=== PATIENT | male | born 1950 | race Caucasian/White ===

== ENCOUNTER → 2017-11-06 | Outpatient (CLI) | payer MEDICARE, BC ==
--- NOTE | 2017-11-06 17:04 | PN ---
PROGRESS NOTE DATE OF SERVICE: 11/06/2017 67-year-old gentleman has been followed in the [facility] for treatment of obstructive sleep apnea-hypopnea syndrome. Patient continued to use CPAP equipment every night without significant problems. He lives by himself so no information about snoring. No sleepiness during the day. [place] Sleepiness Scale is 5. I checked his CPAP unit. CPAP pressure is 13 cm of water. Usage is out of 30 nights for more than 4 hours, which average usage is 7.2 hours. CPAP pressure is 13 cm of water. Leak is only 2 L/minute. Apnea-hypopnea index for the last month is 1.4, which is perfect. The patient is using Teena view fullface mask. MEDICATIONS: Neurontin, Diovan, hydrochlorothiazide, Crestor, omeprazole, Flonase, aspirin, Motrin. PHYSICAL EXAM: GENERAL Patient in no distress. VITAL SIGNS BP 165/76, HR 68, RR 16, height 5 feet 8 inches, weight 265, BMI 40.2, temperature 98.2, O2 saturation at room air 95%. Patient lost 13 pounds since last visit. HELAMAR PERRLA, EOMI, evaluation of oropharynx showed extremely low position of soft palate. NECK Supple, no JVD. Thyroid is not palpable. LUNGS Clear to percussion and to auscultation. Good air exchange. No wheezing or rhonchi. HEART S1, S2 regular. No murmurs, gallops, or rubs. ABDOMEN Soft and nontender. Bowel sounds are present. No organomegaly appreciated. EXTREMITIES Swelling of the ankles and patient is using support for both legs for Charcot disease. CAUSTIC STRENGTH INSPECTOR Awake, alert, and oriented X3. Cranial nerves 2 to 7 intact. There is no fasciculation or atrophy. noted. No focal deficits observed. IMPRESSION: 1. Obstructive sleep apnea-hypopnea syndrome. The patient demonstrated 100% compliance with treatment, normal breathing with CPAP, benefitting from treatment. No leak from the mask. 2. Obesity, patient lost about 13 pounds since previous visit. 3. Hypertension. 4. Hyperlipidemia. 5. Benign prostatic hypertrophy. 6. Peripheral neuropathy. 7. Charcot feet. 8. Status post nasal fracture. 9. Sick sinus problems. PLAN: 1. Continue treatment with CPAP every night. 2. Continue to lose weight. 3. Sleep hygiene with regular time in bed for at least 8 hours. 4. No driving if feeling sleepiness. 5. Prescription for all necessary CPAP supplies including mask Teena View, tube filters. 6. Followup visit in 1 year. Thank you very much for allowing me to participate in management of your patient. Sincerely, Antonio Kaufman MD, PhD, FAASM Diplomat of [place] [employer] [place] [employer] Coin Box Inspector of [facility] [place] MMODL / VYN: [id number] /
== END | disposition home or self-care (01) ==
LOC: SLEEP 15:24
PROVIDERS: ATTEND Internal Medicine
DX: G47.33 Obstructive sleep apnea (adult) (pediatric) (principal); E66.9 Obesity, unspecified; I10 Essential (primary) hypertension; M14.671 Charcot's joint, right ankle and foot; M14.672 Charcot's joint, left ankle and foot; G62.9 Polyneuropathy, unspecified; N40.0 Benign prostatic hyperplasia without lower urinary tract symptoms; E78.5 Hyperlipidemia, unspecified; J34.89 Other specified disorders of nose and nasal sinuses; Z79.1 Long term (current) use of non-steroidal anti-inflammatories (NSAID); Z99.89 Dependence on other enabling machines and devices; Z79.82 Long term (current) use of aspirin; Z79.899 Other long term (current) drug therapy; Z68.41 Body mass index [BMI] 40.0-44.9, adult

== ENCOUNTER → 2018-05-06 | Outpatient (CLI) | payer MEDICARE, BC ==
[2018-05-06 15:55] LABS: HCT 39.9 % (39.0-53.0); HGB 13.8 gm/dL (13.0-17.5); MCH 28.3 pg (25.0-35.0); MCHC 34.7 g/dL (31.0-37.0); MCV 81.6 fL (80.0-100.0); Mean Platelet Volume 7.1; Platelet Count 258 k/uL (150-450); RBC 4.89 m/uL (4.30-5.90); RDW 14.6 % (11.5-15.5); WBC 6.7 k/uL (3.8-10.6)
[2018-05-06 15:59] LABS: ALT 48 U/L (21-72); AST 40 U/L (17-59); Albumin 4.5 g/dL (3.5-5.0); Alkaline Phosphatase 66 U/L (38-126); Anion Gap 13 mmol/L; Blood Urea Nitrogen 18 mg/dL (9-20); Calcium 9.3 mg/dL (8.4-10.2); Carbon Dioxide 24 mmol/L (22-30); Chloride 102 mmol/L (98-107); Glucose 107 mg/dL (74-99); Potassium 4.1 mmol/L (3.5-5.1); Sodium 139 mmol/L (137-145); Total Bilirubin 0.3 mg/dL (0.2-1.3); Total Protein 7.5 g/dL (6.3-8.2)
== END | disposition home or self-care (01) ==
LOC: LABWHC1 15:34
PROVIDERS: ATTEND Thoracic Surgery (Cardiothoracic Vascular Surgery)
DX: E63.8 Other specified nutritional deficiencies (principal)
CPT/HCPCS: 36415; 80053; 84134; 85027

== ENCOUNTER 2018-12-06 13:17 | Emergency (ER) | payer MEDICARE, BC ==
[2018-12-06 13:30] VITALS: RESP 18
[2018-12-06] MEDS ORDERED: SODIUM CHLORIDE 0.9% 1,000 ML IV STA (14:31)
[2018-12-06] MEDS ORDERED: PIPERACILLIN-TAZOBACTAM 3.375 GM in SODIUM CHLORIDE 0.9% 100 ML IVPB SCH (14:45)
--- NOTE | 2018-12-06 15:16 | ED ---
General Adult HPI - General Chief complaint: Skin/Abscess/Foreign Body Stated complaint: Wound infection Time Seen by Provider: 12/06/18 13:59 Source: patient, RN notes reviewed, old records reviewed Mode of arrival: ambulatory Limitations: physical limitation - History of Present Illness Initial comments: 68-year-old male patient with long history of chronic right foot ulceration wounds, osteomyelitis presents to ED with erythema surrounding wound. Patient has reportedly been treating a foot ulcer off and on since approximately February 2018. Pt has reportedly been following up with Dr. Berumen and the wound clinic for this problem. Patient was last seen on November 25 at the wound clinic when cultures were taken. Patient has not been on antibiotics since that visit. Patient has been dressing his wound at home. Patient reports that the last 3 days he has experienced some erythema surrounding the wound, patient also reports some fevers and chills last night. Patient denies any new drainage from wound. Patient denies any nausea vomiting or diarrhea, or any other complaints. Systemic: Pt denies fatigue, myalgia, fever/chills, rash. Pt denies weakness, night sweats, weight loss. Neuro: Pt denies headache, visual disturbances, syncope or pre-syncope. HEENT: Pt denies ocular discharge or irritation, otalgia, rhinorrhea, pharyngitis or notable lymphadenopathy. Cardiopulmonary: Pt denies chest pain, SOB, heart palpitations, dyspnea on exertion. Abdominal/GI: Pt denies abdominal pain, n/v/d. : Pt denies dysuria, burning w/ urination, frequency/urgency. Denies new onset urinary or bowel incontinence. MSK: Pt denies myalgia, loss of strength or function in extremities. Neuro: Pt denies new onset weakness, paresthesias. - Related Data Home Medications Medication Instructions Recorded Confirmed Felodipine [Felodipine ER] 5 mg PO HS 11/15/15 12/06/18 Fluticasone Nasal [place] [Flonase 2 sprays NASAL BID 11/15/15 12/06/18 Nasal [place]] Multivitamin [Men's Multi-Vitamin] 1 cap PO DAILY 11/15/15 12/06/18 [place]-3 Fatty Acids [[place]-3] 1 cap PO DAILY 11/15/15 12/06/18 Omeprazole [PriLOSEC] 20 mg PO HS 11/15/15 12/06/18 Rosuvastatin Calcium [Crestor] 10 mg PO DAILY 11/15/15 12/06/18 Valsartan/Hydrochlorothiazide 1 tab PO BID 11/15/15 12/06/18 [Diovan Hct 160-12.5 mg Tab] Gabapentin [Neurontin] 100 mg PO QAM 05/27/16 12/06/18 Gabapentin [Neurontin] 200 mg PO HS 05/27/16 12/06/18 Cholecalciferol [Vitamin D3] 5,000 unit PO DAILY 08/20/16 12/06/18 Glucosam/Mark-Msm1/C/Bao/Bosw 3 tab PO DAILY 08/20/16 12/06/18 [Glucosamine-Chondroitin Tablet] Aspirin [Adult Low Dose Aspirin EC] 81 mg PO DAILY 04/28/17 12/06/18 Alfuzosin HCl [Uroxatral ER] 10 mg PO W/SUPPER 12/06/18 12/06/18 Diclofenac Sodium [Voltaren] 75 mg PO BID 12/06/18 12/06/18 Previous Rx's Medication Instructions Recorded Amoxicillin/Potassium Clav 1 each PO Q12HR #20 tab 12/06/18 [Augmentin 875-125 Tablet] Allergies Allergy/AdvReac Type Severity Reaction Status Date / Time dust, polllen, mold Allergy Cough Uncoded 12/06/18 13:30 Review of Systems ROS Statement: Those systems with pertinent positive or pertinent negative responses have been documented in the HPI. ROS Other: All systems not noted in ROS Statement are negative. Past Medical History Past Medical History: GERD/Reflux, Hyperlipidemia, Hypertension, Osteoarthritis (OA), Prostate Disorder, Sleep Apnea/CPAP/BIPAP Additional Past Medical History / Comment(s): neuropathy; rt.foot wound History of Any Multi-Drug Resistant Organisms: None Reported Past Surgical History: Joint Replacement, Orthopedic Surgery, Prostate Surgery Additional Past Surgical History / Comment(s): reconstruction of left foot 10 yrs ago. Rt shoulder screw placed. Rt total knee. Rt foot - plate and screws - Dr. Vera at [facility] 2012. LEFT FOOT AND RT FOOT surgeries inFEB AND FEBRUARY 2016. BY DR ESQUIVEL Past Anesthesia/Blood Transfusion Reactions: No Reported Reaction Past Psychological History: No Psychological Hx Reported Smoking Status: Former smoker Past Alcohol Use History: None Reported Past Drug Use History: None Reported - Past Family History Father Family Medical History: AICD/Pacemaker, Osteoarthritis (OA), Thyroid Disorder Mother Family Medical History: Cancer, Hypertension Additional Family Medical History / Comment(s): colon and ovarian General Exam - General Exam Comments Initial Comments: Constitutional: NAD, AOX3, Pt has pleasant affect. HEENT: NC/AT, trachea midline, neck supple, no lymphadenopathy. Posterior pharynx non erythematous, without exudates. External ears appear normal, without discharge. Mucous membranes moist. Eyes PERRLA, EOM intact. There is no scleral icterus. No pallor noted. Cardiopulmonary: RRR, no murmurs, rubs or gallops, no JVD noted. Lungs CTAB in anterior and posterior escalona. No peripheral edema. Abdominal exam: Abdomen soft and non-distended. Abdomen non-tender to palpation in all 4 quadrants. Bowel sounds active in LLQ. No hepatosplenomegaly. No ecchymosis Neuro: CN II-XII grossly intact. No nuchal rigidity. MSK: Approximately 2x2 cm ulceration noted at dorsal aspect of R foot. Mild amount of surrounding erythema. No purulent discharge noted. No posterior calf tenderness bilaterally, homans sign negative bilaterally. Posterior tibialis and radial pulse +2 bilaterally. Sensation intact in upper and lower extremities. Full active ROM in upper and lower extremities, 5/5 stregnth. Limitations: physical limitation Course Vital Signs 12/06/18 12/06/18 13:26 16:12 Temperature 98.9 F 97.6 F Pulse Rate 91 79 Respiratory 18 18 Rate Blood Pressure 185/77 167/79 O2 Sat by Pulse 97 98 Oximetry Medical Decision Making - Medical Decision Making 68-year-old male patient with long history of chronic right foot ulceration wounds, osteomyelitis presents to ED with erythema surrounding wound. Patient has reportedly been treating a foot ulcer off and on since approximately February 2018. Pt has reportedly been following up with Dr. Berumen and the wound clinic for this problem. Patient was last seen on November 25 at the wound clinic when cultures were taken. Patient has not been on antibiotics since that visit. Patient has been dressing his wound at home. Patient reports that the last 3 days he has experienced some erythema surrounding the wound, patient also reports some fevers and chills last night. Patient denies any new drainage from wound. Patient denies any nausea vomiting or diarrhea, or any other complaints. Pt VSS, afebrile. Physical exam displayed: Approximately 2x2 cm ulceration noted at dorsal aspect of R foot. Mild amount of surrounding erythema. No purulent discharge noted. Laboratory investigations revealed non- impressive CBC, CMP. Plain film of foot did not display any evidence of osteomyelitis. Displayed previously known foot fracture. Plain film of ankle displayed previoulsy known degenerative changes and fibular fracture. Cultures taken of wound previously displayed sensitivity to penicillins. New cultures obtained today. Shared decision making took place. Pt to be discharged with PO augmentin. Pt to follow up with wound clinic and Dr. Berumen tomorrow. Pt to have strict return precautions, verbalized understanding. Pt will return to ED if condition worsens in anyway. PT to additionally follow up with PCP in 1-2 days. Case discussed in depth with Dr. Baum. - Lab Data Result diagrams: 12/06/18 15:10 12/06/18 15:10 Lab Results 12/06/18 12/06/18 Range/Units 15:10 15:10 WBC 10.4 (3.8-10.6) k/uL RBC 4.87 (4.30-5.90) m/uL Hgb 12.7 L (13.0-17.5) gm/dL Hct 39.3 (39.0-53.0) % MCV 80.8 (80.0-100.0) fL MCH 26.0 (25.0-35.0) pg MCHC 32.2 (31.0-37.0) g/dL RDW 14.4 (11.5-15.5) % Plt Count 228 (150-450) k/uL Neutrophils % 79 % Lymphocytes % 11 % Monocytes % 7 % Eosinophils % 1 % Basophils % 0 % Neutrophils # 8.2 H (1.3-7.7) k/uL Lymphocytes # 1.2 (1.0-4.8) k/uL Monocytes # 0.7 (0-1.0) k/uL Eosinophils # 0.1 (0-0.7) k/uL Basophils # 0.0 (0-0.2) k/uL Sodium 140 (137-145) mmol/L Potassium 3.9 (3.5-5.1) mmol/L Chloride 102 (98-107) mmol/L Carbon Dioxide 27 (22-30) mmol/L Anion Gap 11 mmol/L BUN 18 (9-20) mg/dL Creatinine 0.80 (0.66-1.25) mg/dL Est GFR (CKD-EPI)AfAm >90 (>60 ml/min/1.73 sqM) Est GFR (CKD-EPI)NonAf >90 (>60 ml/min/1.73 sqM) Glucose 92 (74-99) mg/dL Calcium 9.6 (8.4-10.2) mg/dL Total Bilirubin 0.6 (0.2-1.3) mg/dL AST 33 (17-59) U/L ALT 37 (21-72) U/L Alkaline Phosphatase 83 (38-126) U/L Total Protein 7.8 (6.3-8.2) g/dL Albumin 4.4 (3.5-5.0) g/dL Disposition Clinical Impression: Foot ulcer Disposition: HOME SELF-CARE Condition: Stable Instructions (If sedation given, give patient instructions): Chronic Wound Care (ED), Chronic Wounds (ED) Additional Instructions: Patient to adhere to previously discussed treatment plan and will take medication(s) as directed. Patient to follow up with PCP in 1-2 days. Patient to return to ED if symptoms do not improve. Please call wound clinic tomorrow Please follow call Dr. Figueredo tomorrow Please return to ED if new ssigns or symptom develop or if condition worsens in anyway Prescriptions: Amoxicillin/Potassium Clav [Augmentin 875-125 Tablet] 1 each PO Q12HR #20 tab Is patient prescribed a controlled substance at d/c from ED?: No Referrals: Juani Nation MD [Primary Care Provider] - 1-2 days Cole Figueredo DO [Doctor of Osteopathic Medicine] - 1-2 days Time of Disposition: 16:36
[2018-12-06 15:26] LABS: Basophils % (A) 0 %; Eosinophils # (A) 0.1 k/uL (0-0.7); Eosinophils % (A) 1 %; HCT 39.3 % (39.0-53.0); HGB 12.7 gm/dL (13.0-17.5); Lymphocytes # (A) 1.2 k/uL (1.0-4.8); Lymphocytes % (A) 11 %; MCHC 32.2 g/dL (31.0-37.0); MCV 80.8 fL (80.0-100.0); Mean Platelet Volume 7.5; Monocytes # (A) 0.7 k/uL (0-1.0); Monocytes % (A) 7 %; Neutrophils # (A) 8.2 k/uL (1.3-7.7); Neutrophils % (A) 79 %; Platelet Count 228 k/uL (150-450); RBC 4.87 m/uL (4.30-5.90); RDW 14.4 % (11.5-15.5); WBC 10.4 k/uL (3.8-10.6)
[2018-12-06 15:37] LABS: ALT 37 U/L (21-72); AST 33 U/L (17-59); Albumin 4.4 g/dL (3.5-5.0); Alkaline Phosphatase 83 U/L (38-126); Anion Gap 11 mmol/L; Blood Urea Nitrogen 18 mg/dL (9-20); Calcium 9.6 mg/dL (8.4-10.2); Carbon Dioxide 27 mmol/L (22-30); Chloride 102 mmol/L (98-107); Glucose 92 mg/dL (74-99); Potassium 3.9 mmol/L (3.5-5.1); Sodium 140 mmol/L (137-145); Total Bilirubin 0.6 mg/dL (0.2-1.3); Total Protein 7.8 g/dL (6.3-8.2)
--- NOTE | 2018-12-06 15:39 | XR ---
EXAMINATION TYPE: XR ankle complete RT DATE OF EXAM: 12/06/2018 COMPARISON: None HISTORY: Nonhealing wound superior aspect right foot history right fibular fracture TECHNIQUE: 3 views right ankle FINDINGS: Arthrodesis through the ankle is evident. 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 There is loss of plantar arch. Boehler's angle is flattened. IMPRESSION: 1. Severe degenerative change at the level of the ankle with loss of the joint space. 2. Nonunion of a distal fibular fracture.
--- NOTE | 2018-12-06 15:43 | XR ---
EXAMINATION TYPE: XR foot complete RT DATE OF EXAM: 12/06/2018 COMPARISON: 11/15/2015 HISTORY: history of a nonhealing wound TECHNIQUE: Three-view right foot FINDINGS: Plate and screws are across the tarsal regions of the first metatarsal region. Prior screws have been removed. There is flattening of the plantar arch. Fusion through the tarsal region. Acute fractures are not identified. Suspicious cortical erosion is not identified. IMPRESSION: 1. No specific radiographic evidence suspicious for osteomyelitis. 2. Nonunion of a distal fibular fracture.
[2018-12-06] MEDS ORDERED: PIPERACILLIN-TAZOBACTAM 3.375 GM in SODIUM CHLORIDE 0.9% 100 ML IVPB STA (15:48)
[2018-12-06 16:13] VITALS: BP 167/79; PULSE 79; TEMP 97.6
[2018-12-06] MEDS ORDERED: AMOXIC-POT CLAV 875-125MG 1 EACH TAB PO STA (16:27)
[2018-12-06] MEDS ORDERED: AMOXIC-POT CLAV 875MG STARTER 2 EACH TABLET PO STA (16:33)
== END 2018-12-06 16:50 | disposition home or self-care (01) ==
LOC: EC 13:17
DX: L97.519 Non-pressure chronic ulcer of other part of right foot with unspecified severity (principal); M19.071 Primary osteoarthritis, right ankle and foot; K21.9 Gastro-esophageal reflux disease without esophagitis; I10 Essential (primary) hypertension; G47.30 Sleep apnea, unspecified; G62.9 Polyneuropathy, unspecified; Z79.51 Long term (current) use of inhaled steroids; Z79.82 Long term (current) use of aspirin; Z79.899 Other long term (current) drug therapy; Z91.018 Allergy to other foods; Z91.09 Other allergy status, other than to drugs and biological substances; Z87.891 Personal history of nicotine dependence
CPT/HCPCS: 36415; 80053; 85025; 87040; 87070; 87205; 73610; 73630; 99284; 96374; 96361 ×2; J2543

== ENCOUNTER → 2019-03-17 | Outpatient (CLI) | payer MEDICARE, BC ==
--- NOTE | 2019-03-17 14:33 | SFUN ---
SLEEP CENTER FOLLOW UP NOTE DATE OF SERVICE: 03/17/2019 A 68-year-old gentleman who has been followed in the Sleep Center for treatment of obstructive sleep apnea-hypopnea syndrome. Patient continued to use his CPAP equipment every night with oral appliances to prevent grinding teeth. [place] Sleepiness Scale today is 10. I checked his CPAP unit. CPAP pressure is 13 cm of water. Usage is 100% of the night, 30/30 more than 4 hours. Average usage is 7.4 hours. CPAP pressure is 13 cm of water. Leak is only 7 L/minutes which is perfect. Apnea-hypopnea index only 1.2, which is absolutely normal with the last night on the 0.5. MEDICATIONS: Diovan, amlodipine, Neurontin, felodipine, Crestor, Diclofenac, omeprazole, , baby aspirin, Clindamycin. PHYSICAL EXAM: Patient in no distress. BP 154/66, HR 52, RR 18, height 5 foot 8 inches, weight 266 pounds. Body mass index 40.2, temperature 97.5, oxygen saturation at room air 97%. OROPHARYNX: Extremely low soft palate, Mallampati 4. ABDOMEN: Obese. Neck Supple, no JVD. Thyroid is not palpable. LUNGS Clear to percussion and to auscultation. Good air exchange. No wheezing or rhonchi. HEART S1, S2 regular. No murmurs, gallops, or rubs. EXTREMITIES No clubbing or cyanosis. CYBER ENGINEER Awake, alert, and oriented X3. Cranial nerves 2 to 7 intact. There is no fasciculation or atrophy. noted. No focal deficits observed. IMPRESSION: 1. Obstructive sleep apnea-hypopnea syndrome, 100% compliance with treatment, benefitting from treatment, normal respiration on treatment with CPAP. 2. Obesity. 3. Hypertension. 4. Hyperlipidemia. 5. History of benign prostatic hypertrophy. 6. History of peripheral neuropathy. 7. History of Charcot feet. 8. Status post nasal fracture. 9. Allergies, sinus problems. PLAN: 1. We will maintain all necessary prescriptions for all CPAP supplies including mask, tube, filters. 2. Losing weight. 3. Sleep hygiene with regular time in bed for at least 8 hours. 4. No driving if feeling sleepiness. Thank you very much for allowing me to participate in the management of your patient. Sincerely, Antonio Kaufman MD, PhD, FAASM Diplomat of [place] [employer] [place] [employer] Tree Worker of [facility] [place] MMPOLYL / VYN: [id number] /
== END ==
LOC: SLEEP 13:08
PROVIDERS: ATTEND Internal Medicine
DX: G47.33 Obstructive sleep apnea (adult) (pediatric) (principal); E66.9 Obesity, unspecified; I10 Essential (primary) hypertension; E78.5 Hyperlipidemia, unspecified; N40.0 Benign prostatic hyperplasia without lower urinary tract symptoms; G62.9 Polyneuropathy, unspecified; M14.671 Charcot's joint, right ankle and foot; Z98.890 Other specified postprocedural states; Z88.8 Allergy status to other drugs, medicaments and biological substances; Z99.89 Dependence on other enabling machines and devices; Z79.899 Other long term (current) drug therapy; Z79.82 Long term (current) use of aspirin; Z79.2 Long term (current) use of antibiotics

== ENCOUNTER → 2020-08-24 | Outpatient (CLI) | payer MEDICARE, BC ==
--- NOTE | 2020-08-24 18:37 | SFUN ---
SLEEP CENTER FOLLOW UP NOTE DATE OF SERVICE: 08/24/2020 This patient is a 70-year-old gentleman who has been followed in Sleep Center for treatment of obstructive sleep apnea-hypopnea syndrome. Patient continues to use his CPAP equipment every night for the whole night. No problems with the machine. He sometimes wakes up from sleep with nocturia. I checked his CPAP unit. CPAP pressure is 13 cm of water. Usage is 100% of nights for more than 4 hours, average 7.4 hours per night. No significant leak; 5 L/minute. Apnea- hypopnea index is only 1.4, which is perfect. MEDICATIONS: 1. Diovan 160 mg twice a day. 2. Felodipine 5 mg twice a day. 3. Hydralazine 50 mg twice a day. 4. Diclofenac 75 mg twice a day. 5. Gabapentin 100 mg in the morning and 300 mg in the evening. 6. Crestor 10 mg once a day. 7. Omeprazole 20 mg once a day. 8. 20 mg once a day. 9. Aspirin 81 mg once a day. PHYSICAL EXAMINATION: GENERAL: A pleasant gentleman without distress. VITAL SIGNS: BP 159/70, HR 53, RR 15, height 5 feet 6-1/2 inches, weight 264.6, temperature 98.2, oxygen saturation at room air 96%. HEENT: PERRLA, EOMI. Evaluation of oropharynx showed tongue protrudes midline. Extremely low position of soft palate. Mallampati IV. NECK: Supple. No JVD. Thyroid is not palpable. LUNGS: Clear to percussion and to auscultation. Good air exchange. No wheezing or rhonchi. HEART: S1, S2 regular. No murmurs, gallops or rubs. ABDOMEN: Obese. EXTREMITIES: No clubbing or cyanosis. CUSTOMER MANAGEMENT SPECIALIST: Awake, alert, and oriented X3. Cranial nerves 2 to 7 intact. There is no fasciculation or atrophy. noted. No focal deficits observed. IMPRESSION: 1. Obstructive sleep apnea-hypopnea syndrome. Patient demonstrated great compliance with treatment, benefitting from treatment. 2. Hypertension. 3. Obesity. 4. Hyperlipidemia. 5. History of benign prostatic hypertrophy. 6. History of peripheral neuropathy. 7. History of Charcot feet. 8. Status post nasal fracture. 9. History of allergies, sinus problems. PLAN: 1. Patient will continue to use PAP equipment every night for the whole night. 2. Sleep hygiene with regular time in bed for at least 7-1/2 to 8 hours. 3. Precautions related to driving. No driving if feeling sleepiness. 4. I will maintain all necessary prescription for PAP supplies including mask, tube, filters. 5. Watching weight. 6. No driving if feeling sleepiness. 7. Follow-up visit in 6 months or earlier if patient has any problems. Thank you very much for allowing me to participate in the management of your patient. Sincerely, Antonio Kaufman MD, PhD, FAASM Diplomat of [place] [employer] [employer] Sheet Metal Apprentice of [facility] [place] MMODL / IJN: [id number] /
== END | disposition home or self-care (01) ==
LOC: SLEEP 15:02
PROVIDERS: ATTEND Internal Medicine
DX: G47.33 Obstructive sleep apnea (adult) (pediatric) (principal); I10 Essential (primary) hypertension; E66.9 Obesity, unspecified; E78.5 Hyperlipidemia, unspecified; Z87.39 Personal history of other diseases of the musculoskeletal system and connective tissue; Z79.899 Other long term (current) drug therapy; Z79.82 Long term (current) use of aspirin; Z79.891 Long term (current) use of opiate analgesic; Z87.81 Personal history of (healed) traumatic fracture; Z87.09 Personal history of other diseases of the respiratory system

== ENCOUNTER → 2021-02-22 | Outpatient (CLI) | payer MEDICARE, BC ==
--- NOTE | 2021-02-22 16:30 | SFUN ---
SLEEP CENTER FOLLOW UP NOTE DATE OF SERVICE: 02/22/2021 This 70-year-old gentleman has been followed in Sleep Center for treatment of obstructive sleep apnea-hypopnea syndrome. The patient continues to use his CPAP equipment every night. Sometimes he has a leak from his full-face mask, and that may wake him up. He is using an Teena View full-face mask [id number], medium size. Otherwise he definitely sleeps better with the machine than without the machine. Again, he uses it every night. He is getting his supplies on time. I checked his CPAP unit. Pressure is 13 cm of water. Usage is 30/30 nights for more than 4 hours. Average usage is 7.7 hours per night. Leak is 7 L/minute, which is in normal range. Apnea-hypopnea index is 1.2, which is normal. [place] Sleepiness Scale today is 7. MEDICATIONS: 1. Diovan 160 mg twice a day. 2. Felodipine 5 mg twice a day. 3. Hydralazine 50 mg twice a day. 4. Diclofenac 75 mg twice a day. 5. Gabapentin 100 mg once a day and 300 mg in the evening. 6. Crestor 10 mg in the evening once a day. 7. Omeprazole 20 mg once a day. 8. Alfuzosin mg once a day. 9. Aspirin 81 mg once a day. PHYSICAL EXAMINATION: GENERAL: A pleasant patient in no distress. VITAL SIGNS: BP 155/65, HR 60, RR 15, height 5 feet 6 inches, weight 258.6 pounds. Patient lost 8 pounds since previous visit. Body mass index 41.8. Temperature 97.1. Oxygen saturation at room air 92%. HEENT: PERRLA, EOMI. Evaluation of oropharynx showed tongue protrudes midline. Extremely low position of soft palate. Mallampati IV. NECK: Supple. No JVD. Thyroid is not palpable. LUNGS: Clear to percussion and to auscultation. Good air exchange. No wheezing or rhonchi. HEART: S1, S2 regular. No murmurs, gallops or rubs. ABDOMEN: Obese. EXTREMITIES: No clubbing or cyanosis. FARM OPERATIONS MANAGER: Awake, alert, and oriented X3. Cranial nerves 2 to 7 intact. There is no fasciculation or atrophy. noted. No focal deficits observed. IMPRESSION: 1. Obstructive sleep apnea-hypopnea syndrome. The patient demonstrated 100% compliance with treatment, benefitting from treatment. 2. Obesity. 3. Hypertension. 4. Hyperlipidemia. 5. Benign prostatic hypertrophy. 6. Peripheral neuropathy. 7. Charcot feet. 8. Status post nasal fracture. 9. History of sick sinus problems. PLAN: 1. I changed the regimen in his CPAP unit to automatic, range of pressure 8 to 13. I believe that will make the patient more comfortable. 2. Patient will continue to use PAP equipment every night for the whole night. 3. Sleep hygiene with regular time in bed for at least 7-1/2 to 8 hours. 4. Precautions related to driving. No driving if feeling sleepiness. 5. I will maintain all necessary prescription for PAP supplies including mask, tube, filters. 6. Watching weight. 7. Follow-up visit in 6 months or earlier if patient has any problems. Thank you very much for allowing me to participate in the management of your patient. Sincerely, Antonio Kaufman MD, PhD, FAASM Diplomat of [place] [employer] [employer] Hand Mold Maker of [facility] [place] MMODL / VYN: [id number] /
== END ==
LOC: SLEEP 13:50
PROVIDERS: ATTEND Internal Medicine
DX: G47.33 Obstructive sleep apnea (adult) (pediatric) (principal); E66.9 Obesity, unspecified; I10 Essential (primary) hypertension; E78.5 Hyperlipidemia, unspecified; A52.16 Charcot's arthropathy (tabetic); N40.0 Benign prostatic hyperplasia without lower urinary tract symptoms; G62.9 Polyneuropathy, unspecified; Z68.41 Body mass index [BMI] 40.0-44.9, adult; Z87.81 Personal history of (healed) traumatic fracture; Z87.09 Personal history of other diseases of the respiratory system; Z79.899 Other long term (current) drug therapy; Z87.891 Personal history of nicotine dependence

== ENCOUNTER → 2021-08-30 | Outpatient (CLI) | payer MEDICARE, BC ==
--- NOTE | 2021-08-30 15:15 | SFUN ---
SLEEP CENTER FOLLOW UP NOTE DATE OF SERVICE: 08/30/2021 71-year-old gentleman has been followed in Sleep Center for treatment of obstructive sleep apnea-hypopnea syndrome. Recently, the patient also developed some problems with falling asleep, staying in bed and thinking about life. [place] Sleepiness Scale today is 7 which is in normal range. I checked his CPAP unit. Range of the pressure 8-13, average pressure 12.3. Usage is 30/30 nights for 7.8 hours, which is great compliance. Leak is only 5 L/minute normal. Apnea-hypopnea index is 2.0, normal. MEDICATIONS: Diovan 160 mg twice a day, felodipine 5 mg twice a day. Hydralazine 50 mg twice a day, Diclofenac 75 mg twice a day. Gabapentin 100 mg in the morning and 300 mg in the evening, omeprazole 20 mg once a day, Crestor 10 mg once a day, 10 mg once a day, aspirin 81 mg once a day. PHYSICAL EXAMINATION: GENERAL: Patient in no distress. BP 147/67, HR 64, RR 15, height 5 feet and 7 inches, weight 255 pounds, body mass index 39.9. The patient increased his weight on 3 pounds compared with the previous visit. Temperature 97.4, oxygen saturation at room air 95%. Oropharynx: Extremely low position of soft palate, Mallampati 4. NECK: Supple, no JVD. Thyroid is not palpable. LUNGS: Clear to percussion and to auscultation. Good air exchange. No wheezing or rhonchi. HEART: S1, S2 regular. No murmurs, gallops, or rubs. ABDOMEN: Slightly obese. Soft and nontender. Bowel sounds are present. No organomegaly appreciated. EXTREMITIES: No clubbing or cyanosis. DIRECTOR NURSES' REGISTRY: Awake, alert, and oriented X3. Cranial nerves 2 to 7 intact. There is no fasciculation or atrophy. noted. No focal deficits observed. IMPRESSION: 1. Obstructive sleep apnea-hypopnea syndrome, patient demonstrated 100% compliance with treatment, benefitting from treatment. 2. Difficulties to initiate sleep, psychophysiological insomnia. 3. Obesity. 4. Hypertension. 5. Hyperlipidemia. 6. Benign prostatic hypertrophy. 7. Peripheral neuropathy. 8. Charcot feet. 9. Status post nasal fracture. 10.History of sick sinus. PLAN: 1. I discussed with the patient psychological techniques for treatment of insomnia including worry time, stimulus control, paradoxical intention. 2. I discussed with the patient possibility to start any sleeping pills at bedtime but we agreed that it is not necessary at the present time. 3. Patient will continue to use PAP equipment every night for the whole night. 4. Sleep hygiene with regular time in bed for at least 7-1/2 to 8 hours. 5. Precautions related to driving. No driving if feeling sleepiness. 6. I will maintain all necessary prescription for PAP supplies including mask, tube, filters. 7. Watching weight. 8. Follow-up visit in 6 months or earlier if patient has any problems. Antonio Kaufman MD, PhD, FAASM Diplomat of [employer] Sleep Medicine [employer] of [employer] [place] [employer] Dental Laboratory Worker of [facility] [place] MMWILLIAM / AMAYA: [id number] /
== END ==
LOC: SLEEP 13:39
PROVIDERS: ATTEND Internal Medicine
DX: G47.33 Obstructive sleep apnea (adult) (pediatric) (principal); F51.04 Psychophysiologic insomnia; E66.9 Obesity, unspecified; I10 Essential (primary) hypertension; E78.5 Hyperlipidemia, unspecified; N40.0 Benign prostatic hyperplasia without lower urinary tract symptoms; G62.9 Polyneuropathy, unspecified; A52.16 Charcot's arthropathy (tabetic); Z87.81 Personal history of (healed) traumatic fracture; Z86.79 Personal history of other diseases of the circulatory system; Z79.899 Other long term (current) drug therapy; Z68.39 Body mass index [BMI] 39.0-39.9, adult; Z91.09 Other allergy status, other than to drugs and biological substances; Z87.891 Personal history of nicotine dependence

== ENCOUNTER 2021-09-13 11:21 | Inpatient (IN) | payer BC, MEDICARE ==
[2021-09-13] MEDS ORDERED: ONDANSETRON ODT 4 MG TAB PO STA (12:57)
[2021-09-13] MEDS ORDERED: PANTOPRAZOLE 40 MG/10 ML VIAL IVP STA (15:16)
[2021-09-13] MEDS ORDERED: ONDANSETRON 4 MG/2 ML VIAL IVP STA (15:16)
[2021-09-13] MEDS ORDERED: SODIUM CHLORIDE 0.9% 500 ML 500 ML IV STA (15:16)
--- NOTE | 2021-09-13 15:24 | ED ---
General Adult HPI - General Chief complaint: Abdominal Pain Stated complaint: Abdominal Pain/Vomiting Time Seen by Provider: 09/13/21 15:12 Source: patient, RN notes reviewed, old records reviewed Mode of arrival: ambulatory Limitations: no limitations - History of Present Illness Initial comments: 71-year-old male, alert and oriented 4, presents to the emergency room with nausea and vomiting that started last night around 11:00. Patient states that his last bowel movement was 4 AM he did not look at it. His emesis has been dark in color. He has not had his daily medications in more than 30 hours because of the nausea and vomiting. He also states he has had a runny nose but denies any chest pain or shortness of breath. He does state that he had an umbilical hernia repair surgery June 25 of [address] Ramirez out of [facility]. He has a history of GERD and takes omeprazole. He also has hypertension and osteoarthritis. He states that he takes an aspirin a day. He denies any cardiac or pulmonary history. He states that he is using a scooter for a foot ulcer on his left foot that is not healing. -: hour(s) (14) Location: abdomen (Strict) Radiation: abdomen (lower abdomen) Severity scale (1-10): 8 Quality: other (cramping) Consistency: constant Improves with: none Worsens with: other (vomiting) Associated Symptoms: nausea/vomiting, other (runny nose, belching) Treatments Prior to Arrival: none - Related Data Home Medications Medication Instructions Recorded Confirmed Felodipine [Felodipine ER] 5 mg PO BID 11/15/15 09/13/21 Omeprazole [PriLOSEC] 20 mg PO HS 11/15/15 09/13/21 Rosuvastatin Calcium [Crestor] 10 mg PO HS 11/15/15 09/13/21 Gabapentin [Neurontin] 300 mg PO HS 05/27/16 09/13/21 Aspirin [Adult Low Dose Aspirin EC] 81 mg PO DAILY 04/28/17 09/13/21 Alfuzosin HCl [Uroxatral ER] 10 mg PO W/SUPPER 12/06/18 09/13/21 Diclofenac Sodium [Voltaren] 75 mg PO BID 12/06/18 09/13/21 Gabapentin [Neurontin] 100 mg PO DAILY 09/13/21 09/13/21 Valsartan 160 mg PO BID 09/13/21 09/13/21 hydrALAZINE HCL [Apresoline] 50 mg PO BID 09/13/21 09/13/21 Allergies Allergy/AdvReac Type Severity Reaction Status Date / Time dust, polllen, mold Allergy Cough Uncoded 09/13/21 15:45 Review of Systems ROS Statement: Those systems with pertinent positive or pertinent negative responses have been documented in the HPI. ROS Other: All systems not noted in ROS Statement are negative. Past Medical History Past Medical History: GERD/Reflux, Hyperlipidemia, Hypertension, Osteoarthritis (OA), Prostate Disorder, Sleep Apnea/CPAP/BIPAP Additional Past Medical History / Comment(s): neuropathy; rt.foot wound History of Any Multi-Drug Resistant Organisms: None Reported Past Surgical History: Hernia Repair, Joint Replacement, Orthopedic Surgery, Prostate Surgery Additional Past Surgical History / Comment(s): reconstruction of left foot 10 yrs ago. Rt shoulder screw placed. Rt total knee. Rt foot - plate and screws- Dr. Vera at [place] 2012. LEFT FOOT AND RT FOOT surgeries inFEB AND FEBRUARY 2016. BY DR ESQUIVEL Past Anesthesia/Blood Transfusion Reactions: No Reported Reaction Past Psychological History: No Psychological Hx Reported Smoking Status: Never smoker Past Alcohol Use History: None Reported Past Drug Use History: None Reported - Past Family History Father Family Medical History: AICD/Pacemaker, Osteoarthritis (OA), Thyroid Disorder Mother Family Medical History: Cancer, Hypertension Additional Family Medical History / Comment(s): colon and ovarian General Exam Limitations: no limitations General appearance: alert, other (actively vomiting brown in color) Head exam: Present: atraumatic, normocephalic, normal inspection Eye exam: Present: normal appearance, PERRL, EOMI. Absent: scleral icterus, con junctival injection, periorbital swelling ENT exam: Present: normal exam Neck exam: Present: full ROM. Absent: tenderness, meningismus Respiratory exam: Present: normal lung sounds bilaterally. Absent: respiratory distress, wheezes, rales, rhonchi, stridor, chest wall tenderness, accessory muscle use, decreased breath sounds Cardiovascular Exam: Present: regular rate, normal rhythm GI/Abdominal exam: Present: soft, distended, tenderness (generalized), hernia (umbilical) Extremities exam: Present: full ROM, normal capillary refill. Absent: te nderness, pedal edema, joint swelling, calf tenderness Back exam: Present: normal inspection. Absent: tenderness, CVA tenderness (R), CVA tenderness (L), rash noted Neurological exam: Present: alert, oriented X3 Psychiatric exam: Present: normal affect, normal mood Skin exam: Present: warm, dry, intact, normal color, other (There is a healing blister to the left lateral foot with no purulent drainage or signs cellulitis.). Absent: rash, cyanosis, diaphoretic Course Vital Signs 09/13/21 09/13/21 12:39 16:28 Temperature 99.7 F H 98.6 F Pulse Rate 84 68 Respiratory 17 18 Rate Blood Pressure 170/78 183/83 O2 Sat by Pulse 96 98 Oximetry - Reevaluation(s) Reevaluation #1: 09/13/21 15:23 Dr. Beltran at bedside Time: 15:18 Reevaluation #2: 09/13/21 16:28 Second EKG shows normal sinus rhythm with a ventricular rate of 65, AR interval of 0.188, QRS 0.96, QTC 0.445 Third EKG shows ventricular rate of 66, AR interval of 0.182, QRS 0.92, QTC 0.446 EKG is reviewed by Dr. Beltran Time: 15:24 Reevaluation #3: 09/13/21 16:51 I did speak with Dr. Paredes, patient was started on Zosyn, NG tube was ordered. patient will be admitted with small bowel obstruction Time: 16:51 EKG Findings - EKG Results: EKG: sinus rhythm (EKG number one time at 1254 shows normal sinus rhythm with a ventricular rate of 68, AR interval 0.200, QRS 0.98, QTc 0.463) Medical Decision Making - Medical Decision Making Patient presents to the emergency room with complaints of abdominal pain and vomiting since yesterday. He states it came on suddenly around 11pm. His last bowel movement was 4 AM. He has belching and vomiting what appears to be feces. He does have an elevated WBC count of 16.9, his abdomen is distended with generalized tenderness. CT shows a complete small bowel obstruction. Case was discussed with Dr. Beltran. He was started on Zosyn. Dr. Paredes was notified patient will be admitted to the hospital for small bowel obstruction. Patient was offered the possible transfer to [facility] or to stay here and he opted to stay here. - Lab Data Result diagrams: 09/13/21 15:34 09/13/21 15:34 Lab Results 09/13/21 09/13/21 09/13/21 Range/Units 15:34 15:34 15:34 WBC 16.9 H (3.8-10.6) k/uL RBC 5.44 (4.30-5.90) m/uL Hgb 16.4 (13.0-17.5) gm/dL Hct 48.9 (39.0-53.0) % MCV 89.9 (80.0-100.0) fL MCH 30.2 (25.0-35.0) pg MCHC 33.6 (31.0-37.0) g/dL RDW 12.6 (11.5-15.5) % Plt Count 280 (150-450) k/uL MPV 8.0 Neutrophils % 92 % Lymphocytes % 4 % Monocytes % 4 % Eosinophils % 0 % Basophils % 0 % Neutrophils # 15.5 H (1.3-7.7) k/uL Lymphocytes # 0.6 L (1.0-4.8) k/uL Monocytes # 0.6 (0-1.0) k/uL Eosinophils # 0.1 (0-0.7) k/uL Basophils # 0.0 (0-0.2) k/uL PT 10.6 (9.0-12.0) sec INR 1.0 (<1.2) APTT 22.9 (22.0-30.0) sec Sodium 140 (137-145) mmol/L Potassium 4.3 (3.5-5.1) mmol/L Chloride 102 (98-107) mmol/L Carbon Dioxide 25 (22-30) mmol/L Anion Gap 13 mmol/L BUN 20 (9-20) mg/dL Creatinine 0.70 (0.66-1.25) mg/dL Est GFR (CKD-EPI)AfAm >90 (>60 ml/min/1.73 sqM) Est GFR (CKD-EPI)NonAf >90 (>60 ml/min/1.73 sqM) Glucose 139 H (74-99) mg/dL Plasma Lactic Acid Maximino (0.7-2.0) mmol/L Calcium 9.9 (8.4-10.2) mg/dL Total Bilirubin 0.5 (0.2-1.3) mg/dL AST 35 (17-59) U/L ALT 30 (4-49) U/L Alkaline Phosphatase 105 (38-126) U/L Troponin I (0.000-0.034) ng/mL Total Protein 8.7 H (6.3-8.2) g/dL Albumin 5.0 (3.5-5.0) g/dL Amylase 50 (30-110) U/L Lipase 83 (23-300) U/L 09/13/21 09/13/21 Range/Units 15:34 15:34 WBC (3.8-10.6) k/uL RBC (4.30-5.90) m/uL Hgb (13.0-17.5) gm/dL Hct (39.0-53.0) % MCV (80.0-100.0) fL MCH (25.0-35.0) pg MCHC (31.0-37.0) g/dL RDW (11.5-15.5) % Plt Count (150-450) k/uL MPV Neutrophils % % Lymphocytes % % Monocytes % % Eosinophils % % Basophils % % Neutrophils # (1.3-7.7) k/uL Lymphocytes # (1.0-4.8) k/uL Monocytes # (0-1.0) k/uL Eosinophils # (0-0.7) k/uL Basophils # (0-0.2) k/uL PT (9.0-12.0) sec INR (<1.2) APTT (22.0-30.0) sec Sodium (137-145) mmol/L Potassium (3.5-5.1) mmol/L Chloride (98-107) mmol/L Carbon Dioxide (22-30) mmol/L Anion Gap mmol/L BUN (9-20) mg/dL Creatinine (0.66-1.25) mg/dL Est GFR (CKD-EPI)AfAm (>60 ml/min/1.73 sqM) Est GFR (CKD-EPI)NonAf (>60 ml/min/1.73 sqM) Glucose (74-99) mg/dL Plasma Lactic Acid Maximino 1.8 (0.7-2.0) mmol/L Calcium (8.4-10.2) mg/dL Total Bilirubin (0.2-1.3) mg/dL AST (17-59) U/L ALT (4-49) U/L Alkaline Phosphatase (38-126) U/L Troponin I <0.012 (0.000-0.034) ng/mL Total Protein (6.3-8.2) g/dL Albumin (3.5-5.0) g/dL Amylase (30-110) U/L Lipase (23-300) U/L Disposition Clinical Impression: Small bowel obstruction Disposition: ADMITTED IP TO THIS [facility] Condition: Fair Decision Date: 09/13/21 Decision Time: 16:53
[2021-09-13 15:49] LABS: Basophils % (A) 0 %; Eosinophils # (A) 0.1 k/uL (0-0.7); Eosinophils % (A) 0 %; HCT 48.9 % (39.0-53.0); HGB 16.4 gm/dL (13.0-17.5); Lymphocytes # (A) 0.6 k/uL (1.0-4.8); Lymphocytes % (A) 4 %; MCH 30.2 pg (25.0-35.0); MCHC 33.6 g/dL (31.0-37.0); MCV 89.9 fL (80.0-100.0); Monocytes # (A) 0.6 k/uL (0-1.0); Monocytes % (A) 4 %; Neutrophils # (A) 15.5 k/uL (1.3-7.7); Neutrophils % (A) 92 %; Platelet Count 280 k/uL (150-450); RBC 5.44 m/uL (4.30-5.90); RDW 12.6 % (11.5-15.5); WBC 16.9 k/uL (3.8-10.6)
--- NOTE | 2021-09-13 15:56 | XR ---
EXAMINATION TYPE: XR chest 2V DATE OF EXAM: 09/13/2021 COMPARISON: NONE HISTORY: Shortness of breath TECHNIQUE: Frontal and lateral views of the chest are obtained. FINDINGS: Scattered senescent parenchymal changes noted. Hyperinflation compatible with COPD. No evidence for infiltrate. No evidence for atelectasis. Heart size is stable. Mediastinal structures are stable and grossly unremarkable. No evidence for hilar prominence. Degenerative changes dorsal spine. IMPRESSION: 1. No evidence for acute pulmonary disease.
[2021-09-13 15:58] LABS: Partial Thromboplastin Time 22.9 sec (22.0-30.0); Prothrombin Time 10.6 sec (9.0-12.0)
[2021-09-13 16:00] LABS: ALT 30 U/L (4-49); AST 35 U/L (17-59); African American GFR (CKD) >90 (>60 ml/min/1.73 sqM); Alkaline Phosphatase 105 U/L (38-126); Amylase 50 U/L (30-110); Anion Gap 13 mmol/L; Blood Urea Nitrogen 20 mg/dL (9-20); Calcium 9.9 mg/dL (8.4-10.2); Carbon Dioxide 25 mmol/L (22-30); Chloride 102 mmol/L (98-107); Glucose 139 mg/dL (74-99); Lipase 83 U/L (23-300); Non-African American GFR(CKD) >90 (>60 ml/min/1.73 sqM); Potassium 4.3 mmol/L (3.5-5.1); Sodium 140 mmol/L (137-145); Total Bilirubin 0.5 mg/dL (0.2-1.3); Total Protein 8.7 g/dL (6.3-8.2)
--- NOTE | 2021-09-13 16:44 | CT ---
EXAMINATION TYPE: CT abdomen pelvis w con DATE OF EXAM: 09/13/2021 COMPARISON: None INDICATION: abdominal pain and vomiting DLP: 1653.3 mGycm, Automated exposure control for dose reduction was used. CONTRAST: 100 mL of Isovue 300. Study performed without Oral Contrast TECHNIQUE: Axial images were obtained from above the diaphragm to the pubic rami in the axial plane a t 5 mm thick sections. Reconstructed images are reviewed on the computer in the coronal plane. FINDINGS: Limited CT sections are obtained the lung bases. The lung bases are clear. Moderate size hiatal her joesph is present CT ABDOMEN: Liver: Normal Spleen: Normal Pancreas: Normal Adrenal glands: The adrenal glands are normal. Gallbladder: Normal Kidneys: No masses are evident. No hydronephrosis is present. No cysts are present. Delayed images were obtained through the kidneys, which remain unremarkable. Aorta: Vascular calcification is within the aorta. Inferior vena cava: Normal. CT PELVIS: There are dilated small bowel loops containing fluid. Findings could be compatible with partial small bowel obstruction. A zone of transition appears to be within the mid pelvis, approximately series 20 1 image 71. Etiology for the narrowing of the ileum at this level was not identified. Air and fecal d ebris is within the colon. The ileum appears to be decompressed. Appendix: Short segment of normal-appearing appendix may be present, series 202 image 47 no suspiciou s inflammatory changes or dilated tubular structures are in the right lower quadrant. No suspicious a denopathy is present. Urinary bladder: Normal. Genitourinary structures: Prostate appears normal. Osseous structures: No suspicious lytic or sclerotic lesions. Facet hypertrophy is present. IMPRESSIONS: 1. Dilated fluid-filled jejunum to the proximal ileum within the pelvis. There is a zone of transiti on with decompressed ileum although the etiology for this transition is not identified on these image s. Partial or early complete small bowel obstruction should be considered. Report was called and case discussed with ER Physician by Dr. Rodriguez by telephone at the time of interpretation.
[2021-09-13] MEDS ORDERED: PIPERACILLIN-TAZOBACTAM 3.375 GM in SODIUM CHLORIDE 0.9% 100 ML IVPB STA (16:49)
[2021-09-13] MEDS ORDERED: NALOXONE 0.4 MG/ML 1 ML VIAL IV PRN (16:53)
[2021-09-13] MEDS ORDERED: ONDANSETRON 4 MG/2 ML VIAL IVP PRN (16:53)
[2021-09-13] MEDS ORDERED: MORPHINE SULFATE 4 MG/ML SYRINGE IVP STA (17:21)
[2021-09-13] MEDS: SODIUM CHLORIDE 0.9% 1,000 ML IV SCH (20:57)
[2021-09-13 21:20] LABS: Appearance,Urine Clear (Clear); Bilirubin,Urine Negative (Negative); Blood,Urine Negative (Negative); Color,Urine Yellow; Glucose,Urine (UA) Negative (Negative); Ketones,Urine Negative (Negative); Leukocyte Esterase,Urine Negative (Negative); Mucus,Urine Occasional /hpf; Nitrite,Urine Negative (Negative); Protein,Urine 1+ (Negative); RBC,Urine 1 /hpf (0-5); Urobilinogen,Urine <2.0 mg/dL (<2.0); WBC,Urine 1 /hpf (0-5)
[2021-09-13 21:23] LABS: Specific Gravity,Urine >1.050 (1.001-1.035)
[2021-09-13] MEDS ORDERED: hydrALAZINE HCL 20 MG/ML 1 ML VIAL IVP STA (22:46)
[2021-09-14] MEDS: MORPHINE SULFATE 4 MG/ML SYRINGE IVP PRN (01:19)
[2021-09-14 09:04] LABS: Basophils % (A) 0 %; Eosinophils # (A) 0.2 k/uL (0-0.7); Eosinophils % (A) 3 %; HCT 47.8 % (39.0-53.0); HGB 15.6 gm/dL (13.0-17.5); Lymphocytes # (A) 0.9 k/uL (1.0-4.8); Lymphocytes % (A) 10 %; MCH 29.8 pg (25.0-35.0); MCHC 32.6 g/dL (31.0-37.0); MCV 91.5 fL (80.0-100.0); Mean Platelet Volume 7.8; Monocytes # (A) 0.8 k/uL (0-1.0); Monocytes % (A) 8 %; Neutrophils # (A) 7.1 k/uL (1.3-7.7); Neutrophils % (A) 77 %; Platelet Count 265 k/uL (150-450); RBC 5.23 m/uL (4.30-5.90); RDW 12.9 % (11.5-15.5); WBC 9.2 k/uL (3.8-10.6)
[2021-09-14] MEDS: SODIUM CHLORIDE 0.9% 1,000 ML IV SCH ×4 (09:13→22:30)
[2021-09-14 09:31] LABS: African American GFR (CKD) >90 (>60 ml/min/1.73 sqM); Anion Gap 9 mmol/L; Blood Urea Nitrogen 25 mg/dL (9-20); Calcium 9.2 mg/dL (8.4-10.2); Carbon Dioxide 27 mmol/L (22-30); Chloride 106 mmol/L (98-107); Glucose 104 mg/dL (74-99); Non-African American GFR(CKD) 81 (>60 ml/min/1.73 sqM); Potassium 4.2 mmol/L (3.5-5.1); Sodium 142 mmol/L (137-145)
--- NOTE | 2021-09-14 10:07 | P.HPIM ---
History of Present Illness H&P Date: 09/14/21 Chief Complaint: Abdominal pain with vomiting This is a 71-year-old male patient of Dr. Nation who presented to the ER with concerns of nausea and vomiting that started last night around 11:00. Patient reports dark-colored emesis. Patient denies fever. Patient has medical history of hernia repair surgery June [address] Ramirez at [facility]. Additional medical history includes GERD, hypertension and osteoarthritis. Amylase and lipase within normal limits. White blood cell elevated at 16.9. CT of abdomen and pelvis completed showing dilated fluid-filled monitor him to the proximal ileum within the pelvis there is a zone transition with decompressed ileum to the etiology for this transition is not identified on this image partial or early complete small bowel obstruction should be considered. Chest x-ray negative. NG tube placed patient started on Zosyn and admitted to surgical services patient currently nothing by mouth. Patient is currently re sting comfortably in bed. Patient does report that he has passed gas. Denies any further episodes of nausea or vomiting. States improvement with abdominal discomfort. Awaiting surgical services for further plan of care. Patient denies chest pain or shortness breath. Patient denies any urinary burning or frequency Review of Systems please refer to HPI otherwise unremarkable Past Medical History Past Medical History: GERD/Reflux, Hyperlipidemia, Hypertension, Osteoarthritis (OA), Prostate Disorder, Sleep Apnea/CPAP/BIPAP Additional Past Medical History / Comment(s): neuropathy; rt.foot wound History of Any Multi-Drug Resistant Organisms: None Reported Past Surgical History: Hernia Repair, Joint Replacement, Orthopedic Surgery, Prostate Surgery Additional Past Surgical History / Comment(s): reconstruction of left foot 10 yrs ago. Rt shoulder screw placed. Rt total knee. Rt foot - plate and screws- Dr. Vera at [place] 2012. LEFT FOOT AND RT FOOT surgeries inFEB AND FEBRUARY 2016. BY DR ESQUIVEL Past Anesthesia/Blood Transfusion Reactions: No Reported Reaction Past Psychological History: No Psychological Hx Reported Smoking Status: Never smoker Past Alcohol Use History: None Reported Past Drug Use History: None Reported - Past Family History Father Family Medical History: AICD/Pacemaker, Osteoarthritis (OA), Thyroid Disorder Mother Family Medical History: Cancer, Hypertension Additional Family Medical History / Comment(s): colon and ovarian Medications and Allergies Home Medications Medication Instructions Recorded Confirmed Type Felodipine [Felodipine ER] 5 mg PO BID 11/15/15 09/13/21 History Omeprazole [PriLOSEC] 20 mg PO HS 11/15/15 09/13/21 History Rosuvastatin Calcium [Crestor] 10 mg PO HS 11/15/15 09/13/21 History Gabapentin [Neurontin] 300 mg PO HS 05/27/16 09/13/21 History Aspirin [Adult Low Dose Aspirin EC] 81 mg PO DAILY 04/28/17 09/13/21 History Alfuzosin HCl [Uroxatral ER] 10 mg PO W/SUPPER 12/06/18 09/13/21 History Diclofenac Sodium [Voltaren] 75 mg PO BID 12/06/18 09/13/21 History Gabapentin [Neurontin] 100 mg PO DAILY 09/13/21 09/13/21 History Valsartan 160 mg PO BID 09/13/21 09/13/21 History hydrALAZINE HCL [Apresoline] 50 mg PO BID 09/13/21 09/13/21 History Allergies Allergy/AdvReac Type Severity Reaction Status Date / Time dust, polllen, mold Allergy Cough Uncoded 09/13/21 15:45 Physical Exam Vitals: Vital Signs Temp Pulse Pulse Resp BP BP Pulse Ox 09/14/21 09:12 98 F 101 H 16 149/71 92 L 09/14/21 02:00 97.9 F 69 16 123/49 92 L 09/13/21 23:19 98.0 F 77 16 148/74 92 L 09/13/21 23:11 77 18 130/81 93 L 09/13/21 16:28 98.6 F 68 18 183/83 98 09/13/21 12:39 99.7 F H 84 17 170/78 96 Intake and Output 09/13/21 09/14/21 09/14/21 22:59 06:59 14:59 Intake Total 600 Output Total 1000 400 Balance -1000 200 Intake: Intake, IV Titration 600 Amount Sodium Chloride 0.9% 1, 600 000 ml @ 75 mls/hr IV . [id number] [facility] Rx#:[id number] Output: Gastric Drainage 1000 400 Stool 0 Other: Voiding Method Urinal Head normocephalic Neck supple Lungs clear to auscultation bilaterally no wheezing or crackles Heart regular rate and rhythm S1-S2, no rub or gallop Abdomen is distended but soft denies discomfort to palpitation Extremities no edema Neuro alert and orientated to 3 Results CBC & Chem 7: 09/14/21 08:34 09/14/21 08:34 Labs: Abnormal Lab Results - Last 24 Hours (Table) 09/13/21 09/13/21 09/13/21 Range/Units 15:16 15:34 15:34 WBC 16.9 H (3.8-10.6) k/uL Neutrophils # 15.5 H (1.3-7.7) k/uL Lymphocytes # 0.6 L (1.0-4.8) k/uL BUN (9-20) mg/dL Glucose 139 H (74-99) mg/dL Total Protein 8.7 H (6.3-8.2) g/dL Ur Specific [place] >1.050 H (1.001-1.035) Urine Protein 1+ H (Negative) Urine Mucus Occasional H (None) /hpf 09/14/21 09/14/21 Range/Units 08:34 08:34 WBC (3.8-10.6) k/uL Neutrophils # (1.3-7.7) k/uL Lymphocytes # 0.9 L (1.0-4.8) k/uL BUN 25 H (9-20) mg/dL Glucose 104 H (74-99) mg/dL Total Protein (6.3-8.2) g/dL Ur Specific [place] (1.001-1.035) Urine Protein (Negative) Urine Mucus (None) /hpf Assessment and Plan Assessment: 1. Nausea and vomiting secondary to small bowel obstruction. Patient currently nothing by mouth NG tube in place patient remains on IV Zosyn surgical services following 2. History of hernia repair in May of this year. per ER report patient declined transfer to [place] 3. History of GERD 4. History of hyperlipidemia 5. History of essential hypertension 6. History of neuropathy Thank you for this consultation we will continue to follow patient closely throughout stay Home medications currently on hold due to patient's nothing by mouth status
--- NOTE | 2021-09-14 16:19 | P.GSHP ---
History of Present Illness H&P Date: 09/14/21 CHIEF COMPLAINT: Abdominal pain HISTORY OF PRESENT ILLNESS: This is a 71-year-old male who presented to the emergency room with nausea and vomiting that started night around 11:00. Patient reports that symptoms came on suddenly. He hasn't having lower abdominal pain and abdominal bloating. He reports his last bowel movement was yesterday around 4 AM. Since being in the ER he has had small amount of flatus. He had recent umbilical hernia repair surgery on June 25 at [facility]. Patient had NG tube placed in ER with 1 liter of dark brown output. Patient reports a prior history of bowel obstruction and diverticulosis. Patient is afebrile. Denies any chills or sweats. Patient had computed tomography scan evidence of small bowel obstruction. PAST MEDICAL HISTORY: Small bowel obstruction, diverticulosis GERD/Reflux, Hyperlipidemia, Hypertension, Osteoarthritis (OA), Prostate Disorder, Sleep Apnea/CPAP/BIPAP Left foot ulcer PAST SURGICAL HISTORY: Umbilical hernia repair, MEDICATIONS: See list. ALLERGIES: See list. SOCIAL HISTORY: No illicit drug use. REVIEW OF SYSTEMS: CONSTITUTIONAL: Denies fever or chills. HEENT: Denies blurred vision, vision changes, or eye pain. Denies hemoptysis CARDIOVASCULAR: Denies chest pain or pressure. RESPIRATORY: No shortness of breath. GASTROINTESTINAL: See HPI for pertinent findings HEMATOLOGIC: Denies bleeding disorders. GENITOURINARY: Denies any blood in urine or increased urinary frequency. SKIN: Denies pruitis. Denies rash. PHYSICAL EXAM: VITAL SIGNS: Reviewed GENERAL: Well-developed in no acute distress. HEENT: No sclera icterus. Extraocular movements grossly intact. Moist buccal mucosa. Head is atraumatic, normocephalic. No nasal drainage. ABDOMEN: Soft. Distended. Tender with palpation of lower abdomen NEUROLOGIC: Alert and oriented. Cranial nerves II through XII grossly intact. LABORATORY DATA: WBC 16.9 down to 9.2H she be 15.6 platelets 265 Sodium 142 potassium 4.2 BUN 25 creatinine 0.94 Lactic 1.8 LFTs normal Troponin negative lipase normal Urinalysis for infection COVID-19 not detected IMAGING: computed tomography scan abdomen and pelvis shows dilated fluid filled jejunum to the proximal ileum within the pelvis. There is a zone of transition with decompressed ileum although the etiology for this transition is not identified on these images. Partial or early complete small bowel obstruction should be considered. ASSESSMENT: 1. Abdominal pain with nausea and vomiting 2. Partial or early complete small bowel obstruction PLAN: -Patient is tentatively scheduled for exploratory laparotomy on 09/17/[address] Paredes if patient shows no signs of improvement -Continue NG tube for decompression -Increase IV fluids to 125 mL per hour -Keep patient nothing by mouth except for ice chips -Continue pain medication as needed -GI prophylaxis Protonix and DVT prophylaxis Lovenox Physician Tube Making Machine Operator note has been reviewed by physician. Signing provider agrees with the documented findings, assessment, and plan of care. Past Medical History Past Medical History: GERD/Reflux, Hyperlipidemia, Hypertension, Osteoarthritis (OA), Prostate Disorder, Sleep Apnea/CPAP/BIPAP Additional Past Medical History / Comment(s): neuropathy; rt.foot wound History of Any Multi-Drug Resistant Organisms: None Reported Past Surgical History: Hernia Repair, Joint Replacement, Orthopedic Surgery, Prostate Surgery Additional Past Surgical History / Comment(s): reconstruction of left foot 10 yrs ago. Rt shoulder screw placed. Rt total knee. Rt foot - plate and screws- Dr. Vera at [employer] [facility] 2012. LEFT FOOT AND RT FOOT surgeries inFEB AND FEBRUARY 2016. BY DR ESQUIVEL Past Anesthesia/Blood Transfusion Reactions: No Reported Reaction Past Psychological History: No Psychological Hx Reported Smoking Status: Never smoker Past Alcohol Use History: None Reported Past Drug Use History: None Reported - Past Family History Father Family Medical History: AICD/Pacemaker, Osteoarthritis (OA), Thyroid Disorder Mother Family Medical History: Cancer, Hypertension Additional Family Medical History / Comment(s): colon and ovarian Medications and Allergies Home Medications Medication Instructions Recorded Confirmed Type Felodipine [Felodipine ER] 5 mg PO BID 11/15/15 09/13/21 History Omeprazole [PriLOSEC] 20 mg PO HS 11/15/15 09/13/21 History Rosuvastatin Calcium [Crestor] 10 mg PO HS 11/15/15 09/13/21 History Gabapentin [Neurontin] 300 mg PO HS 05/27/16 09/13/21 History Aspirin [Adult Low Dose Aspirin EC] 81 mg PO DAILY 04/28/17 09/13/21 History Alfuzosin HCl [Uroxatral ER] 10 mg PO W/SUPPER 12/06/18 09/13/21 History Diclofenac Sodium [Voltaren] 75 mg PO BID 12/06/18 09/13/21 History Gabapentin [Neurontin] 100 mg PO DAILY 09/13/21 09/13/21 History Valsartan 160 mg PO BID 09/13/21 09/13/21 History hydrALAZINE HCL [Apresoline] 50 mg PO BID 09/13/21 09/13/21 History Allergies Allergy/AdvReac Type Severity Reaction Status Date / Time dust, polllen, mold Allergy Cough Uncoded 09/13/21 15:45 Surgical - Exam Vital Signs Temp Pulse Resp BP Pulse Ox 99.7 F H 84 17 170/78 96 09/13/21 12:39 09/13/21 12:39 09/13/21 12:39 09/13/21 12:39 09/13/21 12:39 Results - Labs 09/14/21 08:34 09/14/21 08:34 Abnormal Lab Results - Last 24 Hours (Table) 09/13/21 09/14/21 09/14/21 Range/Units 15:16 08:34 08:34 Lymphocytes # 0.9 L (1.0-4.8) k/uL BUN 25 H (9-20) mg/dL Glucose 104 H (74-99) mg/dL Ur Specific [place] >1.050 H (1.001-1.035) Urine Protein 1+ H (Negative) Urine Mucus Occasional H (None) /hpf Diabetes panel 09/14/21 Range/Units 08:34 Sodium 142 (137-145) mmol/L Potassium 4.2 (3.5-5.1) mmol/L Chloride 106 (98-107) mmol/L Carbon Dioxide 27 (22-30) mmol/L BUN 25 H (9-20) mg/dL Creatinine 0.94 (0.66-1.25) mg/dL Glucose 104 H (74-99) mg/dL Calcium 9.2 (8.4-10.2) mg/dL Calcium panel 09/14/21 Range/Units 08:34 Calcium 9.2 (8.4-10.2) mg/dL Pituitary panel 09/14/21 Range/Units 08:34 Sodium 142 (137-145) mmol/L Potassium 4.2 (3.5-5.1) mmol/L Chloride 106 (98-107) mmol/L Carbon Dioxide 27 (22-30) mmol/L BUN 25 H (9-20) mg/dL Creatinine 0.94 (0.66-1.25) mg/dL Glucose 104 H (74-99) mg/dL Calcium 9.2 (8.4-10.2) mg/dL Adrenal panel 09/14/21 Range/Units 08:34 Sodium 142 (137-145) mmol/L Potassium 4.2 (3.5-5.1) mmol/L Chloride 106 (98-107) mmol/L Carbon Dioxide 27 (22-30) mmol/L BUN 25 H (9-20) mg/dL Creatinine 0.94 (0.66-1.25) mg/dL Glucose 104 H (74-99) mg/dL Calcium 9.2 (8.4-10.2) mg/dL
[2021-09-15 07:55] LABS: Basophils # (A) 0.1 k/uL (0-0.2); Basophils % (A) 1 %; Eosinophils # (A) 0.5 k/uL (0-0.7); Eosinophils % (A) 7 %; HCT 41.2 % (39.0-53.0); HGB 13.4 gm/dL (13.0-17.5); Lymphocytes # (A) 1.5 k/uL (1.0-4.8); Lymphocytes % (A) 21 %; MCH 29.5 pg (25.0-35.0); MCHC 32.6 g/dL (31.0-37.0); MCV 90.7 fL (80.0-100.0); Mean Platelet Volume 8.1; Monocytes # (A) 0.6 k/uL (0-1.0); Monocytes % (A) 8 %; Neutrophils # (A) 4.4 k/uL (1.3-7.7); Neutrophils % (A) 61 %; Platelet Count 210 k/uL (150-450); RBC 4.55 m/uL (4.30-5.90); RDW 12.8 % (11.5-15.5); WBC 7.2 k/uL (3.8-10.6)
[2021-09-15] MEDS: ENOXAPARIN 40 MG/0.4 ML SYRINGE SQ SCH (10:09)
[2021-09-15] MEDS: PANTOPRAZOLE 40 MG/10 ML VIAL IVP SCH (10:09)
[2021-09-15] MEDS: SODIUM CHLORIDE 0.9% 1,000 ML IV SCH ×2 (10:10→20:09)
[2021-09-15] MEDS: MORPHINE SULFATE 4 MG/ML SYRINGE IVP PRN ×2 (11:21→22:45)
[2021-09-15] MEDS: IOPAMIDOL CONTRAST (ORAL USE) VIAL PO PRN ×2 (11:47→12:45)
[2021-09-15 11:56] LABS: African American GFR (CKD) 102.1 (60.0-200.0); Albumin 3.5 g/dL (3.8-4.9); Albumin/Globulin Ratio 1.47 (1.60-3.17); BUN/Creat Ratio 20.94 Ratio (12.00-20.00); Calcium 8.4 mg/dL (8.7-10.3); Carbon Dioxide 23.5 mmol/L (21.6-31.8); Globulin 2.4 g/dL (1.6-3.3); Non-African American GFR(CKD) 88.1 (60.0-200.0); Potassium 3.8 mmol/L (3.5-5.5); Total Bilirubin 0.3 mg/dL (0.30-1.20); Total Protein 5.9 g/dL (6.2-8.2)
--- NOTE | 2021-09-15 13:08 | P.PN ---
Subjective Progress Note Date: 09/15/21 This is a 71-year-old male patient of Dr. Nation who presented to the ER with concerns of nausea and vomiting that started last night around 11:00. Patient reports dark-colored emesis. Patient denies fever. Patient has medical history of hernia repair surgery June [address] Ramirez at [facility]. Additional medical history includes GERD, hypertension and osteoarthritis. Amylase and lipase within normal limits. White blood cell elevated at 16.9. CT of abdomen and pelvis completed showing dilated fluid-filled monitor him to the proximal ileum within the pelvis there is a zone transition with decompressed ileum to the etiology for this transition is not identified on this image partia l or early complete small bowel obstruction should be considered. Chest x-ray negative. NG tube placed patient started on Zosyn and admitted to surgical services patient currently nothing by mouth. Patient is currently resting comfortably in bed. Patient does report that he has passed gas. Denies any further episodes of nausea or vomiting. States improvement with abdominal discomfort. Awaiting surgical services for further plan of care. Patient denies chest pain or shortness breath. Patient denies any urinary burning or frequency On 09/15/2021 patient was seen and examined on the medical floor he is alert and oriented 3 in no apparent distress he is still complaining of abdominal pain, he has NG tube in, there is no nausea or vomiting, he stated that he is passing some gas, however there is no bowel movement since admission, otherwise he denies any other complaints there is no fever or chills no headache or dizziness no chest pain no shortness of breath no cough and no urinary symptoms Objective - Vital Signs Vital signs: Vital Signs Temp 97.8 F 09/15/21 05:00 Pulse 55 L 09/15/21 05:00 Resp 18 09/15/21 05:00 BP 166/80 09/15/21 05:00 Pulse Ox 91 L 09/15/21 05:00 Intake & Output 09/14/21 09/15/21 09/15/21 18:59 06:59 18:59 Intake Total 0 Balance 0 Weight 117.934 kg Intake: Oral 0 Other: Voiding Method Urinal Urinal # Voids 4 - Exam In general patient is alert and oriented x 3 in no distress HEENT head normocephalic and atraumatic Neck is supple no JVD no goiter no lymphadenopathy no carotid bruit Chest examination is clear to auscultation no crackles no wheezing Cardiac exam reveals regular heart sounds S1 and S2 no gallops no murmurs Abdomen is distended but soft denies discomfort to palpitation Extremity exam reveals no edema no cyanosis or clubbing Neurological examination reveals no gross focal deficits - Labs CBC & Chem 7: 09/15/21 06:58 09/15/21 06:58 Assessment and Plan Assessment: 1. Nausea and vomiting secondary to small bowel obstruction. Patient currently nothing by mouth NG tube in place patient remains on IV Zosyn surgical services following 2. History of hernia repair in May of this year. per ER report patient declined transfer to [place] 3. History of GERD 4. History of hyperlipidemia 5. History of essential hypertension 6. History of neuropathy Thank you for this consultation we will continue to follow patient closely throughout stay Home medications currently on hold due to patient's nothing by mouth status
--- NOTE | 2021-09-15 14:00 | CT ---
EXAMINATION TYPE: CT abdomen pelvis wo con DATE OF EXAM: 09/15/2021 COMPARISON: 09/13/2021 HISTORY: 71-year-old male with pain, small bowel obstruction CT DLP: 1045 mGycm. Automated exposure control for dose reduction was used. TECHNIQUE: Contiguous axial scanning of the abdomen and pelvis without IV contrast. Coronal and sagit millicent reconstructions performed. FINDINGS: Heart is normal in size. Coronary artery calcifications are present. No pericardial effusion. Dependent atelectasis. Redemonstrated moderate to large hiatal hernia. NG tube is in place. Oral contrast administered. Noncontrast appearance of the liver, gallbladder, adrenal glands, kidneys, spleen, and pancreas show no gross abnormality. Some scattered prominent left abdominal mesenteric lymph nodes are redemonstrated measuring up to 9 m m, coronal image 44, these may be reactive or postinflammatory. Significant interval improvement in the degree of small bowel dilatation. Oral contrast has only prog ressed to the proximal third small bowel level. Some residual mildly distended loops are noted along the left lateral abdomen measuring up to 3.3 cm. Well-defined transition point not clearly seen. There appears to be moderate wall thickening along the third and fourth portions of the duodenum, cor onal image 50. Small 1.1 cm diverticulum of the third portion of the duodenum projecting superiorly. There appears to have been prior ventral abdominal wall mesh repair. Fluid collection at the umbilicu s measures 3.2 cm white as seen previously. Clinical correlation to exclude abscess or seroma. Normal appendix. Distally and remains largely collapsed. Mild overall stool burden. Sigmoid diverticu losis. No pericolonic inflammatory change. Bladder urine distended. Prostate gland measures 4.7 cm wide. Pelvic phleboliths. Mild pelvic free fl uid. No pelvic lymphadenopathy. Bones: Mild degenerative change of the hips. Moderately advanced spondylotic change throughout the vi sualized lumbar spine with degenerated levoconvex scoliosis. IMPRESSION: 1. Redemonstrated moderate to large hiatal hernia with NG tube in place. 2. Significant interval improvement in the previous small bowel obstruction. Oral contrast however h as only had time to make it to the proximal third small bowel level. Some mild residual small bowel d istention remains measuring up to 3.3 cm versus 5.2 cm, previously. Follow-up as clinically indicated . Mild pelvic free fluid probably reactive to the improving obstruction. 3. Apparent moderate wall thickening along the third and fourth portions of the duodenum not seen pr eviously. Findings may be secondary to nondistention. Correlate to exclude duodenitis. 4. Sigmoid diverticulosis without acute diverticulitis.
[2021-09-16] MEDS: SODIUM CHLORIDE 0.9% 1,000 ML IV SCH ×3 (03:26→21:23)
[2021-09-16 07:54] LABS: Basophils % (A) 1 %; Eosinophils # (A) 0.4 k/uL (0-0.7); Eosinophils % (A) 5 %; HGB 13.6 gm/dL (13.0-17.5); Lymphocytes # (A) 1.2 k/uL (1.0-4.8); Lymphocytes % (A) 15 %; MCH 29.8 pg (25.0-35.0); MCV 87.7 fL (80.0-100.0); Mean Platelet Volume 7.9; Monocytes # (A) 0.6 k/uL (0-1.0); Monocytes % (A) 7 %; Neutrophils # (A) 5.7 k/uL (1.3-7.7); Neutrophils % (A) 70 %; Platelet Count 209 k/uL (150-450); RBC 4.56 m/uL (4.30-5.90); RDW 12.5 % (11.5-15.5); WBC 8.2 k/uL (3.8-10.6)
--- NOTE | 2021-09-16 10:22 | P.PN ---
Subjective Progress Note Date: 09/16/21 This is a 71-year-old male patient of Dr. Nation who presented to the ER with concerns of nausea and vomiting that started last night around 11:00. Patient reports dark-colored emesis. Patient denies fever. Patient has medical history of hernia repair surgery June [address] Ramirez at [facility]. Additional medical history includes GERD, hypertension and osteoarthritis. Amylase and lipase within normal limits. White blood cell elevated at 16.9. CT of abdomen and pelvis completed showing dilated fluid-filled monitor him to the proximal ileum within the pelvis there is a zone transition with decompressed ileum to the etiology for this transition is not identified on this image partia l or early complete small bowel obstruction should be considered. Chest x-ray negative. NG tube placed patient started on Zosyn and admitted to surgical services patient currently nothing by mouth. Patient is currently resting comfortably in bed. Patient does report that he has passed gas. Denies any further episodes of nausea or vomiting. States improvement with abdominal discomfort. Awaiting surgical services for further plan of care. Patient denies chest pain or shortness breath. Patient denies any urinary burning or frequency On 09/15/2021 patient was seen and examined on the medical floor he is alert and oriented 3 in no apparent distress he is still complaining of abdominal pain, he has NG tube in, there is no nausea or vomiting, he stated that he is passing some gas, however there is no bowel movement since admission, otherwise he denies any other complaints there is no fever or chills no headache or dizziness no chest pain no shortness of breath no cough and no urinary symptoms On 09/16/2021 patient is alert and oriented x 3. still complaining of some abdominal discomfort. NG in place. tenative plans for exp lap tomorrow in symptoms do not improve per surgical services. denies any chest pain or shortness or breath. denies any urinary burning or frequency Objective - Vital Signs Vital signs: Vital Signs Temp 98.5 F 09/16/21 04:40 Pulse 51 L 09/16/21 04:40 Resp 20 09/16/21 04:40 BP 159/73 09/16/21 04:40 Pulse Ox 92 L 09/16/21 04:40 Intake & Output 09/15/21 09/16/21 09/16/21 18:59 06:59 18:59 Intake Total 1500 0 Output Total 0 900 Balance 1500 -900 Intake: Intake, IV Titration 1500 Amount Sodium Chloride 0.9% 1, 1500 000 ml @ 125 mls/hr IV . Q8H [facility] Rx#:[id number] Oral 0 Output: Gastric Drainage 700 Urine 200 Stool 0 Other: Voiding Method Urinal Urinal # Voids 5 5 - Exam In general patient is alert and oriented x 3 in no distress HEENT head normocephalic and atraumatic Neck is supple no JVD no goiter no lymphadenopathy no carotid bruit Chest examination is clear to auscultation no crackles no wheezing Cardiac exam reveals regular heart sounds S1 and S2 no gallops no murmurs Abdomen is distended but soft denies discomfort to palpitation Extremity exam reveals no edema no cyanosis or clubbing Neurological examination reveals no gross focal deficits - Labs CBC & Chem 7: 09/16/21 07:27 09/15/21 06:58 Labs: Abnormal Lab Results - Last 24 Hours (Table) 09/15/21 Range/Units 06:58 Chloride 110 H (96-109) mmol/L BUN/Creatinine Ratio 20.94 H (12.00-20.00) Ratio Calcium 8.4 L (8.7-10.3) mg/dL Total Protein 5.9 L (6.2-8.2) g/dL Albumin 3.5 L (3.8-4.9) g/dL Albumin/Globulin Ratio 1.47 L (1.60-3.17) g/dL Assessment and Plan Assessment: 1. Nausea and vomiting secondary to small bowel obstruction. Patient currently nothing by mouth NG tube in place patient remains on IV Zosyn surgical services following 2. History of hernia repair in May of this year. per ER report patient declined transfer to [place] 3. History of GERD 4. History of hyperlipidemia 5. History of essential hypertension 6. History of neuropathy Thank you for this consultation we will continue to follow patient closely throughout stay Home medications currently on hold due to patient's nothing by mouth status
[2021-09-16] MEDS: PANTOPRAZOLE 40 MG/10 ML VIAL IVP SCH (10:49)
[2021-09-16] MEDS: MORPHINE SULFATE 4 MG/ML SYRINGE IVP PRN (10:49)
[2021-09-16] MEDS: ENOXAPARIN 40 MG/0.4 ML SYRINGE SQ SCH (10:49)
--- NOTE | 2021-09-16 12:50 | P.PN ---
Progress Note - Text Progress Note Date: 09/16/21 Patient feels slightly better. He is less distended. His CAT scan yesterday showed improvement of the small bowel distention. However there is no contrast seen in the colon. On exam vitals are stable. Abdomen soft. Patient will be observed. He may require another CAT scan tomorrow if he does not show any signs of bowel function.
[2021-09-16 13:09] LABS: African American GFR (CKD) 108.5 (60.0-200.0); Albumin 3.9 g/dL (3.8-4.9); Albumin/Globulin Ratio 1.63 (1.60-3.17); Anion Gap 15.7 mmol/L (4.00-12.00); Blood Urea Nitrogen 10.5 mg/dL (9.0-27.0); Calcium 8.8 mg/dL (8.7-10.3); Carbon Dioxide 21.3 mmol/L (21.6-31.8); Globulin 2.4 g/dL (1.6-3.3); Non-African American GFR(CKD) 93.6 (60.0-200.0); Potassium 3.7 mmol/L (3.5-5.5); Total Bilirubin 0.5 mg/dL (0.30-1.20); Total Protein 6.3 g/dL (6.2-8.2)
[2021-09-16 21:21] VITALS: RESP 16
[2021-09-16] MEDS: hydrALAZINE HCL 20 MG/ML 1 ML VIAL IVP PRN (21:23)
[2021-09-17] MEDS: MORPHINE SULFATE 4 MG/ML SYRINGE IVP PRN ×2 (00:07→16:02)
[2021-09-17] MEDS: hydrALAZINE HCL 20 MG/ML 1 ML VIAL IVP PRN ×2 (05:06→16:01)
[2021-09-17] MEDS: SODIUM CHLORIDE 0.9% 1,000 ML IV SCH ×3 (05:43→19:13)
[2021-09-17] MEDS: PANTOPRAZOLE 40 MG/10 ML VIAL IVP SCH (07:50)
[2021-09-17] MEDS: ENOXAPARIN 40 MG/0.4 ML SYRINGE SQ SCH (07:50)
[2021-09-17 10:09] LABS: Basophils % (A) 1 %; Eosinophils # (A) 0.3 k/uL (0-0.7); Eosinophils % (A) 4 %; HGB 14.2 gm/dL (13.0-17.5); Lymphocytes # (A) 1.4 k/uL (1.0-4.8); Lymphocytes % (A) 17 %; MCV 88.3 fL (80.0-100.0); Monocytes # (A) 0.6 k/uL (0-1.0); Monocytes % (A) 7 %; Neutrophils # (A) 5.4 k/uL (1.3-7.7); Neutrophils % (A) 68 %; Platelet Count 235 k/uL (150-450); RBC 4.75 m/uL (4.30-5.90); RDW 12.5 % (11.5-15.5); WBC 7.9 k/uL (3.8-10.6)
[2021-09-17 10:32] LABS: ALT 20 U/L (4-49); AST 29 U/L (17-59); African American GFR (CKD) >90 (>60 ml/min/1.73 sqM); Albumin 3.8 g/dL (3.5-5.0); Albumin/Globulin Ratio 1.2; Alkaline Phosphatase 89 U/L (38-126); Anion Gap 13 mmol/L; Blood Urea Nitrogen 12 mg/dL (9-20); Calcium 8.9 mg/dL (8.4-10.2); Carbon Dioxide 23 mmol/L (22-30); Chloride 101 mmol/L (98-107); Globulin 3.2 g/dL; Glucose 61 mg/dL (74-99); Non-African American GFR(CKD) 87 (>60 ml/min/1.73 sqM); Potassium 3.8 mmol/L (3.5-5.1); Sodium 137 mmol/L (137-145); Total Bilirubin 0.8 mg/dL (0.2-1.3)
[2021-09-17] MEDS: IOPAMIDOL CONTRAST (ORAL USE) VIAL PO PRN ×2 (11:11→14:09)
--- NOTE | 2021-09-17 11:24 | P.PN ---
Subjective Progress Note Date: 09/17/21 CHIEF COMPLAINT: Small bowel obstruction HISTORY OF PRESENT ILLNESS: Patient reports having a small amount of flatus around 6 PM yesterday. Still has had no bowel movements. He denies any nausea. Denies pain. He still is having some abdominal distention. Afebrile. WBC 7.9 Hgb 14.2 platelets 235 creatinine 0.85 sodium 137 potassium 3.8 NG tube was 600 mL output PHYSICAL EXAM: VITAL SIGNS: Reviewed. GENERAL: Well-developed in no acute distress. HEENT: No sclera icterus. Extraocular movements grossly intact. Moist buccal mucosa. Head is atraumatic, normocephalic. ABDOMEN: Soft. Distended. Nontender NEUROLOGIC: Alert and oriented. Cranial nerves II through XII grossly intact. ASSESSMENT: 1. Small bowel obstruction PLAN: -Repeat computed tomography scan of abdomen and pelvis with oral contrast with a 4 hour prep to really evaluate the full: -Keep NG tube in place for decompression -Keep patient nothing by mouth for ice chips -Patient tentatively scheduled for exploratory laparotomy tomorrow, 09/18/[address] Paredes Physician Mill Supervisor note has been reviewed by physician. Signing provider agrees with the documented findings, assessment, and plan of care. Objective - Vital Signs Vital signs: Vital Signs Temp 97.6 F 09/17/21 08:27 Pulse 52 L 09/17/21 08:27 Resp 16 09/17/21 08:27 BP 167/84 09/17/21 08:27 Pulse Ox 95 09/17/21 08:27 Intake & Output 09/16/21 09/17/21 09/17/21 18:59 06:59 18:59 Intake Total 1500 Output Total 950 Balance 550 Intake: Intake, IV Titration 1500 Amount Sodium Chloride 0.9% 1, 1500 000 ml @ 125 mls/hr IV . Q8H [facility] Rx#:[id number] Output: Gastric Drainage 600 Urine 350 Other: Voiding Method Urinal Urinal Urinal # Voids 6 - Labs CBC & Chem 7: 09/17/21 05:55 09/17/21 05:51 Labs: Abnormal Lab Results - Last 24 Hours (Table) 09/16/21 09/17/21 Range/Units 07:27 05:51 Carbon Dioxide 21.3 L (21.6-31.8) mmol/L Anion Gap 15.70 H (4.00-12.00) mmol/L Glucose 61 L (74-99) mg/dL
--- NOTE | 2021-09-17 15:23 | CT ---
EXAMINATION TYPE: CT abdomen pelvis wo con DATE OF EXAM: 09/17/2021 COMPARISON: CT 09/15/2021 HISTORY: abd pain CT DLP: 1529.7 mGycm Automated exposure control for dose reduction was used. TECHNIQUE: Helical acquisition of images from the lung bases through the pelvis. Patient received or al contrast only. FINDINGS: Lack of contrast could compromise sensitivity. There is a hiatal hernia with partial intrat horacic stomach as on prior. NG tube courses into the stomach in the abdomen. Umbilical collection co ntains fluid as on prior. LUNG BASES: Some minimal basilar atelectatic changes are again seen, no pleural or pericardial effusi on. There are coronary artery calcifications. AORTA: No significant abnormality is appreciated. LIVER/GB: No significant abnormality is appreciated. PANCREAS: No significant abnormality is seen. SPLEEN: No significant abnormality is seen. ADRENALS: No significant abnormality is seen. KIDNEYS: No significant abnormality is seen. REPRODUCTIVE ORGANS: Prostate is enlarged and shows associated calcification. URINARY BLADDER: No significant abnormality is seen. BOWEL: Contrast has coursed into the sigmoid colon. Diverticular changes are noted. No small bowel o bstruction identified with certainty. FREE AIR: No Free Air is visible. ASCITES: None visible. PELVIC ADENOPATHY: None visualized. RETROPERITONEAL ADENOPATHY: No Retroperitoneal Adenopathy visible. OSSEOUS STRUCTURES: No significant interval change is seen. Degenerative disc changes and facet arth ropathy are noted especially in the lumbar spine, there is a spinal curvature as on prior IMPRESSION: DIVERTICULOSIS. NONCONTRAST EXAM.
[2021-09-18] MEDS: SODIUM CHLORIDE 0.9% 1,000 ML IV SCH ×3 (05:30→18:10)
[2021-09-18] MEDS: hydrALAZINE HCL 20 MG/ML 1 ML VIAL IVP PRN (05:32)
[2021-09-18 05:59] LABS: Basophils % (A) 0 %; Eosinophils # (A) 0.3 k/uL (0-0.7); Eosinophils % (A) 4 %; HCT 41.6 % (39.0-53.0); HGB 14.3 gm/dL (13.0-17.5); Lymphocytes % (A) 12 %; MCH 30.1 pg (25.0-35.0); MCHC 34.4 g/dL (31.0-37.0); MCV 87.4 fL (80.0-100.0); Mean Platelet Volume 7.8; Monocytes # (A) 0.5 k/uL (0-1.0); Monocytes % (A) 6 %; Neutrophils # (A) 5.9 k/uL (1.3-7.7); Neutrophils % (A) 75 %; Platelet Count 251 k/uL (150-450); RBC 4.76 m/uL (4.30-5.90); RDW 12.7 % (11.5-15.5)
[2021-09-18 06:12] LABS: ALT 23 U/L (4-49); African American GFR (CKD) >90 (>60 ml/min/1.73 sqM); Albumin 3.6 g/dL (3.5-5.0); Albumin/Globulin Ratio 1.1; Alkaline Phosphatase 78 U/L (38-126); Anion Gap 13 mmol/L; Carbon Dioxide 20 mmol/L (22-30); Chloride 104 mmol/L (98-107); Globulin 3.2 g/dL; Non-African American GFR(CKD) 87 (>60 ml/min/1.73 sqM); Potassium 3.7 mmol/L (3.5-5.1); Sodium 137 mmol/L (137-145); Total Protein 6.8 g/dL (6.3-8.2)
[2021-09-18 06:14] LABS: AST 31 U/L (17-59); Blood Urea Nitrogen 12 mg/dL (9-20); Glucose 76 mg/dL (74-99); Total Bilirubin 0.8 mg/dL (0.2-1.3)
[2021-09-18] MEDS: ENOXAPARIN 40 MG/0.4 ML SYRINGE SQ SCH (08:58)
[2021-09-18] MEDS: PANTOPRAZOLE 40 MG/10 ML VIAL IVP SCH (08:58)
--- NOTE | 2021-09-18 12:16 | P.PN ---
Subjective Progress Note Date: 09/18/21 CHIEF COMPLAINT: Small bowel obstruction HISTORY OF PRESENT ILLNESS: Patient is having flatus. Minimal abdominal pain. Computed tomography scan abdomen and pelvis demonstrates diverticulosis. And notes that Contras has coursed into the sigmoid colon. Results reviewed with Dr. tate. Patient is improving. No surgery planned for today. Discontinue NG tube. Start patient on a full liquid diet. Afebrile. WBC is 8.0. Patient seen and examined with Dr. tate PHYSICAL EXAM: VITAL SIGNS: Reviewed. GENERAL: Well-developed in no acute distress. HEENT: No sclera icterus. Extraocular movements grossly intact. Moist buccal mucosa. Head is atraumatic, normocephalic. ABDOMEN: Soft. Nondistended Nontender NEUROLOGIC: Alert and oriented. Cranial nerves II through XII grossly intact. ASSESSMENT: 1. Small bowel obstruction improving PLAN: -Discontinue NG tube -Start patient on full liquid diet -No surgery planned for today -Continue to monitor -Encourage patient to ambulate Physician Grinder Operator External Tool note has been reviewed by physician. Signing provider agrees with the documented findings, assessment, and plan of care. Objective - Vital Signs Vital signs: Vital Signs Temp 97.7 F 09/18/21 11:24 Pulse 68 09/18/21 11:24 Resp 16 09/18/21 11:24 BP 153/82 09/18/21 11:24 Pulse Ox 95 09/18/21 11:24 Intake & Output 09/17/21 09/18/21 09/18/21 18:59 06:59 18:59 Output Total 600 1100 400 Balance -600 -1100 -400 Output: Gastric Drainage 500 Urine 600 600 400 Stool 0 Other: Voiding Method Urinal Urinal Urinal - Labs CBC & Chem 7: 09/18/21 05:31 09/18/21 05:31 Labs: Abnormal Lab Results - Last 24 Hours (Table) 09/18/21 Range/Units 05:31 Carbon Dioxide 20 L (22-30) mmol/L
[2021-09-18] MEDS ORDERED: TAMSULOSIN 0.4 MG CAP.ER.24H PO SCH (17:30)
--- NOTE | 2021-09-18 17:36 | P.PN ---
Subjective Progress Note Date: 09/17/21 This is a 71-year-old male patient of Dr. Nation who presented to the ER with concerns of nausea and vomiting that started last night around 11:00. Patient reports dark-colored emesis. Patient denies fever. Patient has medical history of hernia repair surgery June [address] Ramirez at [facility]. Additional medical history includes GERD, hypertension and osteoarthritis. Amylase and lipase within normal limits. White blood cell elevated at 16.9. CT of abdomen and pelvis completed showing dilated fluid-filled monitor him to the proximal ileum within the pelvis there is a zone transition with decompressed ileum to the etiology for this transition is not identified on this image partia l or early complete small bowel obstruction should be considered. Chest x-ray negative. NG tube placed patient started on Zosyn and admitted to surgical services patient currently nothing by mouth. Patient is currently resting comfortably in bed. Patient does report that he has passed gas. Denies any further episodes of nausea or vomiting. States improvement with abdominal discomfort. Awaiting surgical services for further plan of care. Patient denies chest pain or shortness breath. Patient denies any urinary burning or frequency On 09/15/2021 patient was seen and examined on the medical floor he is alert and oriented 3 in no apparent distress he is still complaining of abdominal pain, he has NG tube in, there is no nausea or vomiting, he stated that he is passing some gas, however there is no bowel movement since admission, otherwise he denies any other complaints there is no fever or chills no headache or dizziness no chest pain no shortness of breath no cough and no urinary symptoms On 09/16/2021 patient is alert and oriented x 3. still complaining of some abdominal discomfort. NG in place. tenative plans for exp lap tomorrow in symptoms do not improve per surgical services. denies any chest pain or shortness or breath. denies any urinary burning or frequency On 09/17/2021 patient is alert and oriented 3 in no apparent distress he is still complaining of abdominal discomfort, still not having bowel movement, and per surgery is to proceed with exploratory laparotomy in a.m. tomorrow On 09/18/2021 Patient was seen and examined on the medical floor he is alert and oriented in no distress there is no fever or chills, no headache or dizziness no chest pain or shortness of breath, no nausea or vomiting no abdominl pain, patient is passing gas and had 2 liquid bowel movements, results of CT scan reviewed, no plan for surgery at this time, NG tube removed and patient started on clear liquid diet. Objective - Vital Signs Vital signs: Vital Signs Temp 98.1 F 09/17/21 11:51 Pulse 49 L 09/17/21 11:51 Resp 16 09/17/21 11:51 BP 176/75 09/17/21 11:51 Pulse Ox 95 09/17/21 11:51 Intake & Output 09/16/21 09/17/21 09/17/21 18:59 06:59 18:59 Intake Total 1500 Output Total 950 Balance 550 Intake: Intake, IV Titration 1500 Amount Sodium Chloride 0.9% 1, 1500 000 ml @ 125 mls/hr IV . Q8H [facility] Rx#:[id number] Output: Gastric Drainage 600 Urine 350 Other: Voiding Method Urinal Urinal Urinal # Voids 6 - Exam In general patient is alert and oriented x 3 in no distress HEENT head normocephalic and atraumatic Neck is supple no JVD no goiter no lymphadenopathy no carotid bruit Chest examination is clear to auscultation no crackles no wheezing Cardiac exam reveals regular heart sounds S1 and S2 no gallops no murmurs Abdomen is distended but soft denies discomfort to palpitation Extremity exam reveals no edema no cyanosis or clubbing Neurological examination reveals no gross focal deficits - Labs CBC & Chem 7: 09/18/21 05:31 09/18/21 05:31 Labs: Abnormal Lab Results - Last 24 Hours (Table) 09/16/21 09/17/21 Range/Units 07:27 05:51 Carbon Dioxide 21.3 L (21.6-31.8) mmol/L Anion Gap 15.70 H (4.00-12.00) mmol/L Glucose 61 L (74-99) mg/dL Assessment and Plan Assessment: 1. Nausea and vomiting secondary to small bowel obstruction. improving with conservative management, patient remains on IV Zosyn surgical services following 2. History of hernia repair in May of this year. 3. History of GERD 4. History of hyperlipidemia 5. History of essential hypertension 6. History of neuropathy Thank you for this consultation we will continue to follow patient closely throughout stay Home medications currently on hold due to patient's nothing by mouth status
[2021-09-18] MEDS: amLODIPine 5 MG TAB PO SCH (20:44)
[2021-09-18] MEDS: hydrALAZINE HCL 50 MG TAB PO SCH (20:45)
[2021-09-18] MEDS: VALSARTAN 160 MG TAB PO SCH (20:45)
[2021-09-18] MEDS ORDERED: PANTOPRAZOLE 40 MG TABLET PO SCH (21:00)
[2021-09-18] MEDS ORDERED: ATORVASTATIN 10 MG TAB PO SCH (21:00)
[2021-09-18] MEDS ORDERED: GABAPENTIN 100 MG CAP PO SCH (21:00)
[2021-09-19] MEDS: SODIUM CHLORIDE 0.9% 1,000 ML IV SCH ×2 (02:43→08:48)
[2021-09-19 06:28] LABS: Basophils # (A) 0.1 k/uL (0-0.2); Basophils % (A) 1 %; Eosinophils # (A) 0.4 k/uL (0-0.7); Eosinophils % (A) 5 %; HGB 13.1 gm/dL (13.0-17.5); Lymphocytes # (A) 1.2 k/uL (1.0-4.8); Lymphocytes % (A) 16 %; MCHC 33.7 g/dL (31.0-37.0); Mean Platelet Volume 8.6; Monocytes # (A) 0.7 k/uL (0-1.0); Monocytes % (A) 9 %; Neutrophils # (A) 5.1 k/uL (1.3-7.7); Neutrophils % (A) 68 %; Platelet Count 238 k/uL (150-450); RBC 4.38 m/uL (4.30-5.90); RDW 13.1 % (11.5-15.5); WBC 7.5 k/uL (3.8-10.6)
[2021-09-19] MEDS: amLODIPine 5 MG TAB PO SCH (08:47)
[2021-09-19] MEDS: ENOXAPARIN 40 MG/0.4 ML SYRINGE SQ SCH (08:47)
[2021-09-19] MEDS: hydrALAZINE HCL 50 MG TAB PO SCH (08:47)
[2021-09-19] MEDS: PANTOPRAZOLE 40 MG/10 ML VIAL IVP SCH (08:47)
[2021-09-19] MEDS ORDERED: ASPIRIN 81 MG PO SCH (09:00)
[2021-09-19] MEDS ORDERED: GABAPENTIN 100 MG CAP PO SCH (09:00)
[2021-09-19] MEDS: VALSARTAN 160 MG TAB PO SCH (09:11)
--- NOTE | 2021-09-19 09:33 | P.PN ---
Subjective Progress Note Date: 09/19/21 This is a 71-year-old male patient of Dr. Nation who presented to the ER with concerns of nausea and vomiting that started last night around 11:00. Patient reports dark-colored emesis. Patient denies fever. Patient has medical history of hernia repair surgery June [address] Ramirez at [facility]. Additional medical history includes GERD, hypertension and osteoarthritis. Amylase and lipase within normal limits. White blood cell elevated at 16.9. CT of abdomen and pelvis completed showing dilated fluid-filled monitor him to the proximal ileum within the pelvis there is a zone transition with decompressed ileum to the etiology for this transition is not identified on this image partia l or early complete small bowel obstruction should be considered. Chest x-ray negative. NG tube placed patient started on Zosyn and admitted to surgical services patient currently nothing by mouth. Patient is currently resting comfortably in bed. Patient does report that he has passed gas. Denies any further episodes of nausea or vomiting. States improvement with abdominal discomfort. Awaiting surgical services for further plan of care. Patient denies chest pain or shortness breath. Patient denies any urinary burning or frequency On 09/15/2021 patient was seen and examined on the medical floor he is alert and oriented 3 in no apparent distress he is still complaining of abdominal pain, he has NG tube in, there is no nausea or vomiting, he stated that he is passing some gas, however there is no bowel movement since admission, otherwise he denies any other complaints there is no fever or chills no headache or dizziness no chest pain no shortness of breath no cough and no urinary symptoms On 09/16/2021 patient is alert and oriented x 3. still complaining of some abdominal discomfort. NG in place. tenative plans for exp lap tomorrow in symptoms do not improve per surgical services. denies any chest pain or shortness or breath. denies any urinary burning or frequency On 09/17/2021 patient is alert and oriented 3 in no apparent distress he is still complaining of abdominal discomfort, still not having bowel movement, and per surgery is to proceed with exploratory laparotomy in a.m. tomorrow On 09/18/2021 Patient was seen and examined on the medical floor he is alert and oriented in no distress there is no fever or chills, no headache or dizziness no chest pain or shortness of breath, no nausea or vomiting no abdominl pain, patient is passing gas and had 2 liquid bowel movements, results of CT scan reviewed, no plan for surgery at this time, NG tube removed and patient started on clear liquid diet. On 09/19/2021 patient is alert and oriented 3. Patient has had multiple loose bowel movements since last night per nursing staff. NG tube has been removed. Patient maintained on full liquid diet. Patient denies chest pain or shortness of breath. Patient denies nausea vomiting or diarrhea. Patient denies any urinary burning or frequency Objective - Vital Signs Vital signs: Vital Signs Temp 97.7 F 09/19/21 04:40 Pulse 52 L 09/19/21 04:40 Resp 16 09/19/21 04:40 BP 128/65 09/19/21 04:40 Pulse Ox 95 09/19/21 04:40 Intake & Output 09/18/21 09/19/21 09/19/21 18:59 06:59 18:59 Intake Total 1500 900 Output Total 400 600 Balance 1100 900 -600 Intake: Intake, IV Titration 1500 900 Amount Sodium Chloride 0.9% 1, 1500 000 ml @ 125 mls/hr IV . Q8H [facility] Rx#:[id number] Sodium Chloride 0.9% 1, 900 000 ml @ 75 mls/hr IV . [id number] [facility] Rx#:[id number] Output: Urine 400 600 Stool 0 Other: Voiding Method Urinal Toilet Urinal # Bowel Movements 2 - Exam In general patient is alert and oriented x 3 in no distress HEENT head normocephalic and atraumatic Neck is supple no JVD no goiter no lymphadenopathy no carotid bruit Chest examination is clear to auscultation no crackles no wheezing Cardiac exam reveals regular heart sounds S1 and S2 no gallops no murmurs Abdomen is distended but soft denies discomfort to palpitation Extremity exam reveals no edema no cyanosis or clubbing Neurological examination reveals no gross focal deficits - Labs CBC & Chem 7: 09/19/21 05:38 09/18/21 05:31 Assessment and Plan Assessment: 1. Nausea and vomiting secondary to small bowel obstruction. improving with conservative managemen 2. History of hernia repair in May of this year. 3. History of GERD 4. History of hyperlipidemia 5. History of essential hypertension 6. History of neuropathy Thank you for this consultation we will continue to follow patient closely throughout stay Home Medications resumed Maintained on full liquid diet
[2021-09-19 10:04] LABS: African American GFR (CKD) 104.3 (60.0-200.0); Albumin 3.4 g/dL (3.8-4.9); Albumin/Globulin Ratio 1.43 (1.60-3.17); Anion Gap 14.6 mmol/L (10.00-18.00); BUN/Creat Ratio 15.69 Ratio (12.00-20.00); Blood Urea Nitrogen 12.1 mg/dL (9.0-27.0); Calcium 8.5 mg/dL (8.7-10.3); Carbon Dioxide 17.7 mmol/L (20.0-27.5); Globulin 2.4 g/dL (1.6-3.3); Potassium 3.7 mmol/L (3.5-5.5); Total Bilirubin 0.4 mg/dL (0.30-1.20); Total Protein 5.8 g/dL (6.2-8.2)
[2021-09-19 11:13] VITALS: BMI 38.4
--- NOTE | 2021-09-19 11:18 | P.PN ---
Progress Note - Text Progress Note Date: 09/19/21 Patient feels well. He is tolerated diet. He's had multiple bowel movements yesterday. On exam vital signs are stable. Abdomen soft. Patiently discharged home today. He he'll remain on full liquid diet. He'll follow up with myself next week.
[2021-09-19 11:39] VITALS: BP 138/64; PULSE 55; TEMP 98.2
== END 2021-09-19 15:02 | disposition home or self-care (01) | DRG 390 ==
LOC: EC 11:21 → 5NMEDONC 17:10
PROVIDERS: ADMIT Surgery; ATTEND Surgery
PROC: 0D9670Z Drainage of Stomach with Drainage Device, Via Natural or Artificial Opening (ICD-10-PCS; principal; 2021-09-13)
DX: K56.601 Complete intestinal obstruction, unspecified as to cause (principal); L97.529 Non-pressure chronic ulcer of other part of left foot with unspecified severity; Z20.822 Contact with and (suspected) exposure to COVID-19; K57.90 Diverticulosis of intestine, part unspecified, without perforation or abscess without bleeding; E78.5 Hyperlipidemia, unspecified; K21.9 Gastro-esophageal reflux disease without esophagitis; I10 Essential (primary) hypertension; M19.90 Unspecified osteoarthritis, unspecified site; N42.9 Disorder of prostate, unspecified; G47.30 Sleep apnea, unspecified; G62.9 Polyneuropathy, unspecified; Z79.82 Long term (current) use of aspirin; Z79.899 Other long term (current) drug therapy; Z87.19 Personal history of other diseases of the digestive system; Z96.651 Presence of right artificial knee joint; Z87.39 Personal history of other diseases of the musculoskeletal system and connective tissue; Z98.890 Other specified postprocedural states; Z71.3 Dietary counseling and surveillance; Z91.048 Other nonmedicinal substance allergy status; Z82.49 Family history of ischemic heart disease and other diseases of the circulatory system; Z82.61 Family history of arthritis; Z83.49 Family history of other endocrine, nutritional and metabolic diseases; Z80.0 Family history of malignant neoplasm of digestive organs; Z80.41 Family history of malignant neoplasm of ovary
CPT/HCPCS: 36415; 71046; 74176; 74177; 80048; 80053; 81001; 82150; 83605; 83690; 84484; 85025; 85610; 85730; 87635; 93005; 96374; 96375; 99285

== ENCOUNTER → 2021-11-01 | Day surgery (SDC) | payer MEDICARE ==
[2021-10-29 11:35] VITALS: BMI 37.2
[~2021-11-01] MED LIST: LACTATED RINGERS 1,000 ML IV ONE; LACTATED RINGERS 1,000 ML IV SCH; LIDOCAINE 1% (10MG/ML) FOR IV START INTRADERMA PRN; LIDOCAINE 1% INJ 10MG/ML (20 ML MDV) ONE; PROPOFOL 10 MG/ML 20 ML VIAL IV ONE
[2021-11-01 08:57] VITALS: TEMP 98.2
--- NOTE | 2021-11-01 09:42 | P.GSHP ---
History of Present Illness H&P Date: 11/01/21 Chief Complaint: GERD Is a 71-year-old male with history of GERD. Patient's today for EGD. Past Medical History Past Medical History: GERD/Reflux, Hyperlipidemia, Hypertension, Osteoarthritis (OA), Prostate Disorder, Sleep Apnea/CPAP/BIPAP Additional Past Medical History / Comment(s): rt.foot wound closed. moderate peripheral neuropathy of feet. uses cpap. 09/16 blockage small bowel. hx anemia History of Any Multi-Drug Resistant Organisms: None Reported Past Surgical History: Hernia Repair, Joint Replacement, Orthopedic Surgery, Prostate Surgery Additional Past Surgical History / Comment(s): reconstruction of left foot ongoing. Rt shoulder screw placed. Rt total knee. Rt foot - plate and screws- Dr. Vera at [place] 2012. LEFT FOOT AND RT FOOT surgeries inFEB AND FEBRUARY 2016. BY DR ESQUIVEL Past Anesthesia/Blood Transfusion Reactions: No Reported Reaction, Postoperative Nausea & Vomiting (PONV) Additional Past Anesthesia/Blood Transfusion Reaction / Comment(s): pt states had vomiting with aspiration. pt states experienced Sick Sinus Syndrome during anesthesia 05/[address] jacobsen and was placed on heart monitor Smoking Status: Former smoker - Past Family History Father Family Medical History: AICD/Pacemaker, Osteoarthritis (OA), Thyroid Disorder Mother Family Medical History: Cancer, Hypertension Additional Family Medical History / Comment(s): colon and ovarian Medications and Allergies Home Medications Medication Instructions Recorded Confirmed Type Omeprazole [PriLOSEC] 20 mg PO HS 11/15/15 10/29/21 History Rosuvastatin Calcium [Crestor] 10 mg PO HS 11/15/15 10/29/21 History Gabapentin [Neurontin] 300 mg PO HS 05/27/16 10/29/21 History Aspirin [Adult Low Dose Aspirin EC] 81 mg PO DAILY 04/28/17 10/29/21 History Alfuzosin HCl [Uroxatral ER] 10 mg PO W/SUPPER 12/06/18 10/29/21 History Diclofenac Sodium [Voltaren] 75 mg PO BID 12/06/18 10/29/21 History Gabapentin [Neurontin] 100 mg PO DAILY 09/13/21 10/29/21 History Valsartan 160 mg PO BID 09/13/21 10/29/21 History hydrALAZINE HCL [Apresoline] 50 mg PO BID 09/13/21 10/29/21 History Felodipine [Felodipine ER] 5 mg PO BID 10/29/21 10/29/21 History Allergies Allergy/AdvReac Type Severity Reaction Status Date / Time dust, polllen, mold Allergy Cough Uncoded 10/29/21 11:21 Surgical - Exam Vital Signs Temp Pulse Resp BP Pulse Ox 98.2 F 60 18 155/67 94 L 11/01/21 08:56 11/01/21 08:56 11/01/21 08:56 11/01/21 08:56 11/01/21 08:56 - General well developed, well nourished, no distress - Eyes PERRL - ENT normal pinna - Neck no masses - Respiratory normal expansion - Cardiovascular Rhythm: regular - Abdomen Abdomen: soft, non tender Assessment and Plan Assessment: . We'll perform EGD.
--- NOTE | 2021-11-01 09:52 | P.OP ---
Date of Procedure: 11/01/21 Preoperative Diagnosis: GERD Postoperative Diagnosis: Large hiatal hernia possible gastric torsion Procedure(s) Performed: EGD Anesthesia: MAC Surgeon: Elian Paredes Pathology: none sent Condition: stable Disposition: PACU Description of Procedure: The patient's placed on the endoscopy table in the lateral position. He received IV sedation. The gastro-/oropharynx passed in the esophagus. The GE junction appeared to be near the 30 cm joshua. The stomach was entered. There appeared to be torsion of the stomach. The distal stomach appeared. This point scope withdrawn. The patient was scheduled for and esophagram.
[2021-11-01 10:01] VITALS: RESP 16
[2021-11-01 10:21] VITALS: BP 138/73; PULSE 51
--- NOTE | 2021-11-01 12:54 | FL ---
EXAMINATION TYPE: FL cervical and thoracic esophagus DATE OF EXAM: 11/01/2021 CLINICAL INDICATION: 71-year-old male intrathoracic stomach COMPARISON: CT 09/17/2021 Total Fluoroscopy Time: 2 minutes 10 seconds 55 images obtained. FINDINGS: The swallowing mechanism is normal and hypopharyngeal anatomy is preserved. There is some leftward bowing of the esophagus at the cervicothoracic junction on the frontal views. This may reflect underlying thyromegaly/goiter or other mass. Recommend thyroid ultrasound to further evaluate. There are moderate tertiary peristaltic contractions. No discrete mucosal abnormality or abnormal phil ling defect is identified. A moderate to large hiatal hernia is demonstrated with half of the stomach located in the lower chest . Single contrast technique was utilized as the patient has difficulty standing. There is no fixed na rrowing or obstruction to the passage of contrast below the diaphragm. IMPRESSION: 1. Leftward bowing of the esophagus at the cervicothoracic junction may reflect underlying thyromegal y, goiter, or other mass. Recommend thyroid ultrasound to further evaluate. 2. Moderate tertiary peristalsis suggesting presbyesophagus. 3. Moderate to large hiatal hernia with half of the stomach located in the lower chest. No obstructio n.
== END ==
LOC: ORWHC2ENDO 08:06
PROVIDERS: ATTEND Surgery
DX: K44.9 Diaphragmatic hernia without obstruction or gangrene (principal); E78.5 Hyperlipidemia, unspecified; I10 Essential (primary) hypertension; M19.90 Unspecified osteoarthritis, unspecified site; G62.9 Polyneuropathy, unspecified; Z87.891 Personal history of nicotine dependence
CPT/HCPCS: 43235; 74210; J2001; J2704

== ENCOUNTER 2021-11-20 06:36 | Observation (INO) | payer MEDICARE ==
[~2021-11-20 06:36] MED LIST changes: +ACETAMINOPHEN TAB 500 MG TAB PO PRN; +DEXAMETHASONE SOD PHOSPHATE 4 MG/ML 1 ML VIAL IV ONE; +HEPARIN SODIUM,PORCINE/PF 5,000 UNIT/0.5 ML SYRINGE SQ PRN; -LACTATED RINGERS 1,000 ML IV ONE; -LACTATED RINGERS 1,000 ML IV SCH; -LIDOCAINE 1% (10MG/ML) FOR IV START INTRADERMA PRN; -LIDOCAINE 1% INJ 10MG/ML (20 ML MDV) ONE; +ONDANSETRON 4 MG/2 ML VIAL IVP ONE; -PROPOFOL 10 MG/ML 20 ML VIAL IV ONE
[2021-11-20] MEDS: LACTATED RINGERS 1,000 ML IV SCH (07:35)
[2021-11-20] MEDS ORDERED: ROCURONIUM 10 MG/ML (5 ML VIAL) IV ONE (07:53)
[2021-11-20] MEDS ORDERED: SUCCINYLCHOLINE CHLORIDE 100 MG/5 ML SYR IV ONE (07:53)
[2021-11-20] MEDS ORDERED: PROPOFOL 10 MG/ML 20 ML VIAL IV ONE (07:53)
[2021-11-20] MEDS ORDERED: fentaNYL (PF) 50 MCG/ML 2 ML AMP ONE (07:53)
[2021-11-20] MEDS ORDERED: MIDAZOLAM 2 MG/2 ML VIAL ONE (07:53)
[2021-11-20] MEDS ORDERED: ePHEDrine 50 MG/ML 1 ML AMP ONE (07:53)
[2021-11-20] MEDS ORDERED: GLYCOPYRROLATE 0.2 MG/ML 2 ML VIAL ONE (07:53)
[2021-11-20] MEDS ORDERED: NEOSTIGMINE 1 MG/ML 10 ML VIAL ONE (07:53)
[2021-11-20] MEDS ORDERED: KETOROLAC 15 MG/ML 1 ML VIAL ONE (07:53)
[2021-11-20] MEDS ORDERED: HYDROmorphone (PF) 1 MG/ML ONE (07:53)
[2021-11-20] MEDS ORDERED: LIDOCAINE 1% INJ 10MG/ML (20 ML MDV) ONE (07:53)
--- NOTE | 2021-11-20 08:16 | P.GSHP ---
History of Present Illness H&P Date: 11/20/21 Chief Complaint: Large paraesophageal hernia This a 71-year-old male. He's had complaints of dysphagia and GERD. His recent EGD and esophagram showing a large paraesophageal hernia with intrathoracic stomach. There is some organoaxial portion of the stomach creating a gastric outlet obstruction. He presents today for laparoscopic repair of paraesophageal hernia. Past Medical History Past Medical History: GERD/Reflux, Hearing Disorder / Deafness, Hyperlipidemia, Hypertension, Osteoarthritis (OA), Prostate Disorder, Sleep Apnea/CPAP/BIPAP Additional Past Medical History / Comment(s): Hard of hearing, right foot wound closed, moderate peripheral neuropathy of feet, uses CPAP, hx small bowel blockage 09/16, hx anemia, current hiatal hernia. History of Any Multi-Drug Resistant Organisms: None Reported Past Surgical History: Hernia Repair, Joint Replacement, Orthopedic Surgery, Prostate Surgery Additional Past Surgical History / Comment(s): Reconstruction of left foot, ongoing, right shoulder screw placed, right total knee replacement, right foot - plate and screws, bilateral foot surgeries, EGD/barium swallow. Past Anesthesia/Blood Transfusion Reactions: No Reported Reaction, Postoperative Nausea & Vomiting (PONV) Additional Past Anesthesia/Blood Transfusion Reaction / Comment(s): "Had vomiting with aspiration, experienced Sick Sinus Syndrome during anesthesia 05/14, followed up with Dr Ley and was placed on heart monitor. Past Psychological History: No Psychological Hx Reported Smoking Status: Former smoker Past Alcohol Use History: None Reported Additional Past Alcohol Use History / Comment(s): Smoked for 22-23 years, 1ppd, quit in 1988. Past Drug Use History: None Reported - Past Family History Father Family Medical History: AICD/Pacemaker, Osteoarthritis (OA), Thyroid Disorder Mother Family Medical History: Cancer, Hypertension Additional Family Medical History / Comment(s): Colon and ovarian cancer. Medications and Allergies Home Medications Medication Instructions Recorded Confirmed Type Omeprazole [PriLOSEC] 20 mg PO HS 11/15/15 11/20/21 History Rosuvastatin Calcium [Crestor] 10 mg PO HS 11/15/15 11/20/21 History Gabapentin [Neurontin] 300 mg PO HS 05/27/16 11/20/21 History Aspirin [Adult Low Dose Aspirin EC] 81 mg PO DAILY 04/28/17 11/20/21 History Alfuzosin HCl [Uroxatral ER] 10 mg PO W/SUPPER 12/06/18 11/20/21 History Diclofenac Sodium [Voltaren] 75 mg PO BID 12/06/18 11/20/21 History Gabapentin [Neurontin] 100 mg PO DAILY 09/13/21 11/20/21 History Valsartan 160 mg PO BID 09/13/21 11/20/21 History hydrALAZINE HCL [Apresoline] 50 mg PO BID 09/13/21 11/20/21 History Felodipine [Felodipine ER] 5 mg PO BID 10/29/21 11/20/21 History Ipratropium [place] 0.06%Nasal 2 spray EA NOSTRIL BID 11/14/21 11/20/21 History [Atrovent Nasal 0.06%] Allergies Allergy/AdvReac Type Severity Reaction Status Date / Time dust, polllen, mold Allergy Cough Uncoded 11/20/21 07:01 Surgical - Exam Vital Signs Temp Pulse Resp BP Pulse Ox 98.0 F 64 16 152/66 97 11/20/21 07:10 11/20/21 07:10 11/20/21 07:10 11/20/21 07:10 11/20/21 07:10 - General well developed, well nourished, no distress - Eyes PERRL - ENT normal pinna - Neck no masses - Respiratory normal expansion - Cardiovascular Rhythm: regular - Abdomen Abdomen: soft, non tender Assessment and Plan Assessment: Large paraesophageal hernia. We'll perform laparoscopic repair. Patient is aware the risk of conversion to the open procedure.
[2021-11-20] MEDS ORDERED: BUPIVACAIN-EPI 0.25%-1:200,000 30 ML VIAL SQ ONE (08:30)
[2021-11-20] MEDS ORDERED: LACTATED RINGERS 1,000 ML IV ONE (09:15)
--- NOTE | 2021-11-20 09:40 | P.OP ---
Date of Procedure: 11/20/21 Preoperative Diagnosis: Dysphagia, large paraesophageal hernia Postoperative Diagnosis: Dysphagia Large paraesophageal hernia Procedure(s) Performed: Laparoscopic repair of large paraesophageal hernia with phasix mesh. Anesthesia: GERONIMO Surgeon: Elian Paredes Estimated Blood Loss (ml): 5 Pathology: none sent Condition: stable Disposition: PACU Description of Procedure: The patient was placed on the operating table in the supine position. The patient received general anesthesia. And was placed in dorsal lithotomy position. The patient was prepped and draped in the usual sterile fashion. The skin incision sites were anesthetized with 1% local Xylocaine. The skin was incised in the left periumbilical area and then using a blade less 5 mm trocar under direct visualization panel cavity was entered. After adequate insufflation the laparoscope was then placed into the peritoneal cavity. Next a 5 mm trochars placed in the right epigastric position. Another 5 millimeter trocar the right lateral position. Another 5 millimeter trocar in the left lateral position a 5 mm trocar is placed in the left epigastric position. And then the initial 5 mm trocar was exchanged for a 10 mm trocar. The left lateral lobe liver was retracted. The hernia was seen. The patient had a large paraesophageal hernia. The proximal three quarters of the stomach was in the chest. The stomach was reduced. And then the hernia sac was dissected free. In the complete stomach was reduced into the perineal cavity. The esophagus was brought down into the peritoneal cavity. The miguel was then reapproximated using 2-0 Ethibond suture. A a 58-Japanese bougie dilator was placed into the esophagus prior to repair of the miguel. The hiatal hernia was then buttressed with phasic mesh. This was secured with 2-0 Ethibond. There was no bleeding seen. The trochars withdrawn. The skin was closed with 3-0 Monocryl suture. Dermabond was applied. Patient top procedure well was sent to recovery room in stable condition.
[2021-11-20] MEDS: HYDROmorphone 0.5 MG/0.5 ML SYRINGE IVP PRN ×2 (10:00→10:24)
[2021-11-20 13:03] VITALS: RESP 18
[2021-11-20] MEDS: METOCLOPRAMIDE 5 MG/ML 2 ML VIAL IVP SCH ×3 (15:16→23:00)
[2021-11-20] MEDS: HYDROmorphone 1 MG/ML 1 ML SYRINGE IVP PRN ×2 (15:20→23:35)
[2021-11-20] MEDS ORDERED: hydrALAZINE HCL 20 MG/ML 1 ML VIAL IVP PRN (17:40)
[2021-11-20] MEDS: FAMOTIDINE 20 MG/2 ML VIAL IV SCH (21:19)
[2021-11-20] MEDS: D5-0.45% NACL WITH KCL 20MEQ/L 1,000 ML IV SCH ×2 (21:19→21:22)
[2021-11-21] MEDS: LACTATED RINGERS 1,000 ML IV SCH (01:12)
[2021-11-21] MEDS: HYDROmorphone 1 MG/ML 1 ML SYRINGE IVP PRN ×2 (04:51→11:42)
[2021-11-21] MEDS: METOCLOPRAMIDE 5 MG/ML 2 ML VIAL IVP SCH ×2 (04:52→13:16)
[2021-11-21] MEDS: D5-0.45% NACL WITH KCL 20MEQ/L 1,000 ML IV SCH ×2 (05:13→14:46)
[2021-11-21] MEDS: FAMOTIDINE 20 MG/2 ML VIAL IV SCH (07:56)
[2021-11-21] MEDS ORDERED: ENOXAPARIN 40 MG/0.4 ML SYRINGE SQ SCH (09:00)
--- NOTE | 2021-11-21 09:41 | FL ---
Single contrast esophagram EXAMINATION TYPE: FL esophagus cervic/pharynx DATE OF EXAM: 11/21/2021 9:23 AM COMPARISON: NONE CLINICAL HISTORY: Status post Nam fundoplication The patient ingested contrast without difficulty or delay. Noted are changes of Nam fundoplicatio n. There is no evidence for leak or obstruction. Small amount of residual contrast within the distal esophagus. IMPRESSION: Post-surgical change of Nam fundoplication without evidence for leak or obstruction.
--- NOTE | 2021-11-21 10:06 | P.CONS ---
History of Present Illness - Reason for Consult Consult date: 11/21/21 Medical management Requesting physician: Elian Paredes - Chief Complaint Dysphagia - History of Present Illness This is a 71-year-old male patient of Dr. Nation who presented for an electivea laparoscopic repair of large paraesophageal hernia with mesh placement with Dr. Paredes on 11/20/2021. Patient has past medical history of GERD, hearing disorder, hyperlipidemia, hypertension, osteoarthritis, sleep apnea, prostate disorder and right shoulder surgery. She is currently postop day 1 resting comfortably in bed. Patient remains on shante clear liquid diet. Patient denies chest pain or shortness of breath. Patient denies nausea vomiting or diarrhea. Patient denies any urinary burning or frequency. labs have been ordered Review of Systems Please refer to HPI otherwise unremarkable Past Medical History Past Medical History: GERD/Reflux, Hearing Disorder / Deafness, Hyperlipidemia, Hypertension, Osteoarthritis (OA), Prostate Disorder, Sleep Apnea/CPAP/BIPAP Additional Past Medical History / Comment(s): Hard of hearing, right foot wound closed, moderate peripheral neuropathy of feet, uses CPAP, hx small bowel blockage 09/16, hx anemia, current hiatal hernia. History of Any Multi-Drug Resistant Organisms: None Reported Past Surgical History: Hernia Repair, Joint Replacement, Orthopedic Surgery, Prostate Surgery Additional Past Surgical History / Comment(s): Reconstruction of left foot, ongoing, right shoulder screw placed, right total knee replacement, right foot - plate and screws, bilateral foot surgeries, EGD/barium swallow. Past Anesthesia/Blood Transfusion Reactions: No Reported Reaction, Postoperative Nausea & Vomiting (PONV) Additional Past Anesthesia/Blood Transfusion Reaction / Comm: "Had vomiting with aspiration, experienced Sick Sinus Syndrome during anesthesia 05/14, followed up with Dr Ley and was placed on heart monitor. Past Psychological History: No Psychological Hx Reported Additional Psychological History / Comment(s): Single. Retired. No service. Former smoker. Denies alcohol use or abuse. No significant recreational drug use or injection drug use. Animal exposures Smoking Status: Never smoker Past Alcohol Use History: None Reported Additional Past Alcohol Use History / Comment(s): Smoked for 22-23 years, 1ppd, quit in 1988. Past Drug Use History: None Reported - Past Family History Father Family Medical History: AICD/Pacemaker, Osteoarthritis (OA), Thyroid Disorder Mother Family Medical History: Cancer, Hypertension Additional Family Medical History / Comment(s): Colon and ovarian cancer. Medications and Allergies Home Medications Medication Instructions Recorded Confirmed Type Omeprazole [PriLOSEC] 20 mg PO HS 11/15/15 11/20/21 History Rosuvastatin Calcium [Crestor] 10 mg PO HS 11/15/15 11/20/21 History Gabapentin [Neurontin] 300 mg PO HS 05/27/16 11/20/21 History Aspirin [Adult Low Dose Aspirin EC] 81 mg PO DAILY 04/28/17 11/20/21 History Alfuzosin HCl [Uroxatral ER] 10 mg PO W/SUPPER 12/06/18 11/20/21 History Diclofenac Sodium [Voltaren] 75 mg PO BID 12/06/18 11/20/21 History Gabapentin [Neurontin] 100 mg PO DAILY 09/13/21 11/20/21 History Valsartan 160 mg PO BID 09/13/21 11/20/21 History hydrALAZINE HCL [Apresoline] 50 mg PO BID 09/13/21 11/20/21 History Felodipine [Felodipine ER] 5 mg PO BID 10/29/21 11/20/21 History Ipratropium [place] 0.06%Nasal 2 spray EA NOSTRIL BID 11/14/21 11/20/21 History [Atrovent Nasal 0.06%] Allergies Allergy/AdvReac Type Severity Reaction Status Date / Time dust, polllen, mold Allergy Cough Uncoded 11/20/21 07:01 Physical Exam Vitals: Vital Signs Temp Pulse Resp BP Pulse Ox 11/21/21 04:34 97.7 F 53 L 18 147/66 97 11/21/21 00:47 18 99 11/20/21 20:00 97.8 F 65 18 152/60 95 11/20/21 14:45 60 18 11/20/21 13:38 97.4 F L 51 L 16 126/64 91 L 11/20/21 13:30 58 L 18 121/52 98 11/20/21 13:02 52 L 18 113/57 97 11/20/21 12:16 56 L 22 113/58 97 11/20/21 11:23 55 L 16 118/58 97 11/20/21 11:00 57 L 16 124/59 98 11/20/21 10:30 56 L 16 125/58 97 11/20/21 10:15 58 L 16 119/56 97 11/20/21 10:00 60 16 121/56 97 Intake and Output 11/20/21 11/21/21 11/21/21 22:59 06:59 14:59 Intake Total 300 550 Balance 300 550 Intake: Intake, IV Titration 300 550 Amount D5-0.45% NaCl with KCl 550 20Meq/l 1,000 ml @ 125 mls/hr IV .Q8H DEBBIE Rx#: [id number] Lactated Ringers 1,000 ml 300 @ 20 mls/hr IV .Q24H DEBBIE Rx#:[id number] Oral 0 Other: # Voids 2 5 Head normocephalic Neck supple Lungs clear to auscultation bilaterally no wheezing or crackles Heart regular rate and rhythm S1-S2, no rub or gallop Abdomen is soft nontender nondistended positive bowel sounds no hepatosplenomegaly Extremities no edema Neuro alert and orientated to 3 Assessment and Plan Assessment: 1. Status post laparoscopic repair of large paraesophageal hernia with phasix mesh with Dr. Paredes. Postop day 1 2. history of GERD 3. History of hyperlipidemia 4. History of essential hypertension 5. History of osteoarthritis with right knee repair 6. History of sleep apnea 7. History of prostate disorder thank you for this consultation we will continue to follow patient closely throughout statin Time with Patient: Greater than 30 (Greater than 60% of the total time spent in counseling and coordination of care)
[2021-11-21] MEDS ORDERED: hydrALAZINE HCL 50 MG TAB PO SCH (11:00)
[2021-11-21 11:08] LABS: Basophils % (A) 0 %; Eosinophils # (A) 0.1 k/uL (0-0.7); Eosinophils % (A) 2 %; HCT 42.5 % (39.0-53.0); HGB 13.3 gm/dL (13.0-17.5); Lymphocytes # (A) 1.1 k/uL (1.0-4.8); Lymphocytes % (A) 16 %; MCH 29.2 pg (25.0-35.0); MCHC 31.4 g/dL (31.0-37.0); Mean Platelet Volume 8.2; Monocytes # (A) 0.6 k/uL (0-1.0); Monocytes % (A) 8 %; Neutrophils # (A) 4.8 k/uL (1.3-7.7); Neutrophils % (A) 71 %; Platelet Count 214 k/uL (150-450); RBC 4.57 m/uL (4.30-5.90); WBC 6.7 k/uL (3.8-10.6)
[2021-11-21 11:24] LABS: ALT 23 U/L (4-49); AST 44 U/L (17-59); African American GFR (CKD) >90 (>60 ml/min/1.73 sqM); Albumin 3.7 g/dL (3.5-5.0); Albumin/Globulin Ratio 1.3; Alkaline Phosphatase 78 U/L (38-126); Anion Gap 8 mmol/L; Blood Urea Nitrogen 14 mg/dL (9-20); Calcium 9.1 mg/dL (8.4-10.2); Carbon Dioxide 24 mmol/L (22-30); Chloride 105 mmol/L (98-107); Globulin 2.9 g/dL; Glucose 91 mg/dL (74-99); Non-African American GFR(CKD) >90 (>60 ml/min/1.73 sqM); Potassium 4.1 mmol/L (3.5-5.1); Sodium 137 mmol/L (137-145); Total Bilirubin 0.5 mg/dL (0.2-1.3); Total Protein 6.6 g/dL (6.3-8.2)
[2021-11-21 13:27] VITALS: BP 148/68; PULSE 58; TEMP 97.6
[2021-11-21 13:29] VITALS: BMI 33.2
[2021-11-21] MEDS ORDERED: HYDROcodone/APAP 5-325MG 1 EACH TAB PO PRN (14:40)
--- NOTE | 2021-11-21 16:01 | P.DS ---
Providers Date of admission: 11/21/21 12:02 Expected date of discharge: 11/21/21 Attending physician: lEian Paredes Consults: 11/20/21 09:40 Consult Physician Routine Consulting Provider: Meenu Werner Consult Reason/Comments: Medical management Do you want consulting provider notified?: Yes Primary care physician: Juani Nation Hospital Course: Discharge diagnoses 1. Dysphagia and large paraesophageal hernia status post laparoscopic repair of large paraesophageal hernia with mesh Hospital course This is a 71-year-old male with complaints of dysphagia and GERD and evidence of large paraesophageal hernia with intrathoracic stomach noted on EGD. Patient is status post laparoscopic repair of large paraesophageal hernia with mesh. Patient tolerated surgery well. Pain controlled. Upper GI shows no evidence of leak or obstruction. He is tolerating diet. He is having flatus. He has been up and ambulating. He is afebrile. He is stable for discharge. Please refer to chart for any further details. Physician Dust Mop Maker note has been reviewed by physician. Signing provider agrees with the documented findings, assessment, and plan of care. Patient Condition at Discharge: Stable Plan - Discharge Summary Discharge Rx Participant: Yes New Discharge Prescriptions: New Docusate [Colace] 100 mg PO BID #30 capsule HYDROcodone/APAP 5-325MG [[place] 5-325] 1 tab PO Q6HR PRN 3 Days #12 tab PRN Reason: Pain Continue Rosuvastatin Calcium [Crestor] 10 mg PO HS Omeprazole [PriLOSEC] 20 mg PO HS Gabapentin [Neurontin] 300 mg PO HS Aspirin [Adult Low Dose Aspirin EC] 81 mg PO DAILY Alfuzosin HCl [Uroxatral ER] 10 mg PO W/SUPPER hydrALAZINE HCL [Apresoline] 50 mg PO BID Ipratropium [place] 0.06%Nasal [Atrovent Nasal 0.06%] 2 spray EA NOSTRIL BID Valsartan 160 mg PO BID Gabapentin [Neurontin] 100 mg PO DAILY Felodipine [Felodipine ER] 5 mg PO BID Discontinued Diclofenac Sodium [Voltaren] 75 mg PO BID Discharge Medication List Omeprazole [PriLOSEC] 20 mg PO HS 11/15/15 [History] Rosuvastatin Calcium [Crestor] 10 mg PO HS 11/15/15 [History] Gabapentin [Neurontin] 300 mg PO HS 05/27/16 [History] Aspirin [Adult Low Dose Aspirin EC] 81 mg PO DAILY 04/28/17 [History] Alfuzosin HCl [Uroxatral ER] 10 mg PO W/SUPPER 12/06/18 [History] Gabapentin [Neurontin] 100 mg PO DAILY 09/13/21 [History] Valsartan 160 mg PO BID 09/13/21 [History] hydrALAZINE HCL [Apresoline] 50 mg PO BID 09/13/21 [History] Felodipine [Felodipine ER] 5 mg PO BID 10/29/21 [History] Ipratropium [place] 0.06%Nasal [Atrovent Nasal 0.06%] 2 spray EA NOSTRIL BID 11/14/21 [History] Docusate [Colace] 100 mg PO BID #30 capsule 11/21/21 [Rx] HYDROcodone/APAP 5-325MG [[place] 5-325] 1 tab PO Q6HR PRN 3 Days #12 tab 11/21/21 [Rx] Follow up Appointment(s)/Referral(s): Elian Paredes MD [STAFF PHYSICIAN] - 1 Week Activity/Diet/Wound Care/Special Instructions: No driving while taking [place] No lifting over 10 pounds You may shower. No soaking or tub baths for 2 weeks Very light activity until you are reevaluated at your follow up appointment with your surgeon No straws or carbonated beverages Continue full liquid diet Discharge Disposition: HOME SELF-CARE
[2021-11-21] MEDS ORDERED: TAMSULOSIN 0.4 MG CAP.ER.24H PO SCH (17:30)
[2021-11-21] MEDS ORDERED: GABAPENTIN 300 MG CAP PO SCH (21:00)
[2021-11-21] MEDS ORDERED: amLODIPine 5 MG TAB PO SCH (21:00)
[2021-11-21] MEDS ORDERED: VALSARTAN 160 MG TAB PO SCH (21:00)
[2021-11-21] MEDS ORDERED: IPRATROPIUM BROMIDE 0.06% NASAL SPRAY (15 ML) EA NOSTRIL SCH (21:00)
[2021-11-22] MEDS ORDERED: GABAPENTIN 100 MG CAP PO SCH (09:00)
[2021-11-22] MEDS ORDERED: ASPIRIN 81 MG PO SCH (09:00)
== END 2021-11-21 16:55 | disposition home or self-care (01) ==
LOC: OR 06:36 → 5NMEDONC 09:24 → OR 11-21 12:02 → 5NMEDONC 11-21 12:02
PROVIDERS: ADMIT Surgery; ATTEND Surgery
DX: K44.9 Diaphragmatic hernia without obstruction or gangrene (principal); K21.9 Gastro-esophageal reflux disease without esophagitis; K31.1 Adult hypertrophic pyloric stenosis; I10 Essential (primary) hypertension; E78.5 Hyperlipidemia, unspecified; H91.90 Unspecified hearing loss, unspecified ear; M19.90 Unspecified osteoarthritis, unspecified site; G62.9 Polyneuropathy, unspecified; N40.0 Benign prostatic hyperplasia without lower urinary tract symptoms; G47.33 Obstructive sleep apnea (adult) (pediatric); Z20.822 Contact with and (suspected) exposure to COVID-19; Z71.9 Counseling, unspecified; Z96.651 Presence of right artificial knee joint; Z79.899 Other long term (current) drug therapy; Z87.891 Personal history of nicotine dependence; Z79.82 Long term (current) use of aspirin; Z79.1 Long term (current) use of non-steroidal anti-inflammatories (NSAID); J30.89 Other allergic rhinitis; J30.1 Allergic rhinitis due to pollen; Z91.048 Other nonmedicinal substance allergy status; Z82.49 Family history of ischemic heart disease and other diseases of the circulatory system; Z82.61 Family history of arthritis; Z83.49 Family history of other endocrine, nutritional and metabolic diseases; Z80.41 Family history of malignant neoplasm of ovary; Z80.0 Family history of malignant neoplasm of digestive organs
CPT/HCPCS: 80053; 85025; 87635; 74210; 43282; G0378; J2250; J1100; J2710; J2765 ×2; J0690; J2405; J2001; J1650; J3010; J1170 ×3; J1885; J0330; J2704; Q9967; J1644

== ENCOUNTER → 2022-02-28 | Outpatient (CLI) | payer MEDICARE, BC ==
--- NOTE | 2022-02-28 18:53 | SFUN ---
SLEEP CENTER FOLLOW UP NOTE DATE OF SERVICE: 02/28/2022 This 71-year-old gentleman has been followed in Sleep Center for treatment of obstructive sleep apnea-hypopnea syndrome. The patient continues to use his CPAP equipment every night for the whole night. No significant problems with the machine. He is getting his supplies on time. Shannon Sleepiness Scale today is 7, which is normal. I checked his CPAP unit. Pressure in the range between 8 and 13, average pressure 11.6. Usage is 30/30 nights for more than 4 hours, average 7.5 hours per night, which is great compliance. Leak is only 2 L/minute. Apnea-hypopnea index is 1.2, which is totally normal. MEDICATIONS: Diovan, hydralazine, diclofenac, gabapentin, omeprazole, Crestor, aspirin. PHYSICAL EXAMINATION: GENERAL: Pleasant patient in no distress. VITAL SIGNS: BP 122/52, HR 65, RR 16, height 5 feet 10 inches, weight 228. Patient lost about 27 pounds. Temperature 97.6, oxygen saturation at room air 98%. HEENT: PERRLA, EOMI, evaluation of oropharynx showed tongue protrudes midline. Extremely low position of soft palate; Mallampati IV. NECK: Supple, no JVD. Thyroid is not palpable. LUNGS: Clear to percussion and to auscultation. Good air exchange. No wheezing or rhonchi. HEART: S1, S2 regular. No murmurs, gallops, or rubs. ABDOMEN: Soft and nontender. Bowel sounds are present. No organomegaly appreciated. EXTREMITIES: No clubbing or cyanosis. LOG DRIVER: Awake, alert, and oriented X3. Cranial nerves 2 to 7 intact. There is no fasciculation or atrophy. noted. No focal deficits observed. IMPRESSION: 1. Obstructive sleep apnea-hypopnea syndrome. Patient demonstrated great compliance with treatment, benefitting from treatment. 2. History of psychophysiological insomnia. 3. Hypertension. 4. Obesity. 5. Hyperlipidemia. 6. Benign prostatic hypertrophy. 7. Peripheral neuropathy. 8. History of Charcot feet. 9. Status post nasal fracture. PLAN: 1. Patient will continue to use PAP equipment every night for the whole night. 2. Sleep hygiene with regular time in bed for at least 7-1/2 to 8 hours. 3. Precautions related to driving. No driving if feeling sleepiness. 4. I will maintain all necessary prescription for PAP supplies including mask, tube, filters. 5. Watching weight. 6. Follow-up visit in 6 months or earlier if patient has any problems. Thank you very much for allowing me to participate in the management of your patient. Sincerely, Antonio Kaufman MD, PhD, FAASM Diplomat of [place] [employer] Sleep Medicine Board of [place] [employer] Electronic [employer] Specialist of [facility] MMODL / VYN: [id number] /
== END ==
LOC: SLEEP 14:39
PROVIDERS: ATTEND Internal Medicine
DX: G47.33 Obstructive sleep apnea (adult) (pediatric) (principal); I10 Essential (primary) hypertension; E66.9 Obesity, unspecified; E78.5 Hyperlipidemia, unspecified; N40.0 Benign prostatic hyperplasia without lower urinary tract symptoms; G62.9 Polyneuropathy, unspecified; Z87.81 Personal history of (healed) traumatic fracture; Z87.39 Personal history of other diseases of the musculoskeletal system and connective tissue; Z99.89 Dependence on other enabling machines and devices; Z91.09 Other allergy status, other than to drugs and biological substances; Z87.891 Personal history of nicotine dependence

== ENCOUNTER 2022-06-26 22:30 | Inpatient (IN) | payer MEDICARE ==
[2022-06-26] MEDS ORDERED: SODIUM CHLORIDE 0.9% 1,000 ML IV STA (22:36)
--- NOTE | 2022-06-26 22:36 | ED ---
Chest Pain HPI - General Stated Complaint: ASHOK Time Seen by Provider: 06/26/22 22:34 Source: RN notes reviewed, old records reviewed Limitations: no limitations - History of Present Illness Initial Comments: This is a 72-year-old male DF for evaluation. Patient complains of severe shortness of breath especially with exertion states he feels that he is walking into a wall. He cannot keep going he has increasing weakness going on for weeks now he thinks it started at [facility] had coronavirus about 2 months ago. He has seen his primary care on 2 or 3 occasions and has had no improvement despite treatments including antibiotics and steroids. Patient has no recent current travel history or sick contacts no recent fevers he does have chest pain especially with exertion he gets leg pain with exertion as well. Is overall body aches and feels weak. Patient has history of high blood pressure high cholesterol but no history of heart disease and he does have no history of COPD despite a remote history of smoking greater than 40 years ago MD Complaint: chest pain, other (SOB,Weakness,Falls) -: week(s) Onset: during rest, during exertion (Severe shortness of breath) Pain Location: substernal Pain Radiation: none Severity: severe Severity scale (1-10): 10 Quality: tightness Consistency: constant Improves With: nothing Worsens With: exertion Context: recent illness (Coronavirus 2 months ago), recent surgery (He has had multiple surgeries but nothing recent) Anginal Symptoms: diaphoresis, dyspnea, sense of impending doom Other Symptoms: palpitations Treatments Prior to Arrival: none - Related Data Home Medications Medication Instructions Recorded Confirmed Omeprazole [PriLOSEC] 20 mg PO HS 11/15/15 11/20/21 Rosuvastatin Calcium [Crestor] 10 mg PO HS 11/15/15 11/20/21 Gabapentin [Neurontin] 300 mg PO HS 05/27/16 11/20/21 Aspirin [Adult Low Dose Aspirin EC] 81 mg PO DAILY 04/28/17 11/20/21 Alfuzosin HCl [Uroxatral ER] 10 mg PO W/SUPPER 12/06/18 11/20/21 Gabapentin [Neurontin] 100 mg PO DAILY 09/13/21 11/20/21 Valsartan 160 mg PO BID 09/13/21 11/20/21 hydrALAZINE HCL [Apresoline] 50 mg PO BID 09/13/21 11/20/21 Felodipine [Felodipine ER] 5 mg PO BID 10/29/21 11/20/21 Ipratropium [place] 0.06%Nasal 2 spray EA NOSTRIL BID 11/14/21 11/20/21 [Atrovent Nasal 0.06%] Previous Rx's Medication Instructions Recorded Docusate [Colace] 100 mg PO BID #30 capsule 11/21/21 HYDROcodone/APAP 5-325MG [[place] 1 tab PO Q6HR PRN 3 Days #12 tab 11/21/21 5-325] Allergies Allergy/AdvReac Type Severity Reaction Status Date / Time dust, polllen, mold Allergy Cough Uncoded 11/20/21 07:01 Review of Systems ROS Statement: Those systems with pertinent positive or pertinent negative responses have been documented in the HPI. ROS Other: All systems not noted in ROS Statement are negative. Past Medical History Past Medical History: GERD/Reflux, Hearing Disorder / Deafness, Hyperlipidemia, Hypertension, Osteoarthritis (OA), Prostate Disorder, Sleep Apnea/CPAP/BIPAP Additional Past Medical History / Comment(s): Hard of hearing, right foot wound closed, moderate peripheral neuropathy of feet, uses CPAP, hx small bowel blockage 09/16, hx anemia, current hiatal hernia. History of Any Multi-Drug Resistant Organisms: None Reported Past Surgical History: Hernia Repair, Joint Replacement, Orthopedic Surgery, Prostate Surgery Additional Past Surgical History / Comment(s): Reconstruction of left foot, ongoing, right shoulder screw placed, right total knee replacement, right foot - plate and screws, bilateral foot surgeries, EGD/barium swallow. Past Anesthesia/Blood Transfusion Reactions: No Reported Reaction, Postoperative Nausea & Vomiting (PONV) Additional Past Anesthesia/Blood Transfusion Reaction / Comment(s): "Had vomiting with aspiration, experienced Sick Sinus Syndrome during anesthesia 05/14, followed up with Dr Ley and was placed on heart monitor. Past Psychological History: No Psychological Hx Reported Additional Psychological History / Comment(s): Single. Retired. No service. Former smoker. Denies alcohol use or abuse. No significant recreational drug use or injection drug use. Animal exposures Smoking Status: Never smoker Past Alcohol Use History: None Reported Additional Past Alcohol Use History / Comment(s): Smoked for 22-23 years, 1ppd, quit in 1988. Past Drug Use History: None Reported - Past Family History Father Family Medical History: AICD/Pacemaker, Osteoarthritis (OA), Thyroid Disorder Mother Family Medical History: Cancer, Hypertension Additional Family Medical History / Comment(s): Colon and ovarian cancer. General Exam - General Exam Comments Initial Comments: Pallor General appearance: alert, in no apparent distress, anxious Head exam: Present: atraumatic, normocephalic, normal inspection Eye exam: Present: normal appearance, PERRL, EOMI. Absent: scleral icterus, conjunctival injection, periorbital swelling ENT exam: Present: normal exam, mucous membranes moist Neck exam: Present: normal inspection. Absent: tenderness, meningismus, lymphadenopathy Respiratory exam: Present: respiratory distress, decreased breath sounds, prolonged expiratory. Absent: wheezes, rales, rhonchi, stridor Cardiovascular Exam: Present: regular rate, normal rhythm, normal heart sounds. Absent: systolic murmur, diastolic murmur, rubs, gallop, clicks GI/Abdominal exam: Present: soft, normal bowel sounds. Absent: distended, tenderness, guarding, rebound, rigid Extremities exam: Present: normal inspection, full ROM, normal capillary refill. Absent: tenderness, pedal edema, joint swelling, calf tenderness Back exam: Present: normal inspection Neurological exam: Present: alert, oriented X3, CN II-XII intact Psychiatric exam: Present: normal affect, normal mood Skin exam: Present: warm, dry, intact, normal color. Absent: rash Course Vital Signs 06/26/22 06/26/22 22:59 23:40 Temperature 98.5 F Pulse Rate 88 78 Respiratory 17 15 Rate Blood Pressure 114/64 119/68 O2 Sat by Pulse 98 98 Oximetry - Reevaluation(s) Reevaluation #1: 06/27/22 00:20 Medical record is reviewed Reevaluation #2: 06/27/22 00:20 Patient has no change in symptoms here in the ER Reevaluation #3: 06/27/22 00:20 Patient informed of results and questions answered - Consultations Consultation #1: Spoke with admitting physician Dr. Werner who agrees to admit this patient Consultation #2: Spoke with ICU Dr. Nur who agrees to accept patient ICU Chest Pain MDM - MDM 72 male to the emergency department for evaluation of severe shortness of breath found to be profoundly anemic with a hemoglobin before. Patient also has pleural effusions on his lungs. No history of heart disease or heart failure. Patient denies any blood in the stool no gross blood and no black stools. Critical Care Time Critical Care Time: Yes Total Critical Care Time: 31 Disposition Clinical Impression: Acute pulmonary edema, Bilateral pleural effusion, Anemia, Symptomatic anemia Disposition: ADMITTED IP TO THIS HOSP Condition: Critical Is patient prescribed a controlled substance at d/c from ED?: No Referrals: Juani Nation MD [Primary Care Provider] - 1-2 days Time of Disposition: 00:25
--- NOTE | 2022-06-26 23:11 | XR ---
EXAMINATION TYPE: XR chest 1V portable DATE OF EXAM: 06/26/2022 COMPARISON: 09/13/2021 HISTORY: Abdominal pain TECHNIQUE: Single view FINDINGS: Heart is enlarged. There is blunting right and left costophrenic angle. There are no hilar masses. The trachea is midline. IMPRESSION: There are bilateral pleural effusions are larger on the right side. Fluid appears new com pared to the old exam. No significant pulmonary congestion seen. There is cardiomegaly. This could be some mild chronic congestive heart failure.
[2022-06-26 23:49] LABS: Anisocytosis Slight; Basophils % (A) 0 %; Eosinophils # (A) 0.1 k/uL (0-0.7); Eosinophils % (A) 1 %; Hypochromasia Marked; Lymphocytes # (A) 1.4 k/uL (1.0-4.8); Lymphocytes % (A) 15 %; MCH 15.6 pg (25.0-35.0); MCHC 24.8 g/dL (31.0-37.0); Mean Platelet Volume 9.7; Microcytosis Marked; Monocytes # (A) 0.7 k/uL (0-1.0); Monocytes % (A) 7 %; Neutrophils # (A) 7.1 k/uL (1.3-7.7); Neutrophils % (A) 74 %; Platelet Count 419 k/uL (150-450); Poikilocytosis Slight; RBC 2.54 m/uL (4.30-5.90); RDW 19.4 % (11.5-15.5); WBC 9.5 k/uL (3.8-10.6)
[2022-06-27 00:05] LABS: INR 1.1 (<1.2); Prothrombin Time 11.8 sec (9.0-12.0)
[2022-06-27] MEDS ORDERED: IPRATROPIUM-ALBUTEROL 3 ML NEB INHALATION STA (00:08)
[2022-06-27] MEDS ORDERED: NALOXONE 0.4 MG/ML 1 ML VIAL IV PRN (00:08)
[2022-06-27 00:11] LABS: Calcium 8.3 mg/dL (8.4-10.2); Magnesium 2.8 mg/dL (1.6-2.3); Potassium 5.7 mmol/L (3.5-5.1); Total Bilirubin 0.3 mg/dL (0.2-1.3); Total Protein 5.4 g/dL (6.3-8.2)
[2022-06-27 01:21] LABS: Glucose,Whole Blood 109 mg/dL (70-110)
[2022-06-27] MEDS: SODIUM CHLORIDE 0.9% 1,000 ML IV SCH (03:09)
[2022-06-27 06:22] LABS: Anisocytosis Moderate; Hypochromasia Marked; MCH 16.6 pg (25.0-35.0); MCHC 25.5 g/dL (31.0-37.0); MCV 65.2 fL (80.0-100.0); Mean Platelet Volume 9.3; Microcytosis Marked; Platelet Count 375 k/uL (150-450); Poikilocytosis Moderate; RBC 2.77 m/uL (4.30-5.90); RDW 21.1 % (11.5-15.5); WBC 7.9 k/uL (3.8-10.6)
[2022-06-27 06:32] LABS: HCT 18.1 % (39.0-53.0); HGB 4.6 gm/dL (13.0-17.5)
[2022-06-27 06:36] LABS: Albumin 2.7 g/dL (3.5-5.0); Calcium 7.9 mg/dL (8.4-10.2); Magnesium 2.9 mg/dL (1.6-2.3); Potassium 5.3 mmol/L (3.5-5.1); Total Bilirubin 0.2 mg/dL (0.2-1.3); Total Protein 5.1 g/dL (6.3-8.2)
--- NOTE | 2022-06-27 09:36 | P.CRDCN ---
History of Present Illness Consult date: 06/27/22 History of present illness: The patient is a 72-year-old male who presented to the emergency room with progressive weakness and fatigue. The patient states he had been experiencing this way for at least the last month, however he presented to the emergency room when he could no longer walk 10 feet without having to stop and sit down. He states he was short of breath. EKG on arrival shows sinus rhythm. Chest x-ray shows bilateral pleural effusions, worse on the right without significant pulmonary congestion. Initial blood work shows severe anemia with hemoglobin of 4.0. DIAGNOSTICS: EKG shows sinus rhythm without ST or T-wave abnormalities Chest x-ray shows bilateral pleural effusions, worse on the right Lab data: WBC 9.5, hemoglobin 4.0, hematocrit 16.0, platelets 419, sodium 136, potassium 5.7 mL BUN 35, creatinine 1.61, magnesium 2.8, AST 35, ALT 15, troponin 0.06, BNP 7570 Vital signs blood pressure 124/63, pulse 68, temp 98.2F, SpO2 95% on room air PAST MEDICAL HISTORY: Large paraesophageal hernia with mesh repair in October 2021, hypertension, dyslipidemia REVIEW OF SYSTEMS: No current fever or chills. Patient had been experiencing chills intermittently over the last several weeks. No cough or expectoration. No diaphoresis. Patient denies headache, blurred vision, double vision. Patient denies any stomach discomfort. No nausea, vomiting. No hematochezia. No hematemesis. Denies any black stools or blood in his stools. Denies dysuria or hematuria. Positive for dizziness. Positive for weakness and fatigue. No chest pain. PHYSICAL EXAMINATION: This is a 72-year-old male in no apparent distress at the time of my examination. HEENT: Head is atraumatic, normocephalic. Pupils are equal, round. Sclerae anicteric. Conjunctivae pale. Mucous membranes of the mouth are moist. Neck is supple. There is no jugular venous distention. No carotid bruit is heard. CHEST EXAMINATION: Lungs are clear to auscultation. No chest wall tenderness is noted on palpation or with deep breathing. HEART EXAMINATION: Heart regular rate and rhythm. S1, S2 heard. Soft systolic murmur. No gallops or rub. ABDOMEN: Soft, nontender. Bowel sounds are heard. No organomegaly noted. EXTREMITIES: 2+ peripheral pulses with no evidence of peripheral edema and no calf tenderness noted. NEUROLOGIC EXAMINATION: Patient is awake, alert and oriented x3. FINAL ASSESSMENT AND PLAN: Severe anemia, unknown source Mildly elevated troponin, likely secondary to anemia Elevated BNP, echocardiogram pending History of hypertension History dyslipidemia PLAN: Resume rosuvastatin Gradually reintroduce antihypertensive regimen when appropriate Further recommendations to be based on clinical course I am dictating on behalf of Dr Thad Aguirre's history/physical and assessment/plan. Past Medical History Past Medical History: GERD/Reflux, Hearing Disorder / Deafness, Hyperlipidemia, Hypertension, Osteoarthritis (OA), Prostate Disorder, Sleep Apnea/CPAP/BIPAP Additional Past Medical History / Comment(s): Hard of hearing, right foot wound closed, moderate peripheral neuropathy of feet, uses CPAP, hx small bowel blockage 09/16, hx anemia, current hiatal hernia. History of Any Multi-Drug Resistant Organisms: None Reported Past Surgical History: Hernia Repair, Joint Replacement, Orthopedic Surgery, Prostate Surgery Additional Past Surgical History / Comment(s): Reconstruction of left foot, ongoing, right shoulder screw placed, right total knee replacement, right foot - plate and screws, bilateral foot surgeries, EGD/barium swallow. Past Anesthesia/Blood Transfusion Reactions: No Reported Reaction, Postoperative Nausea & Vomiting (PONV) Additional Past Anesthesia/Blood Transfusion Reaction / Comment(s): "Had vomiting with aspiration, experienced Sick Sinus Syndrome during anesthesia 05/14, followed up with Dr Ley and was placed on heart monitor. Past Psychological History: No Psychological Hx Reported Additional Psychological History / Comment(s): Single. Retired. No service. Former smoker. Denies alcohol use or abuse. No significant recreational drug use or injection drug use. Animal exposures Smoking Status: Never smoker Past Alcohol Use History: None Reported Additional Past Alcohol Use History / Comment(s): Smoked for 22-23 years, 1ppd, quit in 1988. Past Drug Use History: None Reported - Past Family History Father Family Medical History: AICD/Pacemaker, Osteoarthritis (OA), Thyroid Disorder Mother Family Medical History: Cancer, Hypertension Additional Family Medical History / Comment(s): Colon and ovarian cancer. Medications and Allergies Home Medications Medication Instructions Recorded Confirmed Type Omeprazole [PriLOSEC] 20 mg PO HS 11/15/15 06/27/22 History Rosuvastatin Calcium [Crestor] 10 mg PO HS 11/15/15 06/27/22 History Gabapentin [Neurontin] 300 mg PO HS 05/27/16 06/27/22 History Aspirin [Adult Low Dose Aspirin EC] 81 mg PO DAILY 04/28/17 06/27/22 History Alfuzosin HCl [Uroxatral ER] 10 mg PO W/SUPPER 12/06/18 06/27/22 History Gabapentin [Neurontin] 100 mg PO DAILY 09/13/21 06/27/22 History Valsartan 160 mg PO BID 09/13/21 06/27/22 History hydrALAZINE HCL [Apresoline] 50 mg PO BID 09/13/21 06/27/22 History Felodipine [Felodipine ER] 5 mg PO BID 10/29/21 06/27/22 History Ipratropium Alpha 0.06%Nasal 2 spray EA NOSTRIL BID 11/14/21 06/27/22 History [Atrovent Nasal 0.06%] Aspirin 81 mg PO DAILY 06/27/22 06/27/22 History Cholecalciferol [Vitamin D3 (25 50 mcg PO DAILY 06/27/22 06/27/22 History Mcg = 1000 Iu)] Diclofenac Sodium [Voltaren] 75 mg PO BID 06/27/22 06/27/22 History Fluticasone/Umeclidin/Vilanter 1 puff INHALATION RT-DAILY 06/27/22 06/27/22 History [Trelegy Ellipta 200-62.5-25] Furosemide [Lasix] 20 mg PO DAILY 06/27/22 06/27/22 History Glucosamine-Chondr 500-400Mg 1 tab PO DAILY 06/27/22 06/27/22 History Magnesium Gluconate [Magonate] 500 mg PO DAILY 06/27/22 06/27/22 History Methyfolate 5 mg PO DAILY 06/27/22 06/27/22 History Allergies Allergy/AdvReac Type Severity Reaction Status Date / Time dust, polllen, mold Allergy Cough Uncoded 11/20/21 07:01 Physical Exam Vitals: Vital Signs Temp Pulse Resp BP Pulse Ox 06/27/22 09:03 98.2 F 66 20 124/61 95 06/27/22 09:00 65 19 124/60 94 L 06/27/22 08:30 66 11 L 121/58 92 L 06/27/22 08:00 97.9 F 62 0 L 125/58 94 L 06/27/22 07:37 97.9 F 64 14 122/61 96 06/27/22 07:30 64 18 122/55 95 06/27/22 07:15 94 L 06/27/22 07:00 64 5 L 124/59 94 L 06/27/22 06:30 125/57 06/27/22 06:00 61 10 L 123/59 94 L 06/27/22 05:40 97.9 F 63 13 125/61 95 06/27/22 05:30 61 3 L 107/78 93 L 06/27/22 05:10 97.8 F 63 14 107/78 93 L 06/27/22 05:00 97.9 F 65 20 123/72 94 L 06/27/22 04:50 97.9 F 61 14 123/72 94 L 06/27/22 04:30 4 L 123/55 96 06/27/22 04:00 97.8 F 61 3 L 121/64 95 06/27/22 03:30 20 120/55 95 06/27/22 03:10 97.6 F 69 14 121/56 94 L 06/27/22 03:00 64 25 H 123/58 95 06/27/22 02:50 64 8 L 123/58 93 L 06/27/22 02:40 97.9 F 65 18 117/53 93 L 06/27/22 02:30 98.2 F 66 7 L 111/51 91 L 06/27/22 02:20 69 2 L 111/51 93 L 06/27/22 02:10 65 11 L 118/51 92 L 06/27/22 02:00 97.7 F 65 15 122/54 88 L 06/27/22 01:50 66 7 L 122/54 93 L 06/27/22 01:40 67 6 L 122/55 93 L 06/27/22 01:30 69 7 L 119/47 94 L 06/27/22 00:54 77 15 117/65 98 06/27/22 00:40 78 06/27/22 00:35 74 06/26/22 23:40 78 15 119/68 98 06/26/22 22:59 98.5 F 88 17 114/64 98 Intake and Output 06/26/22 06/27/22 06/27/22 22:59 06:59 14:59 Intake Total 710 510 Output Total 550 0 Balance 160 510 Intake: IV 400 200 Sodium Chloride 0.9% 1, 400 200 000 ml @ 100 mls/hr IV . Q10H STA Rx#:[id number] Blood Product 310 310 Rc As-1 Unit 0 [id number] Rc As-1 Unit 310 [id number] Rc As-1 Unit 0 310 [id number] Output: Urine 550 0 Other: Voiding Method Toilet Toilet Urinal Urinal # Voids 1 0 Weight 90.718 kg 90.718 kg Results 06/27/22 05:14 06/27/22 05:14 Cardiac Enzymes 06/26/22 06/26/22 06/27/22 Range/Units 23:40 23:40 05:14 AST 35 19 (17-59) U/L Troponin I 0.067 H* (0.000-0.034) ng/mL Coagulation 06/26/22 Range/Units 23:40 PT 11.8 (9.0-12.0) sec APTT 21.0 L (22.0-30.0) sec CBC 06/26/22 06/27/22 Range/Units 22:40 05:14 WBC 9.5 7.9 (3.8-10.6) k/uL RBC 2.54 L 2.77 L (4.30-5.90) m/uL Hgb 4.0 L* 4.6 L* (13.0-17.5) gm/dL Hct 16.0 L* 18.1 L* (39.0-53.0) % Plt Count 419 375 (150-450) k/uL Comprehensive Metabolic Panel 06/26/22 06/27/22 Range/Units 23:40 05:14 Sodium 136 L 138 (137-145) mmol/L Potassium 5.7 H 5.3 H (3.5-5.1) mmol/L Chloride 107 110 H (98-107) mmol/L Carbon Dioxide 18 L 20 L (22-30) mmol/L BUN 35 H 33 H (9-20) mg/dL Creatinine 1.61 H 1.59 H (0.66-1.25) mg/dL Glucose 94 78 (74-99) mg/dL Calcium 8.3 L 7.9 L (8.4-10.2) mg/dL AST 35 19 (17-59) U/L ALT 15 12 (4-49) U/L Alkaline Phosphatase 65 66 (38-126) U/L Total Protein 5.4 L 5.1 L (6.3-8.2) g/dL Albumin 3.0 L 2.7 L (3.5-5.0) g/dL Current Medications Generic Name Dose Route Start Last Admin Trade Name Freq PRN Reason Stop Dose Admin Albuterol/Ipratropium 3 ml 06/27/22 00:08 Ipratropium-Albuterol 3 Ml Neb INHALATION RT-Q4H PRN Shortness Of Breath Or Wheezing Sodium Chloride 1,000 mls @ 20 mls/hr 06/27/22 00:15 06/27/22 03:09 Saline 0.9% IV Not Given .Q24H DEBBIE Naloxone HCl 0.2 mg 06/27/22 00:08 Naloxone 0.4 Mg/Ml 1 Ml Vial IV Q2M PRN Opioid Reversal Intake and Output 06/26/22 06/27/22 06/27/22 22:59 06:59 14:59 Intake Total 710 510 Output Total 550 0 Balance 160 510 Intake: IV 400 200 Sodium Chloride 0.9% 1, 400 200 000 ml @ 100 mls/hr IV . Q10H STA Rx#:[id number] Blood Product 310 310 Rc As-1 Unit 0 [id number] Rc As-1 Unit 310 [id number] Rc As-1 Unit 0 310 [id number] Output: Urine 550 0 Other: Voiding Method Toilet Toilet Urinal Urinal # Voids 1 0 Weight 90.718 kg 90.718 kg 06/27/22 05:14 06/27/22 05:14
--- NOTE | 2022-06-27 12:30 | P.GSCN ---
History of Present Illness Consult date: 06/27/22 Reason for Consult: Profound anemia History of present illness: This is a 72-year-old male with history of anemia. Patient was feeling lighthe aded. Presented to the emergency. His he will was in the 4 range. Patient in the ICU for treatment. Patient is known to myself. Approximately 9 months ago he underwent a repair of a large paraesophageal hernia. The patient denies any significant dysphagia and GERD. He also denies any evidence of GI bleed. He denies any melena or bright red blood. Patient states that he's been on iron in the past for anemia Past Medical History Past Medical History: GERD/Reflux, Hearing Disorder / Deafness, Hyperlipidemia, Hypertension, Osteoarthritis (OA), Prostate Disorder, Sleep Apnea/CPAP/BIPAP (severe ORTIZ AHI 98) Additional Past Medical History / Comment(s): paraesophageal hernia post repair, COVID 19 04/2022, Diverticulosis, Hard of hearing, charcoat joints and feet, moderate peripheral neuropathy of feet, ORTIZ uses CPAP, hx small bowel blockage 09/16, hx anemia, current hiatal hernia. History of Any Multi-Drug Resistant Organisms: None Reported Past Surgical History: Hernia Repair, Joint Replacement, Orthopedic Surgery, Prostate Surgery Additional Past Surgical History / Comment(s): Reconstruction of left foot, ongoing, right shoulder screw placed, right total knee replacement, right foot - plate and screws, bilateral foot surgeries, EGD/barium swallow. Past Anesthesia/Blood Transfusion Reactions: No Reported Reaction, Postoperative Nausea & Vomiting (PONV) Additional Past Anesthesia/Blood Transfusion Reaction / Comm: "Had vomiting with aspiration, experienced Sick Sinus Syndrome during anesthesia 05/14, followed up with Dr Ley and was placed on heart monitor. Past Psychological History: No Psychological Hx Reported Additional Psychological History / Comment(s): Single. Retired. No service. Former smoker. Denies alcohol use or abuse. No significant recreational drug use or injection drug use. Animal exposures Smoking Status: Never smoker Past Alcohol Use History: None Reported Additional Past Alcohol Use History / Comment(s): Smoked for 22-23 years, 1ppd, quit in 1988. Past Drug Use History: None Reported - Past Family History Father Family Medical History: AICD/Pacemaker, Osteoarthritis (OA), Thyroid Disorder Mother Family Medical History: Cancer, Hypertension Additional Family Medical History / Comment(s): Colon and ovarian cancer. Medications and Allergies Home Medications Medication Instructions Recorded Confirmed Type Omeprazole [PriLOSEC] 20 mg PO HS 11/15/15 06/27/22 History Rosuvastatin Calcium [Crestor] 10 mg PO HS 11/15/15 06/27/22 History Gabapentin [Neurontin] 300 mg PO HS 05/27/16 06/27/22 History Aspirin [Adult Low Dose Aspirin EC] 81 mg PO DAILY 04/28/17 06/27/22 History Alfuzosin HCl [Uroxatral ER] 10 mg PO W/SUPPER 12/06/18 06/27/22 History Gabapentin [Neurontin] 100 mg PO DAILY 09/13/21 06/27/22 History Valsartan 160 mg PO BID 09/13/21 06/27/22 History hydrALAZINE HCL [Apresoline] 50 mg PO BID 09/13/21 06/27/22 History Felodipine [Felodipine ER] 5 mg PO BID 10/29/21 06/27/22 History Ipratropium [place] 0.06%Nasal 2 spray EA NOSTRIL BID 11/14/21 06/27/22 History [Atrovent Nasal 0.06%] Aspirin 81 mg PO DAILY 06/27/22 06/27/22 History Cholecalciferol [Vitamin D3 (25 50 mcg PO DAILY 06/27/22 06/27/22 History Mcg = 1000 Iu)] Diclofenac Sodium [Voltaren] 75 mg PO BID 06/27/22 06/27/22 History Fluticasone/Umeclidin/Vilanter 1 puff INHALATION RT-DAILY 06/27/22 06/27/22 Hi story [Trelegy Ellipta 200-62.5-25] Furosemide [Lasix] 20 mg PO DAILY 06/27/22 06/27/22 History Glucosamine-Chondr 500-400Mg 1 tab PO DAILY 06/27/22 06/27/22 History Magnesium Gluconate [Magonate] 500 mg PO DAILY 06/27/22 06/27/22 History Methyfolate 5 mg PO DAILY 06/27/22 06/27/22 History Allergies Allergy/AdvReac Type Severity Reaction Status Date / Time dust, polllen, mold Allergy Cough Uncoded 11/20/21 07:01 Surgical - Exam Vital Signs Temp Pulse Resp BP Pulse Ox 98.5 F 88 17 114/64 98 06/26/22 22:59 06/26/22 22:59 06/26/22 22:59 06/26/22 22:59 06/26/22 22:59 - General well developed, well nourished, no distress - Eyes PERRL - ENT normal pinna - Neck no masses - Respiratory normal expansion - Cardiovascular Rhythm: regular - Abdomen Obese Abdomen: soft, non tender Results - Labs 06/27/22 05:14 06/27/22 05:14 Abnormal Lab Results - Last 24 Hours (Table) 06/26/22 06/26/22 06/26/22 Range/Units 22:40 23:40 23:40 RBC 2.54 L (4.30-5.90) m/uL Hgb 4.0 L* (13.0-17.5) gm/dL Hct 16.0 L* (39.0-53.0) % MCV 63.0 L (80.0-100.0) fL MCH 15.6 L (25.0-35.0) pg MCHC 24.8 L (31.0-37.0) g/dL RDW 19.4 H (11.5-15.5) % APTT 21.0 L (22.0-30.0) sec Sodium 136 L (137-145) mmol/L Potassium 5.7 H (3.5-5.1) mmol/L Chloride (98-107) mmol/L Carbon Dioxide 18 L (22-30) mmol/L BUN 35 H (9-20) mg/dL Creatinine 1.61 H (0.66-1.25) mg/dL Calcium 8.3 L (8.4-10.2) mg/dL Magnesium 2.8 H (1.6-2.3) mg/dL Troponin I (0.000-0.034) ng/mL Total Protein 5.4 L (6.3-8.2) g/dL Albumin 3.0 L (3.5-5.0) g/dL Crossmatch 06/26/22 06/27/22 06/27/22 Range/Units 23:40 00:26 05:14 RBC 2.77 L (4.30-5.90) m/uL Hgb 4.6 L* (13.0-17.5) gm/dL Hct 18.1 L* (39.0-53.0) % MCV 65.2 L (80.0-100.0) fL MCH 16.6 L (25.0-35.0) pg MCHC 25.5 L (31.0-37.0) g/dL RDW 21.1 H (11.5-15.5) % APTT (22.0-30.0) sec Sodium (137-145) mmol/L Potassium (3.5-5.1) mmol/L Chloride (98-107) mmol/L Carbon Dioxide (22-30) mmol/L BUN (9-20) mg/dL Creatinine (0.66-1.25) mg/dL Calcium (8.4-10.2) mg/dL Magnesium (1.6-2.3) mg/dL Troponin I 0.067 H* (0.000-0.034) ng/mL Total Protein (6.3-8.2) g/dL Albumin (3.5-5.0) g/dL Crossmatch See Detail 06/27/22 Range/Units 05:14 RBC (4.30-5.90) m/uL Hgb (13.0-17.5) gm/dL Hct (39.0-53.0) % MCV (80.0-100.0) fL MCH (25.0-35.0) pg MCHC (31.0-37.0) g/dL RDW (11.5-15.5) % APTT (22.0-30.0) sec Sodium (137-145) mmol/L Potassium 5.3 H (3.5-5.1) mmol/L Chloride 110 H (98-107) mmol/L Carbon Dioxide 20 L (22-30) mmol/L BUN 33 H (9-20) mg/dL Creatinine 1.59 H (0.66-1.25) mg/dL Calcium 7.9 L (8.4-10.2) mg/dL Magnesium 2.9 H (1.6-2.3) mg/dL Troponin I (0.000-0.034) ng/mL Total Protein 5.1 L (6.3-8.2) g/dL Albumin 2.7 L (3.5-5.0) g/dL Crossmatch Diabetes panel 06/26/22 06/27/22 Range/Units 23:40 05:14 Sodium 136 L 138 (137-145) mmol/L Potassium 5.7 H 5.3 H (3.5-5.1) mmol/L Chloride 107 110 H (98-107) mmol/L Carbon Dioxide 18 L 20 L (22-30) mmol/L BUN 35 H 33 H (9-20) mg/dL Creatinine 1.61 H 1.59 H (0.66-1.25) mg/dL Glucose 94 78 (74-99) mg/dL Calcium 8.3 L 7.9 L (8.4-10.2) mg/dL AST 35 19 (17-59) U/L ALT 15 12 (4-49) U/L Alkaline Phosphatase 65 66 (38-126) U/L Total Protein 5.4 L 5.1 L (6.3-8.2) g/dL Albumin 3.0 L 2.7 L (3.5-5.0) g/dL Calcium panel 06/26/22 06/27/22 Range/Units 23:40 05:14 Calcium 8.3 L 7.9 L (8.4-10.2) mg/dL Albumin 3.0 L 2.7 L (3.5-5.0) g/dL Pituitary panel 06/26/22 06/27/22 Range/Units 23:40 05:14 Sodium 136 L 138 (137-145) mmol/L Potassium 5.7 H 5.3 H (3.5-5.1) mmol/L Chloride 107 110 H (98-107) mmol/L Carbon Dioxide 18 L 20 L (22-30) mmol/L BUN 35 H 33 H (9-20) mg/dL Creatinine 1.61 H 1.59 H (0.66-1.25) mg/dL Glucose 94 78 (74-99) mg/dL Calcium 8.3 L 7.9 L (8.4-10.2) mg/dL Adrenal panel 06/26/22 06/27/22 Range/Units 23:40 05:14 Sodium 136 L 138 (137-145) mmol/L Potassium 5.7 H 5.3 H (3.5-5.1) mmol/L Chloride 107 110 H (98-107) mmol/L Carbon Dioxide 18 L 20 L (22-30) mmol/L BUN 35 H 33 H (9-20) mg/dL Creatinine 1.61 H 1.59 H (0.66-1.25) mg/dL Glucose 94 78 (74-99) mg/dL Calcium 8.3 L 7.9 L (8.4-10.2) mg/dL Total Bilirubin 0.3 0.2 (0.2-1.3) mg/dL AST 35 19 (17-59) U/L ALT 15 12 (4-49) U/L Alkaline Phosphatase 65 66 (38-126) U/L Total Protein 5.4 L 5.1 L (6.3-8.2) g/dL Albumin 3.0 L 2.7 L (3.5-5.0) g/dL Assessment and Plan Assessment: Severe anemia. Patient is receiving packed red cell transfusion. The patient will need upper and lower endoscopy. We will plan for this for next week. Dr. Sharma will be covering me over the holiday weekend.
[2022-06-27] MEDS ORDERED: FUROSEMIDE 10 MG/ML 4 ML VIAL IV STA (12:34)
--- NOTE | 2022-06-27 12:50 | CA ---
Transthoracic Echo Report Name: Sebastian Echeverria Age: 72 Gender: M : 1950 Exam Date: 06/27/2022 09:06 Exam Location: [facility] Ht (in): 68 Wt (lb): 200 Ordering Physician: Gabriele Watts DO Attending/Referring Phys: [id number], [employer] Director Charlee Busch RDCS Procedure CPT: Indications: Effusion Cardiac Hx: Technical Quality: Contrast 1: Total Dose (mL): Contrast 2: Total Dose (mL): MEASUREMENTS (Male / Female) Normal Values 2D ECHO LV Diastolic Diameter PLAX 5.2 cm 4.2 - 5.9 / 3.9 - 5.3 cm LV Systolic Diameter PLAX 2.7 cm IVS Diastolic Thickness 1.4 cm 0.6 - 1.0 / 0.6 - 0.9 cm LVPW Diastolic Thickness 1.4 cm 0.6 - 1.0 / 0.6 - 0.9 cm LV Relative Wall Thickness 0.5 RV Internal Dim ED PLAX 4.9 cm LV Diastolic Volume MOD BP 232.7 cm??? 67 - 155 / 56 - 104 cm??? LV Systolic Volume MOD BP 111.3 cm??? 22 - 58 / 19 - 49 cm??? LV Ejection Fraction MOD BP 52.2 % >= 55 % LV Diastolic Volume MOD 4C 235.8 cm??? LV Systolic Volume MOD 4C 117.2 cm??? LV Ejection Fraction MOD 4C 50.3 % LV Diastolic Length 4C 10.0 cm LV Systolic Length 4C 8.8 cm LV Diastolic Volume MOD 2C 230.8 cm??? LV Systolic Volume MOD 2C 101.6 cm??? LV Ejection Fraction MOD 2C 56.0 % LV Diastolic Length 2C 10.0 cm LV Systolic Length 2C 9.3 cm LA Volume 215.9 cm??? 18 - 58 / 22 - 52 cm??? M-MODE Aortic Root Diameter MM 3.0 cm LA Systolic Diameter MM 6.5 cm LA Ao Ratio MM 2.2 AV Cusp Separation MM 2.1 cm DOPPLER AV Peak Velocity 183.4 cm/s AV Peak Gradient 13.5 mmHg LVOT Peak Velocity 126.3 cm/s LVOT Peak Gradient 6.4 mmHg MV Area PHT 3.6 cm??? Mitral E Point Velocity 142.8 cm/s Mitral A Point Velocity 51.2 cm/s Mitral E to A Ratio 2.8 MV Deceleration Time 212.5 ms MV E' Velocity 8.3 cm/s Mitral E to MV E' Ratio 17.3 TR Peak Velocity 316.9 cm/s TR Peak Gradient 40.2 mmHg Right Ventricular Systolic Press 43.5 mmHg FINDINGS Left Ventricle Mildly increased septal wall thickness. Severely increased left ventricular diastolic volume. Severely increased left ventricular systolic volume. Mildly decreased left ventricular ejection fraction. Left ventricular ejection fraction is estimated at 45 %. Hypokinetic apical inferior and apical septal montalvo. Right Ventricle Moderate right ventricular dilatation. Moderate pulmonary hypertension. Right Atrium Mild right atrial dilatation. Left Atrium Severely increased left atrial volume. Moderately increased left atrial area. Mitral Valve Mild mitral annular calcification. Mild to moderate mitral regurgitation. Aortic Valve Thickened aortic valve without stenosis. Tricuspid Valve [id number] tricuspid regurgitation. Pulmonic Valve Trace pulmonic regurgitation. Pericardium No pericardial effusion. Aorta Normal size aortic root and proximal ascending aorta. CONCLUSIONS Mild LVH Left ventricular EF 45% with predominantly apical hypokinesis and sparing of the basis. Can be seen with Takotsubo's cardiomyopathy vs CAD. Mild to moderate mitral regurgitation Mild to moderate tricuspid regurgitation No pericardial effusion RVSP 43 Previewed by: Dr. Blue Mahmood DO (Electronically Signed) Final Date: 27 June 2022 12:49
--- NOTE | 2022-06-27 13:21 | P.CNPUL ---
History of Present Illness Consult date: 06/27/22 Reason for consult: dyspnea History of present illness: 72-year-old male patient presented to the hospital because of lightheadedness and exertional dyspnea. The patient had no chest pain. No cough sputum production chest vessel wheezing. No swelling in lower extremities. He was having profound fatigue and weakness. This has been going on for at least 3-4 weeks. Was unable to walk long distances. He came into the emergency room where the patient was found to have hemoglobin of 4.0. EKG showed a normal sinus rhythm. Chest x-ray showed a small bilateral pleural effusion worse on the right with cardiomegaly. Note that the patient is not take any form of anticoagulants. He has undergone previous surgery for a large are esophageal hernia with placement of a mesh and this was done Gen. 2021 and the patient was having difficulties with swallowing. The patient has not had any recent colonoscopy. He is known to have diverticulosis. Nevertheless, he denies having any nausea or emesis. No hematemesis. No bright red blood per rectum or melanotic stools. The patient's initial hemoglobin was at 4.0 and this was a microcytic anemia with a MCV of 63. Platelet count was 419. White cell count of 9.5. The rest of the coagulation profile was within normal limits. The BUN 35 with a creatinine of 1.6 consistent with acute kidney injury. Sodium level is at 136 and the potassium level was at 5.7 with a serum bicarbonate was 18 and anion gap of 11. Troponin was 0.06. ProBNP level was 7570 and rest LFTs were essentially within normal limits. The patient was admitted to the intensive care unit. He was started on packed RBC transfusion and he'll be transferred to a total of 4 units of packed RBC. Gen. surgery consultation was also obtained. Review of Systems Constitutional: Denies chills, Denies fever Eyes: denies as per HPI, denies blurred vision, denies bulging eye, denies decreased vision, denies diplopia, denies discharge, denies dry eye, denies irritation, denies itching, denies pain, denies photophobia, denies loss of peripheral vision, denies loss of vision, denies tunnel vision/blind spots Ears: deny: decreased hearing, ear discharge, earache, tinnitus Ears, nose, mouth and throat: Reports as per HPI Breasts: absent: as per HPI, gynecomastia Cardiovascular: Reports decreased exercise tolerance, Reports dyspnea on exertion Respiratory: Reports dyspnea Gastrointestinal: Reports as per HPI Genitourinary: Reports as per HPI Musculoskeletal: Reports as per HPI Musculoskeletal: absent: ankle pain, ankle stiffness, ankle swelling, as per HPI, elbow pain, elbow stiffness, elbow swelling, foot pain, foot stiffness, foot swelling, hand pain, hand stiffness, hand swelling, hip pain, hip stiffness, hip swelling, knee pain, knee stiffness, knee swelling, shoulder pain, shoulder stiffness, shoulder swelling, wrist pain, wrist stiffness, wrist swelling Integumentary: Reports as per HPI Neurological: Reports as per HPI, Reports gait dysfunction Psychiatric: Reports as per HPI Endocrine: Reports as per HPI, Reports fatigue Hematologic/Lymphatic: Reports as per HPI Allergic/Immunologic: Reports as per HPI Past Medical History Past Medical History: GERD/Reflux, Hearing Disorder / Deafness, Hyperlipidemia, Hypertension, Osteoarthritis (OA), Prostate Disorder, Sleep Apnea/CPAP/BIPAP (severe ORTIZ AHI 98) Additional Past Medical History / Comment(s): paraesophageal hernia post repair, COVID 19 04/2022, Diverticulosis, Hard of hearing, charcoat joints and feet, moderate peripheral neuropathy of feet, ORTIZ uses CPAP, hx small bowel blockage 09/16, hx anemia, current hiatal hernia. History of Any Multi-Drug Resistant Organisms: None Reported Past Surgical History: Hernia Repair, Joint Replacement, Orthopedic Surgery, Prostate Surgery Additional Past Surgical History / Comment(s): Reconstruction of left foot, ongoing, right shoulder screw placed, right total knee replacement, right foot - plate and screws, bilateral foot surgeries, EGD/barium swallow. Past Anesthesia/Blood Transfusion Reactions: No Reported Reaction, Postoperative Nausea & Vomiting (PONV) Additional Past Anesthesia/Blood Transfusion Reaction / Comment(s): "Had vomiting with aspiration, experienced Sick Sinus Syndrome during anesthesia 05/14, followed up with Dr Ley and was placed on heart monitor. Past Psychological History: No Psychological Hx Reported Additional Psychological History / Comment(s): Single. Retired. No service. Former smoker. Denies alcohol use or abuse. No significant recreational drug use or injection drug use. Animal exposures Smoking Status: Never smoker Past Alcohol Use History: None Reported Additional Past Alcohol Use History / Comment(s): Smoked for 22-23 years, 1ppd, quit in 1988. Past Drug Use History: None Reported - Past Family History Father Family Medical History: AICD/Pacemaker, Osteoarthritis (OA), Thyroid Disorder Mother Family Medical History: Cancer, Hypertension Additional Family Medical History / Comment(s): Colon and ovarian cancer. Medications and Allergies Home Medications Medication Instructions Recorded Confirmed Type Omeprazole [PriLOSEC] 20 mg PO HS 11/15/15 06/27/22 History Rosuvastatin Calcium [Crestor] 10 mg PO HS 11/15/15 06/27/22 History Gabapentin [Neurontin] 300 mg PO HS 05/27/16 06/27/22 History Aspirin [Adult Low Dose Aspirin EC] 81 mg PO DAILY 04/28/17 06/27/22 History Alfuzosin HCl [Uroxatral ER] 10 mg PO W/SUPPER 12/06/18 06/27/22 History Gabapentin [Neurontin] 100 mg PO DAILY 09/13/21 06/27/22 History Valsartan 160 mg PO BID 09/13/21 06/27/22 History hydrALAZINE HCL [Apresoline] 50 mg PO BID 09/13/21 06/27/22 History Felodipine [Felodipine ER] 5 mg PO BID 10/29/21 06/27/22 History Ipratropium [place] 0.06%Nasal 2 spray EA NOSTRIL BID 11/14/21 06/27/22 History [Atrovent Nasal 0.06%] Aspirin 81 mg PO DAILY 06/27/22 06/27/22 History Cholecalciferol [Vitamin D3 (25 50 mcg PO DAILY 06/27/22 06/27/22 History Mcg = 1000 Iu)] Diclofenac Sodium [Voltaren] 75 mg PO BID 06/27/22 06/27/22 History Fluticasone/Umeclidin/Vilanter 1 puff INHALATION RT-DAILY 06/27/22 06/27/22 History [Trelegy Ellipta 200-62.5-25] Furosemide [Lasix] 20 mg PO DAILY 06/27/22 06/27/22 History Glucosamine-Chondr 500-400Mg 1 tab PO DAILY 06/27/22 06/27/22 History Magnesium Gluconate [Magonate] 500 mg PO DAILY 06/27/22 06/27/22 History Methyfolate 5 mg PO DAILY 06/27/22 06/27/22 History Allergies Allergy/AdvReac Type Severity Reaction Status Date / Time dust, polllen, mold Allergy Cough Uncoded 11/20/21 07:01 Physical Exam Vitals: Vital Signs Temp Pulse Resp BP Pulse Ox 06/27/22 09:13 68 21 124/63 94 L 06/27/22 09:03 98.2 F 66 20 124/61 95 06/27/22 09:00 65 19 124/60 94 L 06/27/22 08:30 66 11 L 121/58 92 L 06/27/22 08:00 97.9 F 62 0 L 125/58 94 L 06/27/22 07:37 97.9 F 64 14 122/61 96 06/27/22 07:30 64 18 122/55 95 06/27/22 07:15 94 L 06/27/22 07:00 64 5 L 124/59 94 L 06/27/22 06:30 125/57 06/27/22 06:00 61 10 L 123/59 94 L 06/27/22 05:40 97.9 F 63 13 125/61 95 06/27/22 05:30 61 3 L 107/78 93 L 06/27/22 05:10 97.8 F 63 14 107/78 93 L 06/27/22 05:00 97.9 F 65 20 123/72 94 L 06/27/22 04:50 97.9 F 61 14 123/72 94 L 06/27/22 04:30 4 L 123/55 96 06/27/22 04:00 97.8 F 61 3 L 121/64 95 06/27/22 03:30 20 120/55 95 06/27/22 03:10 97.6 F 69 14 121/56 94 L 06/27/22 03:00 64 25 H 123/58 95 06/27/22 02:50 64 8 L 123/58 93 L 06/27/22 02:40 97.9 F 65 18 117/53 93 L 06/27/22 02:30 98.2 F 66 7 L 111/51 91 L 06/27/22 02:20 69 2 L 111/51 93 L 06/27/22 02:10 65 11 L 118/51 92 L 06/27/22 02:00 97.7 F 65 15 122/54 88 L 06/27/22 01:50 66 7 L 122/54 93 L 06/27/22 01:40 67 6 L 122/55 93 L 06/27/22 01:30 69 7 L 119/47 94 L 06/27/22 00:54 77 15 117/65 98 06/27/22 00:40 78 06/27/22 00:35 74 06/26/22 23:40 78 15 119/68 98 06/26/22 22:59 98.5 F 88 17 114/64 98 Intake and Output 06/26/22 06/27/22 06/27/22 22:59 06:59 14:59 Intake Total 710 510 Output Total 550 0 Balance 160 510 Intake: IV 400 200 Sodium Chloride 0.9% 1, 400 200 000 ml @ 100 mls/hr IV . Q10H STA Rx#:[id number] Blood Product 310 310 Rc As-1 Unit 0 [id number] Rc As-1 Unit 310 [id number] Rc As-1 Unit 0 310 [id number] Output: Urine 550 0 Other: Voiding Method Toilet Toilet Urinal Urinal # Voids 1 0 Weight 90.718 kg 90.718 kg Gen. appearance the patient is calm and comfortable, not having any significant respiratory distress on room air oxygen Head exam was generally normal. There was no scleral icterus or corneal arcus. Mucous membranes were moist. HEENT: Head is atraumatic, normocephalic. Pupils are equal, round. Sclerae anicteric. Conjunctivae pale. Mucous membranes of the mouth are moist. Neck is supple. There is no jugular venous distention. No carotid bruit is heard. CHEST EXAMINATION: Lungs are clear to auscultation. No chest wall tenderness is noted on palpation or with deep breathing. HEART EXAMINATION: Heart regular rate and rhythm. S1, S2 heard. Soft systolic murmur. No gallops or rub. ABDOMEN: Soft, nontender. Bowel sounds are heard. No organomegaly noted. EXTREMITIES: 2+ peripheral pulses with no evidence of peripheral edema and no calf tenderness noted. The patient has chronic deformities lower extremities which Charcot joints and signs of peripheral neuropathy NEUROLOGIC EXAMINATION: Patient is awake, alert and oriented x3. Examination of the skin revealed no evidence of significant rashes, suspicious appearing nevi or other concerning lesions. Results - Laboratory Findings CBC and BMP: 06/27/22 05:14 06/27/22 05:14 PT/INR, D-dimer PT 11.8 sec (9.0-12.0) 06/26/22 23:40 INR 1.1 (<1.2) 06/26/22 23:40 Abnormal lab findings: Abnormal Labs 06/26/22 06/26/22 06/26/22 22:40 23:40 23:40 RBC 2.54 L Hgb 4.0 L* Hct 16.0 L* MCV 63.0 L MCH 15.6 L MCHC 24.8 L RDW 19.4 H APTT 21.0 L Sodium 136 L Potassium 5.7 H Chloride Carbon Dioxide 18 L BUN 35 H Creatinine 1.61 H Calcium 8.3 L Magnesium 2.8 H Troponin I Total Protein 5.4 L Albumin 3.0 L Crossmatch 06/26/22 06/27/22 06/27/22 23:40 00:26 05:14 RBC 2.77 L Hgb 4.6 L* Hct 18.1 L* MCV 65.2 L MCH 16.6 L MCHC 25.5 L RDW 21.1 H APTT Sodium Potassium Chloride Carbon Dioxide BUN Creatinine Calcium Magnesium Troponin I 0.067 H* Total Protein Albumin Crossmatch See Detail 06/27/22 05:14 RBC Hgb Hct MCV MCH MCHC RDW APTT Sodium Potassium 5.3 H Chloride 110 H Carbon Dioxide 20 L BUN 33 H Creatinine 1.59 H Calcium 7.9 L Magnesium 2.9 H Troponin I Total Protein 5.1 L Albumin 2.7 L Crossmatch - Diagnostic Findings Chest x-ray: image reviewed Assessment and Plan Plan: Acute on top of chronic anemia, with probably subacute or progressive slow drop in the hemoglobin over the past several weeks. No signs of any acute GI bleeding. Hemoglobin was down to 4.0, admission this was microcytic anemia, rule out underlying iron deficiency, blood loss anemia. Shortness of breath secondary to above History of diverticulosis History of esophageal hernia with surgical repair with placement of a mesh COVID 19 infection in April 2022 Acute kidney injury Mild elevation of the troponins, free of any chest pain Obstructive sleep apnea utilizes CPAP on outpatient basis. His case of severe ORTIZ with an AHI of 98. Impaired hearing Chronic peripheral neuropathy and Charcot joints and difficulty with mobility and gait Previous history of a small bowel obstruction back in August 2021, recovered BPH Hypertension Hyperlipidemia Plan Transfuse the patient with total of 4 units of packed RBCs Check iron studies Monitor hemoglobin posttransfusion Give Lasix if there is any signs of fluid overload Obtain echocardiogram Monitor renal function General surgery consultation May need a colonoscopy and/or EGD Stool for occult blood No anticoagulants Keep in ICU Utilize CPAP overnight We'll continue to follow
[2022-06-27 16:47] LABS: % Iron Saturation 2.75 (15.00-50.00)
--- NOTE | 2022-06-27 18:07 | P.HPIM ---
History of Present Illness H&P Date: 06/27/22 Sebastian Armas, is a 72-year-old male who presented to [facility] emergency room with a chief complaint of chest pain and shortness of breath He was evaluated in the emergency room vital examination on presentation revealed a temperature of 98.5 pulse 88 respirations 17 and blood pressure 114/64 pulse ox 98% on room air Laboratory data revealed a white blood count of 9.5 hemoglobin 4.0 platelet count 419 BUN 35 creatinine 1.61 troponin level 0.067 Testing in the emergency room revealed chest x-ray revealed bilateral pleural effusion right larger than left Patient was admitted to ICU for further evaluation and treatment Past Medical History Past Medical History: GERD/Reflux, Hearing Disorder / Deafness, Hyperlipidemia, Hypertension, Osteoarthritis (OA), Prostate Disorder, Sleep Apnea/CPAP/BIPAP (severe ORTIZ AHI 98) Additional Past Medical History / Comment(s): paraesophageal hernia post repair, COVID 19 04/2022, Diverticulosis, Hard of hearing, charcoat joints and feet, moderate peripheral neuropathy of feet, ORTIZ uses CPAP, hx small bowel blockage 09/16, hx anemia, current hiatal hernia. History of Any Multi-Drug Resistant Organisms: None Reported Past Surgical History: Hernia Repair, Joint Replacement, Orthopedic Surgery, Prostate Surgery Additional Past Surgical History / Comment(s): Reconstruction of left foot, ongoing, right shoulder screw placed, right total knee replacement, right foot - plate and screws, bilateral foot surgeries, EGD/barium swallow. Past Anesthesia/Blood Transfusion Reactions: No Reported Reaction, Postoperative Nausea & Vomiting (PONV) Additional Past Anesthesia/Blood Transfusion Reaction / Comment(s): "Had vomiting with aspiration, experienced Sick Sinus Syndrome during anesthesia 05/14, followed up with Dr Ley and was placed on heart monitor. Past Psychological History: No Psychological Hx Reported Additional Psychological History / Comment(s): Single. Retired. No s ervice. Former smoker. Denies alcohol use or abuse. No significant recreational drug use or injection drug use. Animal exposures Smoking Status: Never smoker Past Alcohol Use History: None Reported Additional Past Alcohol Use History / Comment(s): Smoked for 22-23 years, 1ppd, quit in 1988. Past Drug Use History: None Reported - Past Family History Father Family Medical History: AICD/Pacemaker, Osteoarthritis (OA), Thyroid Disorder Mother Family Medical History: Cancer, Hypertension Additional Family Medical History / Comment(s): Colon and ovarian cancer. Medications and Allergies Home Medications Medication Instructions Recorded Confirmed Type Omeprazole [PriLOSEC] 20 mg PO HS 11/15/15 06/27/22 History Rosuvastatin Calcium [Crestor] 10 mg PO HS 11/15/15 06/27/22 History Gabapentin [Neurontin] 300 mg PO HS 05/27/16 06/27/22 History Aspirin [Adult Low Dose Aspirin EC] 81 mg PO DAILY 04/28/17 06/27/22 History Alfuzosin HCl [Uroxatral ER] 10 mg PO W/SUPPER 12/06/18 06/27/22 History Gabapentin [Neurontin] 100 mg PO DAILY 09/13/21 06/27/22 History Valsartan 160 mg PO BID 09/13/21 06/27/22 History hydrALAZINE HCL [Apresoline] 50 mg PO BID 09/13/21 06/27/22 History Felodipine [Felodipine ER] 5 mg PO BID 10/29/21 06/27/22 History Ipratropium [place] 0.06%Nasal 2 spray EA NOSTRIL BID 11/14/21 06/27/22 History [Atrovent Nasal 0.06%] Aspirin 81 mg PO DAILY 06/27/22 06/27/22 History Cholecalciferol [Vitamin D3 (25 50 mcg PO DAILY 06/27/22 06/27/22 History Mcg = 1000 Iu)] Diclofenac Sodium [Voltaren] 75 mg PO BID 06/27/22 06/27/22 History Fluticasone/Umeclidin/Vilanter 1 puff INHALATION RT-DAILY 06/27/22 06/27/22 History [Trelegy Ellipta 200-62.5-25] Furosemide [Lasix] 20 mg PO DAILY 06/27/22 06/27/22 History Glucosamine-Chondr 500-400Mg 1 tab PO DAILY 06/27/22 06/27/22 History Magnesium Gluconate [Magonate] 500 mg PO DAILY 06/27/22 06/27/22 History Methyfolate 5 mg PO DAILY 06/27/22 06/27/22 History Allergies Allergy/AdvReac Type Severity Reaction Status Date / Time dust, polllen, mold Allergy Cough Uncoded 11/20/21 07:01 Physical Exam Vitals: Vital Signs Temp Pulse Resp BP Pulse Ox 06/27/22 09:43 98 F 67 20 135/59 93 L 06/27/22 09:13 68 21 124/63 94 L 06/27/22 09:03 98.2 F 66 20 124/61 95 06/27/22 09:00 65 19 124/60 94 L 06/27/22 08:30 66 11 L 121/58 92 L 06/27/22 08:00 97.9 F 62 0 L 125/58 94 L 06/27/22 07:37 97.9 F 64 14 122/61 96 06/27/22 07:30 64 18 122/55 95 06/27/22 07:15 94 L 06/27/22 07:00 64 5 L 124/59 94 L 06/27/22 06:30 125/57 06/27/22 06:00 61 10 L 123/59 94 L 06/27/22 05:40 97.9 F 63 13 125/61 95 06/27/22 05:30 61 3 L 107/78 93 L 06/27/22 05:10 97.8 F 63 14 107/78 93 L 06/27/22 05:00 97.9 F 65 20 123/72 94 L 06/27/22 04:50 97.9 F 61 14 123/72 94 L 06/27/22 04:30 4 L 123/55 96 06/27/22 04:00 97.8 F 61 3 L 121/64 95 06/27/22 03:30 20 120/55 95 06/27/22 03:10 97.6 F 69 14 121/56 94 L 06/27/22 03:00 64 25 H 123/58 95 06/27/22 02:50 64 8 L 123/58 93 L 06/27/22 02:40 97.9 F 65 18 117/53 93 L 06/27/22 02:30 98.2 F 66 7 L 111/51 91 L 06/27/22 02:20 69 2 L 111/51 93 L 06/27/22 02:10 65 11 L 118/51 92 L 06/27/22 02:00 97.7 F 65 15 122/54 88 L 06/27/22 01:50 66 7 L 122/54 93 L 06/27/22 01:40 67 6 L 122/55 93 L 06/27/22 01:30 69 7 L 119/47 94 L 06/27/22 00:54 77 15 117/65 98 06/27/22 00:40 78 06/27/22 00:35 74 06/26/22 23:40 78 15 119/68 98 06/26/22 22:59 98.5 F 88 17 114/64 98 Intake and Output 06/26/22 06/27/22 06/27/22 22:59 06:59 14:59 Intake Total 710 510 Output Total 550 135 Balance 160 375 Intake: IV 400 200 Sodium Chloride 0.9% 1, 400 200 000 ml @ 100 mls/hr IV . Q10H STA Rx#:[id number] Blood Product 310 310 Rc As-1 Unit 0 [id number] Rc As-1 Unit 310 [id number] Rc As-1 Unit 0 310 [id number] Output: Urine 550 135 Other: Voiding Method Toilet Toilet Urinal Urinal # Voids 1 0 Weight 90.718 kg 90.718 kg In general patient is alert and oriented x 3 in no distress HEENT head normocephalic and atraumatic Neck is supple no JVD no goiter no lymphadenopathy no carotid bruit Chest examination is clear to auscultation no crackles no wheezing Cardiac exam reveals regular heart sounds S1 and S2 no gallops no murmurs Abdomen is soft nontender no organomegaly with normal bowel sounds Extremity exam reveals no edema no cyanosis or clubbing Neurological examination reveals no gross focal deficits Results CBC & Chem 7: 06/27/22 05:14 06/27/22 05:14 Labs: Abnormal Lab Results - Last 24 Hours (Table) 06/26/22 06/26/22 06/26/22 Range/Units 22:40 23:40 23:40 RBC 2.54 L (4.30-5.90) m/uL Hgb 4.0 L* (13.0-17.5) gm/dL Hct 16.0 L* (39.0-53.0) % MCV 63.0 L (80.0-100.0) fL MCH 15.6 L (25.0-35.0) pg MCHC 24.8 L (31.0-37.0) g/dL RDW 19.4 H (11.5-15.5) % APTT 21.0 L (22.0-30.0) sec Sodium 136 L (137-145) mmol/L Potassium 5.7 H (3.5-5.1) mmol/L Chloride (98-107) mmol/L Carbon Dioxide 18 L (22-30) mmol/L BUN 35 H (9-20) mg/dL Creatinine 1.61 H (0.66-1.25) mg/dL Calcium 8.3 L (8.4-10.2) mg/dL Magnesium 2.8 H (1.6-2.3) mg/dL Troponin I (0.000-0.034) ng/mL Total Protein 5.4 L (6.3-8.2) g/dL Albumin 3.0 L (3.5-5.0) g/dL Crossmatch 06/26/22 06/27/22 06/27/22 Range/Units 23:40 00:26 05:14 RBC 2.77 L (4.30-5.90) m/uL Hgb 4.6 L* (13.0-17.5) gm/dL Hct 18.1 L* (39.0-53.0) % MCV 65.2 L (80.0-100.0) fL MCH 16.6 L (25.0-35.0) pg MCHC 25.5 L (31.0-37.0) g/dL RDW 21.1 H (11.5-15.5) % APTT (22.0-30.0) sec Sodium (137-145) mmol/L Potassium (3.5-5.1) mmol/L Chloride (98-107) mmol/L Carbon Dioxide (22-30) mmol/L BUN (9-20) mg/dL Creatinine (0.66-1.25) mg/dL Calcium (8.4-10.2) mg/dL Magnesium (1.6-2.3) mg/dL Troponin I 0.067 H* (0.000-0.034) ng/mL Total Protein (6.3-8.2) g/dL Albumin (3.5-5.0) g/dL Crossmatch See Detail 06/27/22 Range/Units 05:14 RBC (4.30-5.90) m/uL Hgb (13.0-17.5) gm/dL Hct (39.0-53.0) % MCV (80.0-100.0) fL MCH (25.0-35.0) pg MCHC (31.0-37.0) g/dL RDW (11.5-15.5) % APTT (22.0-30.0) sec Sodium (137-145) mmol/L Potassium 5.3 H (3.5-5.1) mmol/L Chloride 110 H (98-107) mmol/L Carbon Dioxide 20 L (22-30) mmol/L BUN 33 H (9-20) mg/dL Creatinine 1.59 H (0.66-1.25) mg/dL Calcium 7.9 L (8.4-10.2) mg/dL Magnesium 2.9 H (1.6-2.3) mg/dL Troponin I (0.000-0.034) ng/mL Total Protein 5.1 L (6.3-8.2) g/dL Albumin 2.7 L (3.5-5.0) g/dL Crossmatch Thrombosis Risk Factor Assmnt - Choose All That Apply Any of the Below Risk Factors Present?: Yes Each Factor Represents 1 point: Medical pt on bed rest, Obesity (BMI >25) Other Risk Factors: Yes Each Risk Factor Represents 2 Points: Age 61-74 years Thrombosis Risk Factor Assessment Total Risk Factor Score: 4 Thrombosis Risk Factor Assessment Level: Moderate Risk Assessment and Plan Plan: Severe anemia, cause unclear possible iron deficiency anemia possible chronic blood loss anemia Episode of chest pain Small bilateral pleural effusions Underlying history of hypertension Underlying history of hyperlipidemia Underlying history of osteoarthritis Underlying history of benign prostatic hypertrophy At this time patient is admitted to intensive care unit He is receiving red blood cell transfusion Will monitor CBC very closely Surgical consultation requested for GI workup Blood pressure is on the low side, blood pressure medication are on hold and will be resumed gradually as necessary Cardiology consultation requested for chest pain and slightly elevated troponin echocardiogram ordered Will consult hematology in regard to severe anemia Will follow closely
[2022-06-27 18:38] LABS: Anisocytosis Marked; HCT 26.5 % (39.0-53.0); Hypochromasia Marked; MCH 20.5 pg (25.0-35.0); MCHC 28.5 g/dL (31.0-37.0); Mean Platelet Volume 8.1; Microcytosis Marked; Platelet Count 350 k/uL (150-450); Poikilocytosis Marked; RBC 3.69 m/uL (4.30-5.90); RDW 24.8 % (11.5-15.5); WBC 11.8 k/uL (3.8-10.6)
[2022-06-27 18:48] LABS: Calcium 8.2 mg/dL (8.4-10.2); Potassium 4.4 mmol/L (3.5-5.1)
[2022-06-27] MEDS: TAMSULOSIN 0.4 MG CAP.ER.24H PO SCH (18:53)
[2022-06-27 19:08] LABS: HGB 7.6 gm/dL (13.0-17.5); MCV 71.8 fL (80.0-100.0)
[2022-06-27] MEDS: GABAPENTIN 300 MG CAP PO SCH (20:42)
[2022-06-28] MEDS: SODIUM CHLORIDE 0.9% 1,000 ML IV SCH (00:29)
[2022-06-28] MEDS: IPRATROPIUM 0.5 MG/2.5 ML NEBU INHALATION SCH ×4 (08:13→21:13)
[2022-06-28 08:14] LABS: Anisocytosis Marked; Basophils % (A) 0 %; Eosinophils # (A) 0.3 k/uL (0-0.7); Eosinophils % (A) 3 %; HCT 25.5 % (39.0-53.0); HGB 7.2 gm/dL (13.0-17.5); Hypochromasia Marked; Lymphocytes # (A) 1.5 k/uL (1.0-4.8); Lymphocytes % (A) 15 %; MCH 20.8 pg (25.0-35.0); MCHC 28.4 g/dL (31.0-37.0); MCV 73.4 fL (80.0-100.0); Mean Platelet Volume 9.8; Microcytosis Marked; Monocytes # (A) 0.7 k/uL (0-1.0); Monocytes % (A) 7 %; Neutrophils # (A) 7.4 k/uL (1.3-7.7); Neutrophils % (A) 73 %; Platelet Count 348 k/uL (150-450); Poikilocytosis Marked; RBC 3.48 m/uL (4.30-5.90); WBC 10.1 k/uL (3.8-10.6)
[2022-06-28 08:24] LABS: RDW 25.2 % (11.5-15.5)
[2022-06-28 08:32] LABS: Albumin 2.7 g/dL (3.5-5.0); Calcium 7.8 mg/dL (8.4-10.2); Magnesium 2.2 mg/dL (1.6-2.3); Potassium 4.6 mmol/L (3.5-5.1); Total Bilirubin 0.4 mg/dL (0.2-1.3); Total Protein 5.1 g/dL (6.3-8.2)
[2022-06-28] MEDS ORDERED: NON FORMULARY DRUG (Glucosamine-Chondr 500-400mg 1 EACH Each) PO SCH (09:00)
[2022-06-28 09:17] LABS: Mixed Population RBC Present
[2022-06-28 09:18] LABS: Ovalocytes Present; Tear Drop Cells Present
--- NOTE | 2022-06-28 09:20 | XR ---
EXAMINATION TYPE: XR chest 1V DATE OF EXAM: 06/28/2022 COMPARISON: 06/26/2022 HISTORY: Chest pain TECHNIQUE: Single frontal view of the chest is obtained. FINDINGS: Bilateral infiltrate and pleural effusion with cardiomegaly. Diffuse interstitial pattern with no pneumothorax. Hypertrophic degenerative changes in the spine. Right hilar prominence may be p ositional. Adenopathy or mass differential diagnosis. Shoulders. IMPRESSION: 1. Cardiomegaly with bilateral lower lobe infiltrate pleural effusion correlate for pneumonia. CHF di fferential diagnosis. 2. Right hilar prominence. Recommend short-term follow-up PA and lateral views of the chest to determ ine if this is positional. See above
[2022-06-28] MEDS: CHOLECALCIFEROL 25 MCG (1000 IU) TABLET PO SCH (09:28)
[2022-06-28] MEDS: GABAPENTIN 100 MG CAP PO SCH (09:28)
[2022-06-28] MEDS: SYMBICORT 80-4.5 MCG INHALER INHALATION SCH ×2 (09:50→21:13)
[2022-06-28] MEDS: SODIUM FERRIC GLUCONAT-SUCROSE 125 MG in SODIUM CHLORIDE 0.9% 100 ML IVPB SCH (11:15)
[2022-06-28] MEDS: IPRATROPIUM-ALBUTEROL 3 ML NEB INHALATION PRN (11:40)
[2022-06-28] MEDS: IOPAMIDOL CONTRAST (ORAL USE) VIAL PO PRN ×2 (12:50→13:59)
--- NOTE | 2022-06-28 13:58 | P.PN ---
Subjective Progress Note Date: 06/28/22 Principal diagnosis: Anemia Patient doing well today. Denies pain. Hemoglobin 7.2. No rectal bleeding or melena. Objective - Vital Signs Vital signs: Vital Signs Temp 98.2 F 06/28/22 08:00 Pulse 74 06/28/22 11:54 Resp 19 06/28/22 10:00 BP 124/70 06/28/22 10:00 Pulse Ox 92 L 06/28/22 09:00 FiO2 Intake & Output 06/27/22 06/28/22 06/28/22 18:59 06:59 18:59 Intake Total 1130 960 20 Output Total 3660 1200 280 Balance -2530 -240 -260 Weight 115.8 kg Intake: IV 200 540 20 Sodium Chloride 0.9% 1, 200 400 000 ml @ 100 mls/hr IV . Q10H [facility] Rx#:[id number] Sodium Chloride 0.9% 1, 140 20 000 ml @ 20 mls/hr IV . Q24H [facility] Rx#:[id number] Oral 420 Blood Product 930 Rc As-1 Unit 310 [id number] Rc As-1 Unit 310 [id number] Rc As-1 Unit 310 [id number] Output: Urine 3660 1200 280 Other: Voiding Method Urinal Urinal # Voids 0 - Exam Abdomen: Soft, nontender, nondistended - Labs CBC & Chem 7: 06/28/22 07:30 06/28/22 07:30 Labs: Abnormal Lab Results - Last 24 Hours (Table) 06/27/22 06/27/22 06/27/22 Range/Units 00:26 05:14 18:20 WBC 11.8 H (3.8-10.6) k/uL RBC 3.69 L (4.30-5.90) m/uL Hgb 7.6 L D (13.0-17.5) gm/dL Hct 26.5 L (39.0-53.0) % MCV 71.8 L D (80.0-100.0) fL MCH 20.5 L (25.0-35.0) pg MCHC 28.5 L (31.0-37.0) g/dL RDW 24.8 H (11.5-15.5) % Chloride (98-107) mmol/L Carbon Dioxide (22-30) mmol/L BUN (9-20) mg/dL Creatinine (0.66-1.25) mg/dL Calcium (8.4-10.2) mg/dL Iron 11 L (65-175) ug/dL % Saturation 2.75 L (15.00-50.00) Total Protein (6.3-8.2) g/dL Albumin (3.5-5.0) g/dL Crossmatch See Detail 06/27/22 06/28/22 06/28/22 Range/Units 18:20 07:30 07:30 WBC (3.8-10.6) k/uL RBC 3.48 L (4.30-5.90) m/uL Hgb 7.2 L (13.0-17.5) gm/dL Hct 25.5 L (39.0-53.0) % MCV 73.4 L (80.0-100.0) fL MCH 20.8 L (25.0-35.0) pg MCHC 28.4 L (31.0-37.0) g/dL RDW 25.2 H (11.5-15.5) % Chloride 109 H (98-107) mmol/L Carbon Dioxide 20 L (22-30) mmol/L BUN 27 H 21 H (9-20) mg/dL Creatinine 1.30 H (0.66-1.25) mg/dL Calcium 8.2 L 7.8 L (8.4-10.2) mg/dL Iron (65-175) ug/dL % Saturation (15.00-50.00) Total Protein 5.1 L (6.3-8.2) g/dL Albumin 2.7 L (3.5-5.0) g/dL Crossmatch Assessment and Plan (1) Anemia Narrative/Plan: Patient doing better today. Continue diet. Follow hemoglobin. EGD and col onfriday. Current Visit: Yes Status: Acute Code(s): D64.9 - ANEMIA, UNSPECIFIED SNOMED Code(s): 099494307
--- NOTE | 2022-06-28 14:39 | CT ---
EXAMINATION TYPE: CT abdomen pelvis wo con DATE OF EXAM: 06/28/2022 COMPARISON: 09/17/2021 HISTORY: Hemoglobin is low CT DLP: 1214.2 mGycm Automated exposure control for dose reduction was used. TECHNIQUE: Helical acquisition of images was performed from the lung bases through the pelvis. FINDINGS: There are moderate to large bilateral effusions and bibasilar lung infiltrates. There is a small amount of fluid adjacent to the liver and in the cul-de-sac.There is diffuse anasarc a involving the anterior and bilateral abdominal wall. There is no organomegaly involving the liver, pancreas, spleen or adrenal glands. The gallbladder is normal. There is no renal calcification or hydronephrosis. There is no retroperitoneal adenopathy or hemorrhage in the caliber of the abdominal aorta is normal. The bowel loops are normal in caliber and there is no evidence of bowel obstruction. There is diverti culosis without CT evidence of diverticulitis. There is mild prostatic enlargement. There is no pelvic mass or adenopathy. Visualized osseous structures are intact. IMPRESSION: 1. Moderate to large bilateral pleural effusions and bibasilar infiltrates. 2. Anasarca involving the abdominal wall. 3. small amount of ascites. 4. No retroperitoneal hemorrhage
--- NOTE | 2022-06-28 14:40 | P.PN ---
Subjective Progress Note Date: 06/28/22 72-year-old male patient presented to the hospital because of lightheadedness and exertional dyspnea. The patient had no chest pain. No cough sputum production chest vessel wheezing. No swelling in lower extremities. He was having profound fatigue and weakness. This has been going on for at least 3-4 weeks. Was unable to walk long distances. He came into the emergency room where the patient was found to have hemoglobin of 4.0. EKG showed a normal sinus rhythm. Chest x-ray showed a small bilateral pleural effusion worse on the right with cardiomegaly. Note that the patient is not take any form of anticoagulants. He has undergone previous surgery for a large are esophageal hernia with placement of a mesh and this was done Gen. 2021 and the patient was having difficulties with swallowing. The patient has not had any recent colonoscopy. He is known to have diverticulosis. Nevertheless, he denies having any nausea or emesis. No hematemesis. No bright red blood per rectum or melanotic stools. The patient's initial hemoglobin was at 4.0 and this was a microcytic anemia with a MCV of 63. Platelet count was 419. White cell count of 9.5. The rest of the coagulation profile was within normal limits. The BUN 35 with a creatinine of 1.6 consistent with acute kidney injury. Sodium level is at 136 and the potassium level was at 5.7 with a serum bicarbonate was 18 and anion gap of 11. Troponin was 0.06. ProBNP level was 7570 and rest LFTs were essentially within normal limits. The patient was admitted to the intensive care unit. He was started on packed RBC transfusion and he'll be transferred to a total of 4 units of packed RBC. Gen. surgery consultation was also obtained. 06/28/2022, the patient is doing well. Patient has been was resuscitated and the patient received a total of 4 units of packed RBC and hemoglobin currently is at 7.2. He is doing much better. He is not having any significant shortness of breath. He is on 3 L O2 nasal cannula with a pulse ox of 92%. His iron level was 11 and the patient will be started on IV iron. Echocardiogram was also done and the patient has an ejection fraction of 45%. The white cell count is at 7.2 with a hemoglobin of 7.2 and the plated count of 349. BUN is at 21 with a creatinine of 1.2. Serum bicarb is at 22 with a sodium level of 139. The patient has no specific complaints otherwise. Awaiting test surgery consultation regarding the possibility of an occult ongoing GI loss or GI bleeding. Objective - Vital Signs Vital signs: Vital Signs Temp 98.2 F 06/28/22 14:07 Pulse 78 06/28/22 14:07 Resp 18 06/28/22 14:07 BP 132/62 06/28/22 14:07 Pulse Ox 93 L 06/28/22 14:07 FiO2 Intake & Output 06/27/22 06/28/22 06/28/22 18:59 06:59 18:59 Intake Total 1130 960 20 Output Total 3660 1200 280 Balance -2530 -240 -260 Weight 115.8 kg Intake: IV 200 540 20 Sodium Chloride 0.9% 1, 200 400 000 ml @ 100 mls/hr IV . Q10H [facility] Rx#:[id number] Sodium Chloride 0.9% 1, 140 20 000 ml @ 20 mls/hr IV . Q24H [facility] Rx#:[id number] Oral 420 Blood Product 930 Rc As-1 Unit 310 [id number] Rc As-1 Unit 310 [id number] Rc As-1 Unit 310 [id number] Output: Urine 3660 1200 280 Other: Voiding Method Urinal Urinal # Voids 0 - Exam Gen. appearance the patient is calm and comfortable, not having any significant respiratory distress on room air oxygen Head exam was generally normal. There was no scleral icterus or corneal arcus. Mucous membranes were moist. HEENT: Head is atraumatic, normocephalic. Pupils are equal, round. Sclerae anicteric. Conjunctivae pale. Mucous membranes of the mouth are moist. Neck is supple. There is no jugular venous distention. No carotid bruit is heard. CHEST EXAMINATION: Lungs are clear to auscultation. No chest wall tenderness is noted on palpation or with deep breathing. HEART EXAMINATION: Heart regular rate and rhythm. S1, S2 heard. Soft systolic murmur. No gallops or rub. ABDOMEN: Soft, nontender. Bowel sounds are heard. No organomegaly noted. EXTREMITIES: 2+ peripheral pulses with no evidence of peripheral edema and no calf tenderness noted. The patient has chronic deformities lower extremities which Charcot joints and signs of peripheral neuropathy NEUROLOGIC EXAMINATION: Patient is awake, alert and oriented x3. Examination of the skin revealed no evidence of significant rashes, suspicious appearing nevi or other concerning lesions. - Labs CBC & Chem 7: 06/28/22 07:30 06/28/22 07:30 Labs: Abnormal Lab Results - Last 24 Hours (Table) 06/27/22 06/27/22 06/27/22 Range/Units 00:26 05:14 18:20 WBC 11.8 H (3.8-10.6) k/uL RBC 3.69 L (4.30-5.90) m/uL Hgb 7.6 L D (13.0-17.5) gm/dL Hct 26.5 L (39.0-53.0) % MCV 71.8 L D (80.0-100.0) fL MCH 20.5 L (25.0-35.0) pg MCHC 28.5 L (31.0-37.0) g/dL RDW 24.8 H (11.5-15.5) % Chloride (98-107) mmol/L Carbon Dioxide (22-30) mmol/L BUN (9-20) mg/dL Creatinine (0.66-1.25) mg/dL Calcium (8.4-10.2) mg/dL Iron 11 L (65-175) ug/dL % Saturation 2.75 L (15.00-50.00) Total Protein (6.3-8.2) g/dL Albumin (3.5-5.0) g/dL Crossmatch See Detail 06/27/22 06/28/22 06/28/22 Range/Units 18:20 07:30 07:30 WBC (3.8-10.6) k/uL RBC 3.48 L (4.30-5.90) m/uL Hgb 7.2 L (13.0-17.5) gm/dL Hct 25.5 L (39.0-53.0) % MCV 73.4 L (80.0-100.0) fL MCH 20.8 L (25.0-35.0) pg MCHC 28.4 L (31.0-37.0) g/dL RDW 25.2 H (11.5-15.5) % Chloride 109 H (98-107) mmol/L Carbon Dioxide 20 L (22-30) mmol/L BUN 27 H 21 H (9-20) mg/dL Creatinine 1.30 H (0.66-1.25) mg/dL Calcium 8.2 L 7.8 L (8.4-10.2) mg/dL Iron (65-175) ug/dL % Saturation (15.00-50.00) Total Protein 5.1 L (6.3-8.2) g/dL Albumin 2.7 L (3.5-5.0) g/dL Crossmatch Assessment and Plan Plan: Acute on top of chronic anemia, with probably subacute or progressive slow drop in the hemoglobin over the past several weeks. No signs of any acute GI bleeding. Hemoglobin was down to 4.0, admission this was microcytic anemia, rule out underlying iron deficiency, blood loss anemia.the patient got transfused with a total of 4 units of packed RBC and the subsequent hemoglobin is at 7.2. No clinical signs of GI bleeding. The patient is being considered for upper and lower endoscopy. Shortness of breath secondary to above, improved CHF with an ejection fraction of 45% Acute kidney injury, improved History of diverticulosis History of esophageal hernia with surgical repair with placement of a mesh COVID 19 infection in April 2022 Mild elevation of the troponins, free of any chest pain Obstructive sleep apnea utilizes CPAP on outpatient basis. His case of severe ORTIZ with an AHI of 98. Impaired hearing Chronic peripheral neuropathy and Charcot joints and difficulty with mobility and gait Previous history of a small bowel obstruction back in August 2021, recovered BPH Hypertension Hyperlipidemia Plan hemoglobin is stable Check iron studiesand the levels were low we'll start IV iron Obtain echocardiogramshows mild impairment of the ejection fraction 45% Monitor renal function, the creatinine is improving is down to 1.2 General surgery consultationand the patient is going to have an upper and lower GI endoscopies No anticoagulants we will transferred out of the intensive care unit Utilize CPAP overnight We'll continue to follow
[2022-06-28 16:52] LABS: Reticulocyte % 2.3 % (0.5-2.0)
[2022-06-28] MEDS: TAMSULOSIN 0.4 MG CAP.ER.24H PO SCH (17:02)
--- NOTE | 2022-06-28 18:24 | P.CONS ---
History of Present Illness - Reason for Consult Consult date: 06/28/22 Anemia - Chief Complaint ble edema - History of Present Illness Sebastian is a 72 year old male presenting with severe anemia with hemoglobin in 4 range, he is receiving PRBC transfusions at this time.. We were asked to evaluate for anemia. He did have recent hernia repair a few months ago and lory es visible bleeding, however microcytic and low iron is evident Review of Systems All systems: negative Constitutional: Reports as per HPI Past Medical History Past Medical History: GERD/Reflux, Hearing Disorder / Deafness, Hyperlipidemia, Hypertension, Osteoarthritis (OA), Prostate Disorder, Sleep Apnea/CPAP/BIPAP (severe ORTIZ AHI 98) Additional Past Medical History / Comment(s): paraesophageal hernia post repair, COVID 19 04/2022, Diverticulosis, Hard of hearing, charcoat joints and feet, moderate peripheral neuropathy of feet, ORTIZ uses CPAP, hx small bowel blockage 09/16, hx anemia, current hiatal hernia. History of Any Multi-Drug Resistant Organisms: None Reported Past Surgical History: Hernia Repair, Joint Replacement, Orthopedic Surgery, Prostate Surgery Additional Past Surgical History / Comment(s): Reconstruction of left foot, ongoing, right shoulder screw placed, right total knee replacement, right foot - plate and screws, bilateral foot surgeries, EGD/barium swallow. Past Anesthesia/Blood Transfusion Reactions: No Reported Reaction, Postoperative Nausea & Vomiting (PONV) Additional Past Anesthesia/Blood Transfusion Reaction / Comm: "Had vomiting with aspiration, experienced Sick Sinus Syndrome during anesthesia 05/14, followed up with Dr Ley and was placed on heart monitor. Past Psychological History: No Psychological Hx Reported Additional Psychological History / Comment(s): Single. Retired. No service. Former smoker. Denies alcohol use or abuse. No significant recreational drug use or injection drug use. Animal exposures Smoking Status: Never smoker Past Alcohol Use History: None Reported Additional Past Alcohol Use History / Comment(s): Smoked for 22-23 years, 1ppd, quit in 1988. Past Drug Use History: None Reported - Past Family History Father Family Medical History: AICD/Pacemaker, Osteoarthritis (OA), Thyroid Disorder Mother Family Medical History: Cancer, Hypertension Additional Family Medical History / Comment(s): Colon and ovarian cancer. Medications and Allergies Home Medications Medication Instructions Recorded Confirmed Type Omeprazole [PriLOSEC] 20 mg PO HS 11/15/15 06/27/22 History Rosuvastatin Calcium [Crestor] 10 mg PO HS 11/15/15 06/27/22 History Gabapentin [Neurontin] 300 mg PO HS 05/27/16 06/27/22 History Aspirin [Adult Low Dose Aspirin EC] 81 mg PO DAILY 04/28/17 06/27/22 History Alfuzosin HCl [Uroxatral ER] 10 mg PO W/SUPPER 12/06/18 06/27/22 History Gabapentin [Neurontin] 100 mg PO DAILY 09/13/21 06/27/22 History Valsartan 160 mg PO BID 09/13/21 06/27/22 History hydrALAZINE HCL [Apresoline] 50 mg PO BID 09/13/21 06/27/22 History Felodipine [Felodipine ER] 5 mg PO BID 10/29/21 06/27/22 History Ipratropium [place] 0.06%Nasal 2 spray EA NOSTRIL BID 11/14/21 06/27/22 History [Atrovent Nasal 0.06%] Aspirin 81 mg PO DAILY 06/27/22 06/27/22 History Cholecalciferol [Vitamin D3 (25 50 mcg PO DAILY 06/27/22 06/27/22 History Mcg = 1000 Iu)] Diclofenac Sodium [Voltaren] 75 mg PO BID 06/27/22 06/27/22 History Fluticasone/Umeclidin/Vilanter 1 puff INHALATION RT-DAILY 06/27/22 06/27/22 History [Trelegy Ellipta 200-62.5-25] Furosemide [Lasix] 20 mg PO DAILY 06/27/22 06/27/22 History Glucosamine-Chondr 500-400Mg 1 tab PO DAILY 06/27/22 06/27/22 History Magnesium Gluconate [Magonate] 500 mg PO DAILY 06/27/22 06/27/22 History Methyfolate 5 mg PO DAILY 06/27/22 06/27/22 History Allergies Allergy/AdvReac Type Severity Reaction Status Date / Time dust, polllen, mold Allergy Cough Uncoded 11/20/21 07:01 Physical Exam Vitals: Vital Signs Temp Pulse Resp BP Pulse Ox 06/28/22 11:54 74 06/28/22 11:42 75 06/28/22 10:00 19 124/70 06/28/22 09:00 61 18 125/54 92 L 06/28/22 08:29 70 06/28/22 08:14 67 92 L 06/28/22 08:00 98.2 F 64 18 122/61 92 L 06/28/22 07:00 61 14 123/61 93 L 06/28/22 06:00 98.9 F 58 L 64 H 128/59 93 L 06/28/22 05:00 70 20 125/58 96 06/28/22 04:00 99.3 F 67 31 H 119/60 92 L 06/28/22 03:00 64 15 122/64 95 06/28/22 02:00 65 22 140/59 95 06/28/22 01:00 62 20 141/60 95 06/28/22 00:00 98.2 F 61 17 141/54 96 06/27/22 23:00 71 20 149/68 94 L 06/27/22 22:30 70 24 143/61 93 L 06/27/22 22:00 64 20 153/64 95 06/27/22 21:30 67 18 125/63 95 06/27/22 21:00 67 20 110/63 94 L 06/27/22 20:30 73 17 143/57 94 L 06/27/22 20:00 98.1 F 67 20 122/60 93 L 06/27/22 19:00 61 16 125/66 90 L 06/27/22 18:30 33 H 118/59 91 L 06/27/22 18:00 65 15 129/65 97 06/27/22 17:30 70 19 109/64 93 L 06/27/22 17:14 92 L 06/27/22 17:09 98.0 F 79 20 132/84 95 06/27/22 17:00 20 135/63 96 06/27/22 16:30 64 16 124/64 96 06/27/22 16:00 97.9 F 73 17 139/118 92 L 06/27/22 15:30 97.9 F 63 19 131/65 95 06/27/22 15:00 98.2 F 65 22 126/67 95 06/27/22 14:50 98.4 F 72 18 126/67 96 06/27/22 14:30 22 123/63 94 L 06/27/22 14:00 72 21 126/60 95 06/27/22 13:30 66 19 130/64 94 L 06/27/22 13:00 66 29 H 117/57 94 L Intake and Output 06/27/22 06/28/22 06/28/22 22:59 06:59 14:59 Intake Total 610 660 20 Output Total 2123 900 280 Balance -3938 -518 -612 Intake: IV 300 240 20 Sodium Chloride 0.9% 1, 300 100 000 ml @ 100 mls/hr IV . Q10H [facility] Rx#:[id number] Sodium Chloride 0.9% 1, 140 20 000 ml @ 20 mls/hr IV . Q24H [facility] Rx#:[id number] Oral 420 Blood Product 310 Rc As-1 Unit 310 [id number] Output: Urine 2120 900 280 Other: Voiding Method Urinal Urinal Weight 115.8 kg - Constitutional General appearance: cooperative - EENT Eyes: EOMI ENT: hearing grossly normal - Respiratory Respiratory: bilateral: CTA - Cardiovascular Rhythm: regularly irregular leg Peripheral Edema: bilateral: 2+ - Gastrointestinal General gastrointestinal: soft, tenderness - Integumentary Integumentary: pale - Musculoskeletal Musculoskeletal: generalized weakness - Psychiatric Psychiatric: A&O x's 3 Results CBC & Chem 7: 06/28/22 07:30 06/28/22 07:30 Labs: Abnormal Lab Results - Last 24 Hours (Table) 06/27/22 06/27/22 06/27/22 Range/Units 00:26 05:14 18:20 WBC 11.8 H (3.8-10.6) k/uL RBC 3.69 L (4.30-5.90) m/uL Hgb 7.6 L D (13.0-17.5) gm/dL Hct 26.5 L (39.0-53.0) % MCV 71.8 L D (80.0-100.0) fL MCH 20.5 L (25.0-35.0) pg MCHC 28.5 L (31.0-37.0) g/dL RDW 24.8 H (11.5-15.5) % Chloride (98-107) mmol/L Carbon Dioxide (22-30) mmol/L BUN (9-20) mg/dL Creatinine (0.66-1.25) mg/dL Calcium (8.4-10.2) mg/dL Iron 11 L (65-175) ug/dL % Saturation 2.75 L (15.00-50.00) Total Protein (6.3-8.2) g/dL Albumin (3.5-5.0) g/dL Crossmatch See Detail 06/27/22 06/28/22 06/28/22 Range/Units 18:20 07:30 07:30 WBC (3.8-10.6) k/uL RBC 3.48 L (4.30-5.90) m/uL Hgb 7.2 L (13.0-17.5) gm/dL Hct 25.5 L (39.0-53.0) % MCV 73.4 L (80.0-100.0) fL MCH 20.8 L (25.0-35.0) pg MCHC 28.4 L (31.0-37.0) g/dL RDW 25.2 H (11.5-15.5) % Chloride 109 H (98-107) mmol/L Carbon Dioxide 20 L (22-30) mmol/L BUN 27 H 21 H (9-20) mg/dL Creatinine 1.30 H (0.66-1.25) mg/dL Calcium 8.2 L 7.8 L (8.4-10.2) mg/dL Iron (65-175) ug/dL % Saturation (15.00-50.00) Total Protein 5.1 L (6.3-8.2) g/dL Albumin 2.7 L (3.5-5.0) g/dL Crossmatch Assessment and Plan (1) Microcytic anemia Narrative/Plan: recent blood loss EGD and Colonoscopy planned per general surgery next week Recent hernia repair CT abdoomen and pelvis without contrast IV iron and PRBC continue PRN Current Visit: Yes Status: Acute Code(s): D50.9 - IRON DEFICIENCY ANEMIA, UNSPECIFIED SNOMED Code(s): 707495945 (2) Iron deficiency Current Visit: Yes Status: Acute Code(s): E61.1 - IRON DEFICIENCY SNOMED Code(s): 30360128 Plan: Dr. Godfrey: I have completed the full history and physical and developed the above impression and plan, agree with dictation, dictated as a ascribe.
[2022-06-28] MEDS ORDERED: ACETAMINOPHEN TAB 325 MG TAB PO PRN (21:29)
[2022-06-28] MEDS: GABAPENTIN 300 MG CAP PO SCH (21:38)
[2022-06-29] MEDS: SODIUM CHLORIDE 0.9% 1,000 ML IV SCH ×2 (04:51→20:56)
[2022-06-29] MEDS: CHOLECALCIFEROL 25 MCG (1000 IU) TABLET PO SCH (08:10)
[2022-06-29] MEDS: GABAPENTIN 100 MG CAP PO SCH (08:10)
[2022-06-29] MEDS: IPRATROPIUM 0.5 MG/2.5 ML NEBU INHALATION SCH ×4 (08:55→19:21)
[2022-06-29] MEDS: SYMBICORT 80-4.5 MCG INHALER INHALATION SCH ×2 (08:55→19:20)
[2022-06-29] MEDS: VALSARTAN 80 MG TAB PO SCH ×2 (10:05→20:25)
--- NOTE | 2022-06-29 11:20 | P.PN ---
Subjective Progress Note Date: 06/29/22 Principal diagnosis: Anemia Patient doing well today. He is sitting up in the chair. Denies abdominal pain. No rectal bleeding. No labs from today. Yesterday had a CT abdomen and pelvis showing no evidence of obvious source of anemia. Objective - Vital Signs Vital signs: Vital Signs Temp 98.0 F 06/29/22 08:05 Pulse 88 06/29/22 09:10 Resp 18 06/29/22 08:05 BP 145/67 06/29/22 08:05 Pulse Ox 94 L 06/29/22 08:05 FiO2 Intake & Output 06/28/22 06/29/22 06/29/22 18:59 06:59 18:59 Intake Total 40 150 Output Total 830 150 Balance -790 0 Intake: IV 40 Sodium Chloride 0.9% 1, 40 000 ml @ 20 mls/hr IV . Q24H [facility] Rx#:[id number] Oral 150 Output: Urine 830 150 Other: Voiding Method Urinal # Voids 0 # Bowel Movements 1 - Exam Abdomen: Soft, nontender, nondistended - Labs CBC & Chem 7: 06/28/22 07:30 06/28/22 07:30 Labs: Abnormal Lab Results - Last 24 Hours (Table) 06/26/22 06/27/22 Range/Units 23:40 18:20 Retic Count 2.3 H (0.5-2.0) % Ferritin 3.6 L (22.0-322.0) ng/mL Assessment and Plan (1) Anemia Narrative/Plan: 72-year-old male with anemia. Plan upper and lower endoscopy on Friday. Continue regular diet for now. Current Visit: Yes Status: Acute Code(s): D64.9 - ANEMIA, UNSPECIFIED SNOMED Code(s): 822684770
[2022-06-29] MEDS ORDERED: FUROSEMIDE 10 MG/ML 4 ML VIAL IV STA (11:21)
--- NOTE | 2022-06-29 11:30 | P.PN ---
Subjective Progress Note Date: 06/29/22 The patient is a 72-year-old male with no significant cardiac history, who presented to the emergency room with increased shortness of breath. Hemoglobin on arrival was 4.0. Cardiology was consulted for elevated BNP. The patient's hemoglobin has since been stable in the 70s after receiving several units of blood. No obvious source of bleeding has been found and she will undergo endoscopy early next week. Echocardiogram was performed which showed reduced ejection fraction of 45%. The patient has no history of cardiomyopathy and is, however with apical and septal hypokinesis this may be Takotsubo. The patient was interviewed and examined sitting on the side of his bed. He was undergoing breathing treatment. He states he is feeling better since his blood transfusion, but does remain short of breath with exertional activities. He denies any chest pain or chest pressure GENERAL: Well-appearing, well-nourished and in no acute distress. NECK: Supple without JVD or thyromegaly. LUNGS: Breath sounds clear to auscultation bilaterally. Respiration equal and unlabored. No wheezes, rales or rhonchi. HEART: Regular rate and rhythm without murmurs, rubs or gallops. S1 and S2 heard. EXTREMITIES: Normal range of motion. +2-3 lower extremity edema. No clubbing or cyanosis. Peripheral pulses intact and strong. VITALS: Blood pressure 145/67, pulse 78, temp 98.0F respiratory rate 18, SpO2 94% on 2 L nasal cannula TELEMETRY: Sinus rhythm LABS: WBC 10.1, hemoglobin 7.2, hematocrit 25.5, platelet 348, sodium 139, potassium 4.6, BUN 21, creatinine 1.23, he needs them 2.2, phosphorus 4.0, AST 23, ALT 12 IMPRESSION: Severe anemia, unknown source, upper and lower endoscopy planned for Friday Mildly elevated troponin, likely secondary to anemia Cardiomyopathy with EF of 45%, unknown cause History of hypertension History dyslipidemia PLAN: Resume valsartan 80 mg twice daily plan to start beta blockers tomorrow Further recommendations to be based on clinical course I am dictating on behalf of Dr Thad Aguirre's history/physical and assessment/plan. Objective - Vital Signs Vital signs: Vital Signs Temp 98.0 F 06/29/22 08:05 Pulse 88 06/29/22 09:10 Resp 18 06/29/22 08:05 BP 145/67 06/29/22 08:05 Pulse Ox 94 L 06/29/22 08:05 FiO2 Intake & Output 06/28/22 06/29/22 06/29/22 18:59 06:59 18:59 Intake Total 40 150 Output Total 830 150 Balance -790 0 Intake: IV 40 Sodium Chloride 0.9% 1, 40 000 ml @ 20 mls/hr IV . Q24H [facility] Rx#:[id number] Oral 150 Output: Urine 830 150 Other: Voiding Method Urinal # Voids 0 # Bowel Movements 1 - Labs CBC & Chem 7: 06/28/22 07:30 06/28/22 07:30 Labs: Abnormal Lab Results - Last 24 Hours (Table) 06/26/22 06/27/22 Range/Units 23:40 18:20 Retic Count 2.3 H (0.5-2.0) % Ferritin 3.6 L (22.0-322.0) ng/mL
[2022-06-29] MEDS: SODIUM FERRIC GLUCONAT-SUCROSE 125 MG in SODIUM CHLORIDE 0.9% 100 ML IVPB SCH (12:41)
--- NOTE | 2022-06-29 13:41 | P.PN ---
Subjective Progress Note Date: 06/28/22 Sebastian Armas, is a 72-year-old male who presented to [facility] emergency room with a chief complaint of chest pain and shortness of breath He was evaluated in the emergency room vital examination on presentation revealed a temperature of 98.5 pulse 88 respirations 17 and blood pressure 114/64 pulse ox 98% on room air Laboratory data revealed a white blood count of 9.5 hemoglobin 4.0 platelet count 419 BUN 35 creatinine 1.61 troponin level 0.067 Testing in the emergency room revealed chest x-ray revealed bilateral pleural effusion right larger than left Patient was admitted to ICU for further evaluation and treatment On 06/28/2022 patient was seen and examined in the ICU he is alert and oriented 3 in no apparent distress he is complaining of shortness of breath with any act ivity otherwise he denies any complaints there is no fever or chills no headache or dizziness no chest pain no cough no nausea or vomiting no abdominal pain no diarrhea no blood in the stools no burning with urination no frequency or urgency and no hematuria Objective - Vital Signs Vital signs: Vital Signs Temp 98.2 F 06/28/22 08:00 Pulse 74 06/28/22 11:54 Resp 19 06/28/22 10:00 BP 124/70 06/28/22 10:00 Pulse Ox 92 L 06/28/22 09:00 FiO2 Intake & Output 06/27/22 06/28/22 06/28/22 18:59 06:59 18:59 Intake Total 1130 960 20 Output Total 3660 1200 280 Balance -2530 -240 -260 Weight 115.8 kg Intake: IV 200 540 20 Sodium Chloride 0.9% 1, 200 400 000 ml @ 100 mls/hr IV . Q10H [facility] Rx#:[id number] Sodium Chloride 0.9% 1, 140 20 000 ml @ 20 mls/hr IV . Q24H [facility] Rx#:[id number] Oral 420 Blood Product 930 Rc As-1 Unit 310 [id number] Rc As-1 Unit 310 [id number] Rc As-1 Unit 310 [id number] Output: Urine 3660 1200 280 Other: Voiding Method Urinal Urinal # Voids 0 - Exam In general patient is alert and oriented x 3 in no distress HEENT head normocephalic and atraumatic Neck is supple no JVD no goiter no lymphadenopathy no carotid bruit Chest examination is clear to auscultation no crackles no wheezing Cardiac exam reveals regular heart sounds S1 and S2 no gallops no murmurs Abdomen is soft nontender no organomegaly with normal bowel sounds Extremity exam reveals no edema no cyanosis or clubbing Neurological examination reveals no gross focal deficits - Labs CBC & Chem 7: 06/28/22 07:30 06/28/22 07:30 Labs: Abnormal Lab Results - Last 24 Hours (Table) 06/27/22 06/27/22 06/27/22 Range/Units 00:26 05:14 18:20 WBC 11.8 H (3.8-10.6) k/uL RBC 3.69 L (4.30-5.90) m/uL Hgb 7.6 L D (13.0-17.5) gm/dL Hct 26.5 L (39.0-53.0) % MCV 71.8 L D (80.0-100.0) fL MCH 20.5 L (25.0-35.0) pg MCHC 28.5 L (31.0-37.0) g/dL RDW 24.8 H (11.5-15.5) % Chloride (98-107) mmol/L Carbon Dioxide (22-30) mmol/L BUN (9-20) mg/dL Creatinine (0.66-1.25) mg/dL Calcium (8.4-10.2) mg/dL Iron 11 L (65-175) ug/dL % Saturation 2.75 L (15.00-50.00) Total Protein (6.3-8.2) g/dL Albumin (3.5-5.0) g/dL Crossmatch See Detail 06/27/22 06/28/22 06/28/22 Range/Units 18:20 07:30 07:30 WBC (3.8-10.6) k/uL RBC 3.48 L (4.30-5.90) m/uL Hgb 7.2 L (13.0-17.5) gm/dL Hct 25.5 L (39.0-53.0) % MCV 73.4 L (80.0-100.0) fL MCH 20.8 L (25.0-35.0) pg MCHC 28.4 L (31.0-37.0) g/dL RDW 25.2 H (11.5-15.5) % Chloride 109 H (98-107) mmol/L Carbon Dioxide 20 L (22-30) mmol/L BUN 27 H 21 H (9-20) mg/dL Creatinine 1.30 H (0.66-1.25) mg/dL Calcium 8.2 L 7.8 L (8.4-10.2) mg/dL Iron (65-175) ug/dL % Saturation (15.00-50.00) Total Protein 5.1 L (6.3-8.2) g/dL Albumin 2.7 L (3.5-5.0) g/dL Crossmatch Assessment and Plan Plan: Severe anemia, cause unclear possible iron deficiency anemia possible chronic blood loss anemia Episode of chest pain Small bilateral pleural effusions Underlying history of hypertension Underlying history of hyperlipidemia Underlying history of osteoarthritis Underlying history of benign prostatic hypertrophy At this time patient is admitted to intensive care unit He is receiving red blood cell transfusion Will monitor CBC very closely Surgical consultation requested for GI workup Blood pressure is on the low side, blood pressure medication are on hold and will be resumed gradually as necessary Cardiology consultation requested for chest pain and slightly elevated troponin echocardiogram ordered Will consult hematology in regard to severe anemia Will follow closely
--- NOTE | 2022-06-29 13:42 | P.PN ---
Subjective Progress Note Date: 06/29/22 Sebastian Armas, is a 72-year-old male who presented to [facility] emergency room with a chief complaint of chest pain and shortness of breath He was evaluated in the emergency room vital examination on presentation revealed a temperature of 98.5 pulse 88 respirations 17 and blood pressure 114/64 pulse ox 98% on room air Laboratory data revealed a white blood count of 9.5 hemoglobin 4.0 platelet count 419 BUN 35 creatinine 1.61 troponin level 0.067 Testing in the emergency room revealed chest x-ray revealed bilateral pleural effusion right larger than left Patient was admitted to ICU for further evaluation and treatment On 06/28/2022 patient was seen and examined in the ICU he is alert and oriented 3 in no apparent distress he is complaining of shortness of breath with any activity otherwise he denies any complaints there is no fever or chills no headache or dizziness no chest pain no cough no nausea or vomiting no abdominal pain no diarrhea no blood in the stools no burning with urination no frequency or urgency and no hematuria On 06/29/2022 patient was seen and examined on the medical floor he was transferred out of ICU, he is alert and oriented 3 in no distress there is no fever or chills no headache or dizziness no chest pain no shortness of breath at rest however he is having significant shortness of breath with any activity there is no nausea or vomiting no abdominal pain no diarrhea no blood in the stools no burning with urination no frequency or urgency no hematuria Objective - Vital Signs Vital signs: Vital Signs Temp 97.9 F 06/29/22 12:15 Pulse 92 06/29/22 12:22 Resp 18 06/29/22 12:15 BP 140/66 06/29/22 12:15 Pulse Ox 99 06/29/22 12:15 FiO2 Intake & Output 06/28/22 06/29/22 06/29/22 18:59 06:59 18:59 Intake Total 40 150 Output Total 830 150 Balance -790 0 Intake: IV 40 Sodium Chloride 0.9% 1, 40 000 ml @ 20 mls/hr IV . Q24H [facility] Rx#:[id number] Oral 150 Output: Urine 830 150 Other: Voiding Method Urinal Urinal # Voids 0 # Bowel Movements 1 - Exam In general patient is alert and oriented x 3 in no distress HEENT head normocephalic and atraumatic Neck is supple no JVD no goiter no lymphadenopathy no carotid bruit Chest examination is clear to auscultation no crackles no wheezing Cardiac exam reveals regular heart sounds S1 and S2 no gallops no murmurs Abdomen is soft nontender no organomegaly with normal bowel sounds Extremity exam reveals no edema no cyanosis or clubbing Neurological examination reveals no gross focal deficits - Labs CBC & Chem 7: 06/28/22 07:30 06/28/22 07:30 Labs: Abnormal Lab Results - Last 24 Hours (Table) 06/26/22 06/27/22 Range/Units 23:40 18:20 Retic Count 2.3 H (0.5-2.0) % Ferritin 3.6 L (22.0-322.0) ng/mL Assessment and Plan Plan: Severe anemia, cause unclear possible iron deficiency anemia possible chronic blood loss anemia Episode of chest pain Small bilateral pleural effusions Underlying history of hypertension Underlying history of hyperlipidemia Underlying history of osteoarthritis Underlying history of benign prostatic hypertrophy At this time patient is admitted to intensive care unit He is receiving red blood cell transfusion Will monitor CBC very closely Surgical consultation requested for GI workup Blood pressure is on the low side, blood pressure medication are on hold and will be resumed gradually as necessary Cardiology consultation requested for chest pain and slightly elevated troponin echocardiogram ordered Will consult hematology in regard to severe anemia Will follow closely
--- NOTE | 2022-06-29 14:07 | P.PN ---
Subjective Progress Note Date: 06/29/22 72-year-old male patient presented to the hospital because of lightheadedness and exertional dyspnea. The patient had no chest pain. No cough sputum production chest vessel wheezing. No swelling in lower extremities. He was having profound fatigue and weakness. This has been going on for at least 3-4 weeks. Was unable to walk long distances. He came into the emergency room where the patient was found to have hemoglobin of 4.0. EKG showed a normal sinus rhythm. Chest x-ray showed a small bilateral pleural effusion worse on the right with cardiomegaly. Note that the patient is not take any form of anticoagulants. He has undergone previous surgery for a large are esophageal hernia with placement of a mesh and this was done Gen. 2021 and the patient was having difficulties with swallowing. The patient has not had any recent colonoscopy. He is known to have diverticulosis. Nevertheless, he denies having any nausea or emesis. No hematemesis. No bright red blood per rectum or melanotic stools. The patient's initial hemoglobin was at 4.0 and this was a microcytic anemia with a MCV of 63. Platelet count was 419. White cell count of 9.5. The rest of the coagulation profile was within normal limits. The BUN 35 with a creatinine of 1.6 consistent with acute kidney injury. Sodium level is at 136 and the potassium level was at 5.7 with a serum bicarbonate was 18 and anion gap of 11. Troponin was 0.06. ProBNP level was 7570 and rest LFTs were essentially within normal limits. The patient was admitted to the intensive care unit. He was started on packed RBC transfusion and he'll be transferred to a total of 4 units of packed RBC. Gen. surgery consultation was also obtained. 06/28/2022, the patient is doing well. Patient has been was resuscitated and the patient received a total of 4 units of packed RBC and hemoglobin currently is at 7.2. He is doing much better. He is not having any significant shortness of breath. He is on 3 L O2 nasal cannula with a pulse ox of 92%. His iron level was 11 and the patient will be started on IV iron. Echocardiogram was also done and the patient has an ejection fraction of 45%. The white cell count is at 7.2 with a hemoglobin of 7.2 and the plated count of 349. BUN is at 21 with a creatinine of 1.2. Serum bicarb is at 22 with a sodium level of 139. The patient has no specific complaints otherwise. Awaiting test surgery consultation regarding the possibility of an occult ongoing GI loss or GI bleeding. 06/29/2022, I'm seeing the patient for a follow-up. The patient has a stable hemoglobin and he has not shown any signs of bleeding. He is having some increased edema in upper and lower extremities and the patient would benefit from a dose of Lasix. The patient is receiving IV iron. The patient is also demonstrated a stable hemoglobin of 7.2. The white cell count of 10.1. Creatinine is improving is down to 1.23 with a 21 and his sodium level of 139. LFTs are all within normal limits. ABDOMEN and pelvis was done that showed small to moderate-sized pleural effusions along with compressive atelectatic changes in lung bases bilaterally and some mild ascites. For that reason, I made decision to give the patient another dose of Lasix. Echocardiogram was noted and the patient had mild elevation of the proBNP level Objective - Vital Signs Vital signs: Vital Signs Temp 97.9 F 06/29/22 12:15 Pulse 92 06/29/22 12:22 Resp 18 06/29/22 12:15 BP 140/66 06/29/22 12:15 Pulse Ox 99 06/29/22 12:15 FiO2 Intake & Output 06/28/22 06/29/22 06/29/22 18:59 06:59 18:59 Intake Total 40 150 Output Total 830 150 Balance -790 0 Intake: IV 40 Sodium Chloride 0.9% 1, 40 000 ml @ 20 mls/hr IV . Q24H [facility] Rx#:[id number] Oral 150 Output: Urine 830 150 Other: Voiding Method Urinal Urinal # Voids 0 # Bowel Movements 1 - Exam Gen. appearance the patient is calm and comfortable, not having any significant respiratory distress on room air oxygen Head exam was generally normal. There was no scleral icterus or corneal arcus. Mucous membranes were moist. HEENT: Head is atraumatic, normocephalic. Pupils are equal, round. Sclerae anicteric. Conjunctivae pale. Mucous membranes of the mouth are moist. Neck is supple. There is no jugular venous distention. No carotid bruit is heard. CHEST EXAMINATION: Lungs are clear to auscultation. No chest wall tenderness is noted on palpation or with deep breathing. HEART EXAMINATION: Heart regular rate and rhythm. S1, S2 heard. Soft systolic murmur. No gallops or rub. ABDOMEN: Soft, nontender. Bowel sounds are heard. No organomegaly noted. EXTREMITIES: 2+ peripheral pulses with no evidence of peripheral edema and no calf tenderness noted. The patient has chronic deformities lower extremities which Charcot joints and signs of peripheral neuropathy NEUROLOGIC EXAMINATION: Patient is awake, alert and oriented x3. Examination of the skin revealed no evidence of significant rashes, suspicious appearing nevi or other concerning lesions. - Labs CBC & Chem 7: 06/28/22 07:30 06/28/22 07:30 Labs: Abnormal Lab Results - Last 24 Hours (Table) 06/26/22 06/27/22 Range/Units 23:40 18:20 Retic Count 2.3 H (0.5-2.0) % Ferritin 3.6 L (22.0-322.0) ng/mL Assessment and Plan Plan: Acute on top of chronic anemia, with probably subacute or progressive slow drop in the hemoglobin over the past several weeks. No signs of any acute GI bleeding. Hemoglobin was down to 4.0, admission this was microcytic anemia, rule out underlying iron deficiency, blood loss anemia.the patient got transfused with a total of 4 units of packed RBC and the subsequent hemoglobin is at 7.2. No clinical signs of GI bleeding. The patient is being considered for upper and lower endoscopy. Shortness of breath secondary to above, improved, and the patient has bilateral pleural effusion. Yet predominantly shortness of breath was related to anemia and improved after improvement in hemoglobin levels CHF with an ejection fraction of 45% Acute kidney injury, improved and creatinine is down to 1.2 History of diverticulosis History of esophageal hernia with surgical repair with placement of a mesh COVID 19 infection in April 2022 Mild elevation of the troponins, free of any chest pain Obstructive sleep apnea utilizes CPAP on outpatient basis. His case of severe ORTIZ with an AHI of 98. Impaired hearing Chronic peripheral neuropathy and Charcot joints and difficulty with mobility and gait Previous history of a small bowel obstruction back in August 2021, recovered BPH Hypertension Hyperlipidemia Plan hemoglobin is stable Continue IV iron Give the patient dose of Lasix 40 mg IV Monitor renal function, the creatinine is improving is down to 1.2 General surgery consultation and the patient is going to have an upper and lower GI endoscopies No anticoagulants we will transferred out of the intensive care unit Utilize CPAP overnight We'll continue to follow
[2022-06-29] MEDS: TAMSULOSIN 0.4 MG CAP.ER.24H PO SCH (17:34)
[2022-06-29] MEDS: GABAPENTIN 300 MG CAP PO SCH (20:25)
--- NOTE | 2022-06-29 20:52 | P.PN ---
Subjective Progress Note Date: 06/29/22 patient is still somewhat short of breath, generalized weakness and lower extremity swelling. However he is improved from admission, and was transferred out of the ICU. No obvious bleeding Objective - Vital Signs Vital signs: Vital Signs Temp 97.9 F 06/29/22 15:20 Pulse 72 06/29/22 19:32 Resp 18 06/29/22 15:20 BP 140/66 06/29/22 15:20 Pulse Ox 99 06/29/22 15:20 FiO2 Intake & Output 06/29/22 06/29/22 06/30/22 06:59 18:59 06:59 Intake Total 150 354 Output Total 150 Balance 0 354 Intake: Oral 150 354 Output: Urine 150 Other: Voiding Method Urinal Urinal # Voids 0 - Constitutional General appearance: Present: no acute distress - EENT Eyes: Present: EOMI ENT: Present: hearing grossly normal, normal oropharynx - Respiratory Respiratory: bilateral: CTA - Cardiovascular Rhythm: regular Heart sounds: normal: S1, S2 - Gastrointestinal General gastrointestinal: Present: normal bowel sounds, soft - Integumentary Integumentary: Present: normal - Neurologic Neurologic: Present: CNII-XII intact - Musculoskeletal Musculoskeletal Comment(s): bilateral 2+ edema Musculoskeletal: Present: generalized weakness, strength equal bilaterally - Psychiatric Psychiatric: Present: A&O x's 3, appropriate affect - Labs CBC & Chem 7: 06/28/22 07:30 06/28/22 07:30 Labs: Abnormal Lab Results - Last 24 Hours (Table) 06/26/22 Range/Units 23:40 Ferritin 3.6 L (22.0-322.0) ng/mL Assessment and Plan (1) Anemia Narrative/Plan: hemoglobin has increased appropriately after transfusion. Patient was advised that this indicates that he is not having significant active ongoing blood loss. Patient's labs showed severe iron deficiency with ferritin of only 3.6%. - Therefore a GI workup is recommended. Patient had been seen by surgery and upper and lower endoscopies are planned for next week. - IV and has been ordered - Continue to monitor and transfuse to keep hemoglobin greater than 7 Current Visit: Yes Status: Acute Code(s): D64.9 - ANEMIA, UNSPECIFIED SNOMED Code(s): 295321668 Plan: therefore to the admitting service for management of her other medical problems. Patient is improved from his CHF symptoms
[2022-06-30] MEDS: SYMBICORT 80-4.5 MCG INHALER INHALATION SCH ×2 (07:48→19:16)
[2022-06-30] MEDS: IPRATROPIUM 0.5 MG/2.5 ML NEBU INHALATION SCH ×4 (07:48→19:19)
[2022-06-30 07:50] LABS: Anisocytosis Marked; Basophils # (A) 0.1 k/uL (0-0.2); Basophils % (A) 1 %; Eosinophils # (A) 0.5 k/uL (0-0.7); Eosinophils % (A) 5 %; HCT 26.4 % (39.0-53.0); HGB 7.3 gm/dL (13.0-17.5); Hypochromasia Marked; Lymphocytes # (A) 1.5 k/uL (1.0-4.8); Lymphocytes % (A) 14 %; MCH 20.8 pg (25.0-35.0); MCHC 27.7 g/dL (31.0-37.0); MCV 75.1 fL (80.0-100.0); Mean Platelet Volume 8.1; Microcytosis Marked; Monocytes # (A) 0.7 k/uL (0-1.0); Monocytes % (A) 7 %; Neutrophils # (A) 7.6 k/uL (1.3-7.7); Neutrophils % (A) 71 %; Platelet Count 314 k/uL (150-450); Poikilocytosis Marked; RBC 3.51 m/uL (4.30-5.90); WBC 10.7 k/uL (3.8-10.6)
[2022-06-30 08:07] LABS: RDW 26.3 % (11.5-15.5)
[2022-06-30 08:10] LABS: Albumin 2.7 g/dL (3.5-5.0); Calcium 7.9 mg/dL (8.4-10.2); Potassium 4.1 mmol/L (3.5-5.1); Total Bilirubin 0.2 mg/dL (0.2-1.3); Total Protein 5.1 g/dL (6.3-8.2)
[2022-06-30] MEDS: VALSARTAN 80 MG TAB PO SCH ×2 (08:31→20:23)
[2022-06-30] MEDS: GABAPENTIN 100 MG CAP PO SCH (08:31)
[2022-06-30] MEDS: CHOLECALCIFEROL 25 MCG (1000 IU) TABLET PO SCH (08:31)
[2022-06-30] MEDS: SODIUM FERRIC GLUCONAT-SUCROSE 125 MG in SODIUM CHLORIDE 0.9% 100 ML IVPB SCH (08:31)
[2022-06-30 09:46] LABS: Tear Drop Cells Present
--- NOTE | 2022-06-30 10:37 | P.PN ---
Subjective Progress Note Date: 06/30/22 The patient is a 72-year-old male with no significant cardiac history, who presented to the emergency room with increased shortness of breath. Hemoglobin on arrival was 4.0. Cardiology was consulted for elevated BNP. The patient's hemoglobin has since been stable in the 70s after receiving several units of blood. No obvious source of bleeding has been found and she will undergo endoscopy early next week. Echocardiogram was performed which showed reduced ejection fraction of 45%. The patient has no history of cardiomyopathy and is, however with apical and septal hypokinesis this may be Takotsubo. The patient was interviewed and examined sitting in the recliner chair. He states he is feeling better since his blood transfusion, but does remain short of breath with exertional activities. He denies any chest pain or chest pressure. GENERAL: Well-appearing, well-nourished and in no acute distress. NECK: Supple without JVD or thyromegaly. LUNGS: Breath sounds clear to auscultation bilaterally. Respiration equal and unlabored. No wheezes, rales or rhonchi. HEART: Regular rate and rhythm without murmurs, rubs or gallops. S1 and S2 heard. EXTREMITIES: Normal range of motion. +2-3 lower extremity edema. No clubbing or cyanosis. Peripheral pulses intact and strong. VITALS: Blood pressure 146/77, SpO2 93% on room air, pulse 86, afebrile TELEMETRY: Sinus rhythm LABS: WBC 10.7, hemoglobin 7.3 hematocrit 26.4, platelet 314, sodium 139, potassium 4.1, BUN 12, creatinine 1.03, AST 25, ALT 12 IMPRESSION: Severe anemia, unknown source, upper and lower endoscopy planned for Friday Mildly elevated troponin, likely secondary to anemia Cardiomyopathy with EF of 45%, unknown cause History of hypertension History dyslipidemia PLAN: Start low-dose carvedilol for cardiomyopathy Plan for EGD/colonoscopy on Friday Further recommendations to be based on clinical course I am dictating on behalf of Dr Thad Aguirre's history/physical and assessment/plan. Objective - Vital Signs Vital signs: Vital Signs Temp 98 F 06/30/22 08:30 Pulse 86 06/30/22 08:30 Resp 18 06/30/22 08:30 BP 146/77 06/30/22 08:30 Pulse Ox 93 L 06/30/22 08:30 FiO2 Intake & Output 06/29/22 06/30/22 06/30/22 18:59 06:59 18:59 Intake Total 354 240 Output Total 275 Balance 354 -275 240 Intake: Oral 354 240 Output: Urine 275 Other: Voiding Method Urinal Urinal Urinal # Voids 2 - Labs CBC & Chem 7: 06/30/22 07:01 06/30/22 07:01 Labs: Abnormal Lab Results - Last 24 Hours (Table) 06/30/22 06/30/22 Range/Units 07:01 07:01 WBC 10.7 H (3.8-10.6) k/uL RBC 3.51 L (4.30-5.90) m/uL Hgb 7.3 L (13.0-17.5) gm/dL Hct 26.4 L (39.0-53.0) % MCV 75.1 L (80.0-100.0) fL MCH 20.8 L (25.0-35.0) pg MCHC 27.7 L (31.0-37.0) g/dL RDW 26.3 H (11.5-15.5) % Calcium 7.9 L (8.4-10.2) mg/dL Total Protein 5.1 L (6.3-8.2) g/dL Albumin 2.7 L (3.5-5.0) g/dL
--- NOTE | 2022-06-30 11:44 | P.PN ---
Subjective Progress Note Date: 06/30/22 Principal diagnosis: Anemia Patient feels well today. No new symptoms. No rectal bleeding or melena. Hemoglobin is stable at 7.3. Objective - Vital Signs Vital signs: Vital Signs Temp 98 F 06/30/22 08:30 Pulse 72 06/30/22 11:34 Resp 18 06/30/22 08:30 BP 146/77 06/30/22 08:30 Pulse Ox 93 L 06/30/22 08:30 FiO2 Intake & Output 06/29/22 06/30/22 06/30/22 18:59 06:59 18:59 Intake Total 354 240 Output Total 275 Balance 354 -275 240 Intake: Oral 354 240 Output: Urine 275 Other: Voiding Method Urinal Urinal Urinal # Voids 2 - Exam Abdomen: Soft, nontender, nondistended - Labs CBC & Chem 7: 06/30/22 07:01 06/30/22 07:01 Labs: Abnormal Lab Results - Last 24 Hours (Table) 06/30/22 06/30/22 Range/Units 07:01 07:01 WBC 10.7 H (3.8-10.6) k/uL RBC 3.51 L (4.30-5.90) m/uL Hgb 7.3 L (13.0-17.5) gm/dL Hct 26.4 L (39.0-53.0) % MCV 75.1 L (80.0-100.0) fL MCH 20.8 L (25.0-35.0) pg MCHC 27.7 L (31.0-37.0) g/dL RDW 26.3 H (11.5-15.5) % Calcium 7.9 L (8.4-10.2) mg/dL Total Protein 5.1 L (6.3-8.2) g/dL Albumin 2.7 L (3.5-5.0) g/dL Assessment and Plan (1) Anemia Narrative/Plan: Patient doing well today. Hemoglobin remained stable. Will start clear liquids tomorrow and begin bowel prep tomorrow for colonoscopy and EGD on Friday. Current Visit: Yes Status: Acute Code(s): D64.9 - ANEMIA, UNSPECIFIED SNOMED Code(s): 023845123
--- NOTE | 2022-06-30 11:56 | P.PN ---
Subjective Progress Note Date: 06/30/22 Sebastian Armas, is a 72-year-old male who presented to [facility] emergency room with a chief complaint of chest pain and shortness of breath He was evaluated in the emergency room vital examination on presentation revealed a temperature of 98.5 pulse 88 respirations 17 and blood pressure 114/64 pulse ox 98% on room air Laboratory data revealed a white blood count of 9.5 hemoglobin 4.0 platelet count 419 BUN 35 creatinine 1.61 troponin level 0.067 Testing in the emergency room revealed chest x-ray revealed bilateral pleural effusion right larger than left Patient was admitted to ICU for further evaluation and treatment On 06/28/2022 patient was seen and examined in the ICU he is alert and oriented 3 in no apparent distress he is complaining of shortness of breath with any activity otherwise he denies any complaints there is no fever or chills no headache or dizziness no chest pain no cough no nausea or vomiting no abdominal pain no diarrhea no blood in the stools no burning with urination no frequency or urgency and no hematuria On 06/29/2022 patient was seen and examined on the medical floor he was transferred out of ICU, he is alert and oriented 3 in no distress there is no fever or chills no headache or dizziness no chest pain no shortness of breath at rest however he is having significant shortness of breath with any activity there is no nausea or vomiting no abdominal pain no diarrhea no blood in the stools no burning with urination no frequency or urgency no hematuria On 06/30/2022 patient was seen and examined on the telemetry floor he is alert and oriented 3 in no distress there is no fever or chills no headache or dizziness no chest pain no shortness of breath at rest however he is having significant shortness of breath with any activity there is no nausea or vomiting no abdominal pain no diarrhea no blood in the stools no burning with urination no frequency or urgency no hematuria, hemoglobin today is 7.3, patient denies any blood in the stools, will continue to monitor, plan is for EGD and colonoscopy by Dr. Paredes on Friday Objective - Vital Signs Vital signs: Vital Signs Temp 98 F 06/30/22 08:30 Pulse 86 06/30/22 08:30 Resp 18 06/30/22 08:30 BP 146/77 09/04/22 08:30 Pulse Ox 93 L 06/30/22 08:30 FiO2 Intake & Output 06/29/22 06/30/22 06/30/22 18:59 06:59 18:59 Intake Total 354 240 Output Total 275 Balance 354 -275 240 Intake: Oral 354 240 Output: Urine 275 Other: Voiding Method Urinal Urinal Urinal # Voids 2 - Exam In general patient is alert and oriented x 3 in no distress HEENT head normocephalic and atraumatic Neck is supple no JVD no goiter no lymphadenopathy no carotid bruit Chest examination is clear to auscultation no crackles no wheezing Cardiac exam reveals regular heart sounds S1 and S2 no gallops no murmurs Abdomen is soft nontender no organomegaly with normal bowel sounds Extremity exam reveals no edema no cyanosis or clubbing Neurological examination reveals no gross focal deficits - Labs CBC & Chem 7: 06/30/22 07:01 06/30/22 07:01 Labs: Abnormal Lab Results - Last 24 Hours (Table) 06/30/22 06/30/22 Range/Units 07:01 07:01 WBC 10.7 H (3.8-10.6) k/uL RBC 3.51 L (4.30-5.90) m/uL Hgb 7.3 L (13.0-17.5) gm/dL Hct 26.4 L (39.0-53.0) % MCV 75.1 L (80.0-100.0) fL MCH 20.8 L (25.0-35.0) pg MCHC 27.7 L (31.0-37.0) g/dL RDW 26.3 H (11.5-15.5) % Calcium 7.9 L (8.4-10.2) mg/dL Total Protein 5.1 L (6.3-8.2) g/dL Albumin 2.7 L (3.5-5.0) g/dL Assessment and Plan Plan: Severe anemia, cause unclear possible iron deficiency anemia possible chronic blood loss anemia Episode of chest pain Small bilateral pleural effusions Underlying history of hypertension Underlying history of hyperlipidemia Underlying history of osteoarthritis Underlying history of benign prostatic hypertrophy At this time patient is admitted to intensive care unit He is receiving red blood cell transfusion Will monitor CBC very closely Surgical consultation requested for GI workup Blood pressure is on the low side, blood pressure medication are on hold and will be resumed gradually as necessary Cardiology consultation requested for chest pain and slightly elevated troponin echocardiogram ordered Will consult hematology in regard to severe anemia Will follow closely
[2022-06-30] MEDS: carvediloL 3.125 MG TAB PO SCH ×2 (12:42→16:53)
--- NOTE | 2022-06-30 13:23 | P.PN ---
Subjective Progress Note Date: 06/30/22 72-year-old male patient presented to the hospital because of lightheadedness and exertional dyspnea. The patient had no chest pain. No cough sputum production chest vessel wheezing. No swelling in lower extremities. He was having profound fatigue and weakness. This has been going on for at least 3-4 weeks. Was unable to walk long distances. He came into the emergency room where the patient was found to have hemoglobin of 4.0. EKG showed a normal sinus rhythm. Chest x-ray showed a small bilateral pleural effusion worse on the right with cardiomegaly. Note that the patient is not take any form of anticoagulants. He has undergone previous surgery for a large are esophageal hernia with placement of a mesh and this was done Gen. 2021 and the patient was having difficulties with swallowing. The patient has not had any recent colonoscopy. He is known to have diverticulosis. Nevertheless, he denies having any nausea or emesis. No hematemesis. No bright red blood per rectum or melanotic stools. The patient's initial hemoglobin was at 4.0 and this was a microcytic anemia with a MCV of 63. Platelet count was 419. White cell count of 9.5. The rest of the coagulation profile was within normal limits. The BUN 35 with a creatinine of 1.6 consistent with acute kidney injury. Sodium level is at 136 and the potassium level was at 5.7 with a serum bicarbonate was 18 and anion gap of 11. Troponin was 0.06. ProBNP level was 7570 and rest LFTs were essentially within normal limits. The patient was admitted to the intensive care unit. He was started on packed RBC transfusion and he'll be transferred to a total of 4 units of packed RBC. Gen. surgery consultation was also obtained. 06/28/2022, the patient is doing well. Patient has been was resuscitated and the patient received a total of 4 units of packed RBC and hemoglobin currently is at 7.2. He is doing much better. He is not having any significant shortness of breath. He is on 3 L O2 nasal cannula with a pulse ox of 92%. His iron level was 11 and the patient will be started on IV iron. Echocardiogram was also done and the patient has an ejection fraction of 45%. The white cell count is at 7.2 with a hemoglobin of 7.2 and the plated count of 349. BUN is at 21 with a creatinine of 1.2. Serum bicarb is at 22 with a sodium level of 139. The patient has no specific complaints otherwise. Awaiting test surgery consultation regarding the possibility of an occult ongoing GI loss or GI bleeding. 06/29/2022, I'm seeing the patient for a follow-up. The patient has a stable hemoglobin and he has not shown any signs of bleeding. He is having some increased edema in upper and lower extremities and the patient would benefit from a dose of Lasix. The patient is receiving IV iron. The patient is also demonstrated a stable hemoglobin of 7.2. The white cell count of 10.1. Creatinine is improving is down to 1.23 with a 21 and his sodium level of 139. LFTs are all within normal limits. ABDOMEN and pelvis was done that showed small to moderate-sized pleural effusions along with compressive atelectatic changes in lung bases bilaterally and some mild ascites. For that reason, I made decision to give the patient another dose of Lasix. Echocardiogram was noted and the patient had mild elevation of the proBNP level 06/30/2022, the patient is stable outside the intensive care unit. No GI bleeding. There was a 7.3 and the patient received a dose of Lasix with adequate diuresis. Creatinine is down to 1.03 with a mean of 12. Sodium is at 139. Objective - Vital Signs Vital signs: Vital Signs Temp 98 F 06/30/22 08:30 Pulse 72 06/30/22 11:34 Resp 18 06/30/22 08:30 BP 146/77 06/30/22 08:30 Pulse Ox 93 L 06/30/22 08:30 FiO2 Intake & Output 06/29/22 06/30/22 06/30/22 18:59 06:59 18:59 Intake Total 354 240 Output Total 275 Balance 354 -275 240 Intake: Oral 354 240 Output: Urine 275 Other: Voiding Method Urinal Urinal Urinal # Voids 2 - Exam Gen. appearance the patient is calm and comfortable, not having any significant respiratory distress on room air oxygen with a pulse ox of 93% Head exam was generally normal. There was no scleral icterus or corneal arcus. Mucous membranes were moist. HEENT: Head is atraumatic, normocephalic. Pupils are equal, round. Sclerae anicteric. Conjunctivae pale. Mucous membranes of the mouth are moist. Neck is supple. There is no jugular venous distention. No carotid bruit is heard. CHEST EXAMINATION: Lungs are clear to auscultation. No chest wall tenderness is noted on palpation or with deep breathing. HEART EXAMINATION: Heart regular rate and rhythm. S1, S2 heard. Soft systolic murmur. No gallops or rub. ABDOMEN: Soft, nontender. Bowel sounds are heard. No organomegaly noted. EXTREMITIES: 2+ peripheral pulses with no evidence of peripheral edema and no calf tenderness noted. The patient has chronic deformities lower extremities which Charcot joints and signs of peripheral neuropathy NEUROLOGIC EXAMINATION: Patient is awake, alert and oriented x3. Examination of the skin revealed no evidence of significant rashes, suspicious appearing nevi or other concerning lesions. - Labs CBC & Chem 7: 06/30/22 07:01 06/30/22 07:01 Labs: Abnormal Lab Results - Last 24 Hours (Table) 06/30/22 06/30/22 Range/Units 07:01 07:01 WBC 10.7 H (3.8-10.6) k/uL RBC 3.51 L (4.30-5.90) m/uL Hgb 7.3 L (13.0-17.5) gm/dL Hct 26.4 L (39.0-53.0) % MCV 75.1 L (80.0-100.0) fL MCH 20.8 L (25.0-35.0) pg MCHC 27.7 L (31.0-37.0) g/dL RDW 26.3 H (11.5-15.5) % Calcium 7.9 L (8.4-10.2) mg/dL Total Protein 5.1 L (6.3-8.2) g/dL Albumin 2.7 L (3.5-5.0) g/dL Assessment and Plan Plan: Acute on top of chronic anemia, with probably subacute or progressive slow drop in the hemoglobin over the past several weeks. No signs of any acute GI bleeding. Hemoglobin was down to 4.0, admission this was microcytic anemia, rule out underlying iron deficiency, blood loss anemia.the patient got transfused with a total of 4 units of packed RBC and the subsequent hemoglobin is at 7.3. No clinical signs of GI bleeding. The patient is being considered for upper and lower endoscopy. Shortness of breath secondary to above, improved, and the patient has bilateral pleural effusion. Yet predominantly shortness of breath was related to anemia and improved after improvement in hemoglobin levels CHF with an ejection fraction of 45% Acute kidney injury, recovered History of diverticulosis History of esophageal hernia with surgical repair with placement of a mesh COVID 19 infection in April 2022 Mild elevation of the troponins, free of any chest pain Obstructive sleep apnea utilizes CPAP on outpatient basis. His case of severe ORTIZ with an AHI of 98. Impaired hearing Chronic peripheral neuropathy and Charcot joints and difficulty with mobility and gait Previous history of a small bowel obstruction back in August 2021, recovered BPH Hypertension Hyperlipidemia Plan hemoglobin is stable Continue IV iron 3 doses Give the patient dose of Lasix 40 mg IV and this further optimize volume status Monitor renal function, the creatinine is normalized General surgery consultation and the patient is going to have an upper and lower GI endoscopies No anticoagulants we will transferred out of the intensive care unit Utilize CPAP overnight We'll continue to follow as needed
[2022-06-30] MEDS: TAMSULOSIN 0.4 MG CAP.ER.24H PO SCH (16:53)
[2022-06-30] MEDS: IPRATROPIUM-ALBUTEROL 3 ML NEB INHALATION PRN (19:16)
[2022-06-30] MEDS: GABAPENTIN 300 MG CAP PO SCH (20:23)
[2022-07-01] MEDS: SODIUM CHLORIDE 0.9% 1,000 ML IV SCH ×2 (00:31→23:47)
[2022-07-01] MEDS: carvediloL 3.125 MG TAB PO SCH ×2 (06:22→17:15)
[2022-07-01] MEDS: VALSARTAN 80 MG TAB PO SCH ×2 (08:15→21:50)
[2022-07-01] MEDS: CHOLECALCIFEROL 25 MCG (1000 IU) TABLET PO SCH (08:15)
[2022-07-01] MEDS: GABAPENTIN 100 MG CAP PO SCH (08:15)
[2022-07-01] MEDS: SYMBICORT 80-4.5 MCG INHALER INHALATION SCH ×2 (08:36→19:23)
[2022-07-01] MEDS: IPRATROPIUM 0.5 MG/2.5 ML NEBU INHALATION SCH ×4 (08:37→19:23)
[2022-07-01] MEDS ORDERED: FUROSEMIDE 10 MG/ML 4 ML VIAL IV STA (08:58)
[2022-07-01] MEDS ORDERED: PEG 3350 (420 GM/BTL) + LYTES 4,000 ML BOTTLE PO ONE (10:04)
--- NOTE | 2022-07-01 10:06 | P.PN ---
Subjective Progress Note Date: 07/01/22 Principal diagnosis: Anemia Patient complaining of some shortness of breath today. Denies rectal bleeding. No abdominal pain. Objective - Vital Signs Vital signs: Vital Signs Temp 98.3 F 06/30/22 20:20 Pulse 77 07/01/22 08:13 Resp 18 07/01/22 08:13 BP 130/76 07/01/22 08:13 Pulse Ox 91 L 07/01/22 08:13 FiO2 Intake & Output 06/30/22 07/01/22 07/01/22 18:59 06:59 18:59 Intake Total 358 Balance 358 Intake: Oral 358 Other: Voiding Method Urinal Urinal Urinal # Voids 2 - Exam Abdomen: Soft, nontender, nondistended - Labs CBC & Chem 7: 06/30/22 07:01 06/30/22 07:01 Assessment and Plan (1) Anemia Narrative/Plan: 72-year-old male with anemia and GI bleed. Being scheduled for upper and lower endoscopy tomorrow. Current Visit: Yes Status: Acute Code(s): D64.9 - ANEMIA, UNSPECIFIED SNOMED Code(s): 535245792
[2022-07-01] MEDS: SODIUM FERRIC GLUCONAT-SUCROSE 125 MG in SODIUM CHLORIDE 0.9% 100 ML IVPB SCH (10:20)
--- NOTE | 2022-07-01 10:28 | P.PN ---
Subjective Progress Note Date: 07/01/22 The patient is a 72-year-old male with no significant cardiac history, who presented to the emergency room with increased shortness of breath. Hemoglobin on arrival was 4.0. Cardiology was consulted for elevated BNP. The patient's hemoglobin has since been stable in the 70s after receiving several units of blood. No obvious source of bleeding has been found and she will undergo endoscopy early next week. Echocardiogram was performed which showed reduced ejection fraction of 45%. The patient has no history of cardiomyopathy and is, however with apical and septal hypokinesis this may be Takotsubo. The patient was interviewed and examined sitting on the side of his bed. He states he is more short of breath today. He reports being winded ambulating to the bathroom, as well as having more weakness and fatigue in his lower extremities. GENERAL: Well-appearing, well-nourished and in no acute distress. NECK: Supple without JVD or thyromegaly. LUNGS: Breath sounds diminished to auscultation bilaterally. Respiration equal and unlabored. No wheezes, rales or rhonchi. HEART: Regular rate and rhythm without murmurs, rubs or gallops. S1 and S2 heard. EXTREMITIES: Normal range of motion. +2-3 lower extremity edema. No clubbing or cyanosis. Peripheral pulses intact and strong. VITALS: Blood pressure 130/76, pulse 77, respiratory rate 18, SpO2 91% on room air TELEMETRY: Sinus rhythm IMPRESSION: Severe anemia, unknown source, upper and lower endoscopy planned for Friday Mildly elevated troponin, likely secondary to anemia Cardiomyopathy with EF of 45%, unknown cause History of hypertension History dyslipidemia PLAN: Furosemide 40 mg IV push 1 Plan for EGD/colonoscopy on Friday Further recommendations to be based on clinical course I am dictating on behalf of Dr Thad Aguirre's history/physical and assessment/plan. Objective - Vital Signs Vital signs: Vital Signs Temp 98.3 F 06/30/22 20:20 Pulse 77 07/01/22 08:13 Resp 18 07/01/22 08:13 BP 130/76 07/01/22 08:13 Pulse Ox 91 L 07/01/22 08:13 FiO2 Intake & Output 06/30/22 07/01/22 07/01/22 18:59 06:59 18:59 Intake Total 358 Balance 358 Intake: Oral 358 Other: Voiding Method Urinal Urinal Urinal # Voids 2 - Labs CBC & Chem 7: 06/30/22 07:01 06/30/22 07:01
--- NOTE | 2022-07-01 13:21 | P.PN ---
Subjective Progress Note Date: 07/01/22 72-year-old male patient presented to the hospital because of lightheadedness and exertional dyspnea. The patient had no chest pain. No cough sputum production chest vessel wheezing. No swelling in lower extremities. He was having profound fatigue and weakness. This has been going on for at least 3-4 weeks. Was unable to walk long distances. He came into the emergency room where the patient was found to have hemoglobin of 4.0. EKG showed a normal sinus rhythm. Chest x-ray showed a small bilateral pleural effusion worse on the right with cardiomegaly. Note that the patient is not take any form of anticoagulants. He has undergone previous surgery for a large are esophageal hernia with placement of a mesh and this was done Gen. 2021 and the patient was having difficulties with swallowing. The patient has not had any recent colonoscopy. He is known to have diverticulosis. Nevertheless, he denies having any nausea or emesis. No hematemesis. No bright red blood per rectum or melanotic stools. The patient's initial hemoglobin was at 4.0 and this was a microcytic anemia with a MCV of 63. Platelet count was 419. White cell count of 9.5. The rest of the coagulation profile was within normal limits. The BUN 35 with a creatinine of 1.6 consistent with acute kidney injury. Sodium level is at 136 and the potassium level was at 5.7 with a serum bicarbonate was 18 and anion gap of 11. Troponin was 0.06. ProBNP level was 7570 and rest LFTs were essentially within normal limits. The patient was admitted to the intensive care unit. He was started on packed RBC transfusion and he'll be transferred to a total of 4 units of packed RBC. Gen. surgery consultation was also obtained. 06/28/2022, the patient is doing well. Patient has been was resuscitated and the patient received a total of 4 units of packed RBC and hemoglobin currently is at 7.2. He is doing much better. He is not having any significant shortness of breath. He is on 3 L O2 nasal cannula with a pulse ox of 92%. His iron level was 11 and the patient will be started on IV iron. Echocardiogram was also done and the patient has an ejection fraction of 45%. The white cell count is at 7.2 with a hemoglobin of 7.2 and the plated count of 349. BUN is at 21 with a creatinine of 1.2. Serum bicarb is at 22 with a sodium level of 139. The patient has no specific complaints otherwise. Awaiting test surgery consultation regarding the possibility of an occult ongoing GI loss or GI bleeding. 06/29/2022, I'm seeing the patient for a follow-up. The patient has a stable hemoglobin and he has not shown any signs of bleeding. He is having some increased edema in upper and lower extremities and the patient would benefit from a dose of Lasix. The patient is receiving IV iron. The patient is also demonstrated a stable hemoglobin of 7.2. The white cell count of 10.1. Creatinine is improving is down to 1.23 with a 21 and his sodium level of 139. LFTs are all within normal limits. ABDOMEN and pelvis was done that showed small to moderate-sized pleural effusions along with compressive atelectatic changes in lung bases bilaterally and some mild ascites. For that reason, I made decision to give the patient another dose of Lasix. Echocardiogram was noted and the patient had mild elevation of the proBNP level 06/30/2022, the patient is stable outside the intensive care unit. No GI bleeding. There was a 7.3 and the patient received a dose of Lasix with adequate diuresis. Creatinine is down to 1.03 with a mean of 12. Sodium is at 139. 07/01/2022, no new complaints, hemoglobin stable at 7.3, no signs of GI bleed and the patient is doing bowel prep for endoscopies. The electrodes are all stable. Sodium is 138, because of 12 with a creatinine of 1.03. Objective - Vital Signs Vital signs: Vital Signs Temp 98.3 F 06/30/22 20:20 Pulse 77 07/01/22 08:13 Resp 18 07/01/22 08:13 BP 130/76 07/01/22 08:13 Pulse Ox 91 L 07/01/22 08:13 FiO2 Intake & Output 06/30/22 07/01/22 07/01/22 18:59 06:59 18:59 Intake Total 358 Balance 358 Intake: Oral 358 Other: Voiding Method Urinal Urinal Urinal # Voids 2 - Exam Gen. appearance the patient is calm and comfortable, not having any significant respiratory distress on room air oxygen with a pulse ox of 93% Head exam was generally normal. There was no scleral icterus or corneal arcus. Mucous membranes were moist. HEENT: Head is atraumatic, normocephalic. Pupils are equal, round. Sclerae anicteric. Conjunctivae pale. Mucous membranes of the mouth are moist. Neck is supple. There is no jugular venous distention. No carotid bruit is heard. CHEST EXAMINATION: Lungs are clear to auscultation. No chest wall tenderness is noted on palpation or with deep breathing. HEART EXAMINATION: Heart regular rate and rhythm. S1, S2 heard. Soft systolic murmur. No gallops or rub. ABDOMEN: Soft, nontender. Bowel sounds are heard. No organomegaly noted. EXTREMITIES: 2+ peripheral pulses with no evidence of peripheral edema and no calf tenderness noted. The patient has chronic deformities lower extremities which Charcot joints and signs of peripheral neuropathy NEUROLOGIC EXAMINATION: Patient is awake, alert and oriented x3. Examination of the skin revealed no evidence of significant rashes, suspicious appearing nevi or other concerning lesions. - Labs CBC & Chem 7: 06/30/22 07:01 06/30/22 07:01 Assessment and Plan Plan: Acute on top of chronic anemia, with probably subacute or progressive slow drop in the hemoglobin over the past several weeks. No signs of any acute GI bleeding. Hemoglobin was down to 4.0, admission this was microcytic anemia, rule out underlying iron deficiency, blood loss anemia.the patient got transfused with a total of 4 units of packed RBC and the subsequent hemoglobin is at 7.3. No clinical signs of GI bleeding. The patient is being considered for upper and lower endoscopy. Shortness of breath secondary to above, improved, and the patient has bilateral pleural effusion. Yet predominantly shortness of breath was related to anemia and improved after improvement in hemoglobin levels CHF with an ejection fraction of 45% Acute kidney injury, recovered History of diverticulosis History of esophageal hernia with surgical repair with placement of a mesh COVID 19 infection in April 2022 Mild elevation of the troponins, free of any chest pain Obstructive sleep apnea utilizes CPAP on outpatient basis. His case of severe ORTIZ with an AHI of 98. Impaired hearing Chronic peripheral neuropathy and Charcot joints and difficulty with mobility and gait Previous history of a small bowel obstruction back in August 2021, recovered BPH Hypertension Hyperlipidemia Plan Patient undergoing bowel prep hemoglobin is stable Treated with IV iron for iron deficiency Monitor renal function, the creatinine is normalized General surgery consultation and the patient is going to have an upper and lower GI endoscopies No anticoagulants we will transferred out of the intensive care unit Utilize CPAP overnight We'll continue to follow as needed
[2022-07-01] MEDS: TAMSULOSIN 0.4 MG CAP.ER.24H PO SCH (17:15)
[2022-07-01] MEDS: GABAPENTIN 300 MG CAP PO SCH (21:50)
[2022-07-02] MEDS: carvediloL 3.125 MG TAB PO SCH ×2 (06:03→19:20)
[2022-07-02] MEDS: IPRATROPIUM 0.5 MG/2.5 ML NEBU INHALATION SCH ×4 (07:27→20:05)
[2022-07-02] MEDS: SYMBICORT 80-4.5 MCG INHALER INHALATION SCH ×2 (07:27→20:05)
--- NOTE | 2022-07-02 12:33 | P.PN ---
Subjective Progress Note Date: 07/02/22 HISTORY OF PRESENT ILLNESS: The patient is a 72-year-old male with no significant cardiac history, who presented to the emergency room with increased shortness of breath. Hemoglobin on arrival was 4.0. Cardiology was consulted for elevated BNP. The patient's hemoglobin has since been stable in the 70s after receiving several units of blood. No obvious source of bleeding has been found and she will undergo endoscopy early next week. Echocardiogram was performed which showed reduced ejection fraction of 45%. The patient has no history of cardiomyopathy and is, however with apical and septal hypokinesis this may be Takotsubo. The patient was interviewed and examined sitting on the side of his bed. He states he is more short of breath today. He reports being winded ambulating to the bathroom, as well as having more weakness and fatigue in his lower extremities. 07/02/2022 Patient examined this morning. He is sitting up in the chair. He denies chest pain or pressure. Reports mild SOB and a cough this morning. Most recent hemoglobin is 7.3. He is scheduled for endoscopy today. PHYSICAL EXAM: VITAL SIGNS: Reviewed. GENERAL: Well-developed in no acute distress. NECK: Supple. No JVD or thyromegaly LUNGS: Respirations even and unlabored. Lungs essentially clear to auscultation bilaterally. HEART: Regular rate and rhythm. S1 and S2 heard. EXTREMITIES: Normal range of motion. No clubbing or cyanosis. Peripheral pulses intact. 2+ bilateral lower extremity edema ASSESSMENT: Severe anemia, etiology unclear Mildly elevated troponin, likely secondary to anemia Cardiomyopathy with EF of 45%, etiology unclear History of hypertension History dyslipidemia PLAN: Continue current cardiac medications Patient to undergo endoscopy today with general surgery. Await results Patient will require further workup of his cardiomyopathy when he is medically stable Further recommendations pending patient course Nurse practitioner note has been reviewed by physician. Signing provider agrees with the documented findings, assessment, and plan of care. Objective - Vital Signs Vital signs: Vital Signs Temp 97.8 F 07/02/22 11:10 Pulse 66 07/02/22 11:10 Resp 18 07/02/22 11:10 BP 133/67 07/02/22 11:10 Pulse Ox 95 07/02/22 11:10 FiO2 Intake & Output 07/01/22 07/02/22 07/02/22 18:59 06:59 18:59 Other: Voiding Method Urinal Urinal Urinal # Voids 2 # Bowel Movements 7 - Labs CBC & Chem 7: 06/30/22 07:01 06/30/22 07:01
[2022-07-02] MEDS: GABAPENTIN 100 MG CAP PO SCH (19:19)
[2022-07-02] MEDS: CHOLECALCIFEROL 25 MCG (1000 IU) TABLET PO SCH (19:19)
[2022-07-02] MEDS: TAMSULOSIN 0.4 MG CAP.ER.24H PO SCH (19:20)
[2022-07-02] MEDS: VALSARTAN 80 MG TAB PO SCH ×2 (19:20→21:33)
[2022-07-02] MEDS: GABAPENTIN 300 MG CAP PO SCH (21:33)
--- NOTE | 2022-07-02 22:34 | P.PN ---
Subjective Progress Note Date: 07/02/22 72-year-old male patient presented to the hospital because of lightheadedness and exertional dyspnea. The patient had no chest pain. No cough sputum production chest vessel wheezing. No swelling in lower extremities. He was having profound fatigue and weakness. This has been going on for at least 3-4 weeks. Was unable to walk long distances. He came into the emergency room where the patient was found to have hemoglobin of 4.0. EKG showed a normal sinus rhythm. Chest x-ray showed a small bilateral pleural effusion worse on the right with cardiomegaly. Note that the patient is not take any form of anticoagulants. He has undergone previous surgery for a large are esophageal hernia with placement of a mesh and this was done Gen. 2021 and the patient was having difficulties with swallowing. The patient has not had any recent colonoscopy. He is known to have diverticulosis. Nevertheless, he denies having any nausea or emesis. No hematemesis. No bright red blood per rectum or melanotic stools. The patient's initial hemoglobin was at 4.0 and this was a microcytic anemia with a MCV of 63. Platelet count was 419. White cell count of 9.5. The rest of the coagulation profile was within normal limits. The BUN 35 with a creatinine of 1.6 consistent with acute kidney injury. Sodium level is at 136 and the potassium level was at 5.7 with a serum bicarbonate was 18 and anion gap of 11. Troponin was 0.06. ProBNP level was 7570 and rest LFTs were essentially within normal limits. The patient was admitted to the intensive care unit. He was started on packed RBC transfusion and he'll be transferred to a total of 4 units of packed RBC. Gen. surgery consultation was also obtained. 06/28/2022, the patient is doing well. Patient has been was resuscitated and the patient received a total of 4 units of packed RBC and hemoglobin currently is at 7.2. He is doing much better. He is not having any significant shortness of breath. He is on 3 L O2 nasal cannula with a pulse ox of 92%. His iron level was 11 and the patient will be started on IV iron. Echocardiogram was also done and the patient has an ejection fraction of 45%. The white cell count is at 7.2 with a hemoglobin of 7.2 and the plated count of 349. BUN is at 21 with a creatinine of 1.2. Serum bicarb is at 22 with a sodium level of 139. The patient has no specific complaints otherwise. Awaiting test surgery consultation regarding the possibility of an occult ongoing GI loss or GI bleeding. 06/29/2022, I'm seeing the patient for a follow-up. The patient has a stable hemoglobin and he has not shown any signs of bleeding. He is having some increased edema in upper and lower extremities and the patient would benefit from a dose of Lasix. The patient is receiving IV iron. The patient is also demonstrated a stable hemoglobin of 7.2. The white cell count of 10.1. Creatinine is improving is down to 1.23 with a 21 and his sodium level of 139. LFTs are all within normal limits. ABDOMEN and pelvis was done that showed small to moderate-sized pleural effusions along with compressive atelectatic changes in lung bases bilaterally and some mild ascites. For that reason, I made decision to give the patient another dose of Lasix. Echocardiogram was noted and the patient had mild elevation of the proBNP level 06/30/2022, the patient is stable outside the intensive care unit. No GI b leeding. There was a 7.3 and the patient received a dose of Lasix with adequate diuresis. Creatinine is down to 1.03 with a mean of 12. Sodium is at 139. 07/01/2022, no new complaints, hemoglobin stable at 7.3, no signs of GI bleed and the patient is doing bowel prep for endoscopies. The electrodes are all stable. Sodium is 138, because of 12 with a creatinine of 1.03. The patient is seen today 2021 in follow-up on the regular medical floor. He is awake and alert in no acute distress. Maintaining O2 saturations in the 90s on 2 L/m per nasal cannula. He does have obstructive sleep apnea utilizing CPAP. He does have some lower extremity edema. Crackles in left lung base. The plan was for colonoscopy today however the patient's IV was nonfunctional on the case was canceled to possibly tomorrow. Objective - Vital Signs Vital signs: Vital Signs Temp 98.5 F 07/02/22 20:00 Pulse 70 07/02/22 20:00 Resp 12 07/02/22 20:00 BP 127/71 07/02/22 20:00 Pulse Ox 96 07/02/22 20:00 FiO2 Intake & Output 07/02/22 07/02/22 07/03/22 06:59 18:59 06:59 Other: Voiding Method Urinal Urinal - Exam GENERAL EXAM: Alert, 72-year-old male patient on 2 L nasal cannula, in no apparent distress. HEAD: Normocephalic. EYES: Normal reaction of pupils, equal size. NOSE: Clear with pink turbinates. THROAT: No erythema or exudates. NECK: No masses, no JVD. CHEST: No chest wall deformity. LUNGS: Equal air entry with no crackles, wheeze, rhonchi or dullness. CVS: S1 and S2 normal with no audible murmur, regular rhythm. ABDOMEN: No hepatosplenomegaly, normal bowel sounds, no guarding or rigidity. SPINE: No scoliosis or deformity SKIN: No rashes CENTRAL NERVOUS SYSTEM: No focal deficits, tone is normal in all 4 extremities. EXTREMITIES: There is no peripheral edema. No clubbing, no cyanosis. Peripheral pulses are intact. - Labs CBC & Chem 7: 06/30/22 07:01 06/30/22 07:01 Assessment and Plan Assessment: Acute on top of chronic anemia, with probably subacute or progressive slow drop in the hemoglobin over the past several weeks. No signs of any acute GI bleeding. Hemoglobin was down to 4.0, admission this was microcytic anemia, rule out underlying iron deficiency, blood loss anemia.the patient got transfused with a total of 4 units of packed RBC and the subsequent hemoglobin is at 7.3. No clinical signs of GI bleeding. The patient is being considered for upper and lower endoscopy. Shortness of breath secondary to above, improved, and the patient has bilateral pleural effusion. Yet predominantly shortness of breath was related to anemia and improved after improvement in hemoglobin levels CHF with an ejection fraction of 45% Acute kidney injury, recovered History of diverticulosis History of esophageal hernia with surgical repair with placement of a mesh COVID 19 infection in April 2022 Mild elevation of the troponins, free of any chest pain Obstructive sleep apnea utilizes CPAP on outpatient basis. His case of severe ORTIZ with an AHI of 98. Impaired hearing Chronic peripheral neuropathy and Charcot joints and difficulty with mobility and gait Previous history of a small bowel obstruction back in August 2021, recovered BPH Hypertension Hyperlipidemia Plan: The patient is stable from the pulmonary standpoint Awaiting endoscopy We will see as needed I have personally seen and examined the patient, performed the documentation and the assessment and plan as written. Number of minutes spent on the visit: 10.
[2022-07-03] MEDS: SODIUM CHLORIDE 0.9% 1,000 ML IV SCH ×2 (06:28→23:44)
[2022-07-03] MEDS: carvediloL 3.125 MG TAB PO SCH ×2 (06:42→17:48)
[2022-07-03] MEDS: IPRATROPIUM 0.5 MG/2.5 ML NEBU INHALATION SCH ×4 (08:05→19:58)
[2022-07-03] MEDS: SYMBICORT 80-4.5 MCG INHALER INHALATION SCH ×2 (08:05→19:58)
[2022-07-03] MEDS: CHOLECALCIFEROL 25 MCG (1000 IU) TABLET PO SCH (08:16)
[2022-07-03] MEDS: VALSARTAN 80 MG TAB PO SCH ×2 (08:16→21:39)
[2022-07-03] MEDS: GABAPENTIN 100 MG CAP PO SCH (08:16)
--- NOTE | 2022-07-03 10:38 | P.PN ---
Subjective Progress Note Date: 07/03/22 HISTORY OF PRESENT ILLNESS: The patient is a 72-year-old male with no significant cardiac history, who presented to the emergency room with increased shortness of breath. Hemoglobin on arrival was 4.0. Cardiology was consulted for elevated BNP. The patient's hemoglobin has since been stable in the 70s after receiving several units of blood. No obvious source of bleeding has been found and she will undergo endoscopy early next week. Echocardiogram was performed which showed reduced ejection fraction of 45%. The patient has no history of cardiomyopathy and is, however with apical and septal hypokinesis this may be Takotsubo. The patient was interviewed and examined sitting on the side of his bed. He states he is more short of breath today. He reports being winded ambulating to the bathroom, as well as having more weakness and fatigue in his lower extremities. 07/02/2022 Patient examined this morning. He is sitting up in the chair. He denies chest pain or pressure. Reports mild SOB and a cough this morning. Most recent hemoglobin is 7.3. He is scheduled for endoscopy today. 07/03/2022 Patient examined this morning. He denies chest pain or pressure. Reports improvement in his SOB. He is scheduled for endoscopy today with general surgery. PHYSICAL EXAM: VITAL SIGNS: Reviewed. GENERAL: Well-developed in no acute distress. NECK: Supple. No JVD or thyromegaly LUNGS: Respirations even and unlabored. Lungs essentially clear to auscultation bilaterally. HEART: Regular rate and rhythm. S1 and S2 heard. EXTREMITIES: Normal range of motion. No clubbing or cyanosis. Peripheral pulses intact. 2+ bilateral lower extremity edema ASSESSMENT: Severe anemia, etiology unclear Mildly elevated troponin, likely secondary to anemia Cardiomyopathy with EF of 45%, etiology unclear History of hypertension History dyslipidemia PLAN: Continue current cardiac medications Patient to undergo endoscopy today with general surgery. Await results Patient will require further workup of his cardiomyopathy when he is medically stable Further recommendations pending patient course Nurse practitioner note has been reviewed by physician. Signing provider agrees with the documented findings, assessment, and plan of care. Objective - Vital Signs Vital signs: Vital Signs Temp 98.4 F 07/03/22 08:05 Pulse 64 07/03/22 09:00 Resp 24 07/03/22 09:00 BP 120/68 07/03/22 08:05 Pulse Ox 96 07/03/22 02:00 FiO2 Intake & Output 07/02/22 07/03/22 07/03/22 18:59 06:59 18:59 Other: Voiding Method Urinal Toilet Toilet Urinal Urinal # Voids 1 - Labs CBC & Chem 7: 06/30/22 07:01 06/30/22 07:01
[2022-07-03] MEDS ORDERED: LIDOCAINE 2% INJ 20 MG/ML (2 ML VIAL) ONE (12:07)
[2022-07-03] MEDS ORDERED: PROPOFOL 10 MG/ML 20 ML VIAL IV ONE (12:07)
--- NOTE | 2022-07-03 12:27 | P.PN ---
Subjective Progress Note Date: 07/01/22 Sebastian Armas, is a 72-year-old male who presented to [facility] emergency room with a chief complaint of chest pain and shortness of breath He was evaluated in the emergency room vital examination on presentation revealed a temperature of 98.5 pulse 88 respirations 17 and blood pressure 114/64 pulse ox 98% on room air Laboratory data revealed a white blood count of 9.5 hemoglobin 4.0 platelet count 419 BUN 35 creatinine 1.61 troponin level 0.067 Testing in the emergency room revealed chest x-ray revealed bilateral pleural effusion right larger than left Patient was admitted to ICU for further evaluation and treatment On 06/28/2022 patient was seen and examined in the ICU he is alert and oriented 3 in no apparent distress he is complaining of shortness of breath with any activity otherwise he denies any complaints there is no fever or chills no headache or dizziness no chest pain no cough no nausea or vomiting no abdominal pain no diarrhea no blood in the stools no burning with urination no frequency or urgency and no hematuria On 06/29/2022 patient was seen and examined on the medical floor he was transferred out of ICU, he is alert and oriented 3 in no distress there is no fever or chills no headache or dizziness no chest pain no shortness of breath at rest however he is having significant shortness of breath with any activity there is no nausea or vomiting no abdominal pain no diarrhea no blood in the stools no burning with urination no frequency or urgency no hematuria On 06/30/2022 patient was seen and examined on the telemetry floor he is alert and oriented 3 in no distress there is no fever or chills no headache or dizziness no chest pain no shortness of breath at rest however he is having significant shortness of breath with any activity there is no nausea or vomiting no abdominal pain no diarrhea no blood in the stools no burning with urination no frequency or urgency no hematuria, hemoglobin today is 7.3, patient denies any blood in the stools, will continue to monitor, plan is for EGD and colonoscopy by Dr. Paredes on Friday On 07/01/2022 patient was seen and examined on the telemetry floor he is alert and oriented 3 in no distress there is no fever or chills no headache or dizziness no chest pain no shortness of breath at rest however he is having significant shortness of breath with any activity there is no nausea or vomiting no abdominal pain no diarrhea no blood in the stools no burning with urination no frequency or urgency no hematuria, hemoglobin today is 7.3, patient denies any blood in the stools, will continue to monitor, plan is for EGD and colonoscopy by Dr. Paredes on 07/02/2022 Objective - Vital Signs Vital signs: Vital Signs Temp 98.3 F 06/30/22 20:20 Pulse 77 07/01/22 08:13 Resp 18 07/01/22 08:13 BP 130/76 07/01/22 08:13 Pulse Ox 91 L 07/01/22 08:13 FiO2 Intake & Output 06/30/22 07/01/22 07/01/22 18:59 06:59 18:59 Intake Total 358 Balance 358 Intake: Oral 358 Other: Voiding Method Urinal Urinal Urinal # Voids 2 - Exam In general patient is alert and oriented x 3 in no distress HEENT head normocephalic and atraumatic Neck is supple no JVD no goiter no lymphadenopathy no carotid bruit Chest examination is clear to auscultation no crackles no wheezing Cardiac exam reveals regular heart sounds S1 and S2 no gallops no murmurs Abdomen is soft nontender no organomegaly with normal bowel sounds Extremity exam reveals no edema no cyanosis or clubbing Neurological examination reveals no gross focal deficits - Labs CBC & Chem 7: 06/30/22 07:01 06/30/22 07:01 Assessment and Plan Plan: Severe anemia, cause unclear possible iron deficiency anemia possible chronic blood loss anemia Episode of chest pain Small bilateral pleural effusions Underlying history of hypertension Underlying history of hyperlipidemia Underlying history of osteoarthritis Underlying history of benign prostatic hypertrophy At this time patient is admitted to intensive care unit He is receiving red blood cell transfusion Will monitor CBC very closely Surgical consultation requested for GI workup Blood pressure is on the low side, blood pressure medication are on hold and will be resumed gradually as necessary Cardiology consultation requested for chest pain and slightly elevated troponin echocardiogram ordered Will consult hematology in regard to severe anemia Will follow closely
--- NOTE | 2022-07-03 12:29 | P.PN ---
Subjective Progress Note Date: 07/02/22 Sebastian Armas, is a 72-year-old male who presented to [facility] emergency room with a chief complaint of chest pain and shortness of breath He was evaluated in the emergency room vital examination on presentation revealed a temperature of 98.5 pulse 88 respirations 17 and blood pressure 114/64 pulse ox 98% on room air Laboratory data revealed a white blood count of 9.5 hemoglobin 4.0 platelet count 419 BUN 35 creatinine 1.61 troponin level 0.067 Testing in the emergency room revealed chest x-ray revealed bilateral pleural effusion right larger than left Patient was admitted to ICU for further evaluation and treatment On 06/28/2022 patient was seen and examined in the ICU he is alert and oriented 3 in no apparent distress he is complaining of shortness of breath with any activity otherwise he denies any complaints there is no fever or chills no headache or dizziness no chest pain no cough no nausea or vomiting no abdominal pain no diarrhea no blood in the stools no burning with urination no frequency or urgency and no hematuria On 06/29/2022 patient was seen and examined on the medical floor he was transferred out of ICU, he is alert and oriented 3 in no distress there is no fever or chills no headache or dizziness no chest pain no shortness of breath at rest however he is having significant shortness of breath with any activity there is no nausea or vomiting no abdominal pain no diarrhea no blood in the stools no burning with urination no frequency or urgency no hematuria On 06/30/2022 patient was seen and examined on the telemetry floor he is alert and oriented 3 in no distress there is no fever or chills no headache or dizziness no chest pain no shortness of breath at rest however he is having significant shortness of breath with any activity there is no nausea or vomiting no abdominal pain no diarrhea no blood in the stools no burning with urination no frequency or urgency no hematuria, hemoglobin today is 7.3, patient denies any blood in the stools, will continue to monitor, plan is for EGD and colonoscopy by Dr. Paredes on Friday On 07/01/2022 patient was seen and examined on the telemetry floor he is alert and oriented 3 in no distress there is no fever or chills no headache or dizziness no chest pain no shortness of breath at rest however he is having significant shortness of breath with any activity there is no nausea or vomiting no abdominal pain no diarrhea no blood in the stools no burning with urination no frequency or urgency no hematuria, hemoglobin today is 7.3, patient denies any blood in the stools, will continue to monitor, plan is for EGD and colonoscopy by Dr. Paredes on 07/02/2022 On 07/02/2022 patient was seen and examined on the telemetry floor he is alert and oriented 3 in no distress there is no fever or chills no headache or dizziness no chest pain no shortness of breath at rest however he is having significant shortness of breath with any activity there is no nausea or vomiting no abdominal pain no diarrhea no blood in the stools no burning with urination no frequency or urgency no hematuria, hemoglobin today is 7.3, patient denies any blood in the stools, will continue to monitor, plan is for EGD and colonoscopy by Dr. Paredes on 07/02/2022 Objective - Vital Signs Vital signs: Vital Signs Temp 97.5 F L 07/03/22 11:47 Pulse 78 07/03/22 11:47 Resp 24 07/03/22 11:47 BP 134/76 07/03/22 11:47 Pulse Ox 93 L 07/03/22 11:47 FiO2 Intake & Output 07/02/22 07/03/22 07/03/22 18:59 06:59 18:59 Other: Voiding Method Urinal Toilet Toilet Urinal Urinal # Voids 1 - Exam In general patient is alert and oriented x 3 in no distress HEENT head normocephalic and atraumatic Neck is supple no JVD no goiter no lymphadenopathy no carotid bruit Chest examination is clear to auscultation no crackles no wheezing Cardiac exam reveals regular heart sounds S1 and S2 no gallops no murmurs Abdomen is soft nontender no organomegaly with normal bowel sounds Extremity exam reveals no edema no cyanosis or clubbing Neurological examination reveals no gross focal deficits - Labs CBC & Chem 7: 06/30/22 07:01 06/30/22 07:01 Assessment and Plan Plan: Severe anemia, cause unclear possible iron deficiency anemia possible chronic blood loss anemia Episode of chest pain Small bilateral pleural effusions Underlying history of hypertension Underlying history of hyperlipidemia Underlying history of osteoarthritis Underlying history of benign prostatic hypertrophy At this time patient is admitted to intensive care unit He is receiving red blood cell transfusion Will monitor CBC very closely Surgical consultation requested for GI workup Blood pressure is on the low side, blood pressure medication are on hold and will be resumed gradually as necessary Cardiology consultation requested for chest pain and slightly elevated troponin echocardiogram ordered Will consult hematology in regard to severe anemia Will follow closely
[2022-07-03] MEDS ORDERED: IV FLUID CONTINUATION 900 ML IV ONE (12:34)
--- NOTE | 2022-07-03 12:41 | P.OP ---
Date of Procedure: 07/03/22 Preoperative Diagnosis: Anemia, GI bleed Postoperative Diagnosis: Antral ulcer, Diverticulosis Procedure(s) Performed: EGD Colonoscopy Anesthesia: MAC Surgeon: Elian Paredes Pathology: other (Antrum) Condition: stable Disposition: PACU Description of Procedure: The patient's placed on the endoscopy table in the lateral position. He received IV sedation. The gastro-/oropharynx passed in the esophagus and into the stomach. Scope placement pylorus. First and second portion of duodenum appeared normal. Scope was then brought back the antrum and there appeared to be evidence of ulceration. This area was biopsied. There is no active bleeding seen. Scope was retroflexed remainder stomach appeared normal. The GE junction was at 40 cm. The distal esophagus appeared normal. The proximal esophagus appeared normal. Scope withdrawn for patient. Next digital rectal exam was performed. This revealed no abnormalities. Flexible colonoscope was then placed patient anus and passed throughout the entire colon. The right colon there was a large amount liquid stool which limited the view of the cecum. No gross abnormality was seen. However the view was quite limited due to the large amount liquid stool. The scope was brought back. The hepatic flexure appeared normal. The transverse colon had a few scattered diverticula. In the descending and sigmoid colon there is extensive diverticular changes. Scope was then brought back the rectum and this appeared normal. Scope was then withdrawn for patient. There is no evidence of any lower GI bleed. Presumed patient's anemia was due to his antral ulceration.
--- NOTE | 2022-07-03 13:12 | P.PN ---
Subjective Progress Note Date: 07/03/22 Sebastian Armas, is a 72-year-old male who presented to [facility] emergency room with a chief complaint of chest pain and shortness of breath He was evaluated in the emergency room vital examination on presentation revealed a temperature of 98.5 pulse 88 respirations 17 and blood pressure 114/64 pulse ox 98% on room air Laboratory data revealed a white blood count of 9.5 hemoglobin 4.0 platelet count 419 BUN 35 creatinine 1.61 troponin level 0.067 Testing in the emergency room revealed chest x-ray revealed bilateral pleural effusion right larger than left Patient was admitted to ICU for further evaluation and treatment On 06/28/2022 patient was seen and examined in the ICU he is alert and oriented 3 in no apparent distress he is complaining of shortness of breath with any activity otherwise he denies any complaints there is no fever or chills no headache or dizziness no chest pain no cough no nausea or vomiting no abdominal pain no diarrhea no blood in the stools no burning with urination no frequency or urgency and no hematuria On 06/29/2022 patient was seen and examined on the medical floor he was transferred out of ICU, he is alert and oriented 3 in no distress there is no fever or chills no headache or dizziness no chest pain no shortness of breath at rest however he is having significant shortness of breath with any activity there is no nausea or vomiting no abdominal pain no diarrhea no blood in the stools no burning with urination no frequency or urgency no hematuria On 06/30/2022 patient was seen and examined on the telemetry floor he is alert and oriented 3 in no distress there is no fever or chills no headache or dizziness no chest pain no shortness of breath at rest however he is having significant shortness of breath with any activity there is no nausea or vomiting no abdominal pain no diarrhea no blood in the stools no burning with urination no frequency or urgency no hematuria, hemoglobin today is 7.3, patient denies any blood in the stools, will continue to monitor, plan is for EGD and colonoscopy by Dr. Paredes on Friday On 07/01/2022 patient was seen and examined on the telemetry floor he is alert and oriented 3 in no distress there is no fever or chills no headache or dizziness no chest pain no shortness of breath at rest however he is having significant shortness of breath with any activity there is no nausea or vomiting no abdominal pain no diarrhea no blood in the stools no burning with urination no frequency or urgency no hematuria, hemoglobin today is 7.3, patient denies any blood in the stools, will continue to monitor, plan is for EGD and colonoscopy by Dr. Paredes on 07/02/2022 On 07/02/2022 patient was seen and examined on the telemetry floor he is alert and oriented 3 in no distress there is no fever or chills no headache or dizziness no chest pain no shortness of breath at rest however he is having significant shortness of breath with any activity there is no nausea or vomiting no abdominal pain no diarrhea no blood in the stools no burning with urination no frequency or urgency no hematuria, hemoglobin today is 7.3, patient denies any blood in the stools, will continue to monitor, plan is for EGD and colonoscopy by Dr. Paredes on 07/02/2022 On 07/03/2022 patient was seen and examined on the medical floor he is alert and oriented 3 in no apparent distress he underwent EGD and colonoscopy this morning procedure were delayed from yesterday due to scheduling issues, patient is doing well, he denies any complaints at this time, there is no fever or chills no headache or dizziness no chest pain no shortness of breath no cough no nausea or vomiting no abdominal pain no diarrhea no blood in the stools no burning with urination no frequency or urgency and no hematuria. At this time will continue with current management recheck labs in a.m. possible discharge to home tomorrow. Objective - Vital Signs Vital signs: Vital Signs Temp 97.5 F L 07/03/22 11:47 Pulse 70 07/03/22 13:07 Resp 24 07/03/22 11:47 BP 134/64 07/03/22 13:07 Pulse Ox 94 L 07/03/22 13:07 FiO2 Intake & Output 07/02/22 07/03/22 07/03/22 18:59 06:59 18:59 Intake Total 500 Balance 500 Intake: IV 500 Other: Voiding Method Urinal Toilet Toilet Urinal Urinal # Voids 1 - Exam In general patient is alert and oriented x 3 in no distress HEENT head normocephalic and atraumatic Neck is supple no JVD no goiter no lymphadenopathy no carotid bruit Chest examination is clear to auscultation no crackles no wheezing Cardiac exam reveals regular heart sounds S1 and S2 no gallops no murmurs Abdomen is soft nontender no organomegaly with normal bowel sounds Extremity exam reveals no edema no cyanosis or clubbing Neurological examination reveals no gross focal deficits - Labs CBC & Chem 7: 06/30/22 07:01 06/30/22 07:01 Assessment and Plan Plan: Severe anemia, cause unclear possible iron deficiency anemia possible chronic blood loss anemia Episode of chest pain Small bilateral pleural effusions Underlying history of hypertension Underlying history of hyperlipidemia Underlying history of osteoarthritis Underlying history of benign prostatic hypertrophy At this time patient is admitted to intensive care unit He is receiving red blood cell transfusion Will monitor CBC very closely Surgical consultation requested for GI workup Blood pressure is on the low side, blood pressure medication are on hold and will be resumed gradually as necessary Cardiology consultation requested for chest pain and slightly elevated troponin echocardiogram ordered Will consult hematology in regard to severe anemia Will follow closely
[2022-07-03] MEDS: TAMSULOSIN 0.4 MG CAP.ER.24H PO SCH (17:48)
[2022-07-03] MEDS: GABAPENTIN 300 MG CAP PO SCH (21:06)
[2022-07-03] MEDS ORDERED: PANTOPRAZOLE 40 MG/10 ML VIAL IVP SCH (23:00)
[2022-07-03] MEDS: FERROUS SULFATE 325 MG TAB PO SCH (23:43)
[2022-07-03] MEDS: PANTOPRAZOLE 40 MG/10 ML VIAL IVP SCH (23:44)
[2022-07-04 07:12] LABS: Anisocytosis Marked; Basophils % (A) 1 %; Eosinophils # (A) 0.3 k/uL (0-0.7); Eosinophils % (A) 4 %; HCT 29.4 % (39.0-53.0); Hypochromasia Marked; Lymphocytes # (A) 1.1 k/uL (1.0-4.8); Lymphocytes % (A) 16 %; MCHC 27.2 g/dL (31.0-37.0); Mean Platelet Volume 8.1; Microcytosis Marked; Monocytes # (A) 0.6 k/uL (0-1.0); Monocytes % (A) 8 %; Neutrophils # (A) 4.7 k/uL (1.3-7.7); Neutrophils % (A) 69 %; Platelet Count 275 k/uL (150-450); Poikilocytosis Marked; RBC 3.82 m/uL (4.30-5.90); WBC 6.8 k/uL (3.8-10.6)
[2022-07-04 07:21] LABS: ALT 12 U/L (4-49); African American GFR (CKD) >90 (>60 ml/min/1.73 sqM); Albumin 2.8 g/dL (3.5-5.0); Alkaline Phosphatase 62 U/L (38-126); Anion Gap 6 mmol/L; Calcium 8.1 mg/dL (8.4-10.2); Carbon Dioxide 27 mmol/L (22-30); Chloride 106 mmol/L (98-107); Glucose 93 mg/dL (74-99); Non-African American GFR(CKD) 83 (>60 ml/min/1.73 sqM); Potassium 3.9 mmol/L (3.5-5.1); Sodium 139 mmol/L (137-145)
[2022-07-04 07:22] LABS: AST 28 U/L (17-59); Blood Urea Nitrogen 14 mg/dL (9-20); Total Bilirubin 0.4 mg/dL (0.2-1.3); Total Protein 5.1 g/dL (6.3-8.2)
[2022-07-04 07:29] LABS: RDW 26.2 % (11.5-15.5)
[2022-07-04] MEDS: GABAPENTIN 100 MG CAP PO SCH (08:23)
[2022-07-04] MEDS: carvediloL 3.125 MG TAB PO SCH ×2 (08:23→17:10)
[2022-07-04] MEDS: CHOLECALCIFEROL 25 MCG (1000 IU) TABLET PO SCH (08:23)
[2022-07-04] MEDS: VALSARTAN 80 MG TAB PO SCH ×2 (08:23→20:12)
[2022-07-04] MEDS: PANTOPRAZOLE 40 MG/10 ML VIAL IVP SCH ×3 (08:28→20:13)
[2022-07-04] MEDS: FERROUS SULFATE 325 MG TAB PO SCH ×2 (08:28→17:10)
[2022-07-04] MEDS: IPRATROPIUM 0.5 MG/2.5 ML NEBU INHALATION SCH ×4 (08:42→20:29)
[2022-07-04] MEDS: SYMBICORT 80-4.5 MCG INHALER INHALATION SCH ×2 (08:42→20:29)
--- NOTE | 2022-07-04 09:34 | P.PN ---
Subjective The patient is a 72-year-old male with past medical history of hypertension, dyslipidemia, GERD, Obstructive sleep apnea, former smoker, BPH. 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 No significant cardiac history, who presented to the emergency room with increased shortness of breath. Hemoglobin on arrival was 4.0. Cardiology was consulted for elevated BNP/effusion. Patient recieved 4units of PRBCs. Echocardiogram was performed which showed reduced ejection fraction of 45%. The patient has no history of cardiomyopathy and is, however with apical and septal hypokinesis this may be Takotsubo. 07/04/2022 Patient examined this morning. He is sitting up at the side of the bed, feeling well, no complaints. He denies chest pain or pressure. Denies shortness of breath. Hemoglobin this morning 8.0. He underwent EGD and colonoscopy neurosurgery yesterday that reported no evidence of active bleeding. Presumed patient's anemia was due to his antral ulceration. Vital signs are stable. Blood pressure 132/70, heart rate 72, afebrile. PHYSICAL EXAM: VITAL SIGNS: Reviewed. GENERAL: Well-developed in no acute distress. NECK: Supple. No JVD or thyromegaly LUNGS: Respirations even and unlabored. Lungs essentially clear to auscultation bilaterally. HEART: Regular rate and rhythm. S1 and S2 heard. EXTREMITIES: Normal range of motion. No clubbing or cyanosis. Peripheral pulses intact. 2+ bilateral lower extremity edema ASSESSMENT: Severe anemia, etiology unclear Mildly elevated troponin, likely secondary to anemia Cardiomyopathy with EF of 45%, etiology unclear History of hypertension History dyslipidemia PLAN: Continue current cardiac medications with carvediolol and valsartan Patient will require further workup of his cardiomyopathy when he is medically stable, this can be done as an outpatient Patient is stable for discharge from a cardiology perspective when cleared by primary and other consultants Follow up with Dr. Aguirre outpatient, patient has an appointment on 07/19/22. Nurse practitioner note has been reviewed by physician. Signing provider agrees with the documented findings, assessment, and plan of care. Objective - Vital Signs Vital signs: Vital Signs Temp 98.4 F 07/04/22 07:36 Pulse 60 07/04/22 08:56 Resp 18 07/04/22 07:36 BP 132/70 07/04/22 07:36 Pulse Ox 96 07/04/22 07:36 FiO2 Intake & Output 09/07/22 09/08/22 09/08/22 18:59 06:59 18:59 Intake Total 500 Balance 500 Intake: IV 500 Other: Voiding Method Toilet Toilet Urinal Urinal # Voids 1 2 # Bowel Movements 2 2 - Labs CBC & Chem 7: 07/04/22 05:51 07/04/22 05:51 Labs: Abnormal Lab Results - Last 24 Hours (Table) 07/04/22 07/04/22 Range/Units 05:51 05:51 RBC 3.82 L (4.30-5.90) m/uL Hgb 8.0 L (13.0-17.5) gm/dL Hct 29.4 L (39.0-53.0) % MCV 77.0 L (80.0-100.0) fL MCH 21.0 L (25.0-35.0) pg MCHC 27.2 L (31.0-37.0) g/dL Calcium 8.1 L (8.4-10.2) mg/dL Total Protein 5.1 L (6.3-8.2) g/dL Albumin 2.8 L (3.5-5.0) g/dL
[2022-07-04] MEDS ORDERED: FUROSEMIDE 10 MG/ML 4 ML VIAL IV SCH (10:45)
[2022-07-04 11:13] VITALS: BMI 38.8
--- NOTE | 2022-07-04 13:52 | P.PN ---
Subjective Progress Note Date: 07/04/22 CHIEF COMPLAINT: Anemia HISTORY OF PRESENT ILLNESS: Patient is status post EGD and colonoscopy results demonstrated antral ulcer and diverticulosis. Patient's hemoglobin is up from 7.3-8. He denies any blood in his stools. Denies any black stools. Denies any nausea or vomiting. Medicine service has placed patient on diuretics for fluid overload. Afebrile. Patient denies any abdominal pain. PHYSICAL EXAM: VITAL SIGNS: Reviewed. GENERAL: Well-developed in no acute distress. HEENT: No sclera icterus. Extraocular movements grossly intact. Moist buccal mucosa. Head is atraumatic, normocephalic. ABDOMEN: Soft. Nondistended. Nontender. NEUROLOGIC: Alert and oriented. Cranial nerves II through XII grossly intact. ASSESSMENT: 1. Severe anemia likely secondary to patient's antral ulcer 2. Status post EGD and colonoscopy in treating antral ulcer and diverticulosis. It is presumed the patient had bleeding from the antral ulcer PLAN: -Continue PPI -Recommend No NSAIDs -Recommend to hold aspirin for 1 week Physician Cold Rolling Supervisor note has been reviewed by physician. Signing provider agrees with the documented findings, assessment, and plan of care. Objective - Vital Signs Vital signs: Vital Signs Temp 98.4 F 07/04/22 07:36 Pulse 64 07/04/22 12:39 Resp 18 07/04/22 07:36 BP 132/70 07/04/22 07:36 Pulse Ox 96 07/04/22 07:36 FiO2 Intake & Output 07/03/22 07/04/22 07/04/22 18:59 06:59 18:59 Intake Total 500 Balance 500 Weight 115.8 kg Intake: IV 500 Other: Voiding Method Toilet Toilet Urinal Urinal # Voids 1 2 # Bowel Movements 2 2 - Labs CBC & Chem 7: 07/04/22 05:51 07/04/22 05:51 Labs: Abnormal Lab Results - Last 24 Hours (Table) 07/04/22 07/04/22 Range/Units 05:51 05:51 RBC 3.82 L (4.30-5.90) m/uL Hgb 8.0 L (13.0-17.5) gm/dL Hct 29.4 L (39.0-53.0) % MCV 77.0 L (80.0-100.0) fL MCH 21.0 L (25.0-35.0) pg MCHC 27.2 L (31.0-37.0) g/dL Calcium 8.1 L (8.4-10.2) mg/dL Total Protein 5.1 L (6.3-8.2) g/dL Albumin 2.8 L (3.5-5.0) g/dL
[2022-07-04 14:41] LABS: Tear Drop Cells Present
[2022-07-04 14:43] LABS: Polychromasia Present
[2022-07-04] MEDS: FUROSEMIDE 10 MG/ML 4 ML VIAL IV SCH ×2 (15:19→20:13)
[2022-07-04] MEDS: LIDOCAINE 5% PATCH TOPICAL SCH (15:20)
[2022-07-04] MEDS: TAMSULOSIN 0.4 MG CAP.ER.24H PO SCH (17:10)
[2022-07-04] MEDS: GABAPENTIN 300 MG CAP PO SCH (20:12)
--- NOTE | 2022-07-04 20:57 | P.PN ---
Subjective Records from the previous notes Sebastian Armas, is a 72-year-old male who presented to [facility] emergency room with a chief complaint of chest pain and shortness of breath He was evaluated in the emergency room vital examination on presentation revealed a temperature of 98.5 pulse 88 respirations 17 and blood pressure 114/64 pulse ox 98% on room air Laboratory data revealed a white blood count of 9.5 hemoglobin 4.0 platelet cou nt 419 BUN 35 creatinine 1.61 troponin level 0.067 Testing in the emergency room revealed chest x-ray revealed bilateral pleural effusion right larger than left Patient was admitted to ICU for further evaluation and treatment On 06/28/2022 patient was seen and examined in the ICU he is alert and oriented 3 in no apparent distress he is complaining of shortness of breath with any activity otherwise he denies any complaints there is no fever or chills no headache or dizziness no chest pain no cough no nausea or vomiting no abdominal pain no diarrhea no blood in the stools no burning with urination no frequency or urgency and no hematuria On 06/29/2022 patient was seen and examined on the medical floor he was transferred out of ICU, he is alert and oriented 3 in no distress there is no fever or chills no headache or dizziness no chest pain no shortness of breath at rest however he is having significant shortness of breath with any activity there is no nausea or vomiting no abdominal pain no diarrhea no blood in the stools no burning with urination no frequency or urgency no hematuria On 06/30/2022 patient was seen and examined on the telemetry floor he is alert and oriented 3 in no distress there is no fever or chills no headache or dizziness no chest pain no shortness of breath at rest however he is having significant shortness of breath with any activity there is no nausea or vomiting no abdominal pain no diarrhea no blood in the stools no burning with urination no frequency or urgency no hematuria, hemoglobin today is 7.3, patient denies any blood in the stools, will continue to monitor, plan is for EGD and colonoscopy by Dr. Paredes on Friday On 07/01/2022 patient was seen and examined on the telemetry floor he is alert and oriented 3 in no distress there is no fever or chills no headache or dizziness no chest pain no shortness of breath at rest however he is having significant shortness of breath with any activity there is no nausea or vomiting no abdominal pain no diarrhea no blood in the stools no burning with urination no frequency or urgency no hematuria, hemoglobin today is 7.3, patient denies any blood in the stools, will continue to monitor, plan is for EGD and colonoscopy by Dr. Paredes on 07/02/2022 On 07/02/2022 patient was seen and examined on the telemetry floor he is alert and oriented 3 in no distress there is no fever or chills no headache or dizziness no chest pain no shortness of breath at rest however he is having significant shortness of breath with any activity there is no nausea or vomiting no abdominal pain no diarrhea no blood in the stools no burning with urination no frequency or urgency no hematuria, hemoglobin today is 7.3, patient denies any blood in the stools, will continue to monitor, plan is for EGD and colonoscopy by Dr. Paredes on 07/02/2022 On 07/03/2022 patient was seen and examined on the medical floor he is alert and oriented 3 in no apparent distress he underwent EGD and colonoscopy this mor andrea procedure were delayed from yesterday due to scheduling issues, patient is doing well, he denies any complaints at this time, there is no fever or chills no headache or dizziness no chest pain no shortness of breath no cough no nausea or vomiting no abdominal pain no diarrhea no blood in the stools no burning with urination no frequency or urgency and no hematuria. At this time will continue with current management recheck labs in a.m. possible discharge to home tomorrow. Subjective: Resume the care of the patient today This is a pleasant 72 years old male with multiple medical problems presents with exertional dyspnea and dyspnea found to be secondary to severe anemia. His hemoglobin on admission was 4.6. Received 4 units of blood transfusion his hemoglobin now is 8. WBCs 6.8. Patient is currently on Protonix and hold aspirin for 1 week Also his creatinine from exertional dyspnea and his exertional hypoxia patient does not want to go home on oxygen. Patient Extensively hypervolemic is with 3+ like edema. Also with this recommendation. Chest x-ray showed evidence of bryson ateral CHF. Ejection fraction low 45% with apical hypokinesia. Today patient worked with physical therapist and is oxygen saturation dropped to 91% on 2 L of oxygen via nasal cannula, most likely without oxygen at a drop in the 80s. Patient will require further cardiac workup. Cardiomyopathy when he is medically more stable. Religious Assistant. Patient was consulted to avoid NSAIDs and he agrees Objective - Vital Signs Vital signs: Vital Signs Temp 98.4 F 07/04/22 07:36 Pulse 60 07/04/22 08:56 Resp 18 07/04/22 07:36 BP 132/70 07/04/22 07:36 Pulse Ox 96 07/04/22 07:36 FiO2 Intake & Output 07/03/22 07/04/22 07/04/22 18:59 06:59 18:59 Intake Total 500 Balance 500 Intake: IV 500 Other: Voiding Method Toilet Toilet Urinal Urinal # Voids 1 2 # Bowel Movements 2 2 - Exam GENERAL: The patient is alert and oriented x3, not in any acute distress. Well developed, well nourished. HEENT: Pupils are round and equally reacting to light. EOMI. No scleral icterus. No conjunctival pallor. Normocephalic, atraumatic. No pharyngeal erythema. No thyromegaly. CARDIOVASCULAR: S1 and S2 present. No murmurs, rubs, or gallops. -PULMONARY: Chest is clear to auscultation, no wheezing bilateral basal crepitation abdomen:soft, nontender, nondistended, normoactive bowel sounds. No palpable organomegaly. MUSCULOSKELETAL: No joint swelling or deformity. EXTREMITIES: No cyanosis, clubbing, bilateral patellar ligament edema NEUROLOGICAL: Gross neurological examination did not reveal any focal deficits. SKIN: No rashes. no petechiae. - Labs CBC & Chem 7: 07/04/22 05:51 07/04/22 05:51 Labs: Abnormal Lab Results - Last 24 Hours (Table) 07/04/22 07/04/22 Range/Units 05:51 05:51 RBC 3.82 L (4.30-5.90) m/uL Hgb 8.0 L (13.0-17.5) gm/dL Hct 29.4 L (39.0-53.0) % MCV 77.0 L (80.0-100.0) fL MCH 21.0 L (25.0-35.0) pg MCHC 27.2 L (31.0-37.0) g/dL Calcium 8.1 L (8.4-10.2) mg/dL Total Protein 5.1 L (6.3-8.2) g/dL Albumin 2.8 L (3.5-5.0) g/dL Assessment and Plan Assessment: GI bleed secondary to gastric ulcer seen on EGD Acute blood loss anemia, iron deficient anemia. 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 And acute CHF Continue with IV diuresis for 24-48 hours to see how he improves. Monitored creatinine and input and output. With the patient on a fluid restriction Patient counseled to avoid NSAIDs, diclofenac or others except for baby aspirin Surgical team recommended to hold aspirin for one week. Continue with iron pills Urology and surgery team on the case Labs and medication were reviewed.. Continue same treatment. Continue with symptomatic treatment. Resume home medication. Monitor lytes and vitals. DVT and GI prophylaxis. Further recommendations as per clinical course of the patient DVT prophylaxis: no Subcutaneous heparin GI Prophylaxis: Ppi PT/OT: Home health care
[2022-07-05] MEDS: SODIUM CHLORIDE 0.9% 1,000 ML IV SCH (02:07)
[2022-07-05] MEDS: FERROUS SULFATE 325 MG TAB PO SCH ×2 (08:19→16:48)
[2022-07-05] MEDS: GABAPENTIN 100 MG CAP PO SCH (08:19)
[2022-07-05] MEDS: LIDOCAINE 5% PATCH TOPICAL SCH (08:19)
[2022-07-05] MEDS: CHOLECALCIFEROL 25 MCG (1000 IU) TABLET PO SCH (08:19)
[2022-07-05] MEDS: carvediloL 3.125 MG TAB PO SCH ×2 (08:19→16:48)
[2022-07-05] MEDS: VALSARTAN 80 MG TAB PO SCH ×2 (08:19→20:05)
[2022-07-05] MEDS: FUROSEMIDE 10 MG/ML 4 ML VIAL IV SCH (08:19)
[2022-07-05] MEDS: SYMBICORT 80-4.5 MCG INHALER INHALATION SCH ×2 (08:39→21:31)
[2022-07-05] MEDS: IPRATROPIUM 0.5 MG/2.5 ML NEBU INHALATION SCH ×4 (08:39→21:31)
[2022-07-05] MEDS: PANTOPRAZOLE 40 MG/10 ML VIAL IVP SCH ×2 (09:11→20:05)
--- NOTE | 2022-07-05 13:20 | P.PN ---
Subjective Progress Note Date: 07/05/22 CHIEF COMPLAINT: Anemia HISTORY OF PRESENT ILLNESS: Patient is status post EGD and colonoscopy results demonstrated antral ulcer and diverticulosis. Patient's hemoglobin is up from 7.3-8 yesterday. He denies any blood in his stools. Denies any black stools. Denies any nausea or vomiting. Medicine service has placed patient on diuretics for fluid overload. Afebrile. Patient denies any abdominal pain. No repeat labs for today. Biopsy pending PHYSICAL EXAM: VITAL SIGNS: Reviewed. GENERAL: Well-developed in no acute distress. HEENT: No sclera icterus. Extraocular movements grossly intact. Moist buccal mucosa. Head is atraumatic, normocephalic. ABDOMEN: Soft. Nondistended. Nontender. NEUROLOGIC: Alert and oriented. Cranial nerves II through XII grossly intact. ASSESSMENT: 1. Severe anemia likely secondary to patient's antral ulcer 2. Status post EGD and colonoscopy in treating antral ulcer and diverticulosis. It is presumed the patient had bleeding from the antral ulcer PLAN: -Continue PPI -Recommend No NSAIDs -Recommend to hold aspirin for 1 week -Okay to discharge from surgical standpoint when medically cleared Physician Billing Representative note has been reviewed by physician. Signing provider agrees with the documented findings, assessment, and plan of care. Objective - Vital Signs Vital signs: Vital Signs Temp 98.9 F 07/05/22 08:00 Pulse 70 07/05/22 12:14 Resp 18 07/05/22 08:00 BP 142/72 07/05/22 08:00 Pulse Ox 94 L 07/05/22 08:00 FiO2 Intake & Output 07/04/22 07/05/22 07/05/22 18:59 06:59 18:59 Weight 115.8 kg Other: # Voids 5 1 - Labs CBC & Chem 7: 07/04/22 05:51 07/04/22 05:51 Labs: Abnormal Lab Results - Last 24 Hours (Table) 07/04/22 Range/Units 05:51 RDW 26.2 H (11.5-15.5) %
[2022-07-05] MEDS: TAMSULOSIN 0.4 MG CAP.ER.24H PO SCH (16:48)
--- NOTE | 2022-07-05 18:27 | P.PN ---
Subjective Records from the previous notes Sebastian Armas, is a 72-year-old male who presented to [facility] emergency room with a chief complaint of chest pain and shortness of breath He was evaluated in the emergency room vital examination on presentation revealed a temperature of 98.5 pulse 88 respirations 17 and blood pressure 114/64 pulse ox 98% on room air Laboratory data revealed a white blood count of 9.5 hemoglobin 4.0 platelet cou nt 419 BUN 35 creatinine 1.61 troponin level 0.067 Testing in the emergency room revealed chest x-ray revealed bilateral pleural effusion right larger than left Patient was admitted to ICU for further evaluation and treatment On 06/28/2022 patient was seen and examined in the ICU he is alert and oriented 3 in no apparent distress he is complaining of shortness of breath with any activity otherwise he denies any complaints there is no fever or chills no headache or dizziness no chest pain no cough no nausea or vomiting no abdominal pain no diarrhea no blood in the stools no burning with urination no frequency or urgency and no hematuria On 06/29/2022 patient was seen and examined on the medical floor he was transferred out of ICU, he is alert and oriented 3 in no distress there is no fever or chills no headache or dizziness no chest pain no shortness of breath at rest however he is having significant shortness of breath with any activity there is no nausea or vomiting no abdominal pain no diarrhea no blood in the stools no burning with urination no frequency or urgency no hematuria On 06/30/2022 patient was seen and examined on the telemetry floor he is alert and oriented 3 in no distress there is no fever or chills no headache or dizziness no chest pain no shortness of breath at rest however he is having significant shortness of breath with any activity there is no nausea or vomiting no abdominal pain no diarrhea no blood in the stools no burning with urination no frequency or urgency no hematuria, hemoglobin today is 7.3, patient denies any blood in the stools, will continue to monitor, plan is for EGD and colonoscopy by Dr. Paredes on Friday On 07/01/2022 patient was seen and examined on the telemetry floor he is alert and oriented 3 in no distress there is no fever or chills no headache or dizziness no chest pain no shortness of breath at rest however he is having significant shortness of breath with any activity there is no nausea or vomiting no abdominal pain no diarrhea no blood in the stools no burning with urination no frequency or urgency no hematuria, hemoglobin today is 7.3, patient denies any blood in the stools, will continue to monitor, plan is for EGD and colonoscopy by Dr. Paredes on 07/02/2022 On 07/02/2022 patient was seen and examined on the telemetry floor he is alert and oriented 3 in no distress there is no fever or chills no headache or dizziness no chest pain no shortness of breath at rest however he is having significant shortness of breath with any activity there is no nausea or vomiting no abdominal pain no diarrhea no blood in the stools no burning with urination no frequency or urgency no hematuria, hemoglobin today is 7.3, patient denies any blood in the stools, will continue to monitor, plan is for EGD and colonoscopy by Dr. Paredes on 07/02/2022 On 07/03/2022 patient was seen and examined on the medical floor he is alert and oriented 3 in no apparent distress he underwent EGD and colonoscopy this mor andrea procedure were delayed from yesterday due to scheduling issues, patient is doing well, he denies any complaints at this time, there is no fever or chills no headache or dizziness no chest pain no shortness of breath no cough no nausea or vomiting no abdominal pain no diarrhea no blood in the stools no burning with urination no frequency or urgency and no hematuria. At this time will continue with current management recheck labs in a.m. possible discharge to home tomorrow. Subjective: Resume the care of the patient today This is a pleasant 72 years old male with multiple medical problems presents with exertional dyspnea and dyspnea found to be secondary to severe anemia. His hemoglobin on admission was 4.6. Received 4 units of blood transfusion his hemoglobin now is 8. WBCs 6.8. Patient is currently on Protonix and hold aspirin for 1 week Also his creatinine from exertional dyspnea and his exertional hypoxia patient does not want to go home on oxygen. Patient Extensively hypervolemic is with 3+ like edema. Also with this recommendation. Chest x-ray showed evidence of bryson ateral CHF. Ejection fraction low 45% with apical hypokinesia. Today patient worked with physical therapist and is oxygen saturation dropped to 91% on 2 L of oxygen via nasal cannula, most likely without oxygen at a drop in the 80s. Patient will require further cardiac workup. Cardiomyopathy when he is medically more stable. 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 Patient was consulted to avoid NSAIDs and he agrees 07/06/2022 Patient is presenting is is here today and he has only mild crepitation on his left basal side. His breathing rate is better today and he does not require much oxygen at rest or with exertion. Most likely patient does not going to need oxygen upon discharge. However patient does not want to be discharged today because there is no but became up or weight for him at his place. However tomorrow family/friends will be available to pick him up as he states. Patient using compressive stocking for his legs and is a swelling of the legs also better today. He is able to ambulate easier. However continue with IV Lasix and monitor creatinine and electrolytes. Deep monitor hemoglobin while keep holding aspirin for about one week. Patient informed and he agrees Objective - Vital Signs Vital signs: Vital Signs Temp 98.9 F 07/05/22 08:00 Pulse 70 07/05/22 12:02 Resp 18 07/05/22 08:00 BP 142/72 07/05/22 08:00 Pulse Ox 94 L 07/05/22 08:00 FiO2 Intake & Output 07/04/22 07/05/22 07/05/22 18:59 06:59 18:59 Weight 115.8 kg Other: # Voids 5 1 - Exam GENERAL: The patient is alert and oriented x3, not in any acute distress. Well developed, well nourished. HEENT: Pupils are round and equally reacting to light. EOMI. No scleral icterus. No conjunctival pallor. Normocephalic, atraumatic. No pharyngeal erythema. No thyromegaly. CARDIOVASCULAR: S1 and S2 present. No murmurs, rubs, or gallops. -PULMONARY: Chest is clear to auscultation, no wheezing. Mild left basal crepitation abdomen:soft, nontender, nondistended, normoactive bowel sounds. No palpable organomegaly. MUSCULOSKELETAL: No joint swelling or deformity. -EXTREMITIES: No cyanosis, clubbing, improving bilateral pitting leg edema NEUROLOGICAL: Gross neurological examination did not reveal any focal deficits. SKIN: No rashes. no petechiae. - Labs CBC & Chem 7: 07/04/22 05:51 07/04/22 05:51 Labs: Abnormal Lab Results - Last 24 Hours (Table) 07/04/22 Range/Units 05:51 RDW 26.2 H (11.5-15.5) % Assessment and Plan Assessment: GI bleed secondary to gastric ulcer seen on EGD Acute blood loss anemia, iron deficient anemia. 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 And acute CHF Continue with IV diuresis for 24-48 hours to see how he improves. Monitored creatinine and input and output. With the patient on a fluid restriction Patient counseled to avoid NSAIDs, diclofenac or others except for baby aspirin Surgical team recommended to hold aspirin for one week. Continue with iron pills Urology and surgery team on the case Labs and medication were reviewed.. Continue same treatment. Continue with symptomatic treatment. Resume home medication. Monitor lytes and vitals. DVT and GI prophylaxis. Further recommendations as per clinical course of the patient DVT prophylaxis: no Subcutaneous heparin GI Prophylaxis: Ppi PT/OT: Home health care Medically stable for discharge, however patient has no to pick him up or weight for him today. Possible discharge tomorrow when family/friends available.
[2022-07-05 19:00] LABS: Anisocytosis Marked; Basophils % (A) 1 %; Eosinophils # (A) 0.4 k/uL (0-0.7); Eosinophils % (A) 5 %; HCT 30.3 % (39.0-53.0); HGB 8.2 gm/dL (13.0-17.5); Hypochromasia Marked; Lymphocytes # (A) 1.3 k/uL (1.0-4.8); Lymphocytes % (A) 16 %; MCH 20.9 pg (25.0-35.0); MCHC 27.2 g/dL (31.0-37.0); Mean Platelet Volume 10.2; Microcytosis Marked; Monocytes # (A) 0.5 k/uL (0-1.0); Monocytes % (A) 6 %; Neutrophils # (A) 5.4 k/uL (1.3-7.7); Neutrophils % (A) 70 %; Platelet Count 325 k/uL (150-450); Poikilocytosis Marked; RBC 3.93 m/uL (4.30-5.90); WBC 7.7 k/uL (3.8-10.6)
[2022-07-05 19:05] LABS: RDW 25.9 % (11.5-15.5)
[2022-07-05 19:18] LABS: African American GFR (CKD) 85 (>60 ml/min/1.73 sqM); Anion Gap 12 mmol/L; Blood Urea Nitrogen 21 mg/dL (9-20); Calcium 8.5 mg/dL (8.4-10.2); Carbon Dioxide 27 mmol/L (22-30); Chloride 101 mmol/L (98-107); Glucose 117 mg/dL (74-99); Non-African American GFR(CKD) 74 (>60 ml/min/1.73 sqM); Potassium 3.5 mmol/L (3.5-5.1); Sodium 140 mmol/L (137-145)
[2022-07-05] MEDS: GABAPENTIN 300 MG CAP PO SCH (20:05)
[2022-07-06] MEDS: SODIUM CHLORIDE 0.9% 1,000 ML IV SCH (02:04)
[2022-07-06 08:36] VITALS: BP 130/70; RESP 19; TEMP 97.2
[2022-07-06] MEDS: IPRATROPIUM 0.5 MG/2.5 ML NEBU INHALATION SCH ×2 (08:54→12:07)
[2022-07-06] MEDS: SYMBICORT 80-4.5 MCG INHALER INHALATION SCH (08:54)
--- NOTE | 2022-07-06 09:03 | P.PN ---
Progress Note - Text Progress Note Date: 07/06/22 Patient remains unchanged. His hemoglobin is 8.2. Shows no signs of bleeding. His pathology was reviewed. Patient's found have chronic active gastritis. On exam vital signs appear stable. Abdomen soft. History of anemia related to gastritis. Patient can receive supportive care.
[2022-07-06] MEDS: LIDOCAINE 5% PATCH TOPICAL SCH (09:16)
[2022-07-06] MEDS: FERROUS SULFATE 325 MG TAB PO SCH (09:16)
[2022-07-06] MEDS: CHOLECALCIFEROL 25 MCG (1000 IU) TABLET PO SCH (09:16)
[2022-07-06] MEDS: GABAPENTIN 100 MG CAP PO SCH (09:16)
[2022-07-06] MEDS: carvediloL 3.125 MG TAB PO SCH (09:16)
[2022-07-06] MEDS: VALSARTAN 80 MG TAB PO SCH (09:49)
[2022-07-06] MEDS: PANTOPRAZOLE 40 MG/10 ML VIAL IVP SCH (09:49)
[2022-07-06 11:39] LABS: African American GFR (CKD) 96.7 (60.0-200.0); Anion Gap 9.8 mmol/L (10.00-18.00); BUN/Creat Ratio 19.14 Ratio (12.00-20.00); Blood Urea Nitrogen 17.3 mg/dL (9.0-27.0); Calcium 8.4 mg/dL (8.7-10.3); Carbon Dioxide 28.3 mmol/L (20.0-27.5); Non-African American GFR(CKD) 83.4 (60.0-200.0); Potassium 3.4 mmol/L (3.5-5.5)
[2022-07-06] MEDS ORDERED: POTASSIUM CHLORIDE ER 20 MEQ TAB.ER PO STA (11:47)
[2022-07-06 12:20] VITALS: PULSE 69
== END 2022-07-06 13:35 | disposition home health service (06) | DRG 377 ==
LOC: EC 22:30 → 2SICU 06-27 00:11 → 3SCARD 06-29 04:21 → 4SSUR 07-03 23:31
PROVIDERS: ADMIT Internal Medicine; ATTEND Internal Medicine
PROC: 30233N1 Transfusion of Nonautologous Red Blood Cells into Peripheral Vein, Percutaneous Approach (ICD-10-PCS; 2022-06-27)
PROC: 0DB78ZX Excision of Stomach, Pylorus, Via Natural or Artificial Opening Endoscopic, Diagnostic (ICD-10-PCS; principal; 2022-07-03 08:00)
PROC: 0DJD8ZZ Inspection of Lower Intestinal Tract, Via Natural or Artificial Opening Endoscopic (ICD-10-PCS; principal; 2022-07-03 08:00)
PROC: 05HC33Z Insertion of Infusion Device into Left Basilic Vein, Percutaneous Approach (ICD-10-PCS; 2022-07-04)
DX: K25.4 Chronic or unspecified gastric ulcer with hemorrhage (principal); I50.23 Acute on chronic systolic (congestive) heart failure; D62 Acute posthemorrhagic anemia; N17.9 Acute kidney failure, unspecified; R18.8 Other ascites; K21.9 Gastro-esophageal reflux disease without esophagitis; H91.90 Unspecified hearing loss, unspecified ear; E78.5 Hyperlipidemia, unspecified; M19.90 Unspecified osteoarthritis, unspecified site; N40.0 Benign prostatic hyperplasia without lower urinary tract symptoms; K29.51 Unspecified chronic gastritis with bleeding; G62.9 Polyneuropathy, unspecified; K44.9 Diaphragmatic hernia without obstruction or gangrene; Z96.651 Presence of right artificial knee joint; I49.5 Sick sinus syndrome; E78.00 Pure hypercholesterolemia, unspecified; K57.30 Diverticulosis of large intestine without perforation or abscess without bleeding; G47.33 Obstructive sleep apnea (adult) (pediatric); R01.1 Cardiac murmur, unspecified; R77.8 Other specified abnormalities of plasma proteins; I11.0 Hypertensive heart disease with heart failure; R09.02 Hypoxemia; N62 Hypertrophy of breast; D50.9 Iron deficiency anemia, unspecified; M14.69 Charcot's joint, multiple sites; R26.2 Difficulty in walking, not elsewhere classified; E66.9 Obesity, unspecified; Z71.3 Dietary counseling and surveillance; Z68.38 Body mass index [BMI] 38.0-38.9, adult; Z79.82 Long term (current) use of aspirin; Z79.899 Other long term (current) drug therapy; Z87.891 Personal history of nicotine dependence; Z86.16 Personal history of COVID-19; Z82.49 Family history of ischemic heart disease and other diseases of the circulatory system
CPT/HCPCS: 36410; 36415; 43239; 45378; 71045; 74176; 76937; 80048; 80053; 82728; 83010; 83540; 83550; 83690; 83735; 83880; 84100; 84484; 85025; 85027; 85045; 85610; 85730; 86850; 86900; 86901; 86920; 88305; 88342; 93306; 94640; 94760; 99291

== ENCOUNTER → 2022-09-11 | Outpatient (CLI) | payer MEDICARE ==
--- NOTE | 2022-09-11 16:01 | P.PN ---
Subjective DATE: 09/11/2022 FOLLOW UP VISIT. Patient with obstructive sleep apnea hypopnea syndrome return to sleep center for follow-up visit. Information from previous visit have been reviewed. Patient is using PAP equipment every night for the whole night, getting PAP supplies in time. The patient does not have significant problems with the mask, PAP unit and humidification. [place] sleepiness scale is 11. I checked information from PAP unit. PAP unit pressure 8-13, average 10.8 cm H2O. Usage is 100 % for more then 4 hours, average 7.1 hours per night. Leak is 16 l/m, which is in acceptable range. Apnea Hypopnea Index is 1.5, which is normal. MEDICATIONS:1. Valsartan 80 mg twice a day 2. Carvedilol twice a day 3. Rosuvastatin 10 mg once a day 4. Tamsulosin 0.4 mg twice a day 5. Omeprazole 20 mg once a day 6. Gabapentin 100 mg 2 times a day 7. Lasix 20 mg once a day 8. Spironolactone 25 mg once a day During physical exam: GENERAL: A pleasant patient without any distress. VITAL SIGNS: BP 159/79, HR 67, RR 16 , weight 188.8, temperature 97.1, oxygen saturation at room air 97 % . HEENT: PERRLA, EOMI.low position of soft palate, Mallapati 4 . NECK: Supple. No JVD. LUNGS: Clear to percussion and to auscultation. Good air exchange. No wheezing or rhonchi. HEART: S1, S2 regular. ABDOMEN: Soft and nontender.[] EXTREMITIES: No clubbing or cyanosis. WASTE DISPOSAL LEAKAGE TESTER: Awake, alert, and oriented x3. No focal deficit. Impressions: 1. Obstructive sleep apnea-hypopnea syndrome. Patient demonstrated great compliance with treatment, benefiting from treatment. 2. History of obesity, patient lost 40 pounds since previous visit. 3. Insomnia. 4. Hypertension. 5. Hyperlipidemia. 6. BPH. 7. Peripheral neuropathy. 8. History of Charcot feet. 9. Status post nasal fracture. Plan: 1. Continue using PAP equipment every night for the whole night. 2. To change air filter at least 1-2 times per month. 3. PAP unit should stay lower then position of the head. 4. Advised patient to remove all remaining water from humidifier canister daily and make it dry after each usage. Refill canister with fresh distilled water before each usage. 5. Sleep hygiene with regular time in bed for at least 8 hours. 6. Precautions related to driving. No driving if feel any sleepiness. 7. I will maintain prescription for PAP supplies including mask, tube, filters. 8. Follow up visit in 6 months or earlier if patient has any problems. 9. Watching weight. Thank you very much for allowing me to participate in the management of your patient. Antonio Kaufman MD, PhD, FAASM. Diplomat of [place], Sleep Medicine Board by [place] Sql Tech of [facility] [place]
== END ==
LOC: SLEEP 15:29
PROVIDERS: ATTEND Internal Medicine
DX: G47.33 Obstructive sleep apnea (adult) (pediatric) (principal); Z99.89 Dependence on other enabling machines and devices; I10 Essential (primary) hypertension; E78.5 Hyperlipidemia, unspecified; N40.0 Benign prostatic hyperplasia without lower urinary tract symptoms; G90.09 Other idiopathic peripheral autonomic neuropathy; E66.9 Obesity, unspecified; M14.60 Charcot's joint, unspecified site; Z98.890 Other specified postprocedural states; Z87.891 Personal history of nicotine dependence; Z91.048 Other nonmedicinal substance allergy status
CPT/HCPCS: 99212

== ENCOUNTER → 2023-03-27 | Outpatient (CLI) | payer MEDICARE ==
--- NOTE | 2023-03-27 16:31 | P.PN ---
Subjective DATE: 03/27/2023 FOLLOW UP VISIT. Patient with obstructive sleep apnea hypopnea syndrome return to sleep center for follow-up visit. Information from previous visit have been reviewed. Patient is using PAP equipment every night for the whole night, getting PAP supplies in time. The patient does not have significant problems with the mask, PAP unit and humidification. [place] sleepiness scale is 8, which is normal. I checked information from PAP unit. PAP unit pressure 8-13, average 11.6 cm H2O. Usage is 100 % for more then 4 hours, average 7.3 hours per night. Leak is 4 l/m, which is in acceptable range. Apnea Hypopnea Index is 0.9, which is normal. MEDICATIONS:1. Gabapentin 2. Valsart 80 mg twice a desirae 3 Spironolactone 25 mg once a day 4. Carvedilol 3.125 mg 2 tablets in the morning and 2 tablets in the evening 5. Omeprazole 20 mg once a day 6. Flomax 0.4 mg twice a day 7 Ferrous sulfate 325 mg once a day 8 Ipratropium During physical exam: GENERAL: A pleasant patient without any distress. VITAL SIGNS: BP 147/90, HR 48, RR 12, weight 202.4, temperature 96.7, oxygen saturation at room air 99 % . HEENT: PERRLA, EOMI.low position of soft palate, Mallapati 4 . NECK: Supple. No JVD. LUNGS: Clear to percussion and to auscultation. Good air exchange. No wheezing or rhonchi. HEART: S1, S2 regular. ABDOMEN: Soft and nontender.[] EXTREMITIES: No clubbing or cyanosis. CALL CENTER COORDINATOR: Awake, alert, and oriented x3. No focal deficit. Impressions: 1. Obstructive sleep apnea-hypopnea syndrome. Patient demonstrated great compliance with treatment, benefiting from treatment. 2. Hypertension. 3. BPH. 4. History of insomnia. 5. Hyperlipidemia. 6. History of Charcot feet. 7. Status post nasal fracture. Plan: 1. Continue using PAP equipment every night for the whole night. 2. To change air filter at least 1-2 times per month. 3. PAP unit should stay lower then position of the head. 4. Advised patient to remove all remaining water from humidifier canister daily and make it dry after each usage. Refill canister with fresh distilled water before each usage. 5. Sleep hygiene with regular time in bed for at least 8 hours. 6. Precautions related to driving. No driving if feel any sleepiness. 7. I will maintain prescription for PAP supplies including mask, tube, filters. 8. Watching and continue losing weight. 9. Follow up visit in 6 months or earlier if patient has any problems. Thank you very much for allowing me to participate in the management of your patient. Antonio Kaufman MD, PhD, FAASM. Diplomat of [place] [employer], Sleep Medicine Board by [place] [employer] Emergency Management Consultant of [facility] [place]
== END ==
LOC: 3 N SLEEP 15:50
PROVIDERS: ATTEND Internal Medicine
DX: G47.33 Obstructive sleep apnea (adult) (pediatric) (principal); I10 Essential (primary) hypertension; E78.5 Hyperlipidemia, unspecified; Z99.89 Dependence on other enabling machines and devices; Z87.891 Personal history of nicotine dependence; Z91.09 Other allergy status, other than to drugs and biological substances; N40.0 Benign prostatic hyperplasia without lower urinary tract symptoms; Z87.828 Personal history of other (healed) physical injury and trauma; G47.00 Insomnia, unspecified; M14.679 Charcot's joint, unspecified ankle and foot
CPT/HCPCS: 99212

== ENCOUNTER → 2023-04-01 | Outpatient (CLI) | payer MEDICARE ==
--- NOTE | 2023-04-02 06:20 | MR ---
EXAMINATION TYPE: MR shoulder LT wo con DATE OF EXAM: 04/01/2023 COMPARISON: None. HISTORY: Left shoulder pain and limited range of motion for 1 year. Primary osteoarthritis. Complete rotator cuff tear. TECHNIQUE: Multiplanar, multisequence imaging of the left shoulder is performed without contrast. FINDINGS: Rotator Cuff: Full-thickness retracted tears of supraspinatus and infraspinatus tendons with tendon r etraction to the level of the distal clavicle. Full-thickness retracted tear of the subscapularis ten don. Moderate to severe generalized muscular atrophy. Acromioclavicular Joint: Moderate to severe narrowing and capsular hypertrophy. Distal acromion morph ology unremarkable. Glenohumeral Joint: Large joint effusion. High positioned humeral head suggesting underlying instabil ity. There is narrowing greatest superiorly with spurring. There is diminished T1 and increased T2 si gnal involving the superior aspect of the osseous glenoid. Labrum: Superior labrum is blunted consistent with tear. Biceps Tendon: The long head of biceps is in normal location within bicipital groove. Bone marrow signal: Peripheral diminished T1 and increased T2 signal in the superior humeral head wit h more generalized increased T2 signal in the superior half of the humeral head. Other: No additional significant abnormality is appreciated. IMPRESSION: 1. Massive full thickness retracted tears of the supraspinatus, infraspinatus, and subscapularis tend ons. Significant muscular atrophy. High positioned humeral head suggesting underlying instability. La rge glenohumeral joint effusion. Fairly advanced degenerative changes with several areas of abnormal bone marrow edema noted.
== END | disposition home or self-care (01) ==
LOC: RADMRIMAIN 21:45
PROVIDERS: ATTEND Family Medicine
DX: M19.012 Primary osteoarthritis, left shoulder (principal); M75.122 Complete rotator cuff tear or rupture of left shoulder, not specified as traumatic; M62.512 Muscle wasting and atrophy, not elsewhere classified, left shoulder; M25.412 Effusion, left shoulder

== ENCOUNTER → 2024-07-13 | Outpatient (CLI) | payer MEDICARE ==
[2024-07-13 19:06] LABS: BUN/Creat Ratio 23.75 Ratio (12.00-20.00); Basophils # (A) 0.05 X 10*3/uL (0.00-0.10); Basophils % (A) 0.7 %; Calcium 9.3 mg/dL (8.7-10.3); Carbon Dioxide 24.7 mmol/L (21.6-31.8); Chloride 105 mmol/L (96-109); Eosinophils # (A) 0.25 X 10*3/uL (0.04-0.35); Eosinophils % (A) 3.5 %; Glucose 92 mg/dL (70-110); HCT 40.6 % (39.6-50.0); HGB 13.8 g/dL (13.0-17.0); Lymphocytes # (A) 1.39 X 10*3/uL (0.90-5.00); Lymphocytes % (A) 19.3 %; MCH 31.7 pg (27.0-32.0); MCV 93.1 FL (80.0-97.0); Mean Platelet Volume 11.2 FL (9.5-12.2); Monocytes % (A) 8.3 %; NRBC Per 100 WBC 0 X 10*3/uL (0.00-0.01); Neutrophils # (A) 4.88 X 10*3/uL (1.80-7.70); Neutrophils % (A) 67.9 %; Platelet Count 217 X 10*3/uL (140-440); Potassium 4.7 mmol/L (3.5-5.5); RBC 4.36 X 10*6/uL (4.40-5.60); RDW 12.9 % (11.5-14.5); Sodium 138 mmol/L (135-145); WBC 7.19 X 10*3/uL (4.50-10.00)
[2024-07-13 22:28] LABS: INR 1.03 sec (0.93-1.11); Prothrombin Time 11.1 sec (9.9-11.9)
== END | disposition home or self-care (01) ==
LOC: LABPAT 12:19
PROVIDERS: ATTEND Orthopaedic Surgery
DX: M17.12 Unilateral primary osteoarthritis, left knee (principal); Z22.322 Carrier or suspected carrier of Methicillin resistant Staphylococcus aureus
CPT/HCPCS: 36415; 80048; 85025; 85610; 87070

== ENCOUNTER 2024-08-09 10:24 | Observation (INO) | payer MEDICARE ==
[2024-08-03 12:49] VITALS: BMI 31.7
--- NOTE | 2024-08-08 12:23 | HP ---
HISTORY AND PHYSICAL DATE OF SURGERY: 08/09/2024. HISTORY OF PRESENT ILLNESS: Sebastian Olson, 74-year-old patient seen with symptomatic left knee osteoarthritis. We discussed options regarding treatment. The patient elected to proceed with left total knee arthroplasty. Consent regarding the procedure was obtained. Preoperative cardiac clearance was provided by Dr. Ag. PAST MEDICAL HISTORY: Cardiovascular disease, hypertension, hyperlipidemia. PAST SURGICAL HISTORY: Herniorrhaphy, foot surgery, ankle surgery, knee arthroscopy, shoulder arthroscopy. MEDICATIONS: 1. Carvedilol. 2. Diovan. 3. Gabapentin. 4. Omeprazole. 5. Rosuvastatin. 6. Spironolactone. ALLERGIES: None. SOCIAL HISTORY: Denies tobacco use. PHYSICAL EVALUATION OF THE LEFT KNEE: Range of motion is negative 2 to 110 degrees. Mild effusion. Tenderness along the medial and lateral joint line. Crepitus along the medial patellofemoral compartments with range of motion. Pain with patellofemoral compression. Ligaments are stable. Hip rotation is without pain. His distal neurovascular exam is intact. IMAGING STUDIES: Radiographs of the left knee reveal severe osteoarthritic changes. IMPRESSION: 1. Left knee osteoarthritis. 2. Hypertension. 3. Hyperlipidemia. 4. Cardiovascular disease. PLAN: Left total knee arthroplasty. MMODL / IJN: [id number] /
[~2024-08-09 10:24] MED LIST changes: -ACETAMINOPHEN TAB 500 MG TAB PO PRN; -DEXAMETHASONE SOD PHOSPHATE 4 MG/ML 1 ML VIAL IV ONE; -HEPARIN SODIUM,PORCINE/PF 5,000 UNIT/0.5 ML SYRINGE SQ PRN; +LIDOCAINE 1% (10MG/ML) FOR IV START INTRADERMA PRN; -ONDANSETRON 4 MG/2 ML VIAL IVP ONE; +TRANEXAMIC 1,000 MG/100ML-NACL 1,000 MG in SALINE 1 100ML.BAG IVPB PRN; +fentaNYL (PF) 50 MCG/ML 2 ML AMP IVP PRN
[2024-08-09] MEDS: ACETAMINOPHEN TAB 500 MG TAB PO PRN (10:51)
[2024-08-09] MEDS: MELOXICAM 7.5 MG TAB PO PRN (10:51)
[2024-08-09] MEDS: LACTATED RINGERS 1,000 ML IV SCH (10:51)
[2024-08-09] MEDS: ONDANSETRON 4 MG/2 ML VIAL IVP ONE (10:52)
[2024-08-09] MEDS: DEXAMETHASONE SOD PHOSPHATE 4 MG/ML 1 ML VIAL IV ONE (10:52)
[2024-08-09] MEDS: IV FLUID CONTINUATION 1,000 ML IV ONE (11:00)
[2024-08-09] MEDS: MIDAZOLAM 2 MG/2 ML VIAL IV PRN (11:15)
[2024-08-09] MEDS ORDERED: PROPOFOL 10 MG/ML 20 ML VIAL IV ONE (12:30)
[2024-08-09] MEDS ORDERED: fentaNYL (PF) 50 MCG/ML 2 ML AMP ONE (12:30)
[2024-08-09] MEDS ORDERED: PHENYLEPHRINE 10 MG/ML VIAL ONE (12:30)
[2024-08-09] MEDS ORDERED: ROPIVACAINE 5 MG/ML 30 ML VIAL ONE (12:30)
[2024-08-09] MEDS ORDERED: TRANEXAMIC 1,000 MG/100ML-NACL PREMIX BAG ONE (12:30)
[2024-08-09] MEDS ORDERED: DEXAMETHASONE SOD PHOSPHATE 4 MG/ML 1 ML VIAL ONE (12:30)
[2024-08-09] MEDS ORDERED: MIDAZOLAM 2 MG/2 ML VIAL ONE (12:30)
[2024-08-09] MEDS: ceFAZolin 1,000 MG in SODIUM CHLORIDE 0.9% 1,000 ML IRRIGATION ONE (12:59)
[2024-08-09] MEDS: LACTATED RINGERS 1,000 ML IV ONE (13:29)
--- NOTE | 2024-08-09 14:19 | P.OP ---
Date of Procedure: 08/09/24 Preoperative Diagnosis: Left knee osteoarthritis Postoperative Diagnosis: Left knee osteoarthritis Procedure(s) Performed: Left total knee arthroplasty Implants: 1. DePuy attune size 7 left cruciate retaining cemented femur 2. DePuy attune size 7 fixed-bearing cemented tibial baseplate 3. DePuy attune size 7 cruciate fixed-bearing cruciate retaining 10 mm polyethylene tibial insert 4. DePuy attune 41 mm all polyethylene cemented patella Anesthesia: regional (Adductor canal catheter, iPAQ block), spinal Surgeon: Chris Duran Cafeteria Cook #1: Kris Hernandez Estimated Blood Loss (ml): 40 Pathology: none sent Condition: stable Disposition: PACU Indications for Procedure: 74-year-old gentleman seen with symptomatic left knee osteoarthritis. After having treatment options discussed, he elected to proceed with left total knee arthroplasty. Operative Findings: See description of procedure Description of Procedure: Patient was taken to the operative suite after having an adductor canal catheter placed by the department of anesthesia. Patient underwent a spinal anesthetic by the department of anesthesia. Patient was given preoperative IV intake antibiotics and TXA. A well-padded tourniquet was placed about the left lower extremity. The lower extremity was then prepped and draped in the normal sterile orthopedic fashion. The extremity was elevated, a tourniquet was insufflated to 300. A standard anterior incision was made sharply through skin. Dissection was taken down through the subcutaneous soft tissues down to the extensor mechanism. A medial arthrotomy was performed, patella was everted and knee was flexed. There was advanced osteoarthritis noted. I introduced my distal intramedullary femoral drill. I then introduced the distal femoral cutting jig. Scott VICKERS secured the cutting jig with 2 pins. I held retractors in position while Scott VICKERS performed the distal femoral resection through the guide area we now removed her distal femoral cutting guide. We now placed our 4-in-1 femoral cutting block and positioned and it was secured with 2 pins by Scott VICKERS while I held the block in position. The distal femoral finishing was now completed. A proximal tibial cutting guide was positioned. I held the guide in the appropriate position with both hands well Scott VICKERS inserted stabilizing pins into the guide. Proximal tibial cut was made. We now placed a trial femoral component into position, along with an appropriate size tibial tray and insert. We now took the knee through range of motion and had full extension good flexion and good overall soft tissue balance noted. The patella was everted and stabilized with 2 towel clips held by Scott VICKERS while I performed a flush with patellar quad tendon utilizing a fresh sawblade. We templated the patella, appropriate drill holes were made. An appropriate trial patella was positioned, knee was taken through full range of motion with the patella tracking very nicely. The trial patella was removed. Drill holes were made through the femoral component. All trial components were removed after marking off the appropriate rotation of the tibia. Retractors were now positioned along the proximal tibia. An appropriate keel punch was made with the appropriate size tibial guide by myself on Scott VICKERS assisted by holding retractors. At this point appropriate size implants were chosen and opened. The joint was irrigated copiously with pulse lavage mechanical irrigation. The wound was irrigated with pulse lavage mechanical irrigation. We mixed antibiotic methylmethacrylate. We placed the knee into flexion. We placed multiple retractors assisted by Scott VICKERS to expose the proximal tibia. Once the methyl methacrylate was ready, the tibial component was cemented into place removing any excess methylmethacrylate form by both myself and Scott VICKERS. The femoral component was cemented into place removing the removing any excess methylmethacrylate performed by both myself and Scott VICKERS. We then inserted the appropriate size polyethylene tibial insert. We made sure that it was locked into position. We took the knee into full extension, and then back in a flexion making sure we had removed any excess methylmethacrylate. The patellar component was then cemented down and secured with clamp. Excess methylmethacrylate removed. We kept the knee in full extension, patellar clamp in position until methylmethacrylate had hardened. Once it had hardened the patellar clamp was removed. The knee was taken through full range of motion. The patella tracked nicely. There was good soft tissue balancing. The tourniquet was now released. Additional hemostasis was achieved via electrocautery. A second gram of TXA was given. The wound again was irrigated with pulse lavage mechanical irrigation. The extensor mechanism was repaired with Ethibond suture. We checked the repair with range of motion and it was stable. The subcutaneous soft tissues were repaired with Vicryl in layers. The skin was approximated with pernio/Dermabond. Sterile dressings were applied followed by loose web roll and Sd bandage. The patient was transferred to a bed, and taken to recovery in stable and satisfactory condition. Scott VICKERS assisted with this complex procedure.
[2024-08-09] MEDS ORDERED: NALOXONE 0.4 MG/ML 1 ML VIAL IV PRN (14:22)
[2024-08-09] MEDS ORDERED: ONDANSETRON 4 MG/2 ML VIAL IVP PRN (14:22)
[2024-08-09] MEDS ORDERED: HYDROmorphone 0.5 MG/0.5 ML SYRINGE IVP PRN ×2 (14:22)
[2024-08-09] MEDS: HYDROmorphone 0.5 MG/0.5 ML SYRINGE IVP PRN ×2 (14:50→17:00)
[2024-08-09] MEDS: ROPIVACAINE 1,100 MG, SODIUM CHLORIDE 0.9% 500 ML 330 ML, EMPTY PAIN BALL 1 EACH MISCELLANE PRN (14:52)
--- NOTE | 2024-08-09 15:32 | P.ANPRN ---
Procedure Note - Anesthesia - Nerve Block Performed Left Adductor Canal Infusion Time Out Performed: Yes Date of Procedure: 08/09/24 Procedure Start Time: Procedure Stop Time: Location of Patient: PreOp Indication: Acute Post-Operative Pain, Requested by Surgeon Sedation Type: Sedate with meaningful contact maintained Preparation: Sterile Prep, Sterile Dressing Position: Supine Catheter: Indwelling Needle Types: Pajunk Needle Gauge: 21 Ultrasound used to visualize needle placement: Yes Ultrasound used to observe medication spread: Yes Blood Aspirated: No Pain Paresthesia on Injection Noted: No Resistance on Injection: Normal (ropi 0.5% 20 cc plus dexamethasone 4 mg) Image Stored and Saved: Yes Events: Uneventful and Well Tolerated
--- NOTE | 2024-08-09 15:33 | P.ANPRN ---
Procedure Note - Anesthesia - Nerve Block Performed Left iPack Single Time Out Performed: Yes Date of Procedure: 08/09/24 Procedure Start Time: Procedure Stop Time: Location of Patient: PreOp Indication: Acute Post-Operative Pain, Requested by Surgeon Sedation Type: Sedate with meaningful contact maintained Preparation: Sterile Prep Position: Supine Needle Types: Pajunk Needle Gauge: 21 Ultrasound used to visualize needle placement: Yes Ultrasound used to observe medication spread: Yes Blood Aspirated: No Pain Paresthesia on Injection Noted: No Resistance on Injection: Normal Image Stored and Saved: Yes Events: Uneventful and Well Tolerated (Ropivacaine 0.5% 20 cc plus dexamethasone 4 mg)
--- NOTE | 2024-08-09 15:34 | XR ---
Left knee Limited HISTORY: Left knee prosthesis. COMPARISON: None. TECHNIQUE: 2 portable views of the left knee were obtained following total left knee replacement FINDINGS: There has been placement of a total left knee prosthesis which appears to be near anatomic alignment. No acute fracture. There is mild arteriovascular calcification involving the distal superficial femo ral artery and proximal popliteal artery. IMPRESSION: Satisfactory appearance of the total left knee prosthesis. [facility], Workstation: [facility]OCK 08/09/2024 3:32 PM
[2024-08-09] MEDS: HYDROcodone/APAP 7.5-325MG 1 EACH TAB PO PRN (17:00)
[2024-08-09] MEDS: SODIUM CHLORIDE 0.9% 1,000 ML IV SCH (17:02)
[2024-08-09] MEDS: PANTOPRAZOLE 40 MG TABLET PO SCH (20:39)
[2024-08-09] MEDS: TAMSULOSIN 0.4 MG CAP.ER.24H PO SCH (20:39)
[2024-08-09] MEDS: ASPIRIN 325 MG TAB PO SCH (20:40)
[2024-08-09] MEDS: ATORVASTATIN 20 MG TAB PO SCH (20:40)
[2024-08-09] MEDS: SENNOSIDES-DOCUSATE SODIUM 1 EACH TAB PO SCH (20:40)
[2024-08-09] MEDS: GABAPENTIN 300 MG CAP PO SCH (20:40)
[2024-08-09] MEDS: MELATONIN 5 MG TABLET PO SCH (20:40)
[2024-08-09] MEDS: carvediloL 3.125 MG TAB PO SCH (20:40)
[2024-08-09] MEDS: VALSARTAN 80 MG TAB PO SCH (20:40)
[2024-08-09] MEDS: IPRATROPIUM BROMIDE 0.06% NASAL SPRAY (15 ML) EA NOSTRIL SCH (22:27)
[2024-08-10] MEDS: HYDROcodone/APAP 5-325MG 1 EACH TAB PO PRN (02:02)
[2024-08-10] MEDS: GABAPENTIN 100 MG CAP PO SCH (07:56)
[2024-08-10] MEDS: FERROUS SULFATE 325 MG TAB PO SCH (07:57)
[2024-08-10] MEDS: ASCORBIC ACID 500 MG TAB PO SCH (07:57)
[2024-08-10] MEDS: MULTIVITAMINS, THERA 1 EACH TAB PO SCH (07:57)
[2024-08-10] MEDS: CHOLECALCIFEROL 25 MCG (1000 IU) TABLET PO SCH (07:57)
[2024-08-10] MEDS: MAGNESIUM OXIDE 400 MG TAB PO SCH (07:57)
--- NOTE | 2024-08-10 08:36 | P.PN ---
Progress Note - Text Adequate analgesia. No complications from anesthesia.
[2024-08-10] MEDS ORDERED: METHYFOLATE PO SCH (09:00)
[2024-08-10] MEDS ORDERED: MULTIVIT MINERALS PO SCH (09:00)
[2024-08-10] MEDS ORDERED: [UNRECOGNIZED DRUG - OTHER] PO SCH (09:00)
[2024-08-10] MEDS ORDERED: NON FORMULARY DRUG (Glucosamine Sulfate [Glucosamine Sulfate] 1,000 MG Tablet) PO SCH (09:00)
[2024-08-10] MEDS ORDERED: NON FORMULARY DRUG (Vitamin B Complex [Vitamin B Complex] 1 EACH Capsule) PO SCH (09:00)
[2024-08-10] MEDS ORDERED: LYCOPENE PO SCH (09:00)
--- NOTE | 2024-08-10 09:19 | P.CONS ---
History of Present Illness - Reason for Consult Consult date: 08/10/24 medical management - History of Present Illness This is a 74-year-old male patient of Dr. Nieves who presented for an elective left knee arthroplasty with Dr. Duran on 08/09/2024. Patient has a past medical history of GERD, hyperlipidemia, hypertension, osteoarthritis, sleep apnea, hernia repair, peripheral neuropathy, previous orthopedic surgeries and ex-smoker. Patient is currently postop day 1 resting comfortably in bed patient reports discomfort to left knee site. PT OT services are consulted. Lab work has been ordered. At this time patient denies chest pain or shortness of breath. Patient denies nausea vomiting or diarrhea. Patient denies any urinary burning or frequency. Current vital signs temp 98.0, heart rate 55, respiratory rate 17, blood pressure 159/74 with a pulse ox of 94% on room air Review of Systems Please refer to HPI otherwise unremarkable Past Medical History Past Medical History: GERD/Reflux, Hearing Disorder / Deafness, Hyperlipidemia, Hypertension, Osteoarthritis (OA), Prostate Disorder, Sleep Apnea/CPAP/BIPAP Additional Past Medical History / Comment(s): paraesophageal hernia post repair, COVID 19 04/2022, Diverticulosis, Hard of hearing, charcot joints and feet, moderate peripheral neuropathy of feet, ORTIZ uses CPAP, hx small bowel blockage 09/16, hx anemia, HX OF BONE INFECTIONS History of Any Multi-Drug Resistant Organisms: None Reported Past Surgical History: Hernia Repair, Joint Replacement, Orthopedic Surgery, Prostate Surgery Additional Past Surgical History / Comment(s): Reconstruction of left foot, ongoing, right shoulder screw placed, right total knee replacement, right/ANKLE foot - plate and screws, bilateral foot surgeries, EGD/barium swallow. COLONOSCOPY, HIATAL HERNIA AND UMBILICAL HERNIA REPAIR, NUMEROUS PICC LINES R/T BONE INFECTIONS, total left knee 08/09/24 Past Anesthesia/Blood Transfusion Reactions: No Reported Reaction, Postoperative Nausea & Vomiting (PONV) Additional Past Anesthesia/Blood Transfusion Reaction / Comm: "Had vomiting with aspiration, experienced Sick Sinus Syndrome during anesthesia 05/14, followed up with Dr Ley and was placed on heart monitor. Smoking Status: Former smoker - Past Family History Father Family Medical History: AICD/Pacemaker, Osteoarthritis (OA), Thyroid Disorder Mother Family Medical History: Cancer, Hypertension Additional Family Medical History / Comment(s): Colon and ovarian cancer. Medications and Allergies Home Medications Medication Instructions Recorded Confirmed Type Omeprazole [PriLOSEC] 20 mg PO HS 11/15/15 08/09/24 History Rosuvastatin Calcium [Crestor] 10 mg PO HS 11/15/15 08/09/24 History Gabapentin [Neurontin] 300 mg PO HS 05/27/16 08/09/24 History Gabapentin [Neurontin] 100 mg PO DAILY 09/13/21 08/09/24 History Ipratropium [place] 0.06%Nasal 2 spray EA NOSTRIL BID 11/14/21 08/09/24 History [Atrovent Nasal 0.06%] Magnesium Gluconate [Magonate] 500 mg PO DAILY 06/27/22 08/09/24 History Methyfolate 5 mg PO DAILY 06/27/22 08/09/24 History Valsartan [Diovan] 80 mg PO BID #60 tab 07/04/22 08/09/24 Rx carvediloL [Coreg] 3.125 mg PO BID-W/MEALS #60 tab 07/04/22 08/09/24 Rx Ferrous Sulfate [Iron (65 MG 325 mg PO BID-W/MEALS #60 tab 07/06/22 08/09/24 Rx Elemental)] Ascorbic Acid [Vitamin C] 1,000 mg PO DAILY 08/03/24 08/09/24 History Cholecalciferol (Vitamin D3) 1,000 mcg PO DAILY 08/03/24 08/09/24 History [Vitamin D3 (50 Mcg = 2000 Iu)] Glucosamine Sulfate 1,000 mg PO DAILY 08/03/24 08/09/24 History Melatonin 5 mg PO HS 08/03/24 08/03/24 History Multivit-Minerals/FA/Lycopene 1 each PO DAILY 08/03/24 08/03/24 History [One-A-Day Men's 50 Plus Tablet] Tamsulosin [Flomax] 0.4 mg PO BID 08/03/24 08/09/24 History Vitamin B Complex 1 each PO DAILY 08/03/24 08/09/24 History Allergies Allergy/AdvReac Type Severity Reaction Status Date / Time dust, polllen, mold Allergy Cough Uncoded 08/09/24 10:43 Physical Exam Vitals: Vital Signs Temp Pulse Pulse Resp BP Pulse Ox 08/10/24 07:29 98.0 F 55 L 17 159/74 94 L 08/10/24 01:21 97.4 F L 55 L 17 152/74 95 08/09/24 19:52 97.5 F L 58 L 17 172/77 96 08/09/24 18:06 60 161/78 95 08/09/24 17:39 58 L 160/76 96 08/09/24 17:23 54 L 159/75 95 08/09/24 17:09 52 L 155/76 96 08/09/24 16:24 51 L 14 160/74 95 08/09/24 16:09 49 L 14 154/65 95 08/09/24 15:54 51 L 14 158/73 95 08/09/24 15:39 50 L 14 165/79 95 08/09/24 15:24 50 L 14 136/68 97 08/09/24 15:09 52 L 14 140/72 93 L 08/09/24 14:54 59 L 14 138/67 99 08/09/24 14:39 97.6 F 58 L 14 135/62 98 08/09/24 11:32 65 16 126/59 96 Intake and Output 08/09/24 08/10/24 08/10/24 22:59 06:59 14:59 Output Total 300 600 Balance -300 -600 Output: Urine 300 600 Other: Voiding Method Urinal Weight 99.5 kg Head normocephalic Neck supple Lungs clear to auscultation bilaterally no wheezing or crackles Heart regular rate and rhythm S1-S2, no rub or gallop Abdomen is soft nontender nondistended positive bowel sounds no hepatos plenomegaly Extremities no edema. Left knee dressing clean dry and intact Neuro alert and orientated to 3 Assessment and Plan Assessment: 1. Status post left knee arthroplasty on 08/09/2024 2. History of essential hypertension 3. History of hyperlipidemia 4. History of anemia 5. History of previous orthopedic surgeries 6. History of BPH DVT prophylaxis aspirin per orthopedic services A.m. labs ordered Home meds resumed Thank you for this consultation we will continue to follow patient closely throughout stay Time with Patient: Greater than 30 (Greater than 60% of the total time spent in counseling and coordination of care)
[2024-08-10 09:26] LABS: Basophils # (A) 0.01 X 10*3/uL (0.00-0.10); Basophils % (A) 0.1 %; Eosinophils # (A) 0 X 10*3/uL (0.04-0.35); Eosinophils % (A) 0 %; HGB 12.8 g/dL (13.0-17.0); Lymphocytes # (A) 0.61 X 10*3/uL (0.90-5.00); Lymphocytes % (A) 5.1 %; MCH 31.6 pg (27.0-32.0); MCHC 34.6 g/dL (32.0-37.0); MCV 91.4 FL (80.0-97.0); Mean Platelet Volume 10.9 FL (9.5-12.2); Monocytes # (A) 0.82 X 10*3/uL (0.20-1.00); Monocytes % (A) 6.8 %; NRBC Per 100 WBC 0 X 10*3/uL (0.00-0.01); Neutrophils # (A) 10.48 X 10*3/uL (1.80-7.70); Neutrophils % (A) 87.5 %; Platelet Count 208 X 10*3/uL (140-440); RBC 4.05 X 10*6/uL (4.40-5.60); RDW 12.4 % (11.5-14.5); WBC 11.98 X 10*3/uL (4.50-10.00)
[2024-08-10 09:53] LABS: ALT 20 U/L (4-49); AST 30 U/L (17-59); African American GFR (CKD) >90 (>60 ml/min/1.73 sqM); Albumin 3.4 g/dL (3.5-5.0); Albumin/Globulin Ratio 1.2; Alkaline Phosphatase 72 U/L (38-126); Anion Gap 7 mmol/L; Blood Urea Nitrogen 17 mg/dL (9-20); Calcium 8.6 mg/dL (8.4-10.2); Carbon Dioxide 20 mmol/L (22-30); Chloride 109 mmol/L (98-107); Globulin 2.8 g/dL; Glucose 151 mg/dL (74-99); Non-African American GFR(CKD) >90 (>60 ml/min/1.73 sqM); Potassium 4.2 mmol/L (3.5-5.1); Sodium 136 mmol/L (137-145); Total Bilirubin 0.5 mg/dL (0.2-1.3); Total Protein 6.2 g/dL (6.3-8.2)
--- NOTE | 2024-08-10 12:22 | P.PN ---
Subjective Progress Note Date: 08/10/24 Principal diagnosis: Status post left total knee arthroplasty Patient evaluated today at bedside, he is resting in his hospital chair. Patient did work with therapy, he was unable to do the stairs today. He feels that the pain is controlled currently. Denies headaches, lightheadedness, chest pain or shortness of breath Objective - Vital Signs Vital signs: Vital Signs Temp 98.0 F 08/10/24 07:29 Pulse 55 L 08/10/24 07:29 Resp 17 08/10/24 07:29 BP 159/74 08/10/24 07:29 Pulse Ox 94 L 08/10/24 07:29 FiO2 Intake & Output 08/09/24 08/10/24 08/10/24 18:59 06:59 18:59 Intake Total 1950 Output Total 40 900 Balance 1910 - Weight 99.5 kg Intake: IV 1950 Output: Urine 0 900 Estimated Blood Loss 40 Other: Voiding Method Urinal - Exam Left lower extremity: Incision is clean, dry, and intact. The foam dressing is in good condition. There is minimal soft tissue swelling and ecchymosis surrounding the medial and lateral aspects of the incision. Calf is soft, no tenderness with palpation. Plantar flexion, dorsiflexion, EHL, FHL are intact. Sensory exam to light touch throughout the extremity is intact, dorsal pedis pulses 2+. - Labs CBC & Chem 7: 08/10/24 03:08 08/10/24 08:57 Labs: Abnormal Lab Results - Last 24 Hours (Table) 08/10/24 08/10/24 Range/Units 03:08 08:57 WBC 11.98 H (4.50-10.00) X 10*3/uL RBC 4.05 L (4.40-5.60) X 10*6/uL Hgb 12.8 L (13.0-17.0) g/dL Hct 37.0 L (39.6-50.0) % Immature Gran # 0.06 H (0.00-0.04) X 10*3/uL Neutrophils # 10.48 H (1.80-7.70) X 10*3/uL Lymphocytes # 0.61 L (0.90-5.00) X 10*3/uL Eosinophils # 0 L (0.04-0.35) X 10*3/uL Sodium 136 L (137-145) mmol/L Chloride 109 H (98-107) mmol/L Carbon Dioxide 20 L (22-30) mmol/L Creatinine 0.60 L (0.66-1.25) mg/dL Glucose 151 H (74-99) mg/dL Total Protein 6.2 L (6.3-8.2) g/dL Albumin 3.4 L (3.5-5.0) g/dL Assessment and Plan Assessment: Postoperative day #1 status post left total knee arthroplasty Plan: Pain control, continue current medications DVT prophylaxis, continue current medication Continue PT/OT Wound care instructions were discussed Medical recommendations appreciated Discharge planning: Will keep patient in hospital 1 additional night to work with therapy and hopefully do stairs and discharge home on 08/11/2024 Time with Patient: Less than 30
[2024-08-11] MEDS ORDERED: CALCIUM CARBONATE 500 MG CHEWABLE PO PRN (01:52)
[2024-08-11 08:38] LABS: Basophils # (A) 0.02 X 10*3/uL (0.00-0.10); Basophils % (A) 0.2 %; Eosinophils # (A) 0.13 X 10*3/uL (0.04-0.35); Eosinophils % (A) 1.4 %; HCT 33.8 % (39.6-50.0); HGB 11.6 g/dL (13.0-17.0); Lymphocytes % (A) 14.4 %; MCH 31.7 pg (27.0-32.0); MCHC 34.3 g/dL (32.0-37.0); MCV 92.3 FL (80.0-97.0); Monocytes # (A) 0.98 X 10*3/uL (0.20-1.00); Monocytes % (A) 10.8 %; NRBC Per 100 WBC 0 X 10*3/uL (0.00-0.01); Neutrophils # (A) 6.57 X 10*3/uL (1.80-7.70); Neutrophils % (A) 72.8 %; Platelet Count 180 X 10*3/uL (140-440); RBC 3.66 X 10*6/uL (4.40-5.60); RDW 12.7 % (11.5-14.5); WBC 9.04 X 10*3/uL (4.50-10.00)
[2024-08-11 08:59] LABS: BUN/Creat Ratio 23.29 Ratio (12.00-20.00); Blood Urea Nitrogen 16.3 mg/dL (9.0-27.0); Carbon Dioxide 25.5 mmol/L (21.6-31.8); Chloride 104 mmol/L (96-109); Glucose 103 mg/dL (70-110); Potassium 4.1 mmol/L (3.5-5.5); Sodium 139 mmol/L (135-145)
[2024-08-11 09:00] LABS: ALT 19 U/L (10-49); AST 26 U/L (14-35); Albumin 3.3 g/dL (3.8-4.9); Albumin/Globulin Ratio 1.38 Ratio (1.60-3.17); Alkaline Phosphatase 71 U/L (41-126); Calcium 7.8 mg/dL (8.7-10.3); Globulin 2.4 g/dL (1.6-3.3); Total Bilirubin 0.2 mg/dL (0.3-1.2); Total Protein 5.7 g/dL (6.2-8.2)
--- NOTE | 2024-08-11 11:40 | P.PN ---
Subjective Progress Note Date: 08/11/24 Principal diagnosis: Status post left total knee arthroplasty Patient evaluated today at bedside, he is resting in his hospital chair. Patient is having a little bit more trouble with some of the ADLs, this to include putting on his shoes. He did ambulate well with therapy. Patient is worried about going home, he does live alone. Denies headaches, lightheadedness, chest pain or shortness of breath Objective - Vital Signs Vital signs: Vital Signs Temp 98.1 F 08/11/24 07:15 Pulse 72 08/11/24 07:15 Resp 17 08/11/24 07:15 BP 142/76 08/11/24 07:15 Pulse Ox 97 08/11/24 07:15 FiO2 Intake & Output 08/10/24 08/11/24 08/11/24 18:59 06:59 18:59 Output Total 300 Balance -300 Output: Urine 300 Other: # Voids 4 1 - Exam Left lower extremity: Incision is clean, dry, and intact. The foam dressing is in good condition. There is minimal soft tissue swelling and ecchymosis surrounding the medial and lateral aspects of the incision. Calf is soft, no tenderness with palpation. Plantar flexion, dorsiflexion, EHL, FHL are intact. Sensory exam to light touch throughout the extremity is intact, dorsal pedis pulses 2+. - Labs CBC & Chem 7: 08/11/24 03:13 08/11/24 03:13 Labs: Abnormal Lab Results - Last 24 Hours (Table) 08/11/24 08/11/24 Range/Units 03:13 03:13 RBC 3.66 L (4.40-5.60) X 10*6/uL Hgb 11.6 L (13.0-17.0) g/dL Hct 33.8 L (39.6-50.0) % BUN/Creatinine Ratio 23.29 H (12.00-20.00) Ratio Calcium 7.8 L (8.7-10.3) mg/dL Total Bilirubin 0.2 L (0.3-1.2) mg/dL Total Protein 5.7 L (6.2-8.2) g/dL Albumin 3.3 L (3.8-4.9) g/dL Albumin/Globulin Ratio 1.38 L (1.60-3.17) Ratio Assessment and Plan Assessment: Postoperative day #2 status post left total knee arthroplasty Plan: Pain control, continue current medications DVT prophylaxis, continue current medication Continue PT/OT Wound care instructions were discussed Medical recommendations appreciated Discharge planning: I did discuss with both nursing and case management setting patient up for subacute rehab. We will continue to follow during hospital stay and discharge when we have authorization. Time with Patient: Less than 30
--- NOTE | 2024-08-11 12:06 | P.PN ---
Subjective Progress Note Date: 08/11/24 This is a 74-year-old male patient of Dr. Nieves who presented for an elective left knee arthroplasty with Dr. Duran on 08/09/2024. Patient has a past medical history of GERD, hyperlipidemia, hypertension, osteoarthritis, sleep apnea, hernia repair, peripheral neuropathy, previous orthopedic surgeries and ex-smoker. Patient is currently postop day 1 resting comfortably in bed patient reports discomfort to left knee site. PT OT services are consulted. Lab work has been ordered. At this time patient denies chest pain or shortness of breath. Patient denies nausea vomiting or diarrhea. Patient denies any urinary burning or frequency. Current vital signs temp 98.0, heart rate 55, respiratory rate 17, blood pressure 159/74 with a pulse ox of 94% on room air On 08/11/2024 patient is alert and oriented x 3. Patient is complaining about increased pain and stiffness to the left leg. According to orthopedic notes recommendations for subacute rehab upon discharge. Patient denies chest pain or shortness of breath. Patient denies nausea vomiting or diarrhea. Patient denies any urinary burning or frequency Objective - Vital Signs Vital signs: Vital Signs Temp 98.1 F 08/11/24 07:15 Pulse 72 08/11/24 07:15 Resp 17 08/11/24 07:15 BP 142/76 08/11/24 07:15 Pulse Ox 97 08/11/24 07:15 FiO2 Intake & Output 08/10/24 08/11/24 08/11/24 18:59 06:59 18:59 Output Total 300 Balance -300 Output: Urine 300 Other: # Voids 4 1 - Exam Head normocephalic Neck supple Lungs clear to auscultation bilaterally no wheezing or crackles Heart regular rate and rhythm S1-S2, no rub or gallop Abdomen is soft nontender nondistended positive bowel sounds no hepatosplenomegaly Extremities no edema. Left knee dressing clean dry and intact Neuro alert and orientated to 3 - Labs CBC & Chem 7: 08/11/24 03:13 08/11/24 03:13 Labs: Abnormal Lab Results - Last 24 Hours (Table) 08/11/24 08/11/24 Range/Units 03:13 03:13 RBC 3.66 L (4.40-5.60) X 10*6/uL Hgb 11.6 L (13.0-17.0) g/dL Hct 33.8 L (39.6-50.0) % BUN/Creatinine Ratio 23.29 H (12.00-20.00) Ratio Calcium 7.8 L (8.7-10.3) mg/dL Total Bilirubin 0.2 L (0.3-1.2) mg/dL Total Protein 5.7 L (6.2-8.2) g/dL Albumin 3.3 L (3.8-4.9) g/dL Albumin/Globulin Ratio 1.38 L (1.60-3.17) Ratio Assessment and Plan Assessment: 1. Status post left knee arthroplasty on 08/09/2024 2. History of essential hypertension 3. History of hyperlipidemia 4. History of anemia 5. History of previous orthopedic surgeries 6. History of BPH DVT prophylaxis aspirin per orthopedic services A.m. labs ordered Home meds resumed Thank you for this consultation we will continue to follow patient closely throughout stay
[2024-08-12 07:29] VITALS: RESP 18
[2024-08-12 08:35] LABS: Basophils # (A) 0.03 X 10*3/uL (0.00-0.10); Basophils % (A) 0.4 %; Eosinophils # (A) 0.25 X 10*3/uL (0.04-0.35); Eosinophils % (A) 3.3 %; HCT 31.5 % (39.6-50.0); Lymphocytes % (A) 19.9 %; MCH 32.2 pg (27.0-32.0); MCHC 34.9 g/dL (32.0-37.0); MCV 92.1 FL (80.0-97.0); Mean Platelet Volume 10.7 FL (9.5-12.2); Monocytes # (A) 0.83 X 10*3/uL (0.20-1.00); NRBC Per 100 WBC 0 X 10*3/uL (0.00-0.01); Neutrophils # (A) 4.88 X 10*3/uL (1.80-7.70); Platelet Count 174 X 10*3/uL (140-440); RBC 3.42 X 10*6/uL (4.40-5.60); RDW 12.9 % (11.5-14.5); WBC 7.52 X 10*3/uL (4.50-10.00)
[2024-08-12] MEDS: polyethylene glycoL 3350 17 GM POWD.PACK PO STA (09:34)
--- NOTE | 2024-08-12 09:36 | P.PN ---
Subjective Progress Note Date: 08/12/24 Principal diagnosis: Status post left total knee arthroplasty Patient evaluated today at bedside, he is resting in his hospital chair. patient is eager to be discharged from the hospital and begin the subacute rehab therapy. Denies headaches, lightheadedness, chest pain or shortness of breath Objective - Vital Signs Vital signs: Vital Signs Temp 98.0 F 08/12/24 07:29 Pulse 69 08/12/24 08:55 Resp 18 08/12/24 07:29 BP 126/72 08/12/24 08:55 Pulse Ox 95 08/12/24 07:29 FiO2 Intake & Output 08/11/24 08/12/24 08/12/24 18:59 06:59 18:59 Output Total 300 450 Balance -300 -450 Output: Urine 300 450 - Exam Left lower extremity: Incision is clean, dry, and intact. The foam dressing is in good condition. There is minimal soft tissue swelling and ecchymosis surrounding the medial and lateral aspects of the incision. Calf is soft, no tenderness with palpation. Plantar flexion, dorsiflexion, EHL, FHL are intact. Sensory exam to light touch throughout the extremity is intact, dorsal pedis pulses 2+. - Labs CBC & Chem 7: 08/12/24 03:49 08/11/24 03:13 Labs: Abnormal Lab Results - Last 24 Hours (Table) 08/12/24 Range/Units 03:49 RBC 3.42 L (4.40-5.60) X 10*6/uL Hgb 11.0 L (13.0-17.0) g/dL Hct 31.5 L (39.6-50.0) % MCH 32.2 H (27.0-32.0) pg Assessment and Plan Assessment: Postoperative day #3 status post left total knee arthroplasty Plan: Pain control, plan for discharge on [place] 7.5 mg/325 mg. Multiple stool softeners will also be prescribed for outpatient DVT prophylaxis, aspirin 81 mg twice a day for 30 days On-Q pain catheter can be removed today prior to discharge Continue PT/OT Wound care instructions were discussed Medical recommendations appreciated Discharge planning: plan for discharge to subacute rehab today Time with Patient: Less than 30
--- NOTE | 2024-08-12 09:37 | P.DS ---
Providers Date of admission: 08/10/24 12:22 Expected date of discharge: 08/11/24 Attending physician: Chris Duran Consults: 08/09/24 14:22 Consult Physician Routine Consulting Provider: Meenu Werner Consult Reason/Comments: Medical management Do you want consulting provider notified?: Yes Primary care physician: Juani Nation Hospital Course: Date of admission: 08/09/2024 Date of discharge: 08/11/2024 Admission diagnosis: Status post left total knee arthroplasty Discharge diagnosis: Same Attending physician: Dr. Duran Surgical procedures: Left total knee arthroplasty Brief history: Patient is a 74-year-old male with a history of progressive primary left knee osteoarthritis. At this point patient has failed conservative treatment measures and has opted to proceed with a elective left total knee arthroplasty. Hospital course: Details of patient's surgery can be found in operative report. Patient tolerated the procedure well and was subsequently transported to orthopedic floor. Patient's orthopeidc and medical care was provided daily. Patient had daily laboratory tests performed for evaluation of overall blood counts. Patient had daily physical therapy to include strengthening range of motion as well as education with walker ambulation. Patient was treated with aspirin for their postoperative DVT prophylaxis during their inpatient stay. Patient was noted to have a relatively uneventful postoperative course. Patient reported satisfactory pain control with oral pain medications by postoperative day 0. Patient showed satisfactory progress with physical therapy. Patient moved steadily through the program and had no difficulty meeting the goals by postoperative day 2. Given patient's otherwise satisfactory course and having met physical therapy goals, plan is to discharge patient home on postoperative day 2. Discharge condition/disposition: Patient will be discharged home in stable condition. Discharge medications: Instructions are given on resumption of patient's normal daily medications per primary care recommendation, in addition patient will be prescribed [place] 7.5/325, Senna-S, Mirilax, aspirin. Discharge instructions: 1. Wound care and infection precautions, keep incision dry and covered while showering, no lotions, creams, moisturizers. No soaking, tubs, pools, hottubs. Do not scrub over the incision. 2. Weight-bear as tolerated with walker / cane until follow-up. 3. Ice and elevate when necessary. Do not exceed 20 minutes per hour with ice pack. 4. Utilize compression sleeve until seen at first follow up appointment. 5. Visiting nursing care. 6. Home physical therapy including home CPM. 7. Pain meds and anticoagulants per prescription. 8. Pain medication has potential to cause constipation. Increase oral fluid and fiber intake. Contact primary care provider if you have not had a bowel movement within 48 hours after discharge 9. No anti-inflammatory medication until discussed at first post operative visit, this including Motrin, Aleve, Mobic, Diclofenac. 10. Follow up in office at 2 weeks postop with Scott Hernandez PA-C/Feliz Hager 11. Follow up with your primary care doctor 7-10 days after discharge. 12. Contact [facility] with any questions, . Procedures: Left total knee arthroplasty Patient Condition at Discharge: Good Plan - Discharge Summary Discharge Rx Participant: No New Discharge Prescriptions: New polyethylene glycoL 3350 [Miralax] 17 gm PO DAILY PRN #21 packet PRN Reason: Constipation Aspirin [Adult Low Dose Aspirin EC] 81 mg PO BID #60 tab HYDROcodone/APAP 7.5-325MG [[place] 7.5] 1 each PO Q6HR PRN #28 tab PRN Reason: Pain Sennosides/Docusate Sodium [Senna-S 8.6-50 mg Tablet] 2 each PO DAILY PRN #30 tablet PRN Reason: Constipation No Action Rosuvastatin Calcium [Crestor] 10 mg PO HS Omeprazole [PriLOSEC] 20 mg PO HS Gabapentin [Neurontin] 300 mg PO HS Ipratropium [place] 0.06%Nasal [Atrovent Nasal 0.06%] 2 spray EA NOSTRIL BID Methyfolate 5 mg PO DAILY Ferrous Sulfate [Iron (65 MG Elemental)] 325 mg PO BID-W/MEALS #60 tab Melatonin 5 mg PO HS Cholecalciferol (Vitamin D3) [Vitamin D3 (50 Mcg = 2000 Iu)] 1,000 mcg PO DAILY Multivit-Minerals/FA/Lycopene [One-A-Day Men's 50 Plus Tablet] 1 each PO DAILY Gabapentin [Neurontin] 100 mg PO DAILY Magnesium Gluconate [Magonate] 500 mg PO DAILY carvediloL [Coreg] 3.125 mg PO BID-W/MEALS #60 tab Valsartan [Diovan] 80 mg PO BID #60 tab Glucosamine Sulfate 1,000 mg PO DAILY Vitamin B Complex 1 each PO DAILY Ascorbic Acid [Vitamin C] 1,000 mg PO DAILY Tamsulosin [Flomax] 0.4 mg PO BID Discharge Medication List Omeprazole [PriLOSEC] 20 mg PO HS 11/15/15 [History] Rosuvastatin Calcium [Crestor] 10 mg PO HS 11/15/15 [History] Gabapentin [Neurontin] 300 mg PO HS 05/27/16 [History] Gabapentin [Neurontin] 100 mg PO DAILY 09/13/21 [History] Ipratropium [place] 0.06%Nasal [Atrovent Nasal 0.06%] 2 spray EA NOSTRIL BID 11/14/21 [History] Magnesium Gluconate [Magonate] 500 mg PO DAILY 06/27/22 [History] Methyfolate 5 mg PO DAILY 06/27/22 [History] Valsartan [Diovan] 80 mg PO BID #60 tab 07/04/22 [Rx] carvediloL [Coreg] 3.125 mg PO BID-W/MEALS #60 tab 07/04/22 [Rx] Ferrous Sulfate [Iron (65 MG Elemental)] 325 mg PO BID-W/MEALS #60 tab 07/06/22 [Rx] Ascorbic Acid [Vitamin C] 1,000 mg PO DAILY 08/03/24 [History] Cholecalciferol (Vitamin D3) [Vitamin D3 (50 Mcg = 2000 Iu)] 1,000 mcg PO DAILY 08/03/24 [History] Glucosamine Sulfate 1,000 mg PO DAILY 08/03/24 [History] Melatonin 5 mg PO HS 08/03/24 [History] Multivit-Minerals/FA/Lycopene [One-A-Day Men's 50 Plus Tablet] 1 each PO DAILY 08/03/24 [History] Tamsulosin [Flomax] 0.4 mg PO BID 08/03/24 [History] Vitamin B Complex 1 each PO DAILY 08/03/24 [History] Aspirin [Adult Low Dose Aspirin EC] 81 mg PO BID #60 tab 08/12/24 [Rx] HYDROcodone/APAP 7.5-325MG [[place] 7.5] 1 each PO Q6HR PRN #28 tab 08/12/24 [Rx] Sennosides/Docusate Sodium [Senna-S 8.6-50 mg Tablet] 2 each PO DAILY PRN #30 tablet 08/12/24 [Rx] polyethylene glycoL 3350 [Miralax] 17 gm PO DAILY PRN #21 packet 08/12/24 [Rx] Follow up Appointment(s)/Referral(s): Atif [facility], [NON-STAFF] - As Needed Kris Hernandez, KELLEY [PHYSICIAN SKIDDER] - 08/25/24 4:10 pm Activity/Diet/Wound Care/Special Instructions: Orthopedic Discharge Instructions: 1. Wound care and infection precautions, keep incision dry and covered while showering, no lotions, creams, moisturizers. No soaking, pools, hot tubs. Do not scrub over incision. 2. Weight-bear as tolerated with walker / cane until follow-up. 3. Ice and elevate when necessary. Do not exceed 20 minutes per hour with ice pack. 4. Utilize compression sleeve until seen at first follow up appointment. 5. Pain meds and anticoagulants per prescription. 6. Pain medication has potential to cause constipation. Increase oral fluid and fiber intake. Contact primary care provider if you have not had a bowel movement within 48 hours after discharge. 7. No anti-inflammatory medication until discussed at first post operative visit, this including Motrin, Aleve, Mobic, Diclofenac. 8. Follow up in office at 2 weeks postop with Scott Hernandez PA-C/Feliz Oneill PA-C 9. Follow up with your primary care doctor 7-10 days after discharge. 10. Contact [facility] with any questions, . Wound care instructions: 1. Okay to remove surgical dressing as of 08/18/2024 2. Okay to shower directly over the incision after removal of dressing Discharge Disposition: HOME WITH HOME HEALTH SERVICES
[2024-08-12 14:17] VITALS: BP 111/93; PULSE 66; TEMP 97.8
== END 2024-08-12 16:10 | disposition home health service (06) ==
LOC: OR 10:24 → 4SSUR 16:32 → OR 08-10 12:22 → 4SSUR 08-10 12:22
PROVIDERS: ADMIT Orthopaedic Surgery; ATTEND Orthopaedic Surgery
DX: M17.12 Unilateral primary osteoarthritis, left knee (principal); G89.18 Other acute postprocedural pain; E78.5 Hyperlipidemia, unspecified; I10 Essential (primary) hypertension; I25.10 Atherosclerotic heart disease of native coronary artery without angina pectoris; K21.9 Gastro-esophageal reflux disease without esophagitis; N40.0 Benign prostatic hyperplasia without lower urinary tract symptoms; G62.9 Polyneuropathy, unspecified; D64.9 Anemia, unspecified; G47.33 Obstructive sleep apnea (adult) (pediatric); Z79.899 Other long term (current) drug therapy; Z87.891 Personal history of nicotine dependence; Z96.651 Presence of right artificial knee joint
CPT/HCPCS: 97116 ×2; 97161; 97530; 97166; 64999; 64448; 80053 ×2; 85025 ×3; 73560; 27447; G0378 ×3; C1776; C1713 ×2; C1751; J2250; J1100; J0690 ×3; J2405; J3010; J2795; J2704; J1171; J2371

== ENCOUNTER 2024-09-21 17:06 | Observation (INO) | payer MEDICARE ==
--- NOTE | 2024-09-21 17:52 | ED ---
Fall HPI - General Chief Complaint: Fall Stated Complaint: Fall Time Seen by Provider: 09/21/24 17:45 Source: EMS, RN notes reviewed Mode of arrival: EMS - History of Present Illness Initial Comments: 74-year-old female presenting via EMS for evaluation for fall prior to arrival. Patient states he was walking in his yard when he lost his balance and tripped and fell onto his left side. Patient denies hitting head or losing consciousness. Denies blood thinners. He is endorsing pain in the left knee, hip, ankle, and shoulder. States he recently underwent left knee replacement with Dr. Duran. Patient states since then he has had pain and swelling of the left knee and difficulty ambulating due to leg pain and weakness. Patient was discharged from [facility] 1 week ago and lives alone. - Related Data Home Medications Medication Instructions Recorded Confirmed Omeprazole [PriLOSEC] 20 mg PO HS 11/15/15 08/09/24 Rosuvastatin Calcium [Crestor] 10 mg PO HS 11/15/15 08/09/24 Gabapentin [Neurontin] 300 mg PO HS 05/27/16 08/09/24 Gabapentin [Neurontin] 100 mg PO DAILY 09/13/21 08/09/24 Ipratropium [place] 0.06%Nasal 2 spray EA NOSTRIL BID 11/14/21 08/09/24 [Atrovent Nasal 0.06%] Magnesium Gluconate [Magonate] 500 mg PO DAILY 06/27/22 08/09/24 Methyfolate 5 mg PO DAILY 06/27/22 08/09/24 Ascorbic Acid [Vitamin C] 1,000 mg PO DAILY 08/03/24 08/09/24 Cholecalciferol (Vitamin D3) 1,000 mcg PO DAILY 08/03/24 08/09/24 [Vitamin D3 (50 Mcg = 2000 Iu)] Glucosamine Sulfate 1,000 mg PO DAILY 08/03/24 08/09/24 Melatonin 5 mg PO HS 08/03/24 08/03/24 Multivit-Minerals/FA/Lycopene 1 each PO DAILY 08/03/24 08/03/24 [One-A-Day Men's 50 Plus Tablet] Tamsulosin [Flomax] 0.4 mg PO BID 08/03/24 08/09/24 Vitamin B Complex 1 each PO DAILY 08/03/24 08/09/24 Previous Rx's Medication Instructions Recorded Valsartan [Diovan] 80 mg PO BID #60 tab 07/04/22 carvediloL [Coreg] 3.125 mg PO BID-W/MEALS #60 tab 07/04/22 Ferrous Sulfate [Iron (65 MG 325 mg PO BID-W/MEALS #60 tab 07/06/22 Elemental)] Aspirin [Adult Low Dose Aspirin EC] 81 mg PO BID #60 tab 08/12/24 Calcium Carbonate [Tums] 500 mg PO Q2HR PRN tab 08/12/24 HYDROcodone/APAP 7.5-325MG [[place] 1 each PO Q6HR PRN #28 tab 08/12/24 7.5] Sennosides/Docusate Sodium 2 each PO DAILY PRN #30 tablet 08/12/24 [Senna-S 8.6-50 mg Tablet] polyethylene glycoL 3350 [Miralax] 17 gm PO DAILY PRN #21 packet 08/12/24 Allergies Allergy/AdvReac Type Severity Reaction Status Date / Time dust, polllen, mold Allergy Cough Uncoded 08/09/24 10:43 Review of Systems ROS Statement: Those systems with pertinent positive or pertinent negative responses have been documented in the HPI. ROS Other: All systems not noted in ROS Statement are negative. Past Medical History Past Medical History: GERD/Reflux, Hearing Disorder / Deafness, Hyperlipidemia, Hypertension, Osteoarthritis (OA), Prostate Disorder, Sleep Apnea/CPAP/BIPAP Additional Past Medical History / Comment(s): paraesophageal hernia post repair, COVID 19 04/2022, Diverticulosis, Hard of hearing, charcoat joints and feet, moderate peripheral neuropathy of feet, ORTIZ uses CPAP, hx small bowel blockage 09/16, hx anemia, current hiatal hernia. History of Any Multi-Drug Resistant Organisms: None Reported Past Surgical History: Hernia Repair, Joint Replacement, Orthopedic Surgery, Prostate Surgery Additional Past Surgical History / Comment(s): Reconstruction of left foot, ongoing, right shoulder screw placed, right total knee replacement, right/ANKLE foot - plate and screws, bilateral foot surgeries, EGD/barium swallow. COLONOSCOPY, HIATAL HERNIA AND UMBILICAL HERNIA REPAIR, NUMEROUS PICC LINES R/T BONE INFECTIONS, total left knee 08/09/24 Past Anesthesia/Blood Transfusion Reactions: No Reported Reaction, Postoperative Nausea & Vomiting (PONV) Additional Past Anesthesia/Blood Transfusion Reaction / Comment(s): "Had vomiting with aspiration, experienced Sick Sinus Syndrome during anesthesia 05/14, followed up with Dr Ley and was placed on heart monitor. Past Psychological History: No Psychological Hx Reported Smoking Status: Never smoker Past Alcohol Use History: None Reported Past Drug Use History: None Reported - Past Family History Father Family Medical History: AICD/Pacemaker, Osteoarthritis (OA), Thyroid Disorder Mother Family Medical History: Cancer, Hypertension Additional Family Medical History / Comment(s): Colon and ovarian cancer. General Exam Limitations: no limitations General appearance: alert, in no apparent distress Head exam: Present: atraumatic, normocephalic, normal inspection Eye exam: Present: normal appearance, PERRL, EOMI. Absent: scleral icterus, conjunctival injection, periorbital swelling Neck exam: Present: normal inspection. Absent: tenderness, meningismus, lymphadenopathy Left Upper Arm exam: Present: normal inspection, full ROM. Absent: tenderness, swelling Elbow exam: Present: normal inspection, full ROM. Absent: tenderness, swelling Forearm Wrist exam: Present: normal inspection, full ROM. Absent: tenderness, swelling Hand Wrist exam: Present: normal inspection, full ROM. Absent: tenderness, swelling Vascular: Present: normal capillary refill, radial pulse. Absent: vascular compromise Left Hip exam: Present: normal inspection, full ROM. Absent: tenderness, swelling Upper Leg exam: Present: normal inspection, full ROM. Absent: tenderness, swelling Knee exam: Present: full ROM, tenderness, swelling, erythema. Absent: normal inspection (Well-healing vertical incision over left knee, clean dry and intact, diffuse edema and erythema overlying anterior knee), abrasion, laceration, pain/laxity with valgus, pain/laxity with varus Lower Leg exam: Present: normal inspection, full ROM. Absent: tenderness, swelling Ankle exam: Present: normal inspection, full ROM, tenderness (Mild tenderness over anterior aspect of ankle). Absent: swelling Foot/Toe exam: Present: normal inspection, full ROM. Absent: tenderness, swelling Neurovascular tendon exam: Present: no vascular compromise. Absent: pulse def icit, abnormal cap refill, sensory deficit Neurological exam: Present: alert, oriented X3 Psychiatric exam: Present: normal affect, normal mood Skin exam: Present: warm, dry, intact, normal color. Absent: rash Course Vital Signs 09/21/24 09/21/24 09/21/24 17:08 19:01 22:34 Temperature 9738 F H 97.8 F 97.8 F Pulse Rate 61 77 74 Respiratory 18 18 17 Rate Blood Pressure 161/73 154/72 148/74 O2 Sat by Pulse 98 97 98 Oximetry Medical Decision Making - Medical Decision Making Was pt. sent in by a medical professional or institution (, PA, AERODYNAMIC CONSULTANT, urgent care, hospital, or correction...) When possible be specific @ -No Did you speak to anyone other than the patient for history (EMS, parent, family, police, friend...)? What history was obtained from this source @ -No Did you review nursing and triage notes (agree or disagree)? Why? @ -I reviewed and agree with nursing and triage notes Were old charts reviewed (outside hosp., previous admission, EMS record, old EKG, old radiological studies, urgent care reports/EKG's, correction records)? Report findings @ -No old charts were reviewed Differential Diagnosis (chest pain, altered mental status, abdominal pain women, abdominal pain men, vaginal bleeding, weakness, fever, dyspnea, syncope, headache, dizziness, GI bleed, back pain, seizure, CVA, palpatations, mental health, musculoskeletal)? @ -Differential Weakness: Hypoglycemia, shock, sepsis, hyponatremia, anemia, infection, IN, ETOH, adverse medicine reaction, overdose, stroke, this is not meant to be an all-inclusive list. Differential Musculoskeletal Muscular strain, contusion, ligament sprain, fracture, arthritis, septic arthritis, bursitis, cellulitis, muscle spasm, nerve compression, DVT, arterial occlusion, herpes zoster, electrolyte abnormality, tumor.... This is not meant to be in all inclusive list EKG interpreted by me (3pts min.). @ -As above X-rays interpreted by me (1pt min.). @ -X-ray left ankle reveals questionable nondisplaced fracture of medial malleol us, extensive hardware, knee x-ray reveals large suprapatellar joint effusion and lateral view with extensive subcutaneous edema, left hip x-ray reveals no acute process, left shoulder x-ray reveals no acute process CT interpreted by me (1pt min.). @ -CT left femur reveals no acute process U/S interpreted by me (1pt. min.). @ -Ultrasound left leg negative for DVT What testing was considered but not performed or refused? (CT, X-rays, U/S, labs)? Why? @ -None What meds were considered but not given or refused? Why? @ -None Did you discuss the management of the patient with other professionals (josh gusman i.e. , PA, AERODYNAMIC CONSULTANT, lab, RT, psych nurse, social science professor, see wheeler, teacher, employment officer, continuous pillowcase cutter)? Give summary @ -I spoke with Dr. Werner who accepts admission for intractable left leg pain and generalized weakness with consultation to Dr. Duran Was smoking cessation discussed for >3mins.? @ -No Was critical care preformed (if so, how long)? @ -No Were there social determinants of health that impacted care today? How? (Homelessness, low income, unemployed, alcoholism, drug addiction, transportation, low edu. Level, literacy, decrease access to med. care, fpc, rehab)? @ -No Was there de-escalation of care discussed even if they declined (Discuss DNR or withdrawal of care, Hospice)? DNR status @ -No What co-morbidities impacted this encounter? (DM, HTN, Smoking, COPD, CAD, Cancer, CVA, ARF, Chemo, Hep., AIDS, mental health diagnosis, sleep apnea, morbid obesity)? @ -None Was patient admitted / discharged? Hospital course, mention meds given and route, prescriptions, significant lab abnormalities, going to OR and other pertinent info. @ -Admitted. This is a 74-year-old male presenting for fall prior to arrival. Patient is endorsing pain on the left side from the fall, but also states he has been having generalized weakness and loss of balance since discharge from [facility] 1 week ago. Physical examination reveals edema and erythema of left knee. Neurovascularly intact. X-ray left lower extremity remarkable for questionable nondisplaced fracture of medial malleolus, however patient is not having pain at this location and declines splint. Ultrasound left leg negative for DVT. Patient continues to be unable to ambulate, therefore CT left femur was taken at this time which revealed no acute process. EKG reveals sinus bradycardia with no ST changes. Lab work unremarkable. As patient lives alone and is unable to ambulate, I believe it would be unsafe to discharge patient home at this time. I spoke with Dr. Werner who accepts admission for in tractable left flank pain and generalized weakness with consultation to Dr. Duran. Case was discussed with my ED attending Dr. Turk. Undiagnosed new problem with uncertain prognosis? @ -No Drug Therapy requiring intensive monitoring for toxicity (Heparin, Nitro, Insulin, Cardizem)? @ -No Were any procedures done? @ -No Diagnosis/symptom? @ -Left leg pain, weakness Acute, or Chronic, or Acute on Chronic? @ -Acute Uncomplicated (without systemic symptoms) or Complicated (systemic symptoms)? @ -Complicated Side effects of treatment? @ -No Exacerbation, Progression, or Severe Exacerbation? @ -No Poses a threat to life or bodily function? How? (Chest pain, USA, IN, pneumonia, PE, COPD, DKA, ARF, appy, cholecystitis, CVA, Diverticulitis, Homicidal, Suicidal, threat to staff... and all critical care pts) @ -Not at this time - Lab Data Result diagrams: 09/21/24 22:27 09/21/24 22:27 Lab Results 09/21/24 09/21/24 Range/Units 22:27 22:27 WBC 7.4 (3.8-10.6) k/uL RBC 4.06 L (4.30-5.90) m/uL Hgb 12.1 L (13.0-17.5) gm/dL Hct 35.7 L (39.0-53.0) % MCV 88.1 (80.0-100.0) fL MCH 29.7 (25.0-35.0) pg MCHC 33.7 (31.0-37.0) g/dL RDW 13.2 (11.5-15.5) % Plt Count 216 (150-450) k/uL MPV 8.7 Neutrophils % 69 % Lymphocytes % 17 % Monocytes % 8 % Eosinophils % 4 % Basophils % 0 % Neutrophils # 5.1 (1.3-7.7) k/uL Lymphocytes # 1.3 (1.0-4.8) k/uL Monocytes # 0.6 (0-1.0) k/uL Eosinophils # 0.3 (0-0.7) k/uL Basophils # 0.0 (0-0.2) k/uL Sodium 136 L (137-145) mmol/L Potassium 4.0 (3.5-5.1) mmol/L Chloride 103 (98-107) mmol/L Carbon Dioxide 27 (22-30) mmol/L Anion Gap 6 mmol/L BUN 17 (9-20) mg/dL Creatinine 0.64 L (0.66-1.25) mg/dL Est GFR (CKD-EPI)AfAm >90 (>60 ml/min/1.73 sqM) Est GFR (CKD-EPI)NonAf >90 (>60 ml/min/1.73 sqM) Glucose 89 (74-99) mg/dL Calcium 8.8 (8.4-10.2) mg/dL Total Bilirubin 0.4 (0.2-1.3) mg/dL AST 30 (17-59) U/L ALT 21 (4-49) U/L Alkaline Phosphatase 83 (38-126) U/L Total Protein 6.5 (6.3-8.2) g/dL Albumin 3.5 (3.5-5.0) g/dL - EKG Data -: EKG Interpreted by [facility] EKG Comments: EG reveals sinus bradycardia with no ST changes. Ventricular rate 59 bpm, NE interval 204, QRS duration 105, QT/QTc 453/451 Disposition Clinical Impression: Left leg pain, Weakness Disposition: ADMITTED IP TO THIS [facility] Referrals: Juani Nation MD [Primary Care Provider] - 1-2 days Time of Disposition: 00:25
--- NOTE | 2024-09-21 18:48 | XR ---
EXAMINATION TYPE: XR shoulder complete LT DATE OF EXAM: 09/21/2024 6:37 PM COMPARISON: None available. CLINICAL INDICATION: Male, 74 years old with history of left shoulder injury; [facility] TECHNIQUE: XR shoulder complete LT; examined in AP, internally rotated and scapular Y projections. FINDINGS: No acute fracture. Superior dislocation of the left humeral head relative to the glenoid. Sclerotic c hanges along the lateral margin of the humeral head suggestive of chronic rotator cuff pathology. Mod erate glenohumeral and acromial clavicular degenerative osteoarthritis. IMPRESSION: 1. No definite acute fracture. 2. Superior subluxation of the left humeral head relative to the glenoid and findings compatible wit h chronic rotator cuff pathology. 3. Moderate generative osteoarthritis as above. [facility], , 09/21/2024 6:46 PM
--- NOTE | 2024-09-21 19:10 | XR ---
EXAMINATION TYPE: XR knee complete LT, XR ankle complete LT, XR Hip Complete LT DATE OF EXAM: 09/21/2024 6:37 PM COMPARISON: Numerous prior radiographs, most recently dated 08/09/2024. CLINICAL INDICATION: Male, 74 years old with history of left knee injury; [facility] TECHNIQUE: XR knee complete LT, XR ankle complete LT, XR Hip Complete LT views submitted. FINDINGS: Left knee: No definite acute fracture or dislocation. Left knee arthroplasty without definite periprosthetic loo sening. Large suprapatellar joint effusion on lateral view with extensive subcutaneous edema. Atherom atous calcifications noted. No unexpected radiopaque body. Left ankle: Questionable nondisplaced fracture of the medial malleolus seen on frontal view only. Extensive ortho pedic hardware related to previous ORIF. Metallic plate and fixation screws visualized along the late ral margin of the distal tibia. Long cannulated screw visualized in the distal fibula. Multiple fixat ion screws spanning the calcaneus into the midfoot. No periprostatic lucency. Osseous structures diff usely demineralized.Z Left hip: No acute fracture or dislocation. No unexpected opaque foreign body. Moderate to severe degenerative osteoarthritis of the left hip with associated joint space loss and marginal osteophyte formation. IMPRESSION: Left knee: No definite acute fracture or dislocation. Large suprapatellar joint effusion and extensive subcutaneous edema. Left ankle: Questionable nondisplaced fracture of the medial malleolus seen on frontal view only. Consider correl ation with any prior outside imaging if available and clinical correlation with point tenderness. Left hip: No acute fracture or dislocation of the left hip. [facility], , 09/21/2024 7:08 PM
--- NOTE | 2024-09-21 20:33 | CT ---
EXAMINATION TYPE: CT femur LT wo con DATE OF EXAM: 09/21/2024 8:21 PM COMPARISON: None available at this institution. CLINICAL INDICATION: Male, 74 years old with history of left upper leg injury; [facility], Left knee replace ment x 2 months ago, left hip pain TECHNIQUE: Axial images were obtained of the CT femur LT wo con, Additional coronal and sagittal refo rmatted images and soft tissue and bone window were obtained for review. 3-D reconstruction was creat ed on a separate workstation. CT DLP: 1003.3 mGycm, Automated exposure control for dose reduction was used. FINDINGS: There is no evidence of fracture, subluxation, or dislocation. Moderate degenerative arthri tis of the left hip. No drainable fluid collection/abscess. Extensive subcutaneous edema surrounding the left knee. Moderate suprapatellar joint effusion. No definite periprosthetic lucency involving th e left knee arthroplasty. There is appropriate alignment of the tibial and femoral components. No foc al osseous erosion or aggressive periosteal reaction. Vascular calcifications noted. Fluoroscopic sco ut radiograph demonstrates right knee arthroplasty with appropriate alignment of the tibial and femor al components. IMPRESSION: 1. No acute fracture or dislocation. 2. No periprosthetic lucency and appropriate alignment of the left knee arthroplasty as above. 3. Extensive prepatellar subcutaneous edema and moderate suprapatellar joint effusion. [facility], , 09/21/2024 8:30 PM
--- NOTE | 2024-09-21 20:48 | US ---
EXAMINATION TYPE: US venous doppler duplex LE LT DATE OF EXAM: 09/21/2024 8:35 PM COMPARISON: NONE CLINICAL INDICATION: Male, 74 years old with history of left leg pain/swelling; Patient state left le g pain/ cramping and swelling. Patient fell earlier today and cannot walk. No hx DVT. No thinners, TECHNIQUE: The lower extremity deep venous system is examined utilizing real time linear array sonog randall with graded compression, color doppler sonography, and spectral doppler. SIDE PERFORMED: Left FINDINGS: VESSELS IMAGED: Common Femoral Vein Deep Femoral Vein Greater Saphenous Vein Femoral Vein Popliteal Vein Small Saphenous Vein Proximal Calf Veins Left Leg: Negative for DVT, Color Doppler imaging shows patency of the vessels. Spectral waveforms a re within normal limits. IMPRESSION: No ultrasound evidence for deep venous thrombosis. [facility], , 09/21/2024 8:46 PM
[2024-09-21] MEDS: CYCLOBENZAPRINE 10 MG TAB PO STA (21:32)
[2024-09-21] MEDS: ACETAMINOPHEN TAB 500 MG TAB PO STA (21:32)
[2024-09-21 23:18] LABS: Basophils % (A) 0 %; Eosinophils # (A) 0.3 k/uL (0-0.7); Eosinophils % (A) 4 %; HCT 35.7 % (39.0-53.0); HGB 12.1 gm/dL (13.0-17.5); Lymphocytes # (A) 1.3 k/uL (1.0-4.8); Lymphocytes % (A) 17 %; MCH 29.7 pg (25.0-35.0); MCHC 33.7 g/dL (31.0-37.0); MCV 88.1 fL (80.0-100.0); Mean Platelet Volume 8.7; Monocytes # (A) 0.6 k/uL (0-1.0); Monocytes % (A) 8 %; Neutrophils # (A) 5.1 k/uL (1.3-7.7); Neutrophils % (A) 69 %; Platelet Count 216 k/uL (150-450); RBC 4.06 m/uL (4.30-5.90); RDW 13.2 % (11.5-15.5); WBC 7.4 k/uL (3.8-10.6)
[2024-09-21 23:30] LABS: ALT 21 U/L (4-49); AST 30 U/L (17-59); African American GFR (CKD) >90 (>60 ml/min/1.73 sqM); Albumin 3.5 g/dL (3.5-5.0); Alkaline Phosphatase 83 U/L (38-126); Anion Gap 6 mmol/L; Blood Urea Nitrogen 17 mg/dL (9-20); Calcium 8.8 mg/dL (8.4-10.2); Carbon Dioxide 27 mmol/L (22-30); Chloride 103 mmol/L (98-107); Glucose 89 mg/dL (74-99); Non-African American GFR(CKD) >90 (>60 ml/min/1.73 sqM); Sodium 136 mmol/L (137-145); Total Bilirubin 0.4 mg/dL (0.2-1.3); Total Protein 6.5 g/dL (6.3-8.2)
[2024-09-22] MEDS ORDERED: ACETAMINOPHEN TAB 325 MG TAB PO PRN (00:14)
[2024-09-22] MEDS ORDERED: NALOXONE 0.4 MG/ML 1 ML VIAL IV PRN ×2 (00:14→13:00)
[2024-09-22] MEDS: GABAPENTIN 300 MG CAP PO STA (00:27)
[2024-09-22] MEDS: KETOROLAC 15 MG/ML 1 ML VIAL IVP PRN (01:49)
[2024-09-22] MEDS: MORPHINE SULFATE 4 MG/ML SYRINGE IV PRN (04:08)
--- NOTE | 2024-09-22 06:51 | P.CNOR ---
History of Present Illness - [facility] Consult date: 09/22/24 Consult reason: joint pain (Left knee pain) History of present illness: patient is a 74-year-old male was brought into [facility] via EMS for evaluation of a left knee injury. Patient is 6 weeks out from a total knee arthroplasty. Apparently the patient was walking around in his yard when he lost his balance falling out of his left side hyperflexing his knee. He had immediate pain and swelling of the knee, he was unable to weight-bear. Patient denies hitting his head during the fall. He took most of the force to the left side of his body. Upon arrival to the hospital, he underwent multiple imaging test. Patient was admitted to the hospital under internal medicine, our orthopedic team was consulted, he is a known patient to us. Patient was evaluated at bedside today, he was sleeping with CPAP machine in place. Patient was easily awoken a bowl and very cooperative on exam. Patient has significant pain, swelling and inability to extend the left knee. Patient states that this was noticeable after the initial injury. He has some minor shoulder discomfort and left hip pain also. Patient denies any numbness or tingling to the left lower extremity. He denies any loss of bowel or bladder function at this time. Patient was at subacute rehab for about 3-1/2 weeks. He has been home and doing rather well, he has been utilizing the home exercises along with the home therapy group that was set up after he left rehab. Review of Systems Constitutional: Reports as per HPI Past Medical History Past Medical History: GERD/Reflux, Hearing Disorder / Deafness, Hyperlipidemia, Hypertension, Osteoarthritis (OA), Prostate Disorder, Sleep Apnea/CPAP/BIPAP Additional Past Medical History / Comment(s): paraesophageal hernia post repair, COVID 19 04/2022, Diverticulosis, Hard of hearing, charcoat joints and feet, moderate peripheral neuropathy of feet, ORTIZ uses CPAP, hx small bowel blockage 09/16, hx anemia, current hiatal hernia. History of Any Multi-Drug Resistant Organisms: None Reported Past Surgical History: Hernia Repair, Joint Replacement, Orthopedic Surgery, Prostate Surgery Additional Past Surgical History / Comment(s): Reconstruction of left foot, ongoing, right shoulder screw placed, right total knee replacement, right/ANKLE foot - plate and screws, bilateral foot surgeries, EGD/barium swallow. COLONOSCOPY, HIATAL HERNIA AND UMBILICAL HERNIA REPAIR, NUMEROUS PICC LINES R/T BONE INFECTIONS, total left knee 08/09/24 Past Anesthesia/Blood Transfusion Reactions: Postoperative Nausea & Vomiting (PONV) Additional Past Anesthesia/Blood Transfusion Reaction / Comm: "Had vomiting with aspiration, experienced Sick Sinus Syndrome during anesthesia 05/14, followed up with Dr Ley and was placed on heart monitor. Smoking Status: Former smoker - Past Family History Father Family Medical History: AICD/Pacemaker, Osteoarthritis (OA), Thyroid Disorder Mother Family Medical History: Cancer, Hypertension Additional Family Medical History / Comment(s): Colon and ovarian cancer. Medications and Allergies Home Medications Medication Instructions Recorded Confirmed Type Omeprazole [PriLOSEC] 20 mg PO HS 11/15/15 08/09/24 History Rosuvastatin Calcium [Crestor] 10 mg PO HS 11/15/15 08/09/24 History Gabapentin [Neurontin] 300 mg PO HS 05/27/16 08/09/24 History Gabapentin [Neurontin] 100 mg PO DAILY 09/13/21 08/09/24 History Ipratropium [place] 0.06%Nasal 2 spray EA NOSTRIL BID 11/14/21 08/09/24 History [Atrovent Nasal 0.06%] Magnesium Gluconate [Magonate] 500 mg PO DAILY 06/27/22 08/09/24 History Methyfolate 5 mg PO DAILY 06/27/22 08/09/24 History Valsartan [Diovan] 80 mg PO BID #60 tab 07/04/22 08/09/24 Rx carvediloL [Coreg] 3.125 mg PO BID-W/MEALS #60 tab 07/04/22 08/09/24 Rx Ferrous Sulfate [Iron (65 MG 325 mg PO BID-W/MEALS #60 tab 07/06/22 08/09/24 Rx Elemental)] Ascorbic Acid [Vitamin C] 1,000 mg PO DAILY 08/03/24 08/09/24 History Cholecalciferol (Vitamin D3) 1,000 mcg PO DAILY 08/03/24 08/09/24 History [Vitamin D3 (50 Mcg = 2000 Iu)] Glucosamine Sulfate 1,000 mg PO DAILY 08/03/24 08/09/24 History Melatonin 5 mg PO HS 08/03/24 08/03/24 History Multivit-Minerals/FA/Lycopene 1 each PO DAILY 08/03/24 08/03/24 History [One-A-Day Men's 50 Plus Tablet] Tamsulosin [Flomax] 0.4 mg PO BID 08/03/24 08/09/24 History Vitamin B Complex 1 each PO DAILY 08/03/24 08/09/24 History Aspirin [Adult Low Dose Aspirin EC] 81 mg PO BID #60 tab 08/12/24 Rx Calcium Carbonate [Tums] 500 mg PO Q2HR PRN tab 08/12/24 Rx HYDROcodone/APAP 7.5-325MG [[place] 1 each PO Q6HR PRN #28 tab 08/12/24 Rx 7.5] Sennosides/Docusate Sodium 2 each PO DAILY PRN #30 tablet 08/12/24 Rx [Senna-S 8.6-50 mg Tablet] polyethylene glycoL 3350 [Miralax] 17 gm PO DAILY PRN #21 packet 08/12/24 Rx Allergies Allergy/AdvReac Type Severity Reaction Status Date / Time dust, polllen, mold Allergy Cough Uncoded 08/09/24 10:43 Physical Examination Left lower extremity: well-healed incision over the anterior aspect of the knee. There is a large joint effusion present. The patella is significantly subluxed laterally. There is a very large defect appreciated along the medial aspect of the knee patient has generalized pain over the anterior medial aspect of the knee with palpation, he is nontender to the lower leg, foot or ankle logroll maneuver reproduces no pain in the groin. Patient is unable to extend the knee, he can flex from his current position to about 45 extra degrees calf is soft, no tenderness with palpation plantarflexion and dorsiflexion are intact, they are limited due to his previous ankle fusion. EHL and FHL are intact sensory exam to light touch throughout the extremity is intact dorsalis pedis pulses 2+ Results - Labs Labs: Abnormal Lab Results - Last 24 Hours (Table) 09/21/24 09/21/24 Range/Units 22:27 22:27 RBC 4.06 L (4.30-5.90) m/uL Hgb 12.1 L (13.0-17.5) gm/dL Hct 35.7 L (39.0-53.0) % Sodium 136 L (137-145) mmol/L Creatinine 0.64 L (0.66-1.25) mg/dL H & H 09/21/24 Range/Units 22:27 Hgb 12.1 L (13.0-17.5) gm/dL Hct 35.7 L (39.0-53.0) % Result Diagrams: 09/21/24 22:27 09/21/24 22:27 - Diagnostic results Shoulder x-ray: report reviewed, image reviewed ( no acute fractures or dislocations appreciated to the left shoulder. Severe rotator cuff arthropathy noted) Hip x-ray: report reviewed, image reviewed ( no acute fractures or dislocations appreciated the left hip, moderate osteoarthritic changes appreciated) Knee x-ray: report reviewed, image reviewed ( no acute fractures appreciated, hardware appears stable, no obvious lucencies. Large joint effusion, patella definitely show signs of extensor mechanism injury) Knee CT: report reviewed, image reviewed Ankle/Foot x-ray: report reviewed, image reviewed ( no acute fractures or dislocations noted, ankle fusion hardware appears stable, no obvious lucencies) Assessment and Plan Assessment: Left knee extensor mechanism injury left knee effusion history of recent left total knee arthroplasty, 08/09/2024 left shoulder rotator cuff arthropathy left hip osteoarthritis other medical comorbidities Plan: I was able to discuss the case, this to include physical exam findings and imaging studies and my attending Dr. Duran. We plan to proceed with surgical intervention, consent will be obtained for a quadriceps tendon, medial retinaculum and patellar tendon repair. Planning for surgery 09/22/2024 n.p.o. diet nonweightbearing left lower extremity urinary catheter placement if patient unable to use bedside urinal medical recommendations PT/OT after surgery DVT prophylaxis, compression stockings and SCDs, subcu medication after surgery further recommendations to follow Time with Patient: Less than 30
[2024-09-22] MEDS: IV FLUID CONTINUATION 1,000 ML IV ONE (10:21)
[2024-09-22] MEDS: ONDANSETRON 4 MG/2 ML VIAL IVP PRN (10:39)
--- NOTE | 2024-09-22 10:39 | P.HPIM ---
History of Present Illness H&P Date: 09/22/24 Sebastian Armas is a 74-year-old male patient who was brought into [facility] due to fall and left knee injury. Patient apparently was walking around his yard when he lost his balance landing on his left side. Patient recently underwent total knee arthroplasty about 6 weeks ago. Additional medical history includes GERD, deafness, hyperlipidemia, hypertension, osteoarthritis, prostate disorder, sleep apnea, neuropathy and hiatal hernia. Imaging completed in ER left complete shoulder x-ray no definitive acute fracture superior subluxation of the left humeral head relative to the glenoid and findings compatible with chronic rotator cuff. Ankle x-ray completed showing no definitive acute fracture. Left femur CT showing no acute fracture or dislocation extensive prepatellar subcutaneous edema and moderate suprapatellar joint effusion. Venous Doppler completed showing no ultrasound evidence for DVT. Lab work completed showing white blood cell 7.4, hemoglobin 12.1, sodium 136, creatinine 0.64, bun 17. At this time orthopedic services have been consulted. Current vital signs temp 97.9, heart 64, respiratory rate 16, blood pressure 142/70 with a pulse ox of 96% on room air. Patient denies chest pain or shortness of breath. Patient denies nausea vomiting or diarrhea. Patient denies any urinary burning or frequency Review of Systems Please refer to HPI otherwise unremarkable Past Medical History Past Medical History: GERD/Reflux, Hearing Disorder / Deafness, Hyperlipidemia, Hypertension, Osteoarthritis (OA), Prostate Disorder, Sleep Apnea/CPAP/BIPAP Additional Past Medical History / Comment(s): paraesophageal hernia post repair, COVID 19 04/2022, Diverticulosis, Hard of hearing, charcoat joints and feet, moderate peripheral neuropathy of feet, ORTIZ uses CPAP, hx small bowel blockage 09/16, hx anemia, current hiatal hernia. History of Any Multi-Drug Resistant Organisms: None Reported Past Surgical History: Hernia Repair, Joint Replacement, Orthopedic Surgery, Prostate Surgery Additional Past Surgical History / Comment(s): Reconstruction of left foot, ongoing, right shoulder screw placed, right total knee replacement, right/ANKLE foot - plate and screws, bilateral foot surgeries, EGD/barium swallow. COLONOSCOPY, HIATAL HERNIA AND UMBILICAL HERNIA REPAIR, NUMEROUS PICC LINES R/T BONE INFECTIONS, total left knee 08/09/24 Past Anesthesia/Blood Transfusion Reactions: Postoperative Nausea & Vomiting (PONV) Additional Past Anesthesia/Blood Transfusion Reaction / Comment(s): "Had vomiting with aspiration, experienced Sick Sinus Syndrome during anesthesia 05/14, followed up with Dr Ley and was placed on heart monitor. Smoking Status: Former smoker - Past Family History Father Family Medical History: AICD/Pacemaker, Osteoarthritis (OA), Thyroid Disorder Mother Family Medical History: Cancer, Hypertension Additional Family Medical History / Comment(s): Colon and ovarian cancer. Medications and Allergies Home Medications Medication Instructions Recorded Confirmed Type Omeprazole [PriLOSEC] 20 mg PO HS 11/15/15 08/09/24 History Rosuvastatin Calcium [Crestor] 10 mg PO HS 11/15/15 08/09/24 History Gabapentin [Neurontin] 300 mg PO HS 05/27/16 08/09/24 History Gabapentin [Neurontin] 100 mg PO DAILY 09/13/21 08/09/24 History Ipratropium [place] 0.06%Nasal 2 spray EA NOSTRIL BID 11/14/21 08/09/24 History [Atrovent Nasal 0.06%] Magnesium Gluconate [Magonate] 500 mg PO DAILY 06/27/22 08/09/24 History Methyfolate 5 mg PO DAILY 06/27/22 08/09/24 History Valsartan [Diovan] 80 mg PO BID #60 tab 07/04/22 08/09/24 Rx carvediloL [Coreg] 3.125 mg PO BID-W/MEALS #60 tab 07/04/22 08/09/24 Rx Ferrous Sulfate [Iron (65 MG 325 mg PO BID-W/MEALS #60 tab 07/06/22 08/09/24 Rx Elemental)] Ascorbic Acid [Vitamin C] 1,000 mg PO DAILY 08/03/24 08/09/24 History Cholecalciferol (Vitamin D3) 1,000 mcg PO DAILY 08/03/24 08/09/24 History [Vitamin D3 (50 Mcg = 2000 Iu)] Glucosamine Sulfate 1,000 mg PO DAILY 08/03/24 08/09/24 History Melatonin 5 mg PO HS 08/03/24 08/03/24 History Multivit-Minerals/FA/Lycopene 1 each PO DAILY 08/03/24 08/03/24 History [One-A-Day Men's 50 Plus Tablet] Tamsulosin [Flomax] 0.4 mg PO BID 08/03/24 08/09/24 History Vitamin B Complex 1 each PO DAILY 08/03/24 08/09/24 History Aspirin [Adult Low Dose Aspirin EC] 81 mg PO BID #60 tab 08/12/24 Rx Calcium Carbonate [Tums] 500 mg PO Q2HR PRN tab 08/12/24 Rx HYDROcodone/APAP 7.5-325MG [[place] 1 each PO Q6HR PRN #28 tab 08/12/24 Rx 7.5] Sennosides/Docusate Sodium 2 each PO DAILY PRN #30 tablet 08/12/24 Rx [Senna-S 8.6-50 mg Tablet] polyethylene glycoL 3350 [Miralax] 17 gm PO DAILY PRN #21 packet 08/12/24 Rx Allergies Allergy/AdvReac Type Severity Reaction Status Date / Time dust, polllen, mold Allergy Cough Uncoded 09/22/24 09:05 Physical Exam Vitals: Vital Signs Temp Pulse Pulse Resp BP BP Pulse Ox 09/22/24 10:24 98.7 F 60 16 162/72 96 09/22/24 07:46 97.5 F L 60 17 148/68 95 09/22/24 01:54 97.9 F 64 16 165/77 96 09/22/24 00:51 98.0 F 62 16 142/70 96 09/21/24 22:34 97.8 F 74 17 148/74 98 09/21/24 19:01 97.8 F 77 18 154/72 97 09/21/24 17:08 9738 F H 61 18 161/73 98 Intake and Output 09/21/24 09/22/24 09/22/24 22:59 06:59 14:59 Output Total 200 Balance -200 Output: Urine 200 Other: Voiding Method Urinal Weight 95.254 kg 95.254 kg Head normocephalic Neck supple Lungs clear to auscultation bilaterally no wheezing or crackles Heart regular rate and rhythm S1-S2, no rub or gallop Abdomen is soft nontender nondistended positive bowel sounds no hepatosplenomegaly Extremities left knee edema Neuro alert and orientated to 3 Results CBC & Chem 7: 09/21/24 22:27 09/21/24 22:27 Labs: Abnormal Lab Results - Last 24 Hours (Table) 11/26/24 11/26/24 Range/Units 22:27 22:27 RBC 4.06 L (4.30-5.90) m/uL Hgb 12.1 L (13.0-17.5) gm/dL Hct 35.7 L (39.0-53.0) % Sodium 136 L (137-145) mmol/L Creatinine 0.64 L (0.66-1.25) mg/dL Thrombosis Risk Factor Assmnt - Choose All That Apply Any of the Below Risk Factors Present?: No Other Risk Factors: No Other congenital or acquired thrombophilia - If yes, enter type in comment: No Thrombosis Risk Factor Assessment Level: Very Low Risk Assessment and Plan Assessment: 1. Fall with left knee injury with left knee effusion 2. Recent total left knee arthroplasty on 08/09/2024 3. Left shoulder rotator cuff arthropathy 4. History of essential hypertension 5. History of hyperlipidemia 6. History of anemia 7. History of previous orthopedic surgeries 8. History of BPH DVT prophylaxis defer to surgical services patient to undergo surgical intervention for left knee. GI prophylax Protonix Orthopedic services consulted Repeat labs ordered Time with Patient: Greater than 30 (Greater than 60% of the total time spent in counseling and coordination of care)
[2024-09-22] MEDS: ONDANSETRON 4 MG/2 ML VIAL IVP STA (10:47)
[2024-09-22] MEDS: DEXAMETHASONE SOD PHOSPHATE 4 MG/ML 1 ML VIAL IVP STA (10:48)
[2024-09-22] MEDS ORDERED: KETOROLAC 15 MG/ML 1 ML VIAL ONE (11:38)
[2024-09-22] MEDS ORDERED: SUCCINYLCHOLINE CHLORIDE 200 MG/10 ML VIAL IV ONE (11:38)
[2024-09-22] MEDS ORDERED: LIDOCAINE 1% INJ 10MG/ML (20 ML MDV) ONE (11:38)
[2024-09-22] MEDS ORDERED: HYDROmorphone (PF) 1 MG/ML ONE (11:38)
[2024-09-22] MEDS ORDERED: fentaNYL (PF) 50 MCG/ML 2 ML AMP ONE (11:38)
[2024-09-22] MEDS ORDERED: PROPOFOL 10 MG/ML 20 ML VIAL IV ONE (11:38)
[2024-09-22] MEDS: SODIUM CHLORIDE 0.9% 100 ML with ceFAZolin 2,000 MG IV ONE (11:43)
[2024-09-22 12:22] LABS: INR 1.06 sec (0.93-1.11); Prothrombin Time 11.4 sec (9.9-11.9)
[2024-09-22] MEDS ORDERED: HYDROmorphone 0.5 MG/0.5 ML SYRINGE IVP PRN (13:00)
--- NOTE | 2024-09-22 13:00 | P.OP ---
Date of Procedure: 09/22/24 Preoperative Diagnosis: Left knee quadriceps tendon rupture with history of previous total knee arthroplasty Postoperative Diagnosis: 1. Left knee quadriceps tendon rupture 2. Left knee patellar tendon rupture 3. Left knee medial retinacular rupture/tear Procedure(s) Performed: 1. Left knee open quadriceps tendon repair 2. Left knee open patellar tendon repair 3. Left knee open medial retinacular repair Anesthesia: GERONIMO Surgeon: Chris Duran Puller Machine #1: Kris Hernandez Estimated Blood Loss (ml): 20 Pathology: none sent Condition: stable Disposition: PACU Indications for Procedure: 74-year-old patient seen with a left knee injury after having undergone left total knee arthroplasty approximately 6 weeks ago. Apparently he was in his backyard and he slipped and fell injuring his left knee. He was clinically found to have a quadriceps tendon/extensor mechanism disruption/tear. I recommended open repair. He was agreeable. Consent was obtained. Operative Findings: See description of procedure Description of Procedure: The patient was taken to the operative suite. He underwent a general anesthetic by the department of anesthesia. He received preoperative IV antibiotics. A well-padded tourniquet was placed along the proximal left thigh. The left lower extremity was prepped and draped in the normal sterile orthopedic fashion. The extremity was elevated and the tourniquet was insufflated to 300. I made an incision through previous cicatrix. I made encountered a hemarthrosis with what appeared to be complete disruption of the entire extensor mechanism including a quadriceps tendon rupture, patellar tendon rupture tear and complex medial retinacular rupture tear. At this point we dissected out the proximal quadriceps tendon. I dissected out the medial aspect of the patellar tendon. And I dissected down this far as I could to get visualization of the extensive complex medial retinacular tear. I now irrigated the wound out copiously with approximately 1000 cc of saline solution. I debrided some blood clot and some scar tissue. The femoral tibial components were stable as was the polyethylene components. We now irrigated the wound out with Betadine followed by Irrisept solution and followed by another 3000 cc of irrigant via pulse lavage mechanical irrigation. Again the joint/implants appeared stable. I now turned my attention to the medial retinaculum. I began repairing it as it was torn all the way close to the medial collateral ligament which appeared intact clinically. I repaired the medial retinaculum with simple interrupted sutures utilizing a #2 Ethibond suture. That was repaired nicely and stable. I now turned my attention to the quadriceps tendon. It was a delaminated tear. I removed any abnormal tissue debriding it out. I now passed 3 Arthrex suture tape sutures utilizing a Krakw fashion to repair the quadriceps tendon. That was repaired nicely and stable. I now repaired the superior portion of the medial retinaculum to the patella utilizing #2 Ethibond again with multiple interrupted sutures. I now turned my attention to the patellar tendon. At the corner I repaired it with a Arthrex suture tape and then I repaired the remaining patellar tendon tear with #2 Ethibond sutures again utilizing a simple rapid suture repair fashion. I now repaired the remaining area of the medial retinaculum to the medial patella. I now turned my attention back to the quadriceps tendon and I reinforced that repair with multiple simple interrupted #2 Ethibond sutures. We had a stable appearing repair of this complex extensor mechanism injury. I was able to flex knee to about 60 degrees with good stability of the repair. The tissues were again irrigated with saline solution followed by Irrisept. The subcutaneous soft tissues were repaired in layers utilizing 2-0 Vicryl. The skin was repaired with skin jess. Sterile dressings were applied. The tourniquet was released with immediate capillary refill of the extremity noted. We placed the left lower extremity well-padded knee immobilizer. The patient was awakened, transferred to recovery in stable condition of entire procedure well. Scott VICKERS assisted in all aspects of this procedure.
[2024-09-22] MEDS: fentaNYL (PF) 50 MCG/ML 2 ML AMP IVP PRN (13:24)
[2024-09-22] MEDS: SODIUM CHLORIDE 0.9% 1,000 ML IV SCH (13:25)
[2024-09-22] MEDS: diphenhydrAMINE 50 MG/ML 1 ML VIAL IVP PRN (13:39)
[2024-09-22] MEDS: HYDROmorphone 0.5 MG/0.5 ML SYRINGE IVP PRN ×2 (13:45→18:52)
[2024-09-22] MEDS: HYDROcodone/APAP 5-325MG 1 EACH TAB PO PRN (16:41)
[2024-09-22] MEDS: GABAPENTIN 300 MG CAP PO SCH (21:02)
[2024-09-22] MEDS: VALSARTAN 80 MG TAB PO SCH (21:03)
[2024-09-22] MEDS: CYCLOBENZAPRINE 10 MG TAB PO PRN (21:03)
[2024-09-22] MEDS: TAMSULOSIN 0.4 MG CAP.ER.24H PO SCH (21:03)
[2024-09-22] MEDS: ATORVASTATIN 20 MG TAB PO SCH (21:03)
[2024-09-22] MEDS: ENOXAPARIN 30 MG/0.3 ML SYRINGE SQ SCH (21:03)
[2024-09-22] MEDS: carvediloL 3.125 MG TAB PO SCH (21:03)
[2024-09-22] MEDS: MELATONIN 5 MG TABLET PO SCH (21:03)
[2024-09-22] MEDS: SENNOSIDES-DOCUSATE SODIUM 1 EACH TAB PO PRN (21:13)
[2024-09-23] MEDS: HYDROcodone/APAP 7.5-325MG 1 EACH TAB PO PRN (05:07)
[2024-09-23] MEDS ORDERED: FOLIC PO SCH (09:00)
[2024-09-23] MEDS ORDERED: LUTEIN PO SCH (09:00)
[2024-09-23] MEDS ORDERED: NON FORMULARY DRUG (Glucosa Su 2kcl/Chondroitin Su [Glucosamine-Chondroitin Cap] 1 EACH Ca PO SCH (09:00)
[2024-09-23] MEDS ORDERED: MV MN PO SCH (09:00)
[2024-09-23] MEDS ORDERED: HERBAL PO SCH (09:00)
[2024-09-23] MEDS ORDERED: [UNRECOGNIZED DRUG - OTHER] PO SCH (09:00)
[2024-09-23] MEDS ORDERED: NON FORMULARY DRUG (Omeprazole [Prilosec] 20 MG Capsule.Dr) PO SCH (09:00)
[2024-09-23] MEDS: FERROUS SULFATE 325 MG TAB PO SCH (09:04)
[2024-09-23] MEDS: MAGNESIUM OXIDE 400 MG TAB PO SCH (09:04)
[2024-09-23] MEDS: GABAPENTIN 100 MG CAP PO SCH (09:05)
[2024-09-23] MEDS: SPIRONOLACTONE 25 MG TAB PO SCH (09:05)
[2024-09-23] MEDS: carvediloL 6.25 MG TAB PO SCH (09:05)
[2024-09-23] MEDS: PANTOPRAZOLE 40 MG TABLET PO SCH (09:46)
[2024-09-23] MEDS: CHOLECALCIFEROL 25 MCG (1000 IU) TABLET PO SCH (09:47)
--- NOTE | 2024-09-23 09:58 | P.PN ---
Subjective Progress Note Date: 09/23/24 Sebastian Armas is a 74-year-old male patient who was brought into [facility] due to fall and left knee injury. Patient apparently was walking around his yard when he lost his balance landing on his left side. Patient recently underwent total knee arthroplasty about 6 weeks ago. Additional medical history includes GERD, deafness, hyperlipidemia, hypertension, osteoarthritis, prostate disorder, sleep apnea, neuropathy and hiatal hernia. Imaging completed in ER left complete shoulder x-ray no definitive acute fracture superior subluxation of the left humeral head relative to the glenoid and findings compatible with chronic rotator cuff. Ankle x-ray completed showing no definitive acute fracture. Left femur CT showing no acute fracture or dislocation extensive prepatellar subcutaneous edema and moderate suprapatellar joint effusion. Venous Doppler completed showing no ultrasound evidence for DVT. Lab work completed showing white blood cell 7.4, hemoglobin 12.1, sodium 136, creatinine 0.64, bun 17. At this time orthopedic services have been consulted. Current vital signs temp 97.9, heart 64, respiratory rate 16, blood pressure 142/70 with a pulse ox of 96% on room air. Patient denies chest pain or shortness of breath. Patient denies nausea vomiting or diarrhea. Patient denies any urinary burning or frequency On 09/23/2024 patient was seen and examined on the medical floor he is alert and oriented x 3 in no apparent distress, he is complaining of left lower extremity pain otherwise he denies any complaints there is no fever or chills no headache or dizziness no chest pain no shortness of breath no cough no nausea or vomiting no abdominal pain no diarrhea and no urinary symptoms. Objective - Vital Signs Vital signs: Vital Signs Temp 98.1 F 09/23/24 07:15 Pulse 54 L 09/23/24 07:15 Resp 20 09/23/24 07:15 BP 145/91 09/23/24 07:15 Pulse Ox 94 L 09/23/24 07:15 FiO2 Intake & Output 09/22/24 09/23/24 09/23/24 18:59 06:59 18:59 Intake Total 1505 Output Total 320 150 Balance 1185 -150 Weight 95.254 kg Intake: IV 1025 Oral 480 Output: Urine 300 150 Estimated Blood Loss 20 Other: Voiding Method Urinal Urinal - Exam Head normocephalic Neck supple Lungs clear to auscultation bilaterally no wheezing or crackles Heart regular rate and rhythm S1-S2, no rub or gallop Abdomen is soft nontender nondistended positive bowel sounds no hepatosplenomegaly Extremities left knee edema Neuro alert and orientated to 3 - Labs CBC & Chem 7: 09/21/24 22:27 09/21/24 22:27 Assessment and Plan Assessment: 1. Fall with left knee injury with left knee effusion 2. Recent total left knee arthroplasty on 08/09/2024 3. Left shoulder rotator cuff arthropathy 4. History of essential hypertension 5. History of hyperlipidemia 6. History of anemia 7. History of previous orthopedic surgeries 8. History of BPH DVT prophylaxis defer to surgical services patient to undergo surgical intervention for left knee. GI prophylax Protonix Orthopedic services consulted Repeat labs ordered
[2024-09-23 10:29] LABS: ALT 12 U/L (10-49); AST 31 U/L (14-35); Albumin 3.6 g/dL (3.8-4.9); Albumin/Globulin Ratio 1.24 Ratio (1.60-3.17); Alkaline Phosphatase 85 U/L (41-126); BUN/Creat Ratio 23.86 Ratio (12.00-20.00); Blood Urea Nitrogen 16.7 mg/dL (9.0-27.0); Calcium 8.8 mg/dL (8.7-10.3); Chloride 105 mmol/L (96-109); Globulin 2.9 g/dL (1.6-3.3); Glucose 100 mg/dL (70-110); Potassium 4.5 mmol/L (3.5-5.5); Sodium 138 mmol/L (135-145); Total Bilirubin 0.3 mg/dL (0.3-1.2); Total Protein 6.5 g/dL (6.2-8.2)
[2024-09-23 10:39] LABS: Basophils # (A) 0.02 X 10*3/uL (0.00-0.10); Basophils % (A) 0.2 %; Eosinophils # (A) 0.13 X 10*3/uL (0.04-0.35); Eosinophils % (A) 1.5 %; HCT 37.8 % (39.6-50.0); HGB 12.4 g/dL (13.0-17.0); Lymphocytes # (A) 1.17 X 10*3/uL (0.90-5.00); Lymphocytes % (A) 13.2 %; MCH 30.1 pg (27.0-32.0); MCHC 32.8 g/dL (32.0-37.0); MCV 91.7 FL (80.0-97.0); Mean Platelet Volume 10.7 FL (9.5-12.2); Monocytes # (A) 0.71 X 10*3/uL (0.20-1.00); NRBC Per 100 WBC 0 X 10*3/uL (0.00-0.01); Neutrophils # (A) 6.81 X 10*3/uL (1.80-7.70); Neutrophils % (A) 76.9 %; Platelet Count 232 X 10*3/uL (140-440); RBC 4.12 X 10*6/uL (4.40-5.60); RDW 12.6 % (11.5-14.5); WBC 8.86 X 10*3/uL (4.50-10.00)
--- NOTE | 2024-09-23 10:56 | P.PN ---
Subjective Progress Note Date: 09/23/24 Principal diagnosis: Status post left knee extensor mechanism repair Patient evaluated at bedside today, he is resting in his hospital bed. The knee immobilizer is in good position and condition with Sd wrap around the knee. Patient does note discomfort in the knee, he notes more of a spasm in the thigh actually. Denies headaches, lightheadedness, chest pain or shortness of breath Objective - Vital Signs Vital signs: Vital Signs Temp 98.1 F 09/23/24 07:15 Pulse 54 L 09/23/24 07:15 Resp 20 09/23/24 07:15 BP 145/91 09/23/24 07:15 Pulse Ox 94 L 09/23/24 07:15 FiO2 Intake & Output 09/22/24 09/23/24 09/23/24 18:59 06:59 18:59 Intake Total 1505 118 Output Total 320 150 Balance 1185 -150 118 Weight 95.254 kg Intake: IV 1025 Oral 480 118 Output: Urine 300 150 Estimated Blood Loss 20 Other: Voiding Method Urinal Urinal - Exam Left lower extremity: Sd bandages in good position and condition, compartments to the upper leg and lower leg both anterior and posteriorly are soft and compressible. Calf is soft, no tenderness with palpation. Surgical dressing remains intact. Sen sation to light touch is intact throughout the extremity. Dorsalis pedis pulses 2+ - Labs CBC & Chem 7: 09/23/24 06:09 09/23/24 06:09 Labs: Abnormal Lab Results - Last 24 Hours (Table) 09/23/24 09/23/24 Range/Units 06:09 06:09 RBC 4.12 L (4.40-5.60) X 10*6/uL Hgb 12.4 L (13.0-17.0) g/dL Hct 37.8 L (39.6-50.0) % BUN/Creatinine Ratio 23.86 H (12.00-20.00) Ratio Albumin 3.6 L (3.8-4.9) g/dL Albumin/Globulin Ratio 1.24 L (1.60-3.17) Ratio Assessment and Plan Assessment: Postoperative day #1 status post left knee extensor mechanism repair Plan: Pain control, continue current medications DVT prophylaxis, continue current medications Toe-touch weightbearing left lower extremity, walker at all times. Knee i mmobilizer can be open to air while resting in extension, anytime that the patient is up the knee immobilizer needs to be in place Ice and elevate Encourage incentive spirometer Medical recommendations appreciated Discharge planning: Anticipate discharge to subacute rehab when authorization is obtained Time with Patient: Less than 30
[2024-09-23] MEDS: MULTIVITAMINS, THERA 1 EACH TAB PO SCH (11:55)
[2024-09-24] MEDS: HYDROcodone/APAP 5-325MG 1 EACH TAB PO PRN (08:54)
--- NOTE | 2024-09-24 10:09 | P.PN ---
Subjective Progress Note Date: 09/24/24 Sebastian Armas is a 74-year-old male patient who was brought into [facility] due to fall and left knee injury. Patient apparently was walking around his yard when he lost his balance landing on his left side. Patient recently underwent total knee arthroplasty about 6 weeks ago. Additional medical history includes GERD, deafness, hyperlipidemia, hypertension, osteoarthritis, prostate disorder, sleep apnea, neuropathy and hiatal hernia. Imaging completed in ER left complete shoulder x-ray no definitive acute fracture superior subluxation of the left humeral head relative to the glenoid and findings compatible with chronic rotator cuff. Ankle x-ray completed showing no definitive acute fracture. Left femur CT showing no acute fracture or dislocation extensive prepatellar subcutaneous edema and moderate suprapatellar joint effusion. Venous Doppler completed showing no ultrasound evidence for DVT. Lab work completed showing white blood cell 7.4, hemoglobin 12.1, sodium 136, creatinine 0.64, bun 17. At this time orthopedic services have been consulted. Current vital signs temp 97.9, heart 64, respiratory rate 16, blood pressure 142/70 with a pulse ox of 96% on room air. Patient denies chest pain or shortness of breath. Patient denies nausea vomiting or diarrhea. Patient denies any urinary burning or frequency On 09/23/2024 patient was seen and examined on the medical floor he is alert and oriented x 3 in no apparent distress, he is complaining of left lower extremity pain otherwise he denies any complaints there is no fever or chills no headache or dizziness no chest pain no shortness of breath no cough no nausea or vomiting no abdominal pain no diarrhea and no urinary symptoms. On 09/24/2024 patient is alert and oriented x 3. Patient reports some improvem ent with pain to left lower extremity. Discharge planning in progress to [facility] awaiting orthopedic clearance. Current vital signs temp 97.8, heart rate 57, respiratory rate 18, blood pressure 142/64 with a pulse ox of 94% on room air patient denies chest pain or shortness of breath. Patient denies nausea vomiting or diarrhea. Patient denies any urinary burning or frequency Objective - Vital Signs Vital signs: Vital Signs Temp 97.5 F L 09/24/24 07:16 Pulse 55 L 09/24/24 07:16 Resp 18 09/24/24 07:16 BP 161/67 09/24/24 07:16 Pulse Ox 93 L 09/24/24 07:16 FiO2 Intake & Output 09/23/24 09/24/24 09/24/24 18:59 06:59 18:59 Intake Total 594 Output Total 500 300 Balance 94 -300 Intake: Oral 594 Output: Urine 500 300 Other: Voiding Method Urinal - Exam Head normocephalic Neck supple Lungs clear to auscultation bilaterally no wheezing or crackles Heart regular rate and rhythm S1-S2, no rub or gallop Abdomen is soft nontender nondistended positive bowel sounds no hepatosplenomegaly Extremities left knee edema Neuro alert and orientated to 3 - Labs CBC & Chem 7: 09/23/24 06:09 09/23/24 06:09 Labs: Abnormal Lab Results - Last 24 Hours (Table) 09/23/24 09/23/24 Range/Units 06:09 06:09 RBC 4.12 L (4.40-5.60) X 10*6/uL Hgb 12.4 L (13.0-17.0) g/dL Hct 37.8 L (39.6-50.0) % BUN/Creatinine Ratio 23.86 H (12.00-20.00) Ratio Albumin 3.6 L (3.8-4.9) g/dL Albumin/Globulin Ratio 1.24 L (1.60-3.17) Ratio Assessment and Plan Assessment: 1. Fall with left knee injury with left knee effusion. Status post surgical repair 2. Recent total left knee arthroplasty on 08/09/2024 3. Left shoulder rotator cuff arthropathy 4. History of essential hypertension 5. History of hyperlipidemia 6. History of anemia 7. History of previous orthopedic surgeries 8. History of BPH DVT prophylaxis defer to surgical services patient to undergo surgical intervention for left knee. GI prophylax Protonix Orthopedic services consulted Repeat labs ordered
[2024-09-24 10:35] LABS: Basophils # (A) 0.04 X 10*3/uL (0.00-0.10); Basophils % (A) 0.5 %; Eosinophils # (A) 0.49 X 10*3/uL (0.04-0.35); Eosinophils % (A) 6.7 %; HCT 35.3 % (39.6-50.0); HGB 11.6 g/dL (13.0-17.0); Lymphocytes # (A) 1.61 X 10*3/uL (0.90-5.00); MCH 30.5 pg (27.0-32.0); MCHC 32.9 g/dL (32.0-37.0); MCV 92.9 FL (80.0-97.0); Mean Platelet Volume 10.6 FL (9.5-12.2); Monocytes # (A) 0.62 X 10*3/uL (0.20-1.00); Monocytes % (A) 8.5 %; NRBC Per 100 WBC 0 X 10*3/uL (0.00-0.01); Neutrophils # (A) 4.54 X 10*3/uL (1.80-7.70); Platelet Count 217 X 10*3/uL (140-440); RDW 12.8 % (11.5-14.5); WBC 7.32 X 10*3/uL (4.50-10.00)
[2024-09-24 10:52] LABS: ALT 12 U/L (10-49); AST 23 U/L (14-35); Albumin 3.5 g/dL (3.8-4.9); Albumin/Globulin Ratio 1.25 Ratio (1.60-3.17); Alkaline Phosphatase 79 U/L (41-126); BUN/Creat Ratio 21.14 Ratio (12.00-20.00); Blood Urea Nitrogen 14.8 mg/dL (9.0-27.0); Calcium 8.7 mg/dL (8.7-10.3); Carbon Dioxide 24.9 mmol/L (21.6-31.8); Chloride 106 mmol/L (96-109); Globulin 2.8 g/dL (1.6-3.3); Glucose 90 mg/dL (70-110); Potassium 4.3 mmol/L (3.5-5.5); Sodium 139 mmol/L (135-145); Total Bilirubin 0.3 mg/dL (0.3-1.2); Total Protein 6.3 g/dL (6.2-8.2)
--- NOTE | 2024-09-24 11:10 | P.PN ---
Subjective Progress Note Date: 09/24/24 Principal diagnosis: Status post left knee extensor mechanism repair Patient evaluated at bedside today, he is resting in his hospital bed. The knee immobilizer is in good position and condition with Sd wrap around the knee. Patient does note discomfort in the knee, he notes more of a spasm in the thigh actually. Denies headaches, lightheadedness, chest pain or shortness of breath Objective - Vital Signs Vital signs: Vital Signs Temp 97.5 F L 09/24/24 07:16 Pulse 55 L 09/24/24 07:16 Resp 18 09/24/24 07:16 BP 161/67 09/24/24 07:16 Pulse Ox 93 L 09/24/24 07:16 FiO2 Intake & Output 09/23/24 09/24/24 09/24/24 18:59 06:59 18:59 Intake Total 594 Output Total 500 300 Balance 94 -300 Intake: Oral 594 Output: Urine 500 300 Other: Voiding Method Urinal Urinal - Exam Left lower extremity: Postop dressing was removed today, jess in good position and condition. Minimal ecchymosis and swelling., compartments to the upper leg and lower leg both anterior and posteriorly are soft and compressible. Calf is soft, no tenderness with palpation. Surgical dressing remains intact. Sensation to l ight touch is intact throughout the extremity. Dorsalis pedis pulses 2+ - Labs CBC & Chem 7: 09/24/24 06:56 09/24/24 06:56 Labs: Abnormal Lab Results - Last 24 Hours (Table) 09/24/24 09/24/24 Range/Units 06:56 06:56 RBC 3.80 L (4.40-5.60) X 10*6/uL Hgb 11.6 L (13.0-17.0) g/dL Hct 35.3 L (39.6-50.0) % Eosinophils # 0.49 H (0.04-0.35) X 10*3/uL BUN/Creatinine Ratio 21.14 H (12.00-20.00) Ratio Albumin 3.5 L (3.8-4.9) g/dL Albumin/Globulin Ratio 1.25 L (1.60-3.17) Ratio Assessment and Plan Assessment: Postoperative day #2 status post left knee extensor mechanism repair Plan: Pain control, continue current medications DVT prophylaxis, continue current medications Toe-touch weightbearing left lower extremity, walker at all times. Knee immobilizer can be open to air while resting in extension, anytime that the patient is up the knee immobilizer needs to be in place Ice and elevate Encourage incentive spirometer Medical recommendations appreciated Discharge planning: Anticipate discharge to subacute rehab on 09/25/2024 Time with Patient: Less than 30
[2024-09-25 09:31] LABS: Basophils # (A) 0.04 X 10*3/uL (0.00-0.10); Basophils % (A) 0.7 %; Eosinophils # (A) 0.44 X 10*3/uL (0.04-0.35); Eosinophils % (A) 7.4 %; HCT 34.3 % (39.6-50.0); HGB 11.2 g/dL (13.0-17.0); Lymphocytes # (A) 1.28 X 10*3/uL (0.90-5.00); Lymphocytes % (A) 21.7 %; MCH 29.4 pg (27.0-32.0); MCHC 32.7 g/dL (32.0-37.0); Monocytes % (A) 8.5 %; NRBC Per 100 WBC 0 X 10*3/uL (0.00-0.01); Neutrophils # (A) 3.63 X 10*3/uL (1.80-7.70); Neutrophils % (A) 61.4 %; Platelet Count 206 X 10*3/uL (140-440); RBC 3.81 X 10*6/uL (4.40-5.60); RDW 12.5 % (11.5-14.5); WBC 5.91 X 10*3/uL (4.50-10.00)
--- NOTE | 2024-09-25 11:01 | P.PN ---
Subjective Progress Note Date: 09/25/24 Principal diagnosis: Status post left knee extensor mechanism repair Patient evaluated at bedside today, he is resting in his hospital bed. Patient is doing okay at this time. His pain is well-controlled. Denies headaches, lightheadedness, chest pain or shortness of breath Objective - Vital Signs Vital signs: Vital Signs Temp 97.9 F 09/25/24 07:13 Pulse 53 L 09/25/24 07:13 Resp 16 09/25/24 07:13 BP 143/76 09/25/24 07:13 Pulse Ox 95 09/25/24 07:13 FiO2 Intake & Output 09/24/24 09/25/24 09/25/24 18:59 06:59 18:59 Intake Total 600 300 Balance 600 300 Intake: Intake, IV Titration 600 Amount Sodium Chloride 0.9% 1, 600 000 ml @ 50 mls/hr IV . Q20H DEBBIE Rx#:[id number] Oral 300 Other: Voiding Method Urinal Urinal # Bowel Movements 1 - Exam Left lower extremity: Postop dressing is clean dry and intact. Minimal ecchymosis and swelling., compartments to the upper leg and lower leg both anterior and posteriorly are soft and compressible. Calf is soft, no tenderness with palpation. Surgical dressing remains intact. Sensation to light touch is intact throughout the extremity. Dorsalis pedis pulses 2+ - Labs CBC & Chem 7: 09/25/24 05:05 09/24/24 06:56 Labs: Abnormal Lab Results - Last 24 Hours (Table) 09/25/24 Range/Units 05:05 RBC 3.81 L (4.40-5.60) X 10*6/uL Hgb 11.2 L (13.0-17.0) g/dL Hct 34.3 L (39.6-50.0) % Eosinophils # 0.44 H (0.04-0.35) X 10*3/uL Assessment and Plan Assessment: Postoperative day #3 status post left knee extensor mechanism repair Plan: Pain control, continue current medications DVT prophylaxis, continue current medications Toe-touch weightbearing left lower extremity, walker at all times. Knee immobilizer can be open to air while resting in extension, anytime that the patient is up the knee immobilizer needs to be in place Ice and elevate Encourage incentive spirometer Medical recommendations appreciated Discharge planning: Anticipate discharge to subacute rehab on 09/27/2024 Time with Patient: Less than 30
--- NOTE | 2024-09-25 12:03 | P.PN ---
Subjective Progress Note Date: 09/25/24 Sebastian Armas is a 74-year-old male patient who was brought into [facility] due to fall and left knee injury. Patient apparently was walking around his yard when he lost his balance landing on his left side. Patient recently underwent total knee arthroplasty about 6 weeks ago. Additional medical history includes GERD, deafness, hyperlipidemia, hypertension, osteoarthritis, prostate disorder, sleep apnea, neuropathy and hiatal hernia. Imaging completed in ER left complete shoulder x-ray no definitive acute fracture superior subluxation of the left humeral head relative to the glenoid and findings compatible with chronic rotator cuff. Ankle x-ray completed showing no definitive acute fracture. Left femur CT showing no acute fracture or dislocation extensive prepatellar subcutaneous edema and moderate suprapatellar joint effusion. Venous Doppler completed showing no ultrasound evidence for DVT. Lab work completed showing white blood cell 7.4, hemoglobin 12.1, sodium 136, creatinine 0.64, bun 17. At this time orthopedic services have been consulted. Current vital signs temp 97.9, heart 64, respiratory rate 16, blood pressure 142/70 with a pulse ox of 96% on room air. Patient denies chest pain or shortness of breath. Patient denies nausea vomiting or diarrhea. Patient denies any urinary burning or frequency On 09/23/2024 patient was seen and examined on the medical floor he is alert and oriented x 3 in no apparent distress, he is complaining of left lower extremity pain otherwise he denies any complaints there is no fever or chills no headache or dizziness no chest pain no shortness of breath no cough no nausea or vomiting no abdominal pain no diarrhea and no urinary symptoms. On 09/24/2024 patient is alert and oriented x 3. Patient reports some improvem ent with pain to left lower extremity. Discharge planning in progress to [facility] awaiting orthopedic clearance. Current vital signs temp 97.8, heart rate 57, respiratory rate 18, blood pressure 142/64 with a pulse ox of 94% on room air patient denies chest pain or shortness of breath. Patient denies nausea vomiting or diarrhea. Patient denies any urinary burning or frequency. On 09/25/2024 patient was seen and examined on the medical floor, he is alert and oriented x 3 in no apparent distress, his lower extremity pain is better controlled, there is no fever or chills no headache or dizziness no chest pain no shortness of breath no cough no nausea or vomiting no abdominal pain no diarrhea no urinary symptoms. Input from orthopedic surgery reviewed, patient will need to transfer to rehab in the next 2 to 3 days. Objective - Vital Signs Vital signs: Vital Signs Temp 97.9 F 09/25/24 07:13 Pulse 53 L 09/25/24 07:13 Resp 16 09/25/24 07:13 BP 143/76 09/25/24 07:13 Pulse Ox 95 09/25/24 07:13 FiO2 Intake & Output 09/24/24 09/25/24 09/25/24 18:59 06:59 18:59 Intake Total 600 300 Balance 600 300 Intake: Intake, IV Titration 600 Amount Sodium Chloride 0.9% 1, 600 000 ml @ 50 mls/hr IV . Q20H DEBBIE Rx#:[id number] Oral 300 Other: Voiding Method Urinal Urinal # Bowel Movements 1 - Exam Head normocephalic Neck supple Lungs clear to auscultation bilaterally no wheezing or crackles Heart regular rate and rhythm S1-S2, no rub or gallop Abdomen is soft nontender nondistended positive bowel sounds no hepatosplenomegaly Extremities left knee edema Neuro alert and orientated to 3 - Labs CBC & Chem 7: 09/25/24 05:05 09/24/24 06:56 Labs: Abnormal Lab Results - Last 24 Hours (Table) 09/24/24 09/24/24 Range/Units 06:56 06:56 RBC 3.80 L (4.40-5.60) X 10*6/uL Hgb 11.6 L (13.0-17.0) g/dL Hct 35.3 L (39.6-50.0) % Eosinophils # 0.49 H (0.04-0.35) X 10*3/uL BUN/Creatinine Ratio 21.14 H (12.00-20.00) Ratio Albumin 3.5 L (3.8-4.9) g/dL Albumin/Globulin Ratio 1.25 L (1.60-3.17) Ratio Assessment and Plan Assessment: 1. Fall with left knee injury with left knee effusion. Status post surgical repair 2. Recent total left knee arthroplasty on 08/09/2024 3. Left shoulder rotator cuff arthropathy 4. History of essential hypertension 5. History of hyperlipidemia 6. History of anemia 7. History of previous orthopedic surgeries 8. History of BPH DVT prophylaxis defer to surgical services patient to undergo surgical i ntervention for left knee. GI prophylax Protonix Orthopedic services consulted Repeat labs ordered
--- NOTE | 2024-09-26 09:22 | P.PN ---
Subjective Progress Note Date: 09/26/24 Sebastian Armas is a 74-year-old male patient who was brought into [facility] due to fall and left knee injury. Patient apparently was walking around his yard when he lost his balance landing on his left side. Patient recently underwent total knee arthroplasty about 6 weeks ago. Additional medical history includes GERD, deafness, hyperlipidemia, hypertension, osteoarthritis, prostate disorder, sleep apnea, neuropathy and hiatal hernia. Imaging completed in ER left complete shoulder x-ray no definitive acute fracture superior subluxation of the left humeral head relative to the glenoid and findings compatible with chronic rotator cuff. Ankle x-ray completed showing no definitive acute fracture. Left femur CT showing no acute fracture or dislocation extensive prepatellar subcutaneous edema and moderate suprapatellar joint effusion. Venous Doppler completed showing no ultrasound evidence for DVT. Lab work completed showing white blood cell 7.4, hemoglobin 12.1, sodium 136, creatinine 0.64, bun 17. At this time orthopedic services have been consulted. Current vital signs temp 97.9, heart 64, respiratory rate 16, blood pressure 142/70 with a pulse ox of 96% on room air. Patient denies chest pain or shortness of breath. Patient denies nausea vomiting or diarrhea. Patient denies any urinary burning or frequency On 09/23/2024 patient was seen and examined on the medical floor he is alert and oriented x 3 in no apparent distress, he is complaining of left lower extremity pain otherwise he denies any complaints there is no fever or chills no headache or dizziness no chest pain no shortness of breath no cough no nausea or vomiting no abdominal pain no diarrhea and no urinary symptoms. On 09/24/2024 patient is alert and oriented x 3. Patient reports some improvem ent with pain to left lower extremity. Discharge planning in progress to [facility] awaiting orthopedic clearance. Current vital signs temp 97.8, heart rate 57, respiratory rate 18, blood pressure 142/64 with a pulse ox of 94% on room air patient denies chest pain or shortness of breath. Patient denies nausea vomiting or diarrhea. Patient denies any urinary burning or frequency. On 09/25/2024 patient was seen and examined on the medical floor, he is alert and oriented x 3 in no apparent distress, his lower extremity pain is better controlled, there is no fever or chills no headache or dizziness no chest pain no shortness of breath no cough no nausea or vomiting no abdominal pain no diarrhea no urinary symptoms. Input from orthopedic surgery reviewed, patient will need to transfer to rehab in the next 2 to 3 days. On 09/26/2024 patient's alert and oriented 3. Patient complaining of headache today. Discharge planning in progress to [facility]. Patient denies chest pain or shortness breath. Patient denies nausea vomiting or diarrhea. Patient denies urinary burningOr frequency. Current vital signs temp 97.6, heart 59, respiratory rate 18, blood pressure 126/73 with pulse ox 96% on room air. Objective - Vital Signs Vital signs: Vital Signs Temp 97.6 F 09/26/24 07:04 Pulse 59 L 09/26/24 07:04 Resp 18 09/26/24 07:04 BP 126/73 09/26/24 07:04 Pulse Ox 96 09/26/24 07:04 FiO2 Intake & Output 09/25/24 09/26/24 09/26/24 18:59 06:59 18:59 Output Total 300 300 Balance -300 -300 Output: Urine 300 300 Other: Voiding Method Urinal Urinal # Bowel Movements 1 - Exam Head normocephalic Neck supple Lungs clear to auscultation bilaterally no wheezing or crackles Heart regular rate and rhythm S1-S2, no rub or gallop Abdomen is soft nontender nondistended positive bowel sounds no hepatosplenomegaly Extremities left knee edema Neuro alert and orientated to 3 - Labs CBC & Chem 7: 09/25/24 05:05 09/24/24 06:56 Labs: Abnormal Lab Results - Last 24 Hours (Table) 09/25/24 Range/Units 05:05 RBC 3.81 L (4.40-5.60) X 10*6/uL Hgb 11.2 L (13.0-17.0) g/dL Hct 34.3 L (39.6-50.0) % Eosinophils # 0.44 H (0.04-0.35) X 10*3/uL Assessment and Plan Assessment: 1. Fall with left knee injury with left knee effusion. Status post surgical repair 2. Recent total left knee arthroplasty on 08/09/2024 3. Left shoulder rotator cuff arthropathy 4. History of essential hypertension 5. History of hyperlipidemia 6. History of anemia 7. History of previous orthopedic surgeries 8. History of BPH DVT prophylaxis defer to surgical services patient to undergo surgical intervention for left knee. GI prophylax Protonix Orthopedic services consulted Repeat labs ordered
--- NOTE | 2024-09-26 11:47 | P.PN ---
Progress Note - Text Progress Note Date: 09/26/24 S: Patient was sleeping upon arrival, CPAP in place. O: Knee immobilizer is in place. A: Status post left knee extensor mechanism repair P: Nonweightbearing left lower extremity, knee immobilizer to be utilized when up with walker. Ice and elevate often. Plan for discharge to subacute rehab tomorrow
[2024-09-27 07:57] VITALS: RESP 18
[2024-09-27 08:34] LABS: Basophils # (A) 0.04 X 10*3/uL (0.00-0.10); Basophils % (A) 0.7 %; Eosinophils # (A) 0.44 X 10*3/uL (0.04-0.35); Eosinophils % (A) 7.2 %; HCT 35.9 % (39.6-50.0); Lymphocytes # (A) 1.21 X 10*3/uL (0.90-5.00); Lymphocytes % (A) 19.8 %; MCH 29.8 pg (27.0-32.0); MCHC 33.4 g/dL (32.0-37.0); MCV 89.1 FL (80.0-97.0); Mean Platelet Volume 10.6 FL (9.5-12.2); Monocytes # (A) 0.61 X 10*3/uL (0.20-1.00); NRBC Per 100 WBC 0 X 10*3/uL (0.00-0.01); Platelet Count 240 X 10*3/uL (140-440); RBC 4.03 X 10*6/uL (4.40-5.60); RDW 12.7 % (11.5-14.5); WBC 6.12 X 10*3/uL (4.50-10.00)
[2024-09-27 08:58] LABS: ALT 27 U/L (10-49); AST 37 U/L (14-35); Albumin 3.5 g/dL (3.8-4.9); Albumin/Globulin Ratio 1.35 Ratio (1.60-3.17); Alkaline Phosphatase 82 U/L (41-126); BUN/Creat Ratio 18.67 Ratio (12.00-20.00); Blood Urea Nitrogen 11.2 mg/dL (9.0-27.0); Calcium 8.9 mg/dL (8.7-10.3); Carbon Dioxide 24.7 mmol/L (21.6-31.8); Chloride 102 mmol/L (96-109); Globulin 2.6 g/dL (1.6-3.3); Glucose 95 mg/dL (70-110); Potassium 4.1 mmol/L (3.5-5.5); Sodium 138 mmol/L (135-145); Total Bilirubin 0.3 mg/dL (0.3-1.2); Total Protein 6.1 g/dL (6.2-8.2)
--- NOTE | 2024-09-27 12:07 | P.PN ---
Subjective Progress Note Date: 09/27/24 Principal diagnosis: Status post left knee extensor mechanism repair Patient evaluated at bedside today, he is resting in his hospital bed. Patient is doing okay at this time. His pain is well-controlled. Denies headaches, lightheadedness, chest pain or shortness of breath Objective - Vital Signs Vital signs: Vital Signs Temp 98.1 F 09/27/24 07:32 Pulse 56 L 09/27/24 07:32 Resp 18 09/27/24 07:32 BP 157/74 09/27/24 07:32 Pulse Ox 95 09/27/24 07:32 FiO2 Intake & Output 09/26/24 09/27/24 09/27/24 18:59 06:59 18:59 Output Total 1100 400 Balance -1100 -400 Output: Urine 1100 400 Other: Voiding Method Urinal # Voids 3 - Exam Left lower extremity: Postop dressing is clean dry and intact. Minimal ecchymosis and swelling., compartments to the upper leg and lower leg both anterior and posteriorly are soft and compressible. Calf is soft, no tenderness with palpation. Surgical dressing remains intact. Sensation to light touch is intact throughout the extremity. Dorsalis pedis pulses 2+ - Labs CBC & Chem 7: 09/27/24 03:42 09/27/24 03:42 Labs: Abnormal Lab Results - Last 24 Hours (Table) 09/27/24 09/27/24 Range/Units 03:42 03:42 RBC 4.03 L (4.40-5.60) X 10*6/uL Hgb 12.0 L (13.0-17.0) g/dL Hct 35.9 L (39.6-50.0) % Eosinophils # 0.44 H (0.04-0.35) X 10*3/uL AST 37 H (14-35) U/L Total Protein 6.1 L (6.2-8.2) g/dL Albumin 3.5 L (3.8-4.9) g/dL Albumin/Globulin Ratio 1.35 L (1.60-3.17) Ratio Assessment and Plan Assessment: Postoperative day #5 status post left knee extensor mechanism repair Plan: Pain control, continue current medications DVT prophylaxis, aspirin 81mg bid Toe-touch weightbearing left lower extremity, walker at all times. Knee immobilizer can be open to air while resting in extension, anytime that the patient is up the knee immobilizer needs to be in place Ice and elevate Encourage incentive spirometer Medical recommendations appreciated Discharge planning: stable for dc to rehab today Time with Patient: Less than 30
--- NOTE | 2024-09-27 12:08 | P.DS ---
Providers Date of admission: 09/22/24 13:01 Expected date of discharge: 09/27/24 Attending physician: Meenu Werner Consults: 09/22/24 00:14 Consult Physician Urgent Consulting Provider: Chris Duran Consult Reason/Comments: left leg pain/swelling Do you want consulting provider notified?: Yes Primary care physician: Juani Nation Hospital Course: Date of admission: 09/21/2024 Date of discharge: 09/27/2024 Admission diagnosis: Left knee extensor mechanism injury Discharge diagnosis: Status post left knee extensor mechanism repair Attending physician: Dr. Duran Surgical procedures: Left knee extensor mechanism repair Brief history: Patient is a 74-year-old male with a history of a previous left total knee arthroplasty that was done about 8 weeks ago. Initially patient had been doing very well in the postoperative period. He was brought to the ER on 09/21/2024 after falling in his yard hyperflexing his knee. I was able to evaluate the patient at that time, there was obvious damage to the extensor mechanism of his left knee, he was boarded for surgery for left 09/21/2024. Hospital course: Details of patient's surgery can be found in operative report. Patient tolerated the procedure well and was subsequently transported to orthopedic floor. Patient's orthopeidc and medical care was provided daily. Patient had daily laboratory tests performed for evaluation of overall blood counts. Patient had daily physical therapy to include strengthening range of motion as well as education with walker ambulation. Patient was treated with aspirin for their postoperative DVT prophylaxis during their inpatient stay. Patient was noted to have a relatively uneventful postoperative course. Patient reported satisfactory pain control with oral pain medications by postoperative day 1. Patient showed satisfactory progress with physical therapy. Patient moved steadily through the program and had no difficulty meeting the goals by postoperative day 6. Given patient's otherwise satisfactory course and having met physical therapy goals, plan is to discharge patient subacute rehab on postoperative day 6. Discharge condition/disposition: Patient will be discharged subacute rehab in stable condition. Discharge medications: Instructions are given on resumption of patient's normal daily medications per primary care recommendation, in addition patient will be prescribed [place] 7.5mg, asprin 325mg, senna S, Flexeril 10g. Discharge instructions: 1. Wound care and infection precautions, keep incision dry and covered while showering, no lotions, creams, moisturizers. No soaking, tubs, pools, hottubs. Do not scrub over the incision. 2. Toe-touch weightbearing, utilize walker at all times. Brace must be on knee when up and ambulating. When resting, okay to remove brace but knee must stay in full extension 3. Ice and elevate when necessary. Do not exceed 20 minutes per hour with ice pack. 4. Utilize compression sleeve until seen at first follow up appointment. 5. Visiting nursing care. 7. Pain meds and anticoagulants per prescription. 8. Pain medication has potential to cause constipation. Increase oral fluid and fiber intake. Contact primary care provider if you have not had a bowel movement within 48 hours after discharge 9. No anti-inflammatory medication until discussed at first post operative visit, this including Motrin, Aleve, Mobic, Diclofenac. 10. Follow up in office at 2 weeks postop with Scott Hernandez PA-C/Feliz Hager 11. Follow up with your primary care doctor 7-10 days after discharge. 12. Contact [facility] with any questions, . Procedures: Left knee extensor mechanism repair Patient Condition at Discharge: Stable Plan - Discharge Summary Discharge Rx Participant: No New Discharge Prescriptions: New HYDROcodone/APAP 7.5-325MG [[place] 7.5] 1 each PO Q6HR PRN #28 tab PRN Reason: Pain Cyclobenzaprine [Flexeril] 10 mg PO TID PRN #30 tab PRN Reason: Muscle Spasm Aspirin 325 mg PO DAILY #30 tab Sennosides/Docusate Sodium [Senna-S 8.6-50 mg Tablet] 2 each PO DAILY PRN #30 tablet PRN Reason: Constipation No Action Rosuvastatin Calcium [Crestor] 10 mg PO HS Omeprazole [PriLOSEC] 20 mg PO DAILY Gabapentin [Neurontin] 300 mg PO HS Ipratropium [place] 0.06%Nasal [Atrovent Nasal 0.06%] 2 spray EA NOSTRIL BID Ferrous Sulfate [Iron (65 MG Elemental)] 325 mg PO BID-W/MEALS #60 tab Cholecalciferol (Vitamin D3) [Vitamin D3 (50 Mcg = 2000 Iu)] 100 mcg PO DAILY Mv-Mn/Folic/Lutein/Herbal 293 [Alive Men 50 Plus Premium Chew] 1 tab PO DAILY carvediloL [Coreg] 3.125 mg PO HS Melatonin 10 mg PO HS Gabapentin [Neurontin] 100 mg PO DAILY Valsartan [Diovan] 80 mg PO BID #60 tab Tamsulosin [Flomax] 0.4 mg PO BID Glucosa Chavarria 2Kcl/Chondroitin Chavarria [Glucosamine-Chondroitin Cap] 1 cap PO DAILY carvediloL [Coreg] 6.25 mg PO DAILY Spironolactone [Aldactone] 25 mg PO DAILY Magnesium Oxide [Magnesium] 500 mg PO DAILY HYDROcodone/APAP 7.5-325MG [[place] 7.5-325] 1 tab PO Q6HR PRN PRN Reason: Pain Discharge Medication List Omeprazole [PriLOSEC] 20 mg PO DAILY 11/15/15 [History] Rosuvastatin Calcium [Crestor] 10 mg PO HS 11/15/15 [History] Gabapentin [Neurontin] 300 mg PO HS 05/27/16 [History] Gabapentin [Neurontin] 100 mg PO DAILY 09/13/21 [History] Ipratropium [place] 0.06%Nasal [Atrovent Nasal 0.06%] 2 spray EA NOSTRIL BID 11/14/21 [History] Valsartan [Diovan] 80 mg PO BID #60 tab 07/04/22 [Rx] Ferrous Sulfate [Iron (65 MG Elemental)] 325 mg PO BID-W/MEALS #60 tab 07/06/22 [Rx] Cholecalciferol (Vitamin D3) [Vitamin D3 (50 Mcg = 2000 Iu)] 100 mcg PO DAILY 08/03/24 [History] Tamsulosin [Flomax] 0.4 mg PO BID 08/03/24 [History] Glucosa Chavarria 2Kcl/Chondroitin Chavarria [Glucosamine-Chondroitin Cap] 1 cap PO DAILY 09/22/24 [History] HYDROcodone/APAP 7.5-325MG [[place] 7.5-325] 1 tab PO Q6HR PRN 09/22/24 [History] Magnesium Oxide [Magnesium] 500 mg PO DAILY 09/22/24 [History] Melatonin 10 mg PO HS 09/22/24 [History] Mv-Mn/Folic/Lutein/Herbal 293 [Alive Men 50 Plus Premium Chew] 1 tab PO DAILY 09/22/24 [History] Spironolactone [Aldactone] 25 mg PO DAILY 09/22/24 [History] carvediloL [Coreg] 3.125 mg PO HS 09/22/24 [History] carvediloL [Coreg] 6.25 mg PO DAILY 09/22/24 [History] Aspirin 325 mg PO DAILY #30 tab 09/27/24 [Rx] Cyclobenzaprine [Flexeril] 10 mg PO TID PRN #30 tab 09/27/24 [Rx] HYDROcodone/APAP 7.5-325MG [[place] 7.5] 1 each PO Q6HR PRN #28 tab 09/27/24 [Rx] Sennosides/Docusate Sodium [Senna-S 8.6-50 mg Tablet] 2 each PO DAILY PRN #30 tablet 09/27/24 [Rx] Follow up Appointment(s)/Referral(s): Juani Nation MD [Primary Care Provider] - 1-2 days Kris Hernandez PAC [PHYSICIAN CHAIN MENDER] - 10 Days Activity/Diet/Wound Care/Special Instructions: Orthopedic discharge instructions: 1. Toe-touch weightbearing, utilize walker at all times. Knee brace must be worn when ambulating 2. Ice and elevate the extremity, keep in full extension 3. Pain medication as needed 4. Resume home medications 5. Okay to shower directly over the incision 6. Plan for follow-up in the outpatient setting in the next 10 to 12 days Discharge Disposition: TRANSFER TO SNF/ECF
[2024-09-27 13:15] VITALS: BP 128/63; PULSE 57; TEMP 98
--- NOTE | 2024-09-27 17:40 | P.PN ---
Subjective Progress Note Date: 09/27/24 Sebastian Armas is a 74-year-old male patient who was brought into [facility] due to fall and left knee injury. Patient apparently was walking around his yard when he lost his balance landing on his left side. Patient recently underwent total knee arthroplasty about 6 weeks ago. Additional medical history includes GERD, deafness, hyperlipidemia, hypertension, osteoarthritis, prostate disorder, sleep apnea, neuropathy and hiatal hernia. Imaging completed in ER left complete shoulder x-ray no definitive acute fracture superior subluxation of the left humeral head relative to the glenoid and findings compatible with chronic rotator cuff. Ankle x-ray completed showing no definitive acute fracture. Left femur CT showing no acute fracture or dislocation extensive prepatellar subcutaneous edema and moderate suprapatellar joint effusion. Venous Doppler completed showing no ultrasound evidence for DVT. Lab work completed showing white blood cell 7.4, hemoglobin 12.1, sodium 136, creatinine 0.64, bun 17. At this time orthopedic services have been consulted. Current vital signs temp 97.9, heart 64, respiratory rate 16, blood pressure 142/70 with a pulse ox of 96% on room air. Patient denies chest pain or shortness of breath. Patient denies nausea vomiting or diarrhea. Patient denies any urinary burning or frequency On 09/23/2024 patient was seen and examined on the medical floor he is alert and oriented x 3 in no apparent distress, he is complaining of left lower extremity pain otherwise he denies any complaints there is no fever or chills no headache or dizziness no chest pain no shortness of breath no cough no nausea or vomiting no abdominal pain no diarrhea and no urinary symptoms. On 09/24/2024 patient is alert and oriented x 3. Patient reports some improvem ent with pain to left lower extremity. Discharge planning in progress to [facility] awaiting orthopedic clearance. Current vital signs temp 97.8, heart rate 57, respiratory rate 18, blood pressure 142/64 with a pulse ox of 94% on room air patient denies chest pain or shortness of breath. Patient denies nausea vomiting or diarrhea. Patient denies any urinary burning or frequency. On 09/25/2024 patient was seen and examined on the medical floor, he is alert and oriented x 3 in no apparent distress, his lower extremity pain is better controlled, there is no fever or chills no headache or dizziness no chest pain no shortness of breath no cough no nausea or vomiting no abdominal pain no diarrhea no urinary symptoms. Input from orthopedic surgery reviewed, patient will need to transfer to rehab in the next 2 to 3 days. On 09/26/2024 patient's alert and oriented 3. Patient complaining of headache today. Discharge planning in progress to [facility]. Patient denies chest pain or shortness breath. Patient denies nausea vomiting or diarrhea. Patient denies urinary burningOr frequency. Current vital signs temp 97.6, heart 59, respiratory rate 18, blood pressure 126/73 with pulse ox 96% on room air. On 09/27/2024 patient was seen and examined on the medical floor he is alert and oriented x 3 in no apparent distress there is no fever or chills no headache or dizziness no chest pain no shortness of breath no cough no nausea or vomiting no abdominal pain no diarrhea and no urinary symptoms. Patient is medically clear [facility]. Objective - Vital Signs Vital signs: Vital Signs Temp 98.4 F 09/27/24 01:17 Pulse 58 L 09/27/24 01:17 Resp 16 09/27/24 01:17 BP 130/74 09/27/24 01:17 Pulse Ox 95 09/27/24 01:17 FiO2 Intake & Output 09/26/24 09/27/24 09/27/24 18:59 06:59 18:59 Output Total 1100 400 Balance -1100 -400 Output: Urine 1100 400 Other: Voiding Method Urinal # Voids 3 - Exam Head normocephalic Neck supple Lungs clear to auscultation bilaterally no wheezing or crackles Heart regular rate and rhythm S1-S2, no rub or gallop Abdomen is soft nontender nondistended positive bowel sounds no hepatosplenomegaly Extremities left knee edema Neuro alert and orientated to 3 - Labs CBC & Chem 7: 09/27/24 03:42 09/27/24 03:42 Assessment and Plan Assessment: 1. Fall with left knee injury with left knee effusion. Status post surgical repair 2. Recent total left knee arthroplasty on 08/09/2024 3. Left shoulder rotator cuff arthropathy 4. History of essential hypertension 5. History of hyperlipidemia 6. History of anemia 7. History of previous orthopedic surgeries 8. History of BPH DVT prophylaxis defer to surgical services patient to undergo surgical intervention for left knee. GI prophylax Protonix Orthopedic services consulted Repeat labs ordered
== END 2024-09-27 17:31 | disposition home or self-care (01) ==
LOC: EC 17:06 → 5NMEDONC 09-22 00:32 → OBSVTOIN 09-22 13:01 → INTOOBSV 09-22 13:01 → UNDODISIN 09-27 17:31
PROVIDERS: ADMIT Internal Medicine; ATTEND Internal Medicine
DX: S76.112A Strain of left quadriceps muscle, fascia and tendon, initial encounter (principal); W01.0XXA Fall on same level from slipping, tripping and stumbling without subsequent striking against object, initial encounter; M25.462 Effusion, left knee; D64.9 Anemia, unspecified; M19.012 Primary osteoarthritis, left shoulder; M16.12 Unilateral primary osteoarthritis, left hip; K21.9 Gastro-esophageal reflux disease without esophagitis; E78.5 Hyperlipidemia, unspecified; I10 Essential (primary) hypertension; G47.33 Obstructive sleep apnea (adult) (pediatric); N40.0 Benign prostatic hyperplasia without lower urinary tract symptoms; G62.9 Polyneuropathy, unspecified; Z79.899 Other long term (current) drug therapy; Z79.82 Long term (current) use of aspirin; Z87.891 Personal history of nicotine dependence; Z96.653 Presence of artificial knee joint, bilateral
CPT/HCPCS: 96372 ×6; 96374; 96375; 99285; 36415; 93005; 97162; 97530; 97535 ×2; 97167; 80053 ×4; 85025 ×5; 85610; 73030; 73502; 73562; 73610; 93971; 73700; 27385; G0378 ×6; J0330; J2270; J1200; J1100; J0690 ×2; J2405; J2003; J3010; J1650 ×6; J1171 ×3; J1885 ×2; J2704

== ENCOUNTER 2025-01-05 16:29 | Inpatient (IN) | payer MEDICARE ==
--- NOTE | 2025-01-05 16:54 | P.HPOR ---
History of Present Illness H&P Date: 01/05/25 Chief Complaint: Left knee wound, left knee cellulitis Patient is a 74-year-old male who is known to our orthopedic practice. Patient originally had undergone a left total knee arthroplasty back in July [address] Duran. Patient had been doing very well in his recovery, at 6 weeks postop he did fall injuring the left knee, he underwent surgery in August 2024 for repair of the quadriceps tendon, medial retinacular and patellar tendon on the left knee. Patient has been rehabbing since that last surgery. It was noted in mid October 2024 he had a small wound over the anterior aspect of the knee that had developed. Conservative measures have been taken over the last 6 to 8 weeks, he has been following with the wound care clinic. We have been seeing the patient every week to 2 weeks for recheck and the wound had been improving significantly. Patient was evaluated today in the outpatient setting after our office was contacted by the home nurse due to reported redness and drainage from the wound. On evaluation today in office patient had notable erythema to the anterior aspect of the knee, there was bloody purulent drainage appreciated over the anterior aspect of the wound. Patient admits to noticing the erythema or so over the last day or 2, he has noticed some worsening discomfort with the knee over the last 3 to 4 days. He denies any recent trauma. Patient has continued to ambulate with the assistance of a walker. He has been working with both in- home physical therapy. Patient denies any fevers or chills at this time. Patient denies any other orthopedic complaints at this time. Dr. Duran was available today in the office to evaluate the patient, we recommended admission to the hospital and plan for orthopedic surgical intervention on 01/06/2025. Review of Systems Constitutional: Reports as per HPI Past Medical History Past Medical History: GERD/Reflux, Hearing Disorder / Deafness, Hyperlipidemia, Hypertension, Osteoarthritis (OA), Prostate Disorder, Sleep Apnea/CPAP/BIPAP Additional Past Medical History / Comment(s): paraesophageal hernia post repair, COVID 19 04/2022, Diverticulosis, Hard of hearing, charcoat joints and feet, moderate peripheral neuropathy of feet, ORTIZ uses CPAP, hx small bowel blockage 09/16, hx anemia, current hiatal hernia. History of Any Multi-Drug Resistant Organisms: None Reported Past Surgical History: Hernia Repair, Joint Replacement, Orthopedic Surgery, Prostate Surgery Additional Past Surgical History / Comment(s): Reconstruction of left foot, ongoing, right shoulder screw placed, right total knee replacement, right/ANKLE foot - plate and screws, bilateral foot surgeries, EGD/barium swallow. COLONO SCOPY, HIATAL HERNIA AND UMBILICAL HERNIA REPAIR, NUMEROUS PICC LINES R/T BONE INFECTIONS, total left knee 08/09/24 Past Anesthesia/Blood Transfusion Reactions: Postoperative Nausea & Vomiting (PONV) Additional Past Anesthesia/Blood Transfusion Reaction / Comment(s): "Had vomiting with aspiration, experienced Sick Sinus Syndrome during anesthesia 0 05/14, followed up with Dr Ley and was placed on heart monitor. Smoking Status: Former smoker - Past Family History Father Family Medical History: AICD/Pacemaker, Osteoarthritis (OA), Thyroid Disorder Mother Family Medical History: Cancer, Hypertension Additional Family Medical History / Comment(s): Colon and ovarian cancer. Medications and Allergies Home Medications Medication Instructions Recorded Confirmed Type Omeprazole [PriLOSEC] 20 mg PO DAILY 11/15/15 09/22/24 History Rosuvastatin Calcium [Crestor] 10 mg PO HS 11/15/15 09/22/24 History Gabapentin [Neurontin] 300 mg PO HS 05/27/16 09/22/24 History Gabapentin [Neurontin] 100 mg PO DAILY 09/13/21 09/22/24 History Ipratropium [place] 0.06%Nasal 2 spray EA NOSTRIL BID 11/14/21 09/22/24 History [Atrovent Nasal 0.06%] Valsartan [Diovan] 80 mg PO BID #60 tab 07/04/22 09/22/24 Rx Ferrous Sulfate [Iron (65 MG 325 mg PO BID-W/MEALS #60 tab 07/06/22 09/22/24 Rx Elemental)] Cholecalciferol (Vitamin D3) 100 mcg PO DAILY 08/03/24 09/22/24 History [Vitamin D3 (50 Mcg = 2000 Iu)] Tamsulosin [Flomax] 0.4 mg PO BID 08/03/24 09/22/24 History Glucosa Chavar[place] 2Kcl/Chondroitin [place] 1 cap PO DAILY 09/22/24 09/22/24 History [Glucosamine-Chondroitin Cap] HYDROcodone/APAP 7.5-325MG [[place] 1 tab PO Q6HR PRN 09/22/24 09/22/24 History 7.5-325] Magnesium Oxide [Magnesium] 500 mg PO DAILY 09/22/24 09/22/24 History Melatonin 10 mg PO HS 09/22/24 09/22/24 History Mv-Mn/Folic/Lutein/Herbal 293 1 tab PO DAILY 09/22/24 09/22/24 History [Alive Men 50 Plus Premium Chew] Spironolactone [Aldactone] 25 mg PO DAILY 09/22/24 09/22/24 History carvediloL [Coreg] 3.125 mg PO HS 09/22/24 09/22/24 History carvediloL [Coreg] 6.25 mg PO DAILY 09/22/24 09/22/24 History Aspirin 325 mg PO DAILY #30 tab 09/27/24 Rx Cyclobenzaprine [Flexeril] 10 mg PO TID PRN #30 tab 09/27/24 Rx HYDROcodone/APAP 7.5-325MG [[place] 1 each PO Q6HR PRN #28 tab 09/27/24 Rx 7.5] Sennosides/Docusate Sodium 2 each PO DAILY PRN #30 tablet 09/27/24 Rx [Senna-S 8.6-50 mg Tablet] Allergies Allergy/AdvReac Type Severity Reaction Status Date / Time dust, polllen, mold Allergy Cough Uncoded 09/22/24 10:45 Physical Examination Left lower extremity: Anterior incision over the knee is well-healing besides the 1 cm wound that is present at the midline area of the incision. There is surrounding erythema in that area on both the medial and lateral sides of the knee. Small amount of bloody purulent material was noted from the wound on exam today. I am unable to appreciate any effusion on the left knee. Active range of motion, he is able to flex to about 115 degrees, his extension lacks about 5 degrees of full extension. There is no pain reproduced with active range of motion, passive range of motion of reproduces no pain. Logroll maneuver reproduces no groin pain, hip flexion along with internal and external rotation reproduces no pain Calf is soft, no tenderness with palpation Sensory exam to light touch is intact throughout the extremity Plantarflexion, dorsiflexion, EHL, FHL are intact. Assessment and Plan Assessment: Left knee wound Left lower extremity/knee cellulitis History of left total knee arthroplasty History of fall resulting in quadriceps tendon, medial retinaculum and patellar tendon tear History of open left knee quadriceps tendon, medial retinaculum and patellar tendon repair Other medical comorbidities Plan: Dr. Duran and myself discussed treatment options for the patient in office prior to him being transferred over to the emergency room for direct admission to the hospital. Surgical intervention is to include a incision and drainage with irrigation and debridement of the left knee wound with secondary wound closure. Patient will also be scheduled for possible polyethylene liner exchange and antibiotic bead placement pending findings at surgery. Risk and benefits of the procedure were discussed with the patient, this to include blood loss, neurovascular injury, development of blood clots, infection, inadequate healing of tissues, need for subsequent surgery. Patient is in good understanding would like to proceed. Consent will be obtained prior to procedure Cultures will be obtained at surgery, we will hold off on starting antibiotics until we have taken cultures in the operating room N.p.o. after midnight Internal medicine to be consulted for medical management DVT prophylaxis, will begin aspirin after surgery Pain control, both oral and IV medication as needed Basic bandaging over the left knee at this time, ice and elevate for symptomatic relief Further recommendations to follow Time with Patient: Less than 30
--- NOTE | 2025-01-05 18:02 | ED ---
General Adult HPI - General Source: patient, RN notes reviewed Mode of arrival: wheelchair Limitations: no limitations <Lima Reynoso - Last Filed: 01/05/25 17:59> <Jeremie Beltran - Last Filed: 01/05/25 18:39> - General Chief complaint: Recheck/Abnormal Lab/Rx Stated complaint: post-op complication, L knee Time Seen by Provider: 01/05/25 17:59 - History of Present Illness Initial comments: Quick [id number] male sent by Scott VICKERS from Ortho for left knee infection. Reports left knee has been red and draining over the past couple of days. He is no longer able to weight-bear on his left leg or bend his knee. He was seen by Scott bonilla [facility] PA today in the office who sent him for admission for surgery. Instructed to admit to Dr. Renee with Dr. Werner on consult for medical. Patient states he had a left knee replacement in July of last year. Denies blood thinners. (Lima Reynoso) Dictation was produced using [employer] dictation software. please excuse any grammatical, word or spelling errors. Chief Complaint: 74-year-old male sent in by Ortho for admission History of Present Illness: Patient 74-year-old male sent in from orthopedic surgery office. He was told to come here to be admitted for surgery tomorrow for concerns of left knee infection. The ROS documented in this emergency department record has been reviewed and confirmed by me. Those systems with pertinent positive or negative responses have been documented in the HPI. All other systems are other negative and/or noncontributory. (Jeremie Beltran) - Related Data Home Medications Medication Instructions Recorded Confirmed Omeprazole [PriLOSEC] 20 mg PO DAILY 11/15/15 09/22/24 Rosuvastatin Calcium [Crestor] 10 mg PO HS 11/15/15 09/22/24 Gabapentin [Neurontin] 300 mg PO HS 05/27/16 09/22/24 Gabapentin [Neurontin] 100 mg PO DAILY 09/13/21 09/22/24 Ipratropium [place] 0.06%Nasal 2 spray EA NOSTRIL BID 11/14/21 09/22/24 [Atrovent Nasal 0.06%] Cholecalciferol (Vitamin D3) 100 mcg PO DAILY 08/03/24 09/22/24 [Vitamin D3 (50 Mcg = 2000 Iu)] Tamsulosin [Flomax] 0.4 mg PO BID 08/03/24 09/22/24 Glucosa Chavarria 2Kcl/Chondroitin Chavarria 1 cap PO DAILY 09/22/24 09/22/24 [Glucosamine-Chondroitin Cap] HYDROcodone/APAP 7.5-325MG [[place] 1 tab PO Q6HR PRN 09/22/24 09/22/24 7.5-325] Magnesium Oxide [Magnesium] 500 mg PO DAILY 09/22/24 09/22/24 Melatonin 10 mg PO HS 09/22/24 09/22/24 Mv-Mn/Folic/Lutein/Herbal 293 1 tab PO DAILY 09/22/24 09/22/24 [Alive Men 50 Plus Premium Chew] Spironolactone [Aldactone] 25 mg PO DAILY 09/22/24 09/22/24 carvediloL [Coreg] 3.125 mg PO HS 09/22/24 09/22/24 carvediloL [Coreg] 6.25 mg PO DAILY 09/22/24 09/22/24 Previous Rx's Medication Instructions Recorded Valsartan [Diovan] 80 mg PO BID #60 tab 07/04/22 Ferrous Sulfate [Iron (65 MG 325 mg PO BID-W/MEALS #60 tab 07/06/22 Elemental)] Aspirin 325 mg PO DAILY #30 tab 09/27/24 Cyclobenzaprine [Flexeril] 10 mg PO TID PRN #30 tab 09/27/24 HYDROcodone/APAP 7.5-325MG [[place] 1 each PO Q6HR PRN #28 tab 09/27/24 7.5] Sennosides/Docusate Sodium 2 each PO DAILY PRN #30 tablet 09/27/24 [Senna-S 8.6-50 mg Tablet] Allergies Allergy/AdvReac Type Severity Reaction Status Date / Time dust, polllen, mold Allergy Cough Uncoded 01/05/25 17:23 Review of Systems ROS Other: All systems not noted in ROS Statement are negative. <Lima Reynoso - Last Filed: 01/05/25 17:59> ROS Other: All systems not noted in ROS Statement are negative. <Jeremie Beltran - Last Filed: 01/05/25 18:39> ROS Statement: Those systems with pertinent positive or pertinent negative responses have been documented in the HPI. Past Medical History Past Medical History: GERD/Reflux, Hearing Disorder / Deafness, Hyperlipidemia, Hypertension, Osteoarthritis (OA), Prostate Disorder, Sleep Apnea/CPAP/BIPAP Additional Past Medical History / Comment(s): paraesophageal hernia post repair, COVID 19 04/2022, Diverticulosis, Hard of hearing, charcoat joints and feet, moderate peripheral neuropathy of feet, ORTIZ uses CPAP, hx small bowel blockage 09/16, hx anemia, current hiatal hernia. History of Any Multi-Drug Resistant Organisms: None Reported Past Surgical History: Hernia Repair, Joint Replacement, Orthopedic Surgery, Prostate Surgery Additional Past Surgical History / Comment(s): Reconstruction of left foot, ongoing, right shoulder screw placed, right total knee replacement, right/ANKLE foot - plate and screws, bilateral foot surgeries, EGD/barium swallow. COLONOSCOPY, HIATAL HERNIA AND UMBILICAL HERNIA REPAIR, NUMEROUS PICC LINES R/T BONE INFECTIONS, total left knee 08/09/24 Past Anesthesia/Blood Transfusion Reactions: Postoperative Nausea & Vomiting (PONV) Additional Past Anesthesia/Blood Transfusion Reaction / Comment(s): "Had vomiting with aspiration, experienced Sick Sinus Syndrome during anesthesia 05/14, followed up with Dr Ley and was placed on heart monitor. Past Psychological History: No Psychological Hx Reported Smoking Status: Former smoker Past Alcohol Use History: Occasional Past Drug Use History: None Reported - Past Family History Father Family Medical History: AICD/Pacemaker, Osteoarthritis (OA), Thyroid Disorder Mother Family Medical History: Cancer, Hypertension Additional Family Medical History / Comment(s): Colon and ovarian cancer. <Lima Reynoso - Last Filed: 01/05/25 17:59> General Exam Limitations: no limitations <Lima Reynoso - Last Filed: 01/05/25 17:59> - General Exam Comments Initial Comments: Visual Physical Exam Vital signs reviewed General: Well-appearing, nontoxic, no acute distress. Head: Normocephalic, atraumatic Eyes: PERRLA, EOMI ENT: Airway patent Chest: Nonlabored breathing Skin: No visual rash, normal skin tone Neuro: Alert and oriented 3 Musculoskeletal: No gross abnormalities (Lima Reynoso) Course Vital Signs 01/05/25 17:20 Temperature 97.8 F Pulse Rate 60 Respiratory 18 Rate Blood Pressure 120/60 O2 Sat by Pulse 97 Oximetry Medical Decision Making <EdgardoLima - Last Filed: 01/05/25 17:59> <Jeremie Beltran - Last Filed: 01/05/25 18:39> - Medical Decision Making I completed the quick note portion of this chart signed Lima Reynoso PA-C (Lima Reynoso) Was pt. sent in by a medical professional or institution ([facility], [facility], urgent care, hospital, or fpc...) When possible be specific @ -Sent from orthopedic surgery office Did you speak to anyone other than the patient for history (EMS, parent, family, police, friend...)? What history was obtained from this source @ -Spoke with RANCHO Ugarte for Ortho states that he would like patient admitted Did you review nursing and triage notes (agree or disagree)? Why? @ -I reviewed and agree with nursing and triage notes Were old charts reviewed (outside hosp., previous admission, EMS record, old EKG, old radiological studies, urgent care reports/EKG's, fpc records)? Report findings @ -No old charts were reviewed Differential Diagnosis (chest pain, altered mental status, abdominal pain women, abdominal pain men, vaginal bleeding, musculoskeletal, weakness, fever, dyspnea, syncope, headache, dizziness, GI bleed, back pain, seizure, CVA, palpatations, mental health)? @ -Cellulitis, septic arthritis, crystal arthropathy EKG interpreted by me (3pts min.). @ -None done X-rays interpreted by me (1pt min.). @ -None done CT interpreted by me (1pt min.). @ -None done U/S interpreted by me (1pt. min.). @ -None done What testing was considered but not performed or refused? (CT, X-rays, U/S, labs)? Why? @ -None What meds were considered but not given or refused? Why? @ -None Was smoking cessation discussed for >3mins.? @ -No Were there social determinants of health that impacted care today? How? (Homelessness, low income, unemployed, alcoholism, drug addiction, transportation, low edu. Level, literacy, decrease access to med. care, detention, rehab)? @ -No Was there de-escalation of care discussed even if they declined (Discuss DNR or withdrawal of care, Hospice)? DNR status @ -No What co-morbidities impacted this encounter? (DM, HTN, Smoking, COPD, CAD, Cancer, CVA, ARF, Chemo, Hep., AIDS, mental health diagnosis, sleep apnea, morbid obesity)? @ -None Was patient admitted / discharged? Hospital course, mention meds given and route, prescriptions, significant lab abnormalities, going to OR and other pertinent info. @ -74-year-old male sent in from orthopedic surgery office for direct admission. After speaking Scott Branch the plan was that there was concern for cellulitis versus septic arthritis with plans for surgery tomorrow. He requested that antibiotics not be started until patient has surgery. Requesting that medicine be consulted. Did you discuss the management of the patient with other professionals (professionals i.e. , PA, H[employer] ST[employer] MAN, lab, RT, psych nurse, social group worker, co founder and director, teacher, financial services officer, case advocate)? Give summary @ -No Was critical care preformed (if so, how long)? @ -No Undiagnosed new problem with uncertain prognosis? @ -No Drug Therapy requiring intensive monitoring for toxicity (Heparin, Nitro, Insulin, Cardizem)? @ -No Were any procedures done? @ -No Diagnosis/symptom? Acute, or Chronic, or Acute on Chronic? Uncomplicated (without systemic symptoms) or Complicated (systemic symptoms)? @ -Leg infection Side effects of treatment? @ -No Exacerbation, Progression, or Severe Exacerbation? @ -No Poses a threat to life or bodily function? How? (Chest pain, [place], [place], pneumonia, PE, COPD, DKA, ARF, appy, cholecystitis, CVA, Diverticulitis, Homicidal, Suicidal, threat to staff... and all critical care pts) @ -yes (Jeremie Beltran) Disposition <Lima Reynoso - Last Filed: 01/05/25 17:59> Decision Time: 18:39 <Jeremie Beltran - Last Filed: 01/05/25 18:39> Clinical Impression: Infection Disposition: ADMITTED IP TO THIS HOSP Condition: Fair Referrals: Meenu Werner MD [Primary Care Provider] - 1-2 days
[2025-01-05] MEDS ORDERED: NALOXONE 0.4 MG/ML 1 ML VIAL IV PRN (18:31)
[2025-01-05 18:59] LABS: Basophils % (A) 0 %; Eosinophils # (A) 0.4 k/uL (0-0.7); Eosinophils % (A) 4 %; HCT 43.1 % (39.0-53.0); HGB 13.9 gm/dL (13.0-17.5); Lymphocytes # (A) 1.2 k/uL (1.0-4.8); Lymphocytes % (A) 12 %; MCHC 32.3 g/dL (31.0-37.0); MCV 89.7 fL (80.0-100.0); Mean Platelet Volume 8.2; Monocytes # (A) 0.7 k/uL (0-1.0); Monocytes % (A) 7 %; Neutrophils # (A) 7.8 k/uL (1.3-7.7); Neutrophils % (A) 75 %; Platelet Count 194 k/uL (150-450); RBC 4.81 m/uL (4.30-5.90); RDW 14.3 % (11.5-15.5); WBC 10.3 k/uL (3.8-10.6)
[2025-01-05 19:10] LABS: ALT 26 U/L (4-49); AST 33 U/L (17-59); African American GFR (CKD) >90 (>60 ml/min/1.73 sqM); Albumin 3.9 g/dL (3.5-5.0); Alkaline Phosphatase 88 U/L (38-126); Anion Gap 11 mmol/L; Blood Urea Nitrogen 17 mg/dL (9-20); Carbon Dioxide 20 mmol/L (22-30); Chloride 105 mmol/L (98-107); Glucose 103 mg/dL (74-99); Non-African American GFR(CKD) >90 (>60 ml/min/1.73 sqM); Potassium 4.4 mmol/L (3.5-5.1); Sodium 136 mmol/L (137-145); Total Bilirubin 0.8 mg/dL (0.2-1.3); Total Protein 7.2 g/dL (6.3-8.2)
[2025-01-05] MEDS: SODIUM CHLORIDE 0.9% 1,000 ML IV SCH (19:58)
[2025-01-05 20:19] LABS: Partial Thromboplastin Time 24.2 sec (22.0-30.0); Prothrombin Time 11.1 sec (10.0-12.5)
[2025-01-05] MEDS: MELATONIN 5 MG TABLET PO SCH (23:16)
[2025-01-05] MEDS: ACETAMINOPHEN TAB 325 MG TAB PO PRN (23:18)
[2025-01-05] MEDS: carvediloL 3.125 MG TAB PO SCH (23:18)
[2025-01-05] MEDS: GABAPENTIN 300 MG CAP PO SCH (23:18)
[2025-01-05] MEDS: TAMSULOSIN 0.4 MG CAP.ER.24H PO SCH (23:18)
[2025-01-05] MEDS: CYCLOBENZAPRINE 10 MG TAB PO SCH (23:18)
[2025-01-05] MEDS: ATORVASTATIN 20 MG TAB PO SCH (23:18)
[2025-01-05] MEDS: VALSARTAN 80 MG TAB PO SCH (23:21)
[2025-01-06] MEDS ORDERED: KRILL OIL 500 MG PO SCH (09:00)
--- NOTE | 2025-01-06 09:24 | P.CONS ---
History of Present Illness - Reason for Consult Consult date: 01/06/25 medical management - History of Present Illness Sebastian Armas is a 74-year-old male patient who was sent to ER per orthopedic services due to concerns of infection to the left surgical knee site. Patient originally underwent left total knee arthroplasty in July [address] Duran. 6 weeks postoperative patient fell and sustained injury to the left knee and underwent surgery in August 2024 for repair of quadricep tendon. Patient reports over the past 2 weeks he has noticed increased pain and small wound over the anterior aspect of the knee. Patient denies fever. Drainage noted. Patient denies any trauma or fall to knee patient has past medical history of GERD, hearing disorder, hyperlipidemia, hypertension, obstructive sleep apnea and previous right knee replacement. At this time patient has been admitted to orthopedic services. Plans for I&D today 01/06/2025. Per nursing staff will hold off on antibiotics per orthopedic services until cultures were obtained intraoperatively. Lab work completed showing white blood cell 10.3, hemoglobin 13.9, creatinine 0.62 bun 17. Current vital signs temp 97.8, heart rate 54, respiratory rate 18, blood pressure 119/70 with a pulse ox of 96% on room air. Patient denies chest pain or shortness of breath. Patient denies nausea vomiting or diarrhea. Patient denies any urinary burning or frequency Review of Systems Please refer to HPI otherwise unremarkable Past Medical History Past Medical History: GERD/Reflux, Hearing Disorder / Deafness, Hyperlipidemia, Hypertension, Osteoarthritis (OA), Prostate Disorder, Sleep Apnea/CPAP/BIPAP Additional Past Medical History / Comment(s): paraesophageal hernia post repair, COVID 19 04/2022, Diverticulosis, Hard of hearing, charcoat joints and feet, moderate peripheral neuropathy of feet, ORTIZ uses CPAP, hx small bowel blockage 09/16, hx anemia, current hiatal hernia. History of Any Multi-Drug Resistant Organisms: None Reported Past Surgical History: Hernia Repair, Joint Replacement, Orthopedic Surgery, Prostate Surgery Additional Past Surgical History / Comment(s): Reconstruction of left foot, ongoing, right shoulder screw placed, right total knee replacement, right/ANKLE foot - plate and screws, bilateral foot surgeries, EGD/barium swallow. COLONOSCOPY, HIATAL HERNIA AND UMBILICAL HERNIA REPAIR, NUMEROUS PICC LINES R/T BONE INFECTIONS, total left knee 08/09/24 Past Anesthesia/Blood Transfusion Reactions: Postoperative Nausea & Vomiting (PONV) Additional Past Anesthesia/Blood Transfusion Reaction / Comm: "Had vomiting with aspiration, experienced Sick Sinus Syndrome during anesthesia 05/14, followed up with Dr Ley and was placed on heart monitor.". No complications with blood transfusions Past Psychological History: No Psychological Hx Reported Additional Psychological History / Comment(s): Single. Retired. No service. Former smoker. Denies alcohol use or abuse. No significant recreational drug use or injection drug use. Animal exposures Smoking Status: Former smoker Past Alcohol Use History: Occasional Additional Past Alcohol Use History / Comment(s): Smoked for 22-23 years, 1ppd, quit in 1988. Past Drug Use History: None Reported - Past Family History Father Family Medical History: AICD/Pacemaker, Osteoarthritis (OA), Thyroid Disorder Mother Family Medical History: Cancer, Hypertension Additional Family Medical History / Comment(s): Colon and ovarian cancer. Medications and Allergies Home Medications Medication Instructions Recorded Confirmed Type Omeprazole [PriLOSEC] 20 mg PO DAILY 11/15/15 01/05/25 History Rosuvastatin Calcium [Crestor] 10 mg PO HS 11/15/15 01/05/25 History Gabapentin [Neurontin] 300 mg PO HS 05/27/16 01/05/25 History Gabapentin [Neurontin] 100 mg PO DAILY 09/13/21 01/05/25 History Ipratropium [place] 0.06%Nasal 2 spr EA NOSTRIL BID 11/14/21 01/05/25 History [Atrovent Nasal 0.06%] Valsartan [Diovan] 80 mg PO BID #60 tab 07/04/22 01/05/25 Rx Cholecalciferol (Vitamin D3) 100 mcg PO DAILY 08/03/24 01/05/25 History [Vitamin D3 (50 Mcg = 2000 Iu)] Tamsulosin [Flomax] 0.4 mg PO BID 08/03/24 01/05/25 History Glucosa Chavarria 2Kcl/Chondroitin Chavarria 1 cap PO HS 09/22/24 01/05/25 History [Glucosamine-Chondroitin Cap] Melatonin 10 mg PO HS 09/22/24 01/05/25 History Mv-Mn/Folic/Lutein/Herbal 293 1 tab PO DAILY 09/22/24 01/05/25 History [Alive Men 50 Plus Premium Chew] Spironolactone [Aldactone] 25 mg PO DAILY 09/22/24 01/05/25 History carvediloL [Coreg] 3.125 mg PO HS 09/22/24 01/05/25 History carvediloL [Coreg] 6.25 mg PO DAILY 09/22/24 01/05/25 History Collagenase [Santyl Ointment] 1 applic TOPICAL DAILY 01/05/25 01/05/25 History Ferrous Sulfate [Iron (65 MG 325 mg PO DAILY 01/05/25 01/05/25 History Elemental)] Krill Oil 500mg 500 mg PO DAILY 01/05/25 01/05/25 History Magnesium Oxide [Mag-Ox] 400 mg PO HS 01/05/25 01/05/25 History Allergies Allergy/AdvReac Type Severity Reaction Status Date / Time mold Allergy Cough Verified 01/05/25 20:53 pollen extracts Allergy Cough Verified 01/05/25 20:53 dust, polllen, mold Allergy Cough Uncoded 01/05/25 20:53 Physical Exam Vitals: Vital Signs Temp Pulse Pulse Resp BP BP Pulse Ox 01/06/25 07:00 97.8 F 54 L 18 119/70 96 01/06/25 00:24 97.9 F 61 18 110/62 97 01/05/25 23:13 60 123/61 95 01/05/25 20:34 98.3 F 57 L 18 124/65 94 L 01/05/25 20:11 57 L 131/64 100 01/05/25 17:20 97.8 F 60 18 120/60 97 Intake and Output 01/05/25 01/06/25 01/06/25 22:59 06:59 14:59 Intake Total 360 Balance 360 Intake: Oral 360 Other: Voiding Method Urinal # Voids 2 1 Weight 92.986 kg Head normocephalic Neck supple Lungs clear to auscultation bilaterally no wheezing or crackles Heart regular rate and rhythm S1-S2, no rub or gallop Abdomen is soft nontender nondistended positive bowel sounds no hepatosplenomegaly Extremities no edema. Erythema noted to left knee site. Wound noted with drainage Neuro alert and orientated to 3 Results CBC & Chem 7: 01/05/25 18:53 01/05/25 18:53 Labs: Abnormal Lab Results - Last 24 Hours (Table) 01/05/25 01/05/25 Range/Units 18:53 18:53 Neutrophils # 7.8 H (1.3-7.7) k/uL Sodium 136 L (137-145) mmol/L Carbon Dioxide 20 L (22-30) mmol/L Creatinine 0.62 L (0.66-1.25) mg/dL Glucose 103 H (74-99) mg/dL Assessment and Plan Assessment: 1. Left knee wound 2. History of left total knee arthroplasty 3. Fall 6 weeks postoperative resulting in quadricep tendon tear. Require repair 4. History of GERD 5. History of essential hypertension 6. History of sleep apnea 7. History of hyperlipidemia Thank you for this consultation we will continue to follow patient closely throughout stay Per orthopedic services hold off on systemic antibiotics until cultures are obtained Repeat labs ordered for a.m. Time with Patient: Greater than 30 (Greater than 60% of the total time spent in counseling and coordination of care)
[2025-01-06] MEDS: IV FLUID CONTINUATION 1,000 ML IV ONE (12:44)
[2025-01-06] MEDS: ONDANSETRON 4 MG/2 ML VIAL IVP STA (13:16)
[2025-01-06] MEDS ORDERED: LIDOCAINE 1% INJ 10MG/ML (20 ML MDV) ONE (13:54)
[2025-01-06] MEDS ORDERED: fentaNYL (PF) 50 MCG/ML 2 ML AMP ONE (13:54)
[2025-01-06] MEDS ORDERED: SUCCINYLCHOLINE CHLORIDE 200 MG/10 ML VIAL IV ONE (13:54)
[2025-01-06] MEDS ORDERED: PHENYLEPHRINE-0.9% NACL SYG 1,000 MCG/10 ML SYRINGE ONE (13:54)
[2025-01-06] MEDS ORDERED: PROPOFOL 10 MG/ML 20 ML VIAL IV ONE (13:54)
[2025-01-06] MEDS ORDERED: GLYCOPYRROLATE 0.2 MG/ML 2 ML VIAL ONE (13:54)
[2025-01-06] MEDS ORDERED: ePHEDrine 50 MG/ML 1 ML VIAL ONE (13:54)
[2025-01-06] MEDS ORDERED: HYDROmorphone (PF) 1 MG/ML ONE (13:54)
[2025-01-06] MEDS: ceFAZolin 3,000 MG in SODIUM CHLORIDE 0.9% IRRIGATIO 3,000 ML IRRIGATION ONE (14:00)
[2025-01-06] MEDS: SODIUM CHLORIDE 0.9% 100 ML with ceFAZolin 2,000 MG IV ONE (14:10)
[2025-01-06] MEDS: VANCOMYCIN 1,000 MG VIAL MISCELLANE ONE (14:48)
[2025-01-06] MEDS: TOBRAMYCIN SULFATE 1.2 GM VIAL MISCELLANE ONE (14:48)
[2025-01-06] MEDS: LACTATED RINGERS 1,000 ML IV ONE (15:05)
[2025-01-06] MEDS ORDERED: ONDANSETRON 4 MG/2 ML VIAL IVP PRN (15:30)
[2025-01-06] MEDS ORDERED: NALOXONE 0.4 MG/ML 1 ML VIAL IV PRN (15:30)
[2025-01-06] MEDS ORDERED: HYDROmorphone 0.5 MG/0.5 ML SYRINGE IVP PRN ×2 (15:30)
--- NOTE | 2025-01-06 15:30 | P.OP ---
Date of Procedure: 01/06/25 Preoperative Diagnosis: Left knee cellulitis with open wound Postoperative Diagnosis: Left knee periprosthetic joint infection Procedure(s) Performed: Left knee arthrotomy with polyethylene exchange, irrigation and antibiotic bead placement Implants: DePuy attune size 7 fixed-bearing cruciate retaining 10 mm polyethylene tibial insert Anesthesia: GERONIMO Surgeon: Chris Duran Electrical Engineering Designer #1: Kris Hernandez Estimated Blood Loss (ml): 10 Pathology: none sent Condition: stable Disposition: PACU Indications for Procedure: 74-year-old gentleman seen with a left knee anterior wound and infection with history of previous total knee arthroplasty and concern for deep infection. He has a history of total knee arthroplasty and subsequent extensor mechanism disruption with repair. He was being followed in the office and doing well but noted some redness and erythema erupted about 4-5 days ago. Prior to that there was no evidence for any infection going on. I recommended incision with exploration possible arthrotomy with polyethylene exchange and possible antibiotic bead placement. Patient was agreeable consent was obtained. Operative Findings: See description of procedure Description of Procedure: The patient was taken to the operative suite. He underwent a general anesthetic by the department esthesia. Well-padded tourniquet placed proximal left thigh. Left lower extremity prepped and draped in the normal sterile orthopedic fashion. The extremity was elevated and tourniquet spread to 300. We obtained superficial cultures as there was some purulence superficially. We then made an incision anteriorly through the previous cicatrix. We now dissected down to the extensor mechanism. The purulence was collected did more anterior to the patella area. I did note a defect though in the medial retinaculum and there was communication into the joint. At this point I performed a medial arthrotomy. There was serous fluid in the joint but no purulence. Cultures were obtained of the fluid and tissue deep in the joint. At this point we went ahead and started antibiotics on the patient. I now utilized a #10 blade and performed excisional debridement of some of the abnormal appearing tissue involving the synovium and extensor mechanism tendon and capsule. I now flexed the knee and remove the polyethylene component. All the remaining components appeared stable. We now copiously began irrigating the joint via pulse lavage irrigation totaling 6000 cc. I now irrigated the wound with Betadine solution. I now explored the wound and did not note any additional abnormal looking tissue. With the assistance of Scott VICKERS I meticulously removed any residual suture material. The extensor mechanism was intact. I now irrigated the joint out with 3000 cc of antibiotic irrigant via pulse lavage. I again explored the wound and noted to be free of any abnormal looking tissue. We now placed Irrisept solution in the joint I let it sit there for several minutes. I now evacuated the Irrisept solution and explored the joint 1 more time and again did not note any abnormal looking tissue. I now reinserted a brand-new attune 10 mm polyethylene tibial tray and clicked into place. I made sure it was stable and secure and it was. At this point we released the tourniquet and performed additional hemostasis. I now repaired the extensor mechanism using #1 Ethibond. I checked the repair and it was stable. The subcutaneous soft tissues were repaired with six 2-0 Vicryl and the skin is approximated with nylon suture. We applied sterile dressings. We placed the extremity into a long knee immobilizer. The patient was awakened and transferred to recovery in stable condition. Scott VICKERS assisted in all aspects of this procedure.
[2025-01-06] MEDS: CHOLECALCIFEROL 25 MCG (1000 IU) TABLET PO SCH (15:48)
[2025-01-06] MEDS: FERROUS SULFATE 325 MG TAB PO SCH (15:48)
[2025-01-06] MEDS: VIT A,C & E-LUTEIN-MINERALS 1 EACH TAB PO SCH (15:48)
[2025-01-06] MEDS ORDERED: VANCOMYCIN IV PER PHARMACY 1 EACH MISC MISCELLANE PRN (15:50)
[2025-01-06] MEDS: HYDROmorphone 0.5 MG/0.5 ML SYRINGE IVP PRN ×2 (16:20→21:35)
[2025-01-06] MEDS: diphenhydrAMINE 50 MG/ML 1 ML VIAL IVP PRN (16:40)
[2025-01-06] MEDS: HYDROcodone/APAP 5-325MG 1 EACH TAB PO PRN (18:09)
[2025-01-06] MEDS: PANTOPRAZOLE 40 MG TABLET PO SCH (18:09)
[2025-01-06] MEDS: SPIRONOLACTONE 25 MG TAB PO SCH (18:10)
[2025-01-06] MEDS: GABAPENTIN 100 MG CAP PO SCH (18:12)
[2025-01-06] MEDS: carvediloL 6.25 MG TAB PO SCH (18:12)
[2025-01-06] MEDS: MAGNESIUM OXIDE 400 MG TAB PO SCH (21:32)
[2025-01-06] MEDS: ASPIRIN 81 MG PO SCH (21:32)
[2025-01-06] MEDS: SENNOSIDES-DOCUSATE SODIUM 1 EACH TAB PO SCH (21:33)
[2025-01-06] MEDS: VANCOMYCIN 1,500 MG in SODIUM CHLORIDE 0.9% 500 ML 500 ML IVPB SCH (22:45)
--- NOTE | 2025-01-06 23:27 | P.CONS ---
History of Present Illness - Reason for Consult Consult date: 01/06/25 Left knee periprosthetic joint infection Requesting physician: Chris Duran - Chief Complaint Left knee pain and swelling x days - History of Present Illness Patient is 74-year-old male with a past medical history significant for GERD/Reflux, Hearing Disorder / Deafness, Hyperlipidemia, Hypertension, Osteoarthritis (OA), Prostate Disorder, Sleep Apnea/CPAP/BIPAP and did have left total knee arthroplasty July 2024 apparently the patient did have a fall postsurgery and subsequently did have repair of the quadriceps tendon medial retinacular and patellar tendon on the left knee no movement of 2023 imaging with the patient will have the wound on the anterior aspect of the knee that has been treated at the wound care center however has not completely healed patient subsequently went up he erythema to the left knee area that has been getting worse for about 2 to 3 days before presentation to the hospital and was complaining of increasing pain especially on walking with associated swelling and redness and some drainage concerning for possible infection patient was admitted to hospital he was taken to the OR status post left knee arthrotomy wit h polyethylene exchange irrigation and antibiotic bead placement operative report did not mention involvement of the joint there was serous fluid but no purulence culture has been obtained patient has been given cefazolin perioperatively infectious disease was consulted for further management of ant ibiotic therapy patient was seen in the recovery likely from his anesthesia denies having a headache no chest pain shortness of breath or cough no nausea vomiting abdominal pain or diarrhea Review of Systems Positive point and negatives has been mentioned in the HPI, complete review of systems was performed and all other systems are negative Past Medical History Past Medical History: GERD/Reflux, Hearing Disorder / Deafness, Hyperlipidemia, Hypertension, Osteoarthritis (OA), Prostate Disorder, Sleep Apnea/CPAP/BIPAP Additional Past Medical History / Comment(s): paraesophageal hernia post repair, COVID 19 04/2022, Diverticulosis, Hard of hearing, charcoat joints and feet, moderate peripheral neuropathy of feet, ORTIZ uses CPAP, hx small bowel blockage 09/16, hx anemia, current hiatal hernia. History of Any Multi-Drug Resistant Organisms: None Reported Past Surgical History: Hernia Repair, Joint Replacement, Orthopedic Surgery, Prostate Surgery Additional Past Surgical History / Comment(s): Reconstruction of left foot, o ngoing, right shoulder screw placed, right total knee replacement, right/ANKLE foot - plate and screws, bilateral foot surgeries, EGD/barium swallow. COLONOSCOPY, HIATAL HERNIA AND UMBILICAL HERNIA REPAIR, NUMEROUS PICC LINES R/T BONE INFECTIONS, total left knee 08/09/24 Past Anesthesia/Blood Transfusion Reactions: Postoperative Nausea & Vomiting (PONV) Additional Past Anesthesia/Blood Transfusion Reaction / Comm: "Had vomiting with aspiration, experienced Sick Sinus Syndrome during anesthesia 05/14, followed up with Dr Ley and was placed on heart monitor.". No complications with blood transfusions Past Psychological History: No Psychological Hx Reported Additional Psychological History / Comment(s): Single. Retired. No service. Former smoker. Denies alcohol use or abuse. No significant recreational drug use or injection drug use. Animal exposures Smoking Status: Former smoker Past Alcohol Use History: Occasional Additional Past Alcohol Use History / Comment(s): Smoked for 22-23 years, 1ppd, quit in 1988. Past Drug Use History: None Reported - Past Family History Father Family Medical History: AICD/Pacemaker, Osteoarthritis (OA), Thyroid Disorder Mother Family Medical History: Cancer, Hypertension Additional Family Medical History / Comment(s): Colon and ovarian cancer. Medications and Allergies Home Medications Medication Instructions Recorded Confirmed Type Omeprazole [PriLOSEC] 20 mg PO DAILY 11/15/15 01/05/25 History Rosuvastatin Calcium [Crestor] 10 mg PO HS 11/15/15 01/05/25 History Gabapentin [Neurontin] 300 mg PO HS 05/27/16 01/05/25 History Gabapentin [Neurontin] 100 mg PO DAILY 09/13/21 01/05/25 History Ipratropium [place] 0.06%Nasal 2 spr EA NOSTRIL BID 11/14/21 01/05/25 History [Atrovent Nasal 0.06%] Valsartan [Diovan] 80 mg PO BID #60 tab 07/04/22 01/05/25 Rx Cholecalciferol (Vitamin D3) 100 mcg PO DAILY 08/03/24 01/05/25 History [Vitamin D3 (50 Mcg = 2000 Iu)] Tamsulosin [Flomax] 0.4 mg PO BID 08/03/24 01/05/25 History Glucosa [place]av[place] 2Kcl/Chondroitin Ch[place] 1 cap PO HS 09/22/24 01/05/25 History [Glucosamine-Chondroitin Cap] Melatonin 10 mg PO HS 09/22/24 01/05/25 History Mv-Mn/Folic/Lutein/Herbal 293 1 tab PO DAILY 09/22/24 01/05/25 History [Alive Men 50 Plus Premium Chew] Spironolactone [Aldactone] 25 mg PO DAILY 09/22/24 01/05/25 History carvediloL [Coreg] 3.125 mg PO HS 09/22/24 01/05/25 History carvediloL [Coreg] 6.25 mg PO DAILY 09/22/24 01/05/25 History Collagenase [Santyl Ointment] 1 applic TOPICAL DAILY 01/05/25 01/05/25 History Ferrous Sulfate [Iron (65 MG 325 mg PO DAILY 01/05/25 01/05/25 History Elemental)] Krill Oil 500mg 500 mg PO DAILY 01/05/25 01/05/25 History Magnesium Oxide [Mag-Ox] 400 mg PO HS 01/05/25 01/05/25 History Allergies Allergy/AdvReac Type Severity Reaction Status Date / Time mold Allergy Cough Verified 01/05/25 20:53 pollen extracts Allergy Cough Verified 01/05/25 20:53 dust, polllen, mold Allergy Cough Uncoded 01/05/25 20:53 Physical Exam Vitals: Vital Signs Temp Pulse Resp BP Pulse Ox 01/06/25 19:11 97.6 F 56 L 18 155/65 99 01/06/25 17:54 97.5 F L 55 L 18 149/73 97 01/06/25 17:20 58 L 16 144/71 98 01/06/25 17:05 53 L 16 142/66 99 01/06/25 16:55 56 L 16 141/60 99 01/06/25 16:34 57 L 16 142/65 99 01/06/25 16:19 58 L 18 151/73 99 01/06/25 16:04 97 F L 64 18 154/69 97 01/06/25 12:30 97.9 F 56 L 18 129/64 96 01/06/25 08:00 54 L 18 01/06/25 07:00 97.8 F 54 L 18 119/70 96 01/06/25 00:24 97.9 F 61 18 110/62 97 Intake and Output 01/06/25 01/06/25 01/07/25 14:59 22:59 06:59 Intake Total 1001 400 Output Total 10 Balance 1001 390 Intake: IV 1001 400 Output: Estimated Blood Loss 10 Other: Voiding Method Urinal # Voids 1 1 Weight 92.986 kg GENERAL DESCRIPTION: Elderly male lying in bed, no distress. No tachypnea or accessory muscle of respiration use. HEENT: Shows Pallor , no scleral icterus. Oral mucous membrane is dry. NECK: Trachea central, no thyromegaly. LUNGS: Unlabored breathing. Clear to auscultation anteriorly. No wheeze or crackle. HEART: S1, S2, regular rate and rhythm. No loud murmur ABDOMEN: Soft, no tenderness , guarding or rigidity, no organomegaly EXTREMITIES: Left knee is currently dressed SKIN: No rash, no masses palpable. NEUROLOGICAL: The patient is awake, alert, oriented x3, mood and affect normal. Results CBC & Chem 7: 01/07/25 06:07 01/07/25 06:07 Labs: Abnormal Lab Results - Last 24 Hours (Table) 01/06/25 01/06/25 Range/Units 10:20 10:20 ESR 21 H (0-20) mm/Hr C-Reactive Protein 3.20 H (0.00-0.80) mg/dL Assessment and Plan (1) Septic arthritis of knee, left Current Visit: Yes Status: Acute Code(s): M00.9 - PYOGENIC ARTHRITIS, UNSPECIFIED SNOMED Code(s): 284966469 Plan: 1patient presented hospital with increasing pain and swelling to the left knee area and this patient who did have prosthetic knee status post arthrotomy and polyethylene exchange likely will need to cover for gram positive skin jayy to be the likely pathogen 2-local culture obtained results will follow check a blood culture 3-check inflammation markers 4-vancomycin pharmacy to dose target trough of 15 while watching kidney function and Vanco trough closely We will follow on clinical condition and cultures to further adjust medication if needed Thank you for this consultation we will follow the patient along with you Dictation was produced using [employer] software. please excuse any grammatical, word or spelling errors. Time with Patient: Greater than 30
[2025-01-07] MEDS: HYDROcodone/APAP 5-325MG 1 EACH TAB PO PRN (02:21)
[2025-01-07 08:41] LABS: Basophils # (A) 0.03 X 10*3/uL (0.00-0.10); Basophils % (A) 0.4 %; Eosinophils # (A) 0.23 X 10*3/uL (0.04-0.35); Eosinophils % (A) 2.7 %; HCT 35.8 % (39.6-50.0); HGB 11.8 g/dL (13.0-17.0); Lymphocytes % (A) 10.7 %; MCH 29.5 pg (27.0-32.0); MCV 89.5 FL (80.0-97.0); Monocytes # (A) 0.79 X 10*3/uL (0.20-1.00); Monocytes % (A) 9.4 %; NRBC Per 100 WBC 0 X 10*3/uL (0.00-0.01); Neutrophils # (A) 6.42 X 10*3/uL (1.80-7.70); Neutrophils % (A) 76.4 %; Platelet Count 196 X 10*3/uL (140-440); RDW 13.9 % (11.5-14.5)
[2025-01-07] MEDS: MULTIVITAMINS, THERA 1 EACH TAB PO SCH (08:57)
--- NOTE | 2025-01-07 10:19 | P.PN ---
Subjective Progress Note Date: 01/07/25 Sebastian Armas is a 74-year-old male patient who was sent to ER per orthopedic services due to concerns of infection to the left surgical knee site. Patient originally underwent left total knee arthroplasty in July [address] Duran. 6 weeks postoperative patient fell and sustained injury to the left knee and underwent surgery in August 2024 for repair of quadricep tendon. Patient reports over the past 2 weeks he has noticed increased pain and small wound over the anterior aspect of the knee. Patient denies fever. Drainage noted. Patient denies any trauma or fall to knee patient has past medical history of GERD, hearing disorder, hyperlipidemia, hypertension, obstructive sleep apnea and previous right knee replacement. At this time patient has been admitted to orthopedic services. Plans for I&D today 01/06/2025. Per nursing staff will hold off on antibiotics per orthopedic services until cultures were obtained intraoperatively. Lab work completed showing white blood cell 10.3, hemoglobin 13.9, creatinine 0.62 bun 17. Current vital signs temp 97.8, heart rate 54, respiratory rate 18, blood pressure 119/70 with a pulse ox of 96% on room air. Patient denies chest pain or shortness of breath. Patient denies nausea vomiting or diarrhea. Patient denies any urinary burning or frequency On 01/07/2025 patient is alert and oriented x 3. Patient underwent I&D and antibiotic bead placement into left knee yesterday 01/06/2025. Patient also started on IV Vanco per infectious disease. PT OT services consulted. Patient denies chest pain or shortness of breath. Patient denies nausea vomiting or diarrhea. Patient denies any urinary burning or frequency. Current vital signs temp 98.5, heart rate 68, respiratory rate 17, blood pressure 118/64 with a pulse ox of 93% on room air Objective - Vital Signs Vital signs: Vital Signs Temp 98.5 F 01/07/25 07:58 Pulse 68 01/07/25 07:58 Resp 17 01/07/25 07:58 BP 118/64 01/07/25 07:58 Pulse Ox 90 L 01/07/25 07:58 FiO2 Intake & Output 01/06/25 01/07/25 01/07/25 18:59 06:59 18:59 Intake Total 1401 Output Total 10 3300 Balance 1391 -3300 Weight 92.986 kg Intake: IV 1401 Output: Urine 3300 Straight 1650 Estimated Blood Loss 10 Other: Voiding Method Urinal Urinal # Voids 1 - Exam Head normocephalic Neck supple Lungs clear to auscultation bilaterally no wheezing or crackles Heart regular rate and rhythm S1-S2, no rub or gallop Abdomen is soft nontender nondistended positive bowel sounds no hepatosplenomegaly Extremities no edema. Erythema noted to left knee site. Wound noted with drainage Neuro alert and orientated to 3 - Labs CBC & Chem 7: 01/07/25 06:07 01/05/25 18:53 Labs: Abnormal Lab Results - Last 24 Hours (Table) 01/06/25 01/06/25 01/07/25 Range/Units 10:20 10:20 06:07 RBC 4.00 L (4.40-5.60) X 10*6/uL Hgb 11.8 L (13.0-17.0) g/dL Hct 35.8 L (39.6-50.0) % ESR 21 H (0-20) mm/Hr C-Reactive Protein 3.20 H (0.00-0.80) mg/dL Assessment and Plan Assessment: 1. Left knee wound status post I&D and antibiotic bead placement on 01/06/2025 2. History of left total knee arthroplasty 3. Fall 6 weeks postoperative resulting in quadricep tendon tear. Require repair 4. History of GERD 5. History of essential hypertension 6. History of sleep apnea 7. History of hyperlipidemia Thank you for this consultation we will continue to follow patient closely throughout stay Per orthopedic services hold off on systemic antibiotics until cultures are obtained patient started on IV antibiotic [facility] Infectious disease services following Repeat labs ordered for a.m.
[2025-01-07 11:04] LABS: ALT 15 U/L (10-49); AST 23 U/L (14-35); Albumin 3.1 g/dL (3.8-4.9); Albumin/Globulin Ratio 1.24 Ratio (1.60-3.17); Alkaline Phosphatase 77 U/L (41-126); BUN/Creat Ratio 14.29 Ratio (12.00-20.00); Calcium 8.2 mg/dL (8.7-10.3); Carbon Dioxide 24.8 mmol/L (21.6-31.8); Chloride 103 mmol/L (96-109); Globulin 2.5 g/dL (1.6-3.3); Glucose 98 mg/dL (70-110); Potassium 4.4 mmol/L (3.5-5.5); Sodium 136 mmol/L (135-145); Total Bilirubin 0.3 mg/dL (0.3-1.2); Total Protein 5.6 g/dL (6.2-8.2)
[2025-01-07] MEDS: polyethylene glycoL 3350 17 GM POWD.PACK PO SCH (11:36)
[2025-01-07] MEDS: VANCOMYCIN 1,500 MG in SODIUM CHLORIDE 0.9% 500 ML 500 ML IVPB SCH (11:37)
[2025-01-07 11:42] LABS: Erythrocyte Sedimentation Rate 24 mm/Hr (0-20)
--- NOTE | 2025-01-07 13:02 | P.PN ---
Subjective Progress Note Date: 01/07/25 Principal diagnosis: Status post left knee arthrotomy, polyethylene liner exchange, antibiotic bead placement Patient was evaluated at bedside, he is sitting up in his hospital chair, the knee immobilizer is in good position. Patient's pain is controlled with current regimen. He denies any headaches, headedness, chest pain or shortness of breath. Patient has had difficulty with urination since surgery, they are considering urinary catheter placement pending his PVR. He has been followed by internal medicine and infectious disease at this time Objective - Vital Signs Vital signs: Vital Signs Temp 98.5 F 01/07/25 07:58 Pulse 68 01/07/25 07:58 Resp 18 01/07/25 10:49 BP 118/64 01/07/25 07:58 Pulse Ox 90 L 01/07/25 07:58 FiO2 Intake & Output 01/06/25 01/07/25 01/07/25 18:59 06:59 18:59 Intake Total 1401 Output Total 10 3300 Balance 1391 -3300 Weight 92.986 kg Intake: IV 1401 Output: Urine 3300 Straight 1650 Estimated Blood Loss 10 Other: Voiding Method Urinal Urinal Urinal # Voids 1 - Exam Left lower extremity: Knee immobilizer and Sd bandage are in good position condition. Sensation to light touch throughout the extremity is intact. Skin is warm to touch to the lower extremity. - Labs CBC & Chem 7: 01/07/25 06:07 01/07/25 06:07 Labs: Abnormal Lab Results - Last 24 Hours (Table) 01/06/25 01/06/25 01/07/25 Range/Units 10:20 10:20 06:07 RBC 4.00 L (4.40-5.60) X 10*6/uL Hgb 11.8 L (13.0-17.0) g/dL Hct 35.8 L (39.6-50.0) % ESR 21 H 24 H (0-20) mm/Hr Calcium (8.7-10.3) mg/dL C-Reactive Protein 3.20 H (0.00-0.80) mg/dL Total Protein (6.2-8.2) g/dL Albumin (3.8-4.9) g/dL Albumin/Globulin Ratio (1.60-3.17) Ratio 01/07/25 Range/Units 06:07 RBC (4.40-5.60) X 10*6/uL Hgb (13.0-17.0) g/dL Hct (39.6-50.0) % ESR (0-20) mm/Hr Calcium 8.2 L (8.7-10.3) mg/dL C-Reactive Protein 4.40 H (0.00-0.80) mg/dL Total Protein 5.6 L (6.2-8.2) g/dL Albumin 3.1 L (3.8-4.9) g/dL Albumin/Globulin Ratio 1.24 L (1.60-3.17) Ratio Assessment and Plan Assessment: Postoperative day #1 status post left knee arthrotomy with polyethylene liner exchange and antibiotic bead placement Left knee periprosthetic joint infection Other medical comorbidities Plan: Pain control, continue with current medications DVT prophylaxis, continue current medications Wound care, leave knee immobilizer and Sd bandage in current position. Will change dressing on 01/08/2025 Toe-touch weightbearing left lower extremity, walker must be used at all times along with knee immobilizer Ice and elevate the extremity often Encourage incentive spirometer Await culture and sensitivity results Other medical specialty recommendations appreciated Discharge planning: Anticipate discharge to subacute rehab 01/10/2025 Time with Patient: Less than 30
--- NOTE | 2025-01-07 15:20 | P.PN ---
Subjective Progress Note Date: 01/07/25 Principal diagnosis: Reason for follow-up is left knee septic arthritis Patient is 74-year-old male with a past medical history significant for GERD/Reflux, Hearing Disorder / Deafness, Hyperlipidemia, Hypertension, Osteoarthritis (OA), Prostate Disorder, Sleep Apnea/CPAP/BIPAP and did have left total knee arthroplasty July 2024 apparently the patient did have a fall postsurgery and subsequently did have repair of the quadriceps tendon medial retinacular and patellar tendon now being admitted to hospital with concern for possible left knee septic arthritis status post polyethylene exchange and antibiotic bead placement. On today's evaluation that is 01/07/2025, the patient continues to be afebrile, the patient is on room air and breathing comfortably, the Pt denies having any chest pain or cough, the patient denies having any abdominal pain no vomiting or any diarrhea send complaining of pain to the left knee though controlled with pain medication. Patient white count is 8.40 sed rate is 24 creatinine 0.7 CRP is 4.40 cultures currently pending Objective - Vital Signs Vital signs: Vital Signs Temp 98.5 F 01/07/25 07:58 Pulse 68 01/07/25 07:58 Resp 18 01/07/25 10:49 BP 118/64 01/07/25 07:58 Pulse Ox 90 L 01/07/25 07:58 FiO2 Intake & Output 01/06/25 01/07/25 01/07/25 18:59 06:59 18:59 Intake Total 1401 Output Total 10 3300 Balance 1391 -3300 Weight 92.986 kg Intake: IV 1401 Output: Urine 3300 Straight 1650 Estimated Blood Loss 10 Other: Voiding Method Urinal Urinal Urinal # Voids 1 - Exam GENERAL DESCRIPTION: An elderly male in the chair in no distress RESPIRATORY SYSTEM: Unlabored breathing , decreased breath sounds at bases HEART: S1 S2 regular rate and rhythm , ABDOMEN: Soft , no tenderness EXTREMITIES: Left knee is currently dressed - Labs CBC & Chem 7: 01/07/25 06:07 01/07/25 06:07 Labs: Abnormal Lab Results - Last 24 Hours (Table) 01/06/25 01/06/25 01/07/25 Range/Units 10:20 10:20 06:07 RBC 4.00 L (4.40-5.60) X 10*6/uL Hgb 11.8 L (13.0-17.0) g/dL Hct 35.8 L (39.6-50.0) % ESR 21 H 24 H (0-20) mm/Hr Calcium (8.7-10.3) mg/dL C-Reactive Protein 3.20 H (0.00-0.80) mg/dL Total Protein (6.2-8.2) g/dL Albumin (3.8-4.9) g/dL Albumin/Globulin Ratio (1.60-3.17) Ratio // Range/Units 06:07 RBC (4.40-5.60) X 10*6/uL Hgb (13.0-17.0) g/dL Hct (39.6-50.0) % ESR (0-20) mm/Hr Calcium 8.2 L (8.7-10.3) mg/dL C-Reactive Protein 4.40 H (0.00-0.80) mg/dL Total Protein 5.6 L (6.2-8.2) g/dL Albumin 3.1 L (3.8-4.9) g/dL Albumin/Globulin Ratio 1.24 L (1.60-3.17) Ratio Assessment and Plan (1) Septic arthritis of knee, left Current Visit: Yes Status: Acute Code(s): M00.9 - PYOGENIC ARTHRITIS, UNSPECIFIED SNOMED Code(s): 012770433 Plan: 1patient presented hospital with increasing pain and swelling to the left knee area and this patient who did have prosthetic knee status post arthrotomy and polyethylene exchange likely will need to cover for gram positive skin jayy to be the likely pathogen 2-local culture obtained results will follow check a blood culture 3-patient did have a sed rate of 24 CRP is 4.0 4-patient will be treated with vancomycin pharmacy to dose target trough of 15 while waiting for the culture to finalize Dictation was produced using [employer] software. please excuse any grammatical, word or spelling errors. Time with Patient: Less than 30
[2025-01-08 04:34] LABS: ALT 13 U/L (4-49); AST 22 U/L (17-59); African American GFR (CKD) >90 (>60 ml/min/1.73 sqM); Albumin 2.7 g/dL (3.5-5.0); Albumin/Globulin Ratio 0.9; Alkaline Phosphatase 67 U/L (38-126); Anion Gap 6 mmol/L; Blood Urea Nitrogen 13 mg/dL (9-20); Calcium 8.4 mg/dL (8.4-10.2); Carbon Dioxide 26 mmol/L (22-30); Chloride 100 mmol/L (98-107); Glucose 101 mg/dL (74-99); Non-African American GFR(CKD) >90 (>60 ml/min/1.73 sqM); Sodium 132 mmol/L (137-145); Total Bilirubin 0.5 mg/dL (0.2-1.3); Total Protein 5.7 g/dL (6.3-8.2)
[2025-01-08 09:25] LABS: Basophils # (A) 0.03 X 10*3/uL (0.00-0.10); Basophils % (A) 0.4 %; Eosinophils # (A) 0.42 X 10*3/uL (0.04-0.35); Eosinophils % (A) 5.7 %; HCT 33.6 % (39.6-50.0); HGB 10.9 g/dL (13.0-17.0); Lymphocytes % (A) 16.2 %; MCHC 32.4 g/dL (32.0-37.0); MCV 89.4 FL (80.0-97.0); Mean Platelet Volume 11.1 FL (9.5-12.2); Monocytes # (A) 0.91 X 10*3/uL (0.20-1.00); Monocytes % (A) 12.3 %; NRBC Per 100 WBC 0 X 10*3/uL (0.00-0.01); Neutrophils # (A) 4.84 X 10*3/uL (1.80-7.70); Neutrophils % (A) 65.1 %; Platelet Count 191 X 10*3/uL (140-440); RBC 3.76 X 10*6/uL (4.40-5.60); RDW 13.9 % (11.5-14.5); WBC 7.42 X 10*3/uL (4.50-10.00)
[2025-01-08] MEDS: ENOXAPARIN 40 MG/0.4 ML SYRINGE SQ SCH (11:50)
--- NOTE | 2025-01-08 12:58 | P.PN ---
Subjective Progress Note Date: 01/08/25 Sebastian Armas is a 74-year-old male patient who was sent to ER per orthopedic services due to concerns of infection to the left surgical knee site. Patient originally underwent left total knee arthroplasty in July [address] Duran. 6 weeks postoperative patient fell and sustained injury to the left knee and underwent surgery in August 2024 for repair of quadricep tendon. Patient reports over the past 2 weeks he has noticed increased pain and small wound over the anterior aspect of the knee. Patient denies fever. Drainage noted. Patient denies any trauma or fall to knee patient has past medical history of GERD, hearing disorder, hyperlipidemia, hypertension, obstructive sleep apnea and previous right knee replacement. At this time patient has been admitted to orthopedic services. Plans for I&D today 01/06/2025. Per nursing staff will hold off on antibiotics per orthopedic services until cultures were obtained intraoperatively. Lab work completed showing white blood cell 10.3, hemoglobin 13.9, creatinine 0.62 bun 17. Current vital signs temp 97.8, heart rate 54, respiratory rate 18, blood pressure 119/70 with a pulse ox of 96% on room air. Patient denies chest pain or shortness of breath. Patient denies nausea vomiting or diarrhea. Patient denies any urinary burning or frequency On 01/07/2025 patient is alert and oriented x 3. Patient underwent I&D and antibiotic bead placement into left knee yesterday 01/06/2025. Patient also started on IV Vanco per infectious disease. PT OT services consulted. Patient denies chest pain or shortness of breath. Patient denies nausea vomiting or diarrhea. Patient denies any urinary burning or frequency. Current vital signs temp 98.5, heart rate 68, respiratory rate 17, blood pressure 118/64 with a pulse ox of 93% on room air On 01/08/2025 patient was seen and examined on the medical floor he is alert and oriented x 3 in no apparent distress, he is complaining of left lower extremity pain, he is complaining of constipation, he had urinary tract infection and had a Brush catheter replaced, otherwise he denies any complaints there is no fever or chills no headache or dizziness no chest pain no shortness of breath no cough no nausea or vomiting no abdominal pain no diarrhea. Objective - Vital Signs Vital signs: Vital Signs Temp 97.7 F 01/08/25 07:38 Pulse 56 L 01/08/25 08:10 Resp 18 01/08/25 08:10 BP 136/67 01/08/25 07:38 Pulse Ox 94 L 01/08/25 07:38 FiO2 Intake & Output 01/07/25 01/08/25 01/08/25 18:59 06:59 18:59 Intake Total 100 540 Output Total 600 1375 Balance -500 -835 Intake: Oral 100 540 Output: Urine 600 1375 Uretheral (Brush) 700 Other: Voiding Method Urinal Indwelling Catheter Indwelling Catheter # Voids 1 - Exam Head normocephalic Neck supple Lungs clear to auscultation bilaterally no wheezing or crackles Heart regular rate and rhythm S1-S2, no rub or gallop Abdomen is soft nontender nondistended positive bowel sounds no hepatosplenomegaly Extremities no edema. Erythema noted to left knee site. Wound noted with drainage Neuro alert and orientated to 3 - Labs CBC & Chem 7: 01/08/25 03:30 01/08/25 03:30 Labs: Abnormal Lab Results - Last 24 Hours (Table) 01/07/25 01/07/25 01/08/25 Range/Units 06:07 06:07 03:30 RBC (4.40-5.60) X 10*6/uL Hgb (13.0-17.0) g/dL Hct (39.6-50.0) % Eosinophils # (0.04-0.35) X 10*3/uL ESR 24 H (0-20) mm/Hr Sodium 132 L (137-145) mmol/L Glucose 101 H (74-99) mg/dL Calcium 8.2 L (8.7-10.3) mg/dL C-Reactive Protein 4.40 H (0.00-0.80) mg/dL Total Protein 5.6 L 5.7 L (6.2-8.2) g/dL Albumin 3.1 L 2.7 L (3.8-4.9) g/dL Albumin/Globulin Ratio 1.24 L (1.60-3.17) Ratio 01/08/25 Range/Units 03:30 RBC 3.76 L (4.40-5.60) X 10*6/uL Hgb 10.9 L (13.0-17.0) g/dL Hct 33.6 L (39.6-50.0) % Eosinophils # 0.42 H (0.04-0.35) X 10*3/uL ESR (0-20) mm/Hr Sodium (137-145) mmol/L Glucose (74-99) mg/dL Calcium (8.7-10.3) mg/dL C-Reactive Protein (0.00-0.80) mg/dL Total Protein (6.2-8.2) g/dL Albumin (3.8-4.9) g/dL Albumin/Globulin Ratio (1.60-3.17) Ratio Microbiology - Last 24 Hours (Table) 01/06/25 15:05 Gram Stain - Preliminary Knee - Left Wound Culture - Preliminary Presumptive Staph aureus 01/06/25 15:00 Gram Stain - Preliminary Knee - Left Wound Culture - Preliminary Presumptive Staph aureus 01/06/25 00:00 Blood Culture - Preliminary Blood Assessment and Plan Assessment: 1. Left knee wound status post I&D and antibiotic bead placement on 01/06/2025 2. History of left total knee arthroplasty 3. Fall 6 weeks postoperative resulting in quadricep tendon tear. Require repair 4. History of GERD 5. History of essential hypertension 6. History of sleep apnea 7. History of hyperlipidemia 8. Urinary retention with Brush catheter placement during this admission urology consultation requested Thank you for this consultation we will continue to follow patient closely throughout stay Per orthopedic services hold off on systemic antibiotics until cultures are obtained patient started on IV antibiotic Vanco Infectious disease services following Repeat labs ordered for a.m.
[2025-01-08] MEDS: LACTULOSE 20 GM/30 ML CUP PO SCH (14:07)
--- NOTE | 2025-01-08 15:04 | P.PN ---
Subjective Progress Note Date: 01/08/25 Principal diagnosis: Status post left knee arthrotomy, polyethylene liner exchange, antibiotic bead placement Patient was evaluated at bedside, he is sitting up in his hospital chair, the knee immobilizer is in good position. Patient's pain is controlled with current regimen. He denies any headaches, headedness, chest pain or shortness of breath. Urinary catheter was placed yesterday due to retention. Preliminary cultures are showing Staph aureus. He has been followed by internal medicine and infectious disease at this time Objective - Vital Signs Vital signs: Vital Signs Temp 98.3 F 01/08/25 13:29 Pulse 53 L 01/08/25 13:29 Resp 18 01/08/25 13:29 BP 116/56 01/08/25 13:29 Pulse Ox 95 01/08/25 13:29 FiO2 Intake & Output 01/07/25 01/08/25 01/08/25 18:59 06:59 18:59 Intake Total 100 540 Output Total 600 1375 Balance -500 -835 Intake: Oral 100 540 Output: Urine 600 1375 Uretheral (Brush) 700 Other: Voiding Method Urinal Indwelling Catheter Indwelling Catheter # Voids 1 - Exam Left lower extremity: Postop dressing was removed today at bedside, there is some swelling and bruising on the medial lateral aspects of the knee. Nylon sutures are all in good position and condition calf is soft, no tenderness with palpation. Sensation to light touch throughout the extremity is intact. Skin is warm to touch to the lower extremity. - Labs CBC & Chem 7: 01/08/25 03:30 01/08/25 03:30 Labs: Abnormal Lab Results - Last 24 Hours (Table) 01/08/25 01/08/25 Range/Units 03:30 03:30 RBC 3.76 L (4.40-5.60) X 10*6/uL Hgb 10.9 L (13.0-17.0) g/dL Hct 33.6 L (39.6-50.0) % Eosinophils # 0.42 H (0.04-0.35) X 10*3/uL Sodium 132 L (137-145) mmol/L Glucose 101 H (74-99) mg/dL Total Protein 5.7 L (6.3-8.2) g/dL Albumin 2.7 L (3.5-5.0) g/dL Microbiology - Last 24 Hours (Table) 01/06/25 15:05 Gram Stain - Preliminary Knee - Left Wound Culture - Preliminary Presumptive Staph aureus 01/06/25 15:00 Gram Stain - Preliminary Knee - Left Wound Culture - Preliminary Presumptive Staph aureus 01/06/25 00:00 Blood Culture - Preliminary Blood Assessment and Plan Assessment: Postoperative day #2 status post left knee arthrotomy with polyethylene liner exchange and antibiotic bead placement Left knee periprosthetic joint infection Urinary retention Other medical comorbidities Plan: Pain control, continue with current medications DVT prophylaxis, continue current medications Optifoam dressing was applied, okay to leave Sd bandage off Knee immobilizer can be open while patient is lying flat with the leg fully extended Toe-touch weightbearing left lower extremity, walker must be used at all times along with knee immobilizer Ice and elevate the extremity often Encourage incentive spirometer Await culture and sensitivity results Other medical specialty recommendations appreciated Discharge planning: Anticipate discharge to subacute rehab 01/10/2025 Time with Patient: Less than 30
--- NOTE | 2025-01-08 15:53 | P.PN ---
Subjective Progress Note Date: 01/08/25 Principal diagnosis: Reason for follow-up is left knee septic arthritis Patient is 74-year-old male with a past medical history significant for GERD/Reflux, Hearing Disorder / Deafness, Hyperlipidemia, Hypertension, Osteoarthritis (OA), Prostate Disorder, Sleep Apnea/CPAP/BIPAP and did have left total knee arthroplasty July 2024 apparently the patient did have a fall postsurgery and subsequently did have repair of the quadriceps tendon medial retinacular and patellar tendon now being admitted to hospital with concern for possible left knee septic arthritis status post polyethylene exchange and antibiotic bead placement. On today's evaluation that is 01/08/2025, patient did not have any fever and denies any chills, patient is breathing comfortably on room air, patient with no chest pain or cough patient did not have any abdominal pain nausea vomiting or a ny loose stools pain to the left is currently controlled. The patient white count 7.42, creatinine 0.66 knee culture growing Staph aureus Objective - Vital Signs Vital signs: Vital Signs Temp 97.7 F 01/08/25 07:38 Pulse 56 L 01/08/25 08:10 Resp 18 01/08/25 08:10 BP 136/67 01/08/25 07:38 Pulse Ox 94 L 01/08/25 07:38 FiO2 Intake & Output 01/07/25 01/08/25 01/08/25 18:59 06:59 18:59 Intake Total 100 540 Output Total 600 1375 Balance -500 -835 Intake: Oral 100 540 Output: Urine 600 1375 Uretheral (Brush) 700 Other: Voiding Method Urinal Indwelling Catheter Indwelling Catheter # Voids 1 - Exam GENERAL DESCRIPTION: An elderly male in the chair in no distress RESPIRATORY SYSTEM: Unlabored breathing , decreased breath sounds at bases HEART: S1 S2 regular rate and rhythm , ABDOMEN: Soft , no tenderness EXTREMITIES: Left knee is currently dressed - Labs CBC & Chem 7: 01/08/25 03:30 01/08/25 03:30 Labs: Abnormal Lab Results - Last 24 Hours (Table) 01/08/25 01/08/25 Range/Units 03:30 03:30 RBC 3.76 L (4.40-5.60) X 10*6/uL Hgb 10.9 L (13.0-17.0) g/dL Hct 33.6 L (39.6-50.0) % Eosinophils # 0.42 H (0.04-0.35) X 10*3/uL Sodium 132 L (137-145) mmol/L Glucose 101 H (74-99) mg/dL Total Protein 5.7 L (6.3-8.2) g/dL Albumin 2.7 L (3.5-5.0) g/dL Microbiology - Last 24 Hours (Table) 01/06/25 15:05 Gram Stain - Preliminary Knee - Left Wound Culture - Preliminary Presumptive Staph aureus 01/06/25 15:00 Gram Stain - Preliminary Knee - Left Wound Culture - Preliminary Presumptive Staph aureus 01/06/25 00:00 Blood Culture - Preliminary Blood Assessment and Plan (1) Septic arthritis of knee, left Current Visit: Yes Status: Acute Code(s): M00.9 - PYOGENIC ARTHRITIS, UNSPECIFIED SNOMED Code(s): 881080648 Plan: 1patient presented hospital with increasing pain and swelling to the left knee area and this patient who did have prosthetic knee status post arthrotomy and polyethylene exchange likely will need to cover for gram positive skin jayy to be the likely pathogen 2-local culture current growing Staph aureus sensitivities pending blood culture has been negative 3-patient did have a sed rate of 24 CRP is 4.0 4-patient will be treated with vancomycin pharmacy to dose target trough of 15 while waiting for the culture to finalize to determine discharge antibiotics will need a PICC line for outpatient antibiotic Dictation was produced using [employer] dictation software. please excuse any grammatical, word or spelling errors. Time with Patient: Less than 30
[2025-01-09] MEDS ORDERED: MAGNESIUM HYDROXIDE 2,400 MG/30 ML CUP PO PRN (07:33)
--- NOTE | 2025-01-09 07:34 | P.PN ---
Subjective Progress Note Date: 01/09/25 Sebastian Armas is a 74-year-old male patient who was sent to ER per orthopedic services due to concerns of infection to the left surgical knee site. Patient originally underwent left total knee arthroplasty in July [address] Duran. 6 weeks postoperative patient fell and sustained injury to the left knee and underwent surgery in August 2024 for repair of quadricep tendon. Patient reports over the past 2 weeks he has noticed increased pain and small wound over the anterior aspect of the knee. Patient denies fever. Drainage noted. Patient denies any trauma or fall to knee patient has past medical history of GERD, hearing disorder, hyperlipidemia, hypertension, obstructive sleep apnea and previous right knee replacement. At this time patient has been admitted to orthopedic services. Plans for I&D today 01/06/2025. Per nursing staff will hold off on antibiotics per orthopedic services until cultures were obtained intraoperatively. Lab work completed showing white blood cell 10.3, hemoglobin 13.9, creatinine 0.62 bun 17. Current vital signs temp 97.8, heart rate 54, respiratory rate 18, blood pressure 119/70 with a pulse ox of 96% on room air. Patient denies chest pain or shortness of breath. Patient denies nausea vomiting or diarrhea. Patient denies any urinary burning or frequency On 01/07/2025 patient is alert and oriented x 3. Patient underwent I&D and antibiotic bead placement into left knee yesterday 01/06/2025. Patient also started on IV Vanco per infectious disease. PT OT services consulted. Patient denies chest pain or shortness of breath. Patient denies nausea vomiting or diarrhea. Patient denies any urinary burning or frequency. Current vital signs temp 98.5, heart rate 68, respiratory rate 17, blood pressure 118/64 with a pulse ox of 93% on room air On 01/08/2025 patient was seen and examined on the medical floor he is alert and oriented x 3 in no apparent distress, he is complaining of left lower extremity pain, he is complaining of constipation, he had urinary tract infection and had a Brush catheter replaced, otherwise he denies any complaints there is no fever or chills no headache or dizziness no chest pain no shortness of breath no cough no nausea or vomiting no abdominal pain no diarrhea. On 01/09/2025 patient was seen and examined on the medical floor he is alert and oriented x 3 in no apparent distress he is complaining of constipation and left lower extremity discomfort otherwise he denies any complaints there is no fever or chills no headache or dizziness no chest pain no shortness of breath no cough no nausea or vomiting no diarrhea and no urinary symptoms. Brush catheter is still in place Objective - Vital Signs Vital signs: Vital Signs Temp 98.7 F 01/09/25 00:27 Pulse 99 01/09/25 00:27 Resp 16 01/09/25 00:27 BP 139/68 01/09/25 00:27 Pulse Ox 97 01/09/25 00:27 FiO2 Intake & Output 01/08/25 01/09/25 01/09/25 18:59 06:59 18:59 Intake Total 1400 360 Output Total 1200 Balance 1400 -840 Intake: Intake, IV Titration 1400 Amount Sodium Chloride 0.9% 1, 900 000 ml @ 75 mls/hr IV . [id number] DEBBIE Rx#:[id number] Vancomycin 1,500 mg In 500 Sodium Chloride 0.9% 500 ml 500 ml @ 167 mls/hr IVPB Q12H DEBBIE Rx#: [id number] Oral 360 Output: Urine 1200 Other: Voiding Method Indwelling Catheter Indwelling Catheter - Exam Head normocephalic Neck supple Lungs clear to auscultation bilaterally no wheezing or crackles Heart regular rate and rhythm S1-S2, no rub or gallop Abdomen is soft nontender nondistended positive bowel sounds no hepatosplenomegaly Extremities no edema. Erythema noted to left knee site. Wound noted with drainage Neuro alert and orientated to 3 - Labs CBC & Chem 7: 01/08/25 03:30 01/08/25 03:30 Labs: Abnormal Lab Results - Last 24 Hours (Table) 01/08/25 Range/Units 03:30 RBC 3.76 L (4.40-5.60) X 10*6/uL Hgb 10.9 L (13.0-17.0) g/dL Hct 33.6 L (39.6-50.0) % Eosinophils # 0.42 H (0.04-0.35) X 10*3/uL Microbiology - Last 24 Hours (Table) 01/06/25 00:00 Blood Culture - Preliminary Blood 01/06/25 15:05 Gram Stain - Preliminary Knee - Left Wound Culture - Preliminary Presumptive Staph aureus 01/06/25 15:00 Gram Stain - Preliminary Knee - Left Wound Culture - Preliminary Presumptive Staph aureus Assessment and Plan Assessment: 1. Left knee wound status post I&D and antibiotic bead placement on 01/06/2025 2. History of left total knee arthroplasty 3. Fall 6 weeks postoperative resulting in quadricep tendon tear. Require repair 4. History of GERD 5. History of essential hypertension 6. History of sleep apnea 7. History of hyperlipidemia 8. Urinary retention with Brush catheter placement during this admission urology consultation requested Thank you for this consultation we will continue to follow patient closely th roughout stay Per orthopedic services hold off on systemic antibiotics until cultures are obtained patient [facility] following Repeat labs ordered for a.m.
--- NOTE | 2025-01-09 10:46 | P.PN ---
Subjective Progress Note Date: 01/09/25 Principal diagnosis: Status post left knee arthrotomy, polyethylene liner exchange, antibiotic bead placement Patient was evaluated at bedside, he is sitting up in his hospital chair, the knee immobilizer is in good position. Patient's pain is controlled with current regimen. He denies any headaches, headedness, chest pain or shortness of breath. Urinary catheter remains in place. He has been followed by internal medicine and infectious disease at this time Objective - Vital Signs Vital signs: Vital Signs Temp 98.2 F 01/09/25 07:18 Pulse 57 L 01/09/25 07:18 Resp 18 01/09/25 07:18 BP 153/80 01/09/25 07:18 Pulse Ox 96 01/09/25 07:18 FiO2 Intake & Output 01/08/25 01/09/25 01/09/25 18:59 06:59 18:59 Intake Total 1400 360 Output Total 1200 Balance 1400 -840 Intake: Intake, IV Titration 1400 Amount Sodium Chloride 0.9% 1, 900 000 ml @ 75 mls/hr IV . [id number] DEBBIE Rx#:[id number] Vancomycin 1,500 mg In 500 Sodium Chloride 0.9% 500 ml 500 ml @ 167 mls/hr IVPB Q12H DEBBIE Rx#: [id number] Oral 360 Output: Urine 1200 Other: Voiding Method Indwelling Catheter Indwelling Catheter - Exam Left lower extremity: Optifoam dressing is in good position, there is some swelling and bruising on the medial lateral aspects of the knee. Calf is soft, no tenderness with palpation. Sensation to light touch throughout the extremity is intact. Skin is warm to touch to the lower extremity. - Labs CBC & Chem 7: 01/08/25 03:30 01/08/25 03:30 Labs: Microbiology - Last 24 Hours (Table) 01/06/25 15:05 Gram Stain - Final Knee - Left Wound Culture - Final Staphylococcus aureus 01/06/25 15:00 Gram Stain - Final Knee - Left Wound Culture - Final Staphylococcus aureus 01/06/25 00:00 Blood Culture - Preliminary Blood Assessment and Plan Assessment: Postoperative day #3 status post left knee arthrotomy with polyethylene liner exchange and antibiotic bead placement Left knee periprosthetic joint infection Urinary retention Other medical comorbidities Plan: Pain control, continue with current medications DVT prophylaxis, continue current medications Monitor surgical dressing Knee immobilizer can be open while patient is lying flat with the leg fully extended Toe-touch weightbearing left lower extremity, walker must be used at all times along with knee immobilizer Ice and elevate the extremity often Encourage incentive spirometer Initial cultures showing Staph aureus, anticipate PICC line placement on 01/10/2025 Other medical specialty recommendations appreciated Discharge planning: Anticipate discharge to subacute rehab 01/10/2025 Time with Patient: Less than 30
[2025-01-09] MEDS: VANCOMYCIN TROUGH DUE 1 EACH MISC MISCELLANE ONE (10:55)
[2025-01-09 11:32] LABS: Basophils % (A) 0 %; Eosinophils # (A) 0.5 k/uL (0-0.7); Eosinophils % (A) 7 %; HCT 36.7 % (39.0-53.0); HGB 12.3 gm/dL (13.0-17.5); Lymphocytes % (A) 16 %; MCH 29.5 pg (25.0-35.0); MCHC 33.5 g/dL (31.0-37.0); MCV 87.9 fL (80.0-100.0); Mean Platelet Volume 8.1; Monocytes # (A) 0.4 k/uL (0-1.0); Monocytes % (A) 7 %; Neutrophils # (A) 4.1 k/uL (1.3-7.7); Neutrophils % (A) 67 %; Platelet Count 201 k/uL (150-450); RBC 4.18 m/uL (4.30-5.90); RDW 13.9 % (11.5-15.5); WBC 6.2 k/uL (3.8-10.6)
[2025-01-09 11:44] LABS: ALT 16 U/L (4-49); AST 25 U/L (17-59); African American GFR (CKD) >90 (>60 ml/min/1.73 sqM); Albumin 3.1 g/dL (3.5-5.0); Alkaline Phosphatase 75 U/L (38-126); Anion Gap 6 mmol/L; Blood Urea Nitrogen 10 mg/dL (9-20); Calcium 8.8 mg/dL (8.4-10.2); Carbon Dioxide 27 mmol/L (22-30); Chloride 101 mmol/L (98-107); Globulin 3.2 g/dL; Glucose 101 mg/dL (74-99); Non-African American GFR(CKD) >90 (>60 ml/min/1.73 sqM); Potassium 4.3 mmol/L (3.5-5.1); Sodium 134 mmol/L (137-145); Total Bilirubin 0.5 mg/dL (0.2-1.3); Total Protein 6.3 g/dL (6.3-8.2)
--- NOTE | 2025-01-09 16:12 | P.PN ---
Subjective Progress Note Date: 01/09/25 Principal diagnosis: Reason for follow-up is left knee septic arthritis Patient is 74-year-old male with a past medical history significant for GERD/Reflux, Hearing Disorder / Deafness, Hyperlipidemia, Hypertension, Osteoarthritis (OA), Prostate Disorder, Sleep Apnea/CPAP/BIPAP and did have left total knee arthroplasty July 2024 apparently the patient did have a fall postsurgery and subsequently did have repair of the quadriceps tendon medial retinacular and patellar tendon now being admitted to hospital with concern for possible left knee septic arthritis status post polyethylene exchange and antibiotic bead placement. On today's evaluation that is 01/09/2025, Patient is afebrile patient is currently on room air and denies having any shortness of breath, the patient denies any chest pain or cough, the patient denies any nausea vomiting did not have any abdominal pain and no diarrhea pain to the left is currently controlled. Patient white count 6.2 creatinine 0.59 blood culture negative local culture with MSSA Objective - Vital Signs Vital signs: Vital Signs Temp 98.2 F 01/09/25 07:18 Pulse 57 L 01/09/25 07:18 Resp 18 01/09/25 07:18 BP 153/80 01/09/25 07:18 Pulse Ox 96 01/09/25 07:18 FiO2 Intake & Output 01/08/25 01/09/25 01/09/25 18:59 06:59 18:59 Intake Total 1400 360 Output Total 1200 Balance 1400 -840 Intake: Intake, IV Titration 1400 Amount Sodium Chloride 0.9% 1, 900 000 ml @ 75 mls/hr IV . [id number] DEBBIE Rx#:[id number] Vancomycin 1,500 mg In 500 Sodium Chloride 0.9% 500 ml 500 ml @ 167 mls/hr IVPB Q12H DEBBIE Rx#: [id number] Oral 360 Output: Urine 1200 Other: Voiding Method Indwelling Catheter Indwelling Catheter - Exam GENERAL DESCRIPTION: An elderly male in the chair in no distress RESPIRATORY SYSTEM: Unlabored breathing , decreased breath sounds at bases HEART: S1 S2 regular rate and rhythm , ABDOMEN: Soft , no tenderness EXTREMITIES: Left knee is currently dressed - Labs CBC & Chem 7: 01/09/25 11:18 01/09/25 11:18 Labs: Abnormal Lab Results - Last 24 Hours (Table) 01/09/25 01/09/25 Range/Units 11:18 11:18 RBC 4.18 L (4.30-5.90) m/uL Hgb 12.3 L (13.0-17.5) gm/dL Hct 36.7 L (39.0-53.0) % Sodium 134 L (137-145) mmol/L Creatinine 0.59 L (0.66-1.25) mg/dL Glucose 101 H (74-99) mg/dL Albumin 3.1 L (3.5-5.0) g/dL Microbiology - Last 24 Hours (Table) 01/06/25 15:05 Anaerobic Culture - Preliminary Knee - Left 01/06/25 15:00 Anaerobic Culture - Preliminary Knee - Left 01/06/25 15:05 Gram Stain - Final Knee - Left Wound Culture - Final Staphylococcus aureus 01/06/25 15:00 Gram Stain - Final Knee - Left Wound Culture - Final Staphylococcus aureus 01/06/25 00:00 Blood Culture - Preliminary Blood Assessment and Plan (1) Septic arthritis of knee, left Current Visit: Yes Status: Acute Code(s): M00.9 - PYOGENIC ARTHRITIS, UNSPECIFIED SNOMED Code(s): 917311102 Plan: 1patient presented hospital with increasing pain and swelling to the left knee area and this patient who did have prosthetic knee status post arthrotomy and polyethylene exchange likely will need to cover for gram positive skin jayy to be the likely pathogen 2-local culture current growing Staph aureus sensitivities pending blood culture has been negative 3-patient did have a sed rate of 24 CRP is 4.0 4-patient culture have been finalized with MSSA vancomycin has been discontinued patient started on cefazolin PICC line has been ordered for outpatient IV antibiotics Dictation was produced using [employer] dictation software. please excuse any grammatical, word or spelling errors. Time with Patient: Less than 30
[2025-01-10 03:29] LABS: ALT 19 U/L (4-49); AST 33 U/L (17-59); African American GFR (CKD) >90 (>60 ml/min/1.73 sqM); Albumin 2.9 g/dL (3.5-5.0); Albumin/Globulin Ratio 0.9; Alkaline Phosphatase 73 U/L (38-126); Anion Gap 10 mmol/L; Blood Urea Nitrogen 12 mg/dL (9-20); Calcium 8.9 mg/dL (8.4-10.2); Carbon Dioxide 26 mmol/L (22-30); Chloride 99 mmol/L (98-107); Globulin 3.1 g/dL; Glucose 109 mg/dL (74-99); Non-African American GFR(CKD) >90 (>60 ml/min/1.73 sqM); Potassium 3.9 mmol/L (3.5-5.1); Sodium 135 mmol/L (137-145); Total Bilirubin 0.3 mg/dL (0.2-1.3)
[2025-01-10 09:18] LABS: Basophils # (A) 0.03 X 10*3/uL (0.00-0.10); Basophils % (A) 0.6 %; Eosinophils # (A) 0.39 X 10*3/uL (0.04-0.35); HCT 34.9 % (39.6-50.0); HGB 11.8 g/dL (13.0-17.0); Lymphocytes % (A) 20.6 %; MCH 29.7 pg (27.0-32.0); MCHC 33.8 g/dL (32.0-37.0); MCV 87.9 FL (80.0-97.0); Mean Platelet Volume 11.2 FL (9.5-12.2); Monocytes # (A) 0.57 X 10*3/uL (0.20-1.00); Monocytes % (A) 11.8 %; NRBC Per 100 WBC 0 X 10*3/uL (0.00-0.01); Neutrophils # (A) 2.84 X 10*3/uL (1.80-7.70); Neutrophils % (A) 58.6 %; Platelet Count 210 X 10*3/uL (140-440); RBC 3.97 X 10*6/uL (4.40-5.60); RDW 13.4 % (11.5-14.5); WBC 4.85 X 10*3/uL (4.50-10.00)
--- NOTE | 2025-01-10 12:27 | P.PN ---
Subjective Progress Note Date: 01/10/25 Principal diagnosis: Status post left knee arthrotomy, polyethylene liner exchange, antibiotic bead placement Patient was evaluated at bedside, he is sitting up in his hospital bed, the knee immobilizer is in good position. Patient's pain is controlled with current regimen. He denies any headaches, headedness, chest pain or shortness of breath. Urinary catheter remains in place. He has been followed by internal medicine and infectious disease at this time Objective - Vital Signs Vital signs: Vital Signs Temp 97.8 F 01/10/25 07:36 Pulse 58 L 01/10/25 08:00 Resp 18 01/10/25 08:00 BP 146/63 01/10/25 07:36 Pulse Ox 95 01/10/25 07:36 FiO2 Intake & Output 01/09/25 01/10/25 01/10/25 18:59 06:59 18:59 Output Total 1650 1575 Balance -1650 -1575 Output: Urine 1650 1575 Other: Voiding Method Indwelling Catheter Indwelling Catheter Indwelling Catheter # Voids 3 # Bowel Movements 4 - Exam Left lower extremity: Optifoam dressing is in good position, there is some swelling and bruising on the medial lateral aspects of the knee. Calf is soft, no tenderness with palpation. Sensation to light touch throughout the extremity is intact. Skin is warm to touch to the lower extremity. - Labs CBC & Chem 7: 01/10/25 02:42 01/10/25 02:42 Labs: Abnormal Lab Results - Last 24 Hours (Table) 01/10/25 01/10/25 Range/Units 02:42 02:42 RBC 3.97 L (4.40-5.60) X 10*6/uL Hgb 11.8 L (13.0-17.0) g/dL Hct 34.9 L (39.6-50.0) % Eosinophils # 0.39 H (0.04-0.35) X 10*3/uL Sodium 135 L (137-145) mmol/L Creatinine 0.59 L (0.66-1.25) mg/dL Glucose 109 H (74-99) mg/dL Total Protein 6.0 L (6.3-8.2) g/dL Albumin 2.9 L (3.5-5.0) g/dL Microbiology - Last 24 Hours (Table) 01/06/25 00:00 Blood Culture - Preliminary Blood 01/06/25 15:05 Anaerobic Culture - Preliminary Knee - Left 01/06/25 15:00 Anaerobic Culture - Preliminary Knee - Left 01/06/25 15:05 Gram Stain - Final Knee - Left Wound Culture - Final Staphylococcus aureus 01/06/25 15:00 Gram Stain - Final Knee - Left Wound Culture - Final Staphylococcus aureus Assessment and Plan Assessment: Postoperative day #4 status post left knee arthrotomy with polyethylene liner exchange and antibiotic bead placement Left knee periprosthetic joint infection Urinary retention Other medical comorbidities Plan: Pain control, plan for use of [place] for nighttime symptoms. Patient normally takes gabapentin, he can resume this DVT prophylaxis, aspirin 81 mg twice a day Monitor surgical dressing Knee immobilizer can be open while patient is lying flat with the leg fully extended Toe-touch weightbearing left lower extremity, walker must be used at all times along with knee immobilizer Ice and elevate the extremity often Encourage incentive spirometer Patient did have PICC line placed today, instructed to follow-up with infectious disease Other medical specialty recommendations appreciated Discharge planning: Spoke with spoke with case management this morning, they are working on a single bed placement, will plan for discharge today. Time with Patient: Less than 30
--- NOTE | 2025-01-10 12:35 | P.DS ---
Providers Date of admission: 01/05/25 18:35 Expected date of discharge: 01/10/25 Attending physician: Chris Duran Consults: 01/05/25 18:31 Consult Physician Routine Consulting Provider: Meenu Werner Consult Reason/Comments: medicine consult Do you want consulting provider notified?: Yes 01/06/25 15:30 Consult Physician Routine Consulting Provider: Jackie Ohara Consult Reason/Comments: Left knee periprosthetic joint infection Do you want consulting provider notified?: Yes 01/07/25 13:57 Consult Physician Routine Consulting Provider: Hector Lai Consult Reason/Comments: Retention Do you want consulting provider notified?: Yes Primary care physician: Meenu Werner [facility] Course: Date of admission: 01/05/2025 Date of discharge: 01/10/2025 Admission diagnosis: Left knee wound, left lower extremity cellulitis Discharge diagnosis: Left knee periprosthetic infection Attending physician: Dr. Duran Surgical procedures: Left knee arthrotomy with polyethylene liner exchange and antibiotic bead placement Brief history: Patient is a 74-year-old male who has a relatively detailed history with his left knee. Patient had underwent an initial left total knee arthroplasty in July 2024, he then fell injuring his extensor mechanism in August 2024, he underwent an extensive repair of the patellar tendon, quadriceps tendon and medial retinaculum. Patient had been doing rather well in the outpatient setting. About 6 weeks postoperatively he did develop a wound over the anterior aspect of the knee that was being treated conservatively by the wound care doctors. Patient reported to the office this past Friday due to draining and erythema that had developed over a day or 2. Patient was admitted that day to [facility] with plan for surgical intervention on 01/06/2025. Hospital course: Details of patient's surgery can be found in operative report. Patient tolerated the procedure well and was subsequently transported to orthopedic floor. Patient's orthopeidc and medical care was provided daily. Patient had daily laboratory tests performed for evaluation of overall blood counts. Patient had daily physical therapy to include strengthening range of motion as well as education with walker ambulation. Patient was treated with Lovenox for their postoperative DVT prophylaxis during their inpatient stay. Patient was noted to have a relatively uneventful postoperative course. Patient reported satisfactory pain control with oral pain medications by postoperative day 1. Patient showed satisfactory progress with physical therapy. Patient moved steadily through the program and had no difficulty meeting the goals by postoperative day 4. Given patient's otherwise satisfactory course and having met physical therapy goals, plan is to discharge patient subacute rehab on postoperative day 4. Discharge condition/disposition: Patient will be discharged to subacute rehab in stable condition. Discharge medications: Instructions are given on resumption of patient's normal daily medications per primary care recommendation, in addition patient will be prescribed IV cefazolin, [place] 5 mg / 325 mg, Flexeril 10 mg, senna S, MiraLAX 17 g. Discharge instructions: 1. Wound care and infection precautions, keep incision dry and covered while showering, no lotions, creams, moisturizers. No soaking, tubs, pools, hottubs. Do not scrub over the incision. 2. Toe-touch weightbearing, knee immobilizer must be in place when ambulating. Knee must remain in full extension 3. Ice and elevate when necessary. Do not exceed 20 minutes per hour with ice pack. 4. Utilize compression sleeve until seen at first follow up appointment. 5. Visiting nursing care. 6. Home physical therapy. 7. Pain meds and anticoagulants per prescription. 8. Pain medication has potential to cause constipation. Increase oral fluid and fiber intake. Contact primary care provider if you have not had a bowel movement within 48 hours after discharge 9. No anti-inflammatory medication until discussed at first post operative visit, this including Motrin, Aleve, Mobic, Diclofenac. 10. Follow up in office at 2 weeks postop with Scott Hernandez PA-C/Feliz Hager 11. Follow up with your primary care doctor 7-10 days after discharge. 12. Contact [facility] with any questions, . Procedures: Left knee arthrotomy with polyethylene liner exchange and antibiotic bead placement Patient Condition at Discharge: Fair Plan - Discharge Summary Discharge Rx Participant: Yes New Discharge Prescriptions: New HYDROcodone/APAP 5-325MG [[place] 5-325] 1 tab PO Q6HR PRN #18 tab PRN Reason: Pain Aspirin [Adult Low Dose Aspirin EC] 81 mg PO BID #60 tab Cyclobenzaprine [Flexeril] 10 mg PO HS PRN #30 tab PRN Reason: Muscle Spasm polyethylene glycoL 3350 [Miralax] 17 gm PO DAILY PRN #21 packet PRN Reason: Constipation Sennosides/Docusate Sodium [Senna-S 8.6-50 mg Tablet] 2 each PO DAILY PRN #30 tablet PRN Reason: Constipation No Action Rosuvastatin Calcium [Crestor] 10 mg PO HS Omeprazole [PriLOSEC] 20 mg PO DAILY Gabapentin [Neurontin] 300 mg PO HS Ipratropium [place] 0.06%Nasal [Atrovent Nasal 0.06%] 2 spr EA NOSTRIL BID Cholecalciferol (Vitamin D3) [Vitamin D3 (50 Mcg = 2000 Iu)] 100 mcg PO DAILY Mv-Mn/Folic/Lutein/Herbal 293 [Alive Men 50 Plus Premium Chew] 1 tab PO DAILY carvediloL [Coreg] 3.125 mg PO HS Melatonin 10 mg PO HS Collagenase [Santyl Ointment] 1 applic TOPICAL DAILY Magnesium Oxide [Mag-Ox] 400 mg PO HS Gabapentin [Neurontin] 100 mg PO DAILY Valsartan [Diovan] 80 mg PO BID #60 tab Tamsulosin [Flomax] 0.4 mg PO BID Glucosa Chavarria 2Kcl/Chondroitin Chavarria [Glucosamine-Chondroitin Cap] 1 cap PO HS carvediloL [Coreg] 6.25 mg PO DAILY Spironolactone [Aldactone] 25 mg PO DAILY Krill Oil 500mg 500 mg PO DAILY Ferrous Sulfate [Iron (65 MG Elemental)] 325 mg PO DAILY Discharge Medication List Omeprazole [PriLOSEC] 20 mg PO DAILY 11/15/15 [History] Rosuvastatin Calcium [Crestor] 10 mg PO HS 11/15/15 [History] Gabapentin [Neurontin] 300 mg PO HS 05/27/16 [History] Gabapentin [Neurontin] 100 mg PO DAILY 09/13/21 [History] Ipratropium [place] 0.06%Nasal [Atrovent Nasal 0.06%] 2 spr EA NOSTRIL BID 11/14/21 [History] Valsartan [Diovan] 80 mg PO BID #60 tab 07/04/22 [Rx] Cholecalciferol (Vitamin D3) [Vitamin D3 (50 Mcg = 2000 Iu)] 100 mcg PO DAILY 08/03/24 [History] Tamsulosin [Flomax] 0.4 mg PO BID 08/03/24 [History] Glucosa Chavarria 2Kcl/Chondroitin Chavarria [Glucosamine-Chondroitin Cap] 1 cap PO HS 09/22/24 [History] Melatonin 10 mg PO HS 09/22/24 [History] Mv-Mn/Folic/Lutein/Herbal 293 [Alive Men 50 Plus Premium Chew] 1 tab PO DAILY 09/22/24 [History] Spironolactone [Aldactone] 25 mg PO DAILY 09/22/24 [History] carvediloL [Coreg] 3.125 mg PO HS 09/22/24 [History] carvediloL [Coreg] 6.25 mg PO DAILY 09/22/24 [History] Collagenase [Santyl Ointment] 1 applic TOPICAL DAILY 01/05/25 [History] Ferrous Sulfate [Iron (65 MG Elemental)] 325 mg PO DAILY 01/05/25 [History] Krill Oil 500mg 500 mg PO DAILY 01/05/25 [History] Magnesium Oxide [Mag-Ox] 400 mg PO HS 01/05/25 [History] Aspirin [Adult Low Dose Aspirin EC] 81 mg PO BID #60 tab 01/10/25 [Rx] Cyclobenzaprine [Flexeril] 10 mg PO HS PRN #30 tab 01/10/25 [Rx] HYDROcodone/APAP 5-325MG [[place] 5-325] 1 tab PO Q6HR PRN #18 tab 01/10/25 [Rx] Sennosides/Docusate Sodium [Senna-S 8.6-50 mg Tablet] 2 each PO DAILY PRN #30 tablet 01/10/25 [Rx] polyethylene glycoL 3350 [Miralax] 17 gm PO DAILY PRN #21 packet 01/10/25 [Rx] Follow up Appointment(s)/Referral(s): Meenu Werner MD [Primary Care Provider] - 1-2 days [facility] Visiting Nurse, [NON-STAFF] - 1 Week Kris Hernandez PAC [PHYSICIAN LACER AND TIER] - 01/19/25 Activity/Diet/Wound Care/Special Instructions: Orthopedic Discharge Instructions: 1. Wound care and infection precautions, keep incision dry and covered while showering, no lotions, creams, moisturizers. No soaking, pools, hot tubs. Do not scrub over incision. 2. Toe-touch weightbearing with walker, knee immobilizer must be on at all times when ambulating. Knee must remain in full extension 3. Ice and elevate when necessary. Do not exceed 20 minutes per hour with ice pack. 4. Utilize compression sleeve until seen at first follow up appointment. 5. Pain meds and anticoagulants per prescription. 6. Pain medication has potential to cause constipation. Increase oral fluid and fiber intake. Contact primary care provider if you have not had a bowel movement within 48 hours after discharge. 7. No anti-inflammatory medication until discussed at first post operative visit, this including Motrin, Aleve, Mobic, Diclofenac. 8. Follow up in office at 2 weeks postop with Scott Hernandez PA-C/Feliz Oneill PA-C 9. Follow up with your primary care doctor 7-10 days after discharge. 10. Contact [facility] with any questions, . Wound care instructions: 1. Okay to change the Optifoam dressing every 3-5 days, current dressing was placed on 01/08/2025 2. Keep incision covered and dry while showering 3. Do not remove sutures Discharge Disposition: TRANSFER TO SNF/ECF
--- NOTE | 2025-01-10 17:31 | P.PN ---
Subjective Progress Note Date: 01/10/25 Principal diagnosis: Reason for follow-up is left knee septic arthritis Patient is 74-year-old male with a past medical history significant for GERD/Reflux, Hearing Disorder / Deafness, Hyperlipidemia, Hypertension, Osteoarthritis (OA), Prostate Disorder, Sleep Apnea/CPAP/BIPAP and did have left total knee arthroplasty July 2024 apparently the patient did have a fall postsurgery and subsequently did have repair of the quadriceps tendon medial retinacular and patellar tendon now being admitted to hospital with concern for possible left knee septic arthritis status post polyethylene exchange and antibiotic bead placement. On today's evaluation that is 01/10/2025, patient has been afebrile, patient is breathing comfortably and is currently on room air, patient denies having any significant cough no chest pain, patient denies nausea vomiting or diarrhea and no abdominal pain pain to the left knee is currently controlled. Patient white count is 4.85 creatinine 0.59 Objective - Vital Signs Vital signs: Vital Signs Temp 97.8 F 01/10/25 07:36 Pulse 58 L 01/10/25 08:00 Resp 18 01/10/25 08:00 BP 146/63 01/10/25 07:36 Pulse Ox 95 01/10/25 07:36 FiO2 Intake & Output 01/09/25 01/10/25 01/10/25 18:59 06:59 18:59 Output Total 1650 1575 Balance -1650 -1575 Output: Urine 1650 1575 Other: Voiding Method Indwelling Catheter Indwelling Catheter Indwelling Catheter # Voids 3 # Bowel Movements 4 - Exam GENERAL DESCRIPTION: An elderly male in the chair in no distress RESPIRATORY SYSTEM: Unlabored breathing , decreased breath sounds at bases HEART: S1 S2 regular rate and rhythm , ABDOMEN: Soft , no tenderness EXTREMITIES: Left knee is currently dressed - Labs CBC & Chem 7: 01/10/25 02:42 01/10/25 02:42 Labs: Abnormal Lab Results - Last 24 Hours (Table) 01/10/25 01/10/25 Range/Units 02:42 02:42 RBC 3.97 L (4.40-5.60) X 10*6/uL Hgb 11.8 L (13.0-17.0) g/dL Hct 34.9 L (39.6-50.0) % Eosinophils # 0.39 H (0.04-0.35) X 10*3/uL Sodium 135 L (137-145) mmol/L Creatinine 0.59 L (0.66-1.25) mg/dL Glucose 109 H (74-99) mg/dL Total Protein 6.0 L (6.3-8.2) g/dL Albumin 2.9 L (3.5-5.0) g/dL Microbiology - Last 24 Hours (Table) 01/06/25 00:00 Blood Culture - Preliminary Blood 01/06/25 15:05 Anaerobic Culture - Preliminary Knee - Left 01/06/25 15:00 Anaerobic Culture - Preliminary Knee - Left Assessment and Plan (1) Septic arthritis of knee, left Current Visit: Yes Status: Acute Code(s): M00.9 - PYOGENIC ARTHRITIS, UNSPECIFIED SNOMED Code(s): 575288871 Plan: 1patient presented hospital with increasing pain and swelling to the left knee area and this patient who did have prosthetic knee status post arthrotomy and polyethylene exchange likely will need to cover for gram positive skin jayy to be the likely pathogen 2-local culture current growing Staph aureus sensitivities pending blood culture has been negative 3-patient did have a sed rate of 24 CRP is 4.0 4-patient culture have been finalized with [facility] 5patient did get a PICC line plan is for 6-week course of IV cefazolin followed by oral suppressive Keflex Dictation was produced using [employer] dictation software. please excuse any grammatical, word or spelling errors. Time with Patient: Less than 30
--- NOTE | 2025-01-10 17:52 | P.PN ---
Subjective Progress Note Date: 01/10/25 Sebastian Armas is a 74-year-old male patient who was sent to ER per orthopedic services due to concerns of infection to the left surgical knee site. Patient originally underwent left total knee arthroplasty in July [address] Duran. 6 weeks postoperative patient fell and sustained injury to the left knee and underwent surgery in August 2024 for repair of quadricep tendon. Patient reports over the past 2 weeks he has noticed increased pain and small wound over the anterior aspect of the knee. Patient denies fever. Drainage noted. Patient denies any trauma or fall to knee patient has past medical history of GERD, hearing disorder, hyperlipidemia, hypertension, obstructive sleep apnea and previous right knee replacement. At this time patient has been admitted to orthopedic services. Plans for I&D today 01/06/2025. Per nursing staff will hold off on antibiotics per orthopedic services until cultures were obtained intraoperatively. Lab work completed showing white blood cell 10.3, hemoglobin 13.9, creatinine 0.62 bun 17. Current vital signs temp 97.8, heart rate 54, respiratory rate 18, blood pressure 119/70 with a pulse ox of 96% on room air. Patient denies chest pain or shortness of breath. Patient denies nausea vomiting or diarrhea. Patient denies any urinary burning or frequency On 01/07/2025 patient is alert and oriented x 3. Patient underwent I&D and antibiotic bead placement into left knee yesterday 01/06/2025. Patient also started on IV Vanco per infectious disease. PT OT services consulted. Patient denies chest pain or shortness of breath. Patient denies nausea vomiting or diarrhea. Patient denies any urinary burning or frequency. Current vital signs temp 98.5, heart rate 68, respiratory rate 17, blood pressure 118/64 with a pulse ox of 93% on room air On 01/08/2025 patient was seen and examined on the medical floor he is alert and oriented x 3 in no apparent distress, he is complaining of left lower extremity pain, he is complaining of constipation, he had urinary tract infection and had a Brush catheter replaced, otherwise he denies any complaints there is no fever or chills no headache or dizziness no chest pain no shortness of breath no cough no nausea or vomiting no abdominal pain no diarrhea. On 01/09/2025 patient was seen and examined on the medical floor he is alert and oriented x 3 in no apparent distress he is complaining of constipation and left lower extremity discomfort otherwise he denies any complaints there is no fever or chills no headache or dizziness no chest pain no shortness of breath no cough no nausea or vomiting no diarrhea and no urinary symptoms. Brush catheter is still in place On 01/10/2025 patient was seen and examined on the medical floor he is alert and oriented x 3 in no apparent distress he remains on IV antibiotic via PICC line, he still has a Brush catheter in for urinary retention, he denies any complaints at this time there is no fever or chills no headache or dizziness no chest pain no shortness of breath no cough no nausea or vomiting no abdominal pain no diarrhea no blood in the stools. animal ride manager is actively working on arrangement for discharge. Objective - Vital Signs Vital signs: Vital Signs Temp 97.8 F 01/10/25 07:36 Pulse 58 L 01/10/25 08:00 Resp 18 01/10/25 08:00 BP 146/63 01/10/25 07:36 Pulse Ox 95 01/10/25 07:36 FiO2 Intake & Output 01/09/25 01/10/25 01/10/25 18:59 06:59 18:59 Output Total 1650 1575 Balance -1650 -1575 Output: Urine 1650 1575 Other: Voiding Method Indwelling Catheter Indwelling Catheter Indwelling Catheter # Voids 3 # Bowel Movements 4 - Exam Head normocephalic Neck supple Lungs clear to auscultation bilaterally no wheezing or crackles Heart regular rate and rhythm S1-S2, no rub or gallop Abdomen is soft nontender nondistended positive bowel sounds no hepa tosplenomegaly Extremities no edema. Erythema noted to left knee site. Wound noted with drainage Neuro alert and orientated to 3 - Labs CBC & Chem 7: 01/10/25 02:42 01/10/25 02:42 Labs: Abnormal Lab Results - Last 24 Hours (Table) 01/10/25 01/10/25 Range/Units 02:42 02:42 RBC 3.97 L (4.40-5.60) X 10*6/uL Hgb 11.8 L (13.0-17.0) g/dL Hct 34.9 L (39.6-50.0) % Eosinophils # 0.39 H (0.04-0.35) X 10*3/uL Sodium 135 L (137-145) mmol/L Creatinine 0.59 L (0.66-1.25) mg/dL Glucose 109 H (74-99) mg/dL Total Protein 6.0 L (6.3-8.2) g/dL Albumin 2.9 L (3.5-5.0) g/dL Microbiology - Last 24 Hours (Table) 01/06/25 00:00 Blood Culture - Preliminary Blood Assessment and Plan Assessment: 1. Left knee wound status post I&D and antibiotic bead placement on 01/06/2025 2. History of left total knee arthroplasty 3. Fall 6 weeks postoperative resulting in quadricep tendon tear. Require repair 4. History of GERD 5. History of essential hypertension 6. History of sleep apnea 7. History of hyperlipidemia 8. Urinary retention with Brush catheter placement during this admission urology consultation requested Thank you for this consultation we will continue to follow patient closely thr oughout stay Per orthopedic services hold off on systemic antibiotics until cultures are obtained patient started on IV antibiotic [facility] Infectious disease services following Repeat labs ordered for a.m.
--- NOTE | 2025-01-10 21:46 | P.GSCN ---
History of Present Illness Consult date: 01/10/25 Reason for Consult: Urinary retention Requesting physician: Meenu Werner History of present illness: The patient is a 74-year-old white male with a long history of BPH, which has been managed by taking tamsulosin 0.4 mg twice daily. He previously took alfuzosin. He was followed by Dr. Grant in the past, more recently by Dr. Lai. He was last seen in the office by Dr. Lai in August 2023. His postvoid residual at that time was 16 cc. On January 06, he underwent left knee arthrotomy with polyethylene exchange, irrigation and antibiotic bead placement for an infected left knee prosthetic joint. He developed postoperative urinary retention, and has an indwelling Brush catheter in place. I am consulted for this reason. Review of Systems - Cardiovascular Reports high blood pressure - Genitourinary Reports as per HPI Past Medical History Past Medical History: GERD/Reflux, Hearing Disorder / Deafness, Hyperlipidemia, Hypertension, Osteoarthritis (OA), Prostate Disorder, Sleep Apnea/CPAP/BIPAP Additional Past Medical History / Comment(s): paraesophageal hernia post repair, COVID 19 04/2022, Diverticulosis, Hard of hearing, charcoat joints and feet, moderate peripheral neuropathy of feet, ORTIZ uses CPAP, hx small bowel blockage 09/16, hx anemia, current hiatal hernia. History of Any Multi-Drug Resistant Organisms: None Reported Past Surgical History: Hernia Repair, Joint Replacement, Orthopedic Surgery, Prostate Surgery Additional Past Surgical History / Comment(s): Reconstruction of left foot, ongoing, right shoulder screw placed, right total knee replacement, right/ANKLE foot - plate and screws, bilateral foot surgeries, EGD/barium swallow. COLONOSCOPY, HIATAL HERNIA AND UMBILICAL HERNIA REPAIR, NUMEROUS PICC LINES R/T BONE INFECTIONS, total left knee 08/09/24 Past Anesthesia/Blood Transfusion Reactions: Postoperative Nausea & Vomiting (PONV) Additional Past Anesthesia/Blood Transfusion Reaction / Comm: "Had vomiting with aspiration, experienced Sick Sinus Syndrome during anesthesia 05/14, followed up with Dr Ley and was placed on heart monitor.". No complications with blood transfusions Past Psychological History: No Psychological Hx Reported Additional Psychological History / Comment(s): Single. Retired. No service. Former smoker. Denies alcohol use or abuse. No significant recreational drug use or injection drug use. Animal exposures Smoking Status: Former smoker Past Alcohol Use History: Occasional Additional Past Alcohol Use History / Comment(s): Smoked for 22-23 years, 1ppd, quit in 1988. Past Drug Use History: None Reported - Past Family History Father Family Medical History: AICD/Pacemaker, Osteoarthritis (OA), Thyroid Disorder Mother Family Medical History: Cancer, Hypertension Additional Family Medical History / Comment(s): Colon and ovarian cancer. Medications and Allergies Home Medications Medication Instructions Recorded Confirmed Type Omeprazole [PriLOSEC] 20 mg PO DAILY 11/15/15 01/05/25 History Rosuvastatin Calcium [Crestor] 10 mg PO HS 11/15/15 01/05/25 History Gabapentin [Neurontin] 300 mg PO HS 05/27/16 01/05/25 History Gabapentin [Neurontin] 100 mg PO DAILY 09/13/21 01/05/25 History Ipratropium [place] 0.06%Nasal 2 spr EA NOSTRIL BID 11/14/21 01/05/25 History [Atrovent Nasal 0.06%] Valsartan [Diovan] 80 mg PO BID #60 tab 07/04/22 01/05/25 Rx Cholecalciferol (Vitamin D3) 100 mcg PO DAILY 08/03/24 01/05/25 History [Vitamin D3 (50 Mcg = 2000 Iu)] Tamsulosin [Flomax] 0.4 mg PO BID 08/03/24 01/05/25 History Glucosa Chavarria 2Kcl/Chondroitin Chav[place]ria 1 cap PO HS 09/22/24 01/05/25 History [Glucosamine-Chondroitin Cap] Melatonin 10 mg PO HS 09/22/24 01/05/25 History Mv-Mn/Folic/Lutein/Herbal 293 1 tab PO DAILY 09/22/24 01/05/25 History [Alive Men 50 Plus Premium Chew] Spironolactone [Aldactone] 25 mg PO DAILY 09/22/24 01/05/25 History carvediloL [Coreg] 3.125 mg PO HS 09/22/24 01/05/25 History carvediloL [Coreg] 6.25 mg PO DAILY 09/22/24 01/05/25 History Collagenase [Santyl Ointment] 1 applic TOPICAL DAILY 01/05/25 01/05/25 History Ferrous Sulfate [Iron (65 MG 325 mg PO DAILY 01/05/25 01/05/25 History Elemental)] Krill Oil 500mg 500 mg PO DAILY 01/05/25 01/05/25 History Magnesium Oxide [Mag-Ox] 400 mg PO HS 01/05/25 01/05/25 History Aspirin [Adult Low Dose Aspirin EC] 81 mg PO BID #60 tab 01/10/25 Rx Cyclobenzaprine [Flexeril] 10 mg PO HS PRN #30 tab 01/10/25 Rx HYDROcodone/APAP 5-325MG [[place] 1 tab PO Q6HR PRN #18 tab 01/10/25 Rx 5-325] Sennosides/Docusate Sodium 2 each PO DAILY PRN #30 tablet 01/10/25 Rx [Senna-S 8.6-50 mg Tablet] ceFAZolin [Kefzol] 2 gm IVP Q8HR #120 each 01/10/25 Rx polyethylene glycoL 3350 [Miralax] 17 gm PO DAILY PRN #21 packet 01/10/25 Rx Allergies Allergy/AdvReac Type Severity Reaction Status Date / Time mold Allergy Cough Verified 01/05/25 20:53 pollen extracts Allergy Cough Verified 01/05/25 20:53 dust, polllen, mold Allergy Cough Uncoded 01/05/25 20:53 Surgical - Exam Vital Signs Temp Pulse Resp BP Pulse Ox 97.8 F 60 18 120/60 97 01/05/25 17:20 01/05/25 17:20 01/05/25 17:20 01/05/25 17:20 01/05/25 17:20 - General well developed, well nourished, no distress - Respiratory normal respiratory effort - Genitourinary Brush catheter intact, draining clear yellow urine. - Psychiatric oriented to time, oriented to person, oriented to place, speech is normal, memory intact Results - Labs 01/10/25 02:42 01/10/25 02:42 Abnormal Lab Results - Last 24 Hours (Table) 01/10/25 01/10/25 Range/Units 02:42 02:42 RBC 3.97 L (4.40-5.60) X 10*6/uL Hgb 11.8 L (13.0-17.0) g/dL Hct 34.9 L (39.6-50.0) % Eosinophils # 0.39 H (0.04-0.35) X 10*3/uL Sodium 135 L (137-145) mmol/L Creatinine 0.59 L (0.66-1.25) mg/dL Glucose 109 H (74-99) mg/dL Total Protein 6.0 L (6.3-8.2) g/dL Albumin 2.9 L (3.5-5.0) g/dL Microbiology - Last 24 Hours (Table) 01/06/25 00:00 Blood Culture - Preliminary Blood Diabetes panel 01/10/25 Range/Units 02:42 Sodium 135 L (137-145) mmol/L Potassium 3.9 (3.5-5.1) mmol/L Chloride 99 (98-107) mmol/L Carbon Dioxide 26 (22-30) mmol/L BUN 12 (9-20) mg/dL Creatinine 0.59 L (0.66-1.25) mg/dL Glucose 109 H (74-99) mg/dL Calcium 8.9 (8.4-10.2) mg/dL AST 33 (17-59) U/L ALT 19 (4-49) U/L Alkaline Phosphatase 73 (38-126) U/L Total Protein 6.0 L (6.3-8.2) g/dL Albumin 2.9 L (3.5-5.0) g/dL Calcium panel 01/10/25 Range/Units 02:42 Calcium 8.9 (8.4-10.2) mg/dL Albumin 2.9 L (3.5-5.0) g/dL Pituitary panel 01/10/25 Range/Units 02:42 Sodium 135 L (137-145) mmol/L Potassium 3.9 (3.5-5.1) mmol/L Chloride 99 (98-107) mmol/L Carbon Dioxide 26 (22-30) mmol/L BUN 12 (9-20) mg/dL Creatinine 0.59 L (0.66-1.25) mg/dL Glucose 109 H (74-99) mg/dL Calcium 8.9 (8.4-10.2) mg/dL Adrenal panel 01/10/25 Range/Units 02:42 Sodium 135 L (137-145) mmol/L Potassium 3.9 (3.5-5.1) mmol/L Chloride 99 (98-107) mmol/L Carbon Dioxide 26 (22-30) mmol/L BUN 12 (9-20) mg/dL Creatinine 0.59 L (0.66-1.25) mg/dL Glucose 109 H (74-99) mg/dL Calcium 8.9 (8.4-10.2) mg/dL Total Bilirubin 0.3 (0.2-1.3) mg/dL AST 33 (17-59) U/L ALT 19 (4-49) U/L Alkaline Phosphatase 73 (38-126) U/L Total Protein 6.0 L (6.3-8.2) g/dL Albumin 2.9 L (3.5-5.0) g/dL Assessment and Plan (1) Retention of urine, unspecified Current Visit: Yes Status: Acute Code(s): R33.9 - RETENTION OF URINE, UNSPECIFIED SNOMED Code(s): 199693589 Plan: The patient is to be transferred to a rehab center perhaps as early as tomorrow. The Brush catheter will be removed tomorrow for a voiding trial. If he fails to empty his bladder adequately, catheter replacement will be necessary. He will continue to receive tamsulosin 0.4 mg twice daily. Time with Patient: Greater than 30
[2025-01-11 14:23] VITALS: BP 137/58; PULSE 51; RESP 18; TEMP 97.4
--- NOTE | 2025-01-11 14:23 | P.PN ---
Subjective Progress Note Date: 01/11/25 Principal diagnosis: Reason for follow-up is left knee septic arthritis Patient is 74-year-old male with a past medical history significant for GERD/Reflux, Hearing Disorder / Deafness, Hyperlipidemia, Hypertension, Osteoarthritis (OA), Prostate Disorder, Sleep Apnea/CPAP/BIPAP and did have left total knee arthroplasty July 2024 apparently the patient did have a fall postsurgery and subsequently did have repair of the quadriceps tendon medial retinacular and patellar tendon now being admitted to hospital with concern for possible left knee septic arthritis status post polyethylene exchange and antibiotic bead placement. On today's evaluation that is 01/11/2025, Patient is afebrile this morning patient denies having any chest pain shortness of breath or cough, the patient is currently on room air, patient denies any abdominal pain no diarrhea no nausea no vomiting pain to the left knee is currently controlled. No new lab has been obtained today blood culture has been negative Objective - Vital Signs Vital signs: Vital Signs Temp 98.2 F 01/11/25 02:01 Pulse 45 L 01/11/25 07:15 Resp 16 01/11/25 08:00 BP 171/70 01/11/25 07:15 Pulse Ox 97 01/11/25 07:15 FiO2 Intake & Output 01/10/25 01/11/25 01/11/25 18:59 06:59 18:59 Output Total 400 1250 Balance -400 -1250 Output: Urine 400 1250 Other: Voiding Method Indwelling Catheter Indwelling Catheter # Voids 1 - Exam GENERAL DESCRIPTION: An elderly male in the chair in no distress RESPIRATORY SYSTEM: Unlabored breathing , decreased breath sounds at bases HEART: S1 S2 regular rate and rhythm , ABDOMEN: Soft , no tenderness EXTREMITIES: Left knee is currently dressed - Labs CBC & Chem 7: 01/10/25 02:42 01/10/25 02:42 Labs: Microbiology - Last 24 Hours (Table) 01/06/25 15:00 Anaerobic Culture - Final Knee - Left 01/06/25 15:05 Anaerobic Culture - Final Knee - Left Assessment and Plan (1) Septic arthritis of knee, left Current Visit: Yes Status: Acute Code(s): M00.9 - PYOGENIC ARTHRITIS, UNSPECIFIED SNOMED Code(s): 367113722 Plan: 1patient presented hospital with increasing pain and swelling to the left knee area and this patient who did have prosthetic knee status post arthrotomy and polyethylene exchange likely will need to cover for gram positive skin jayy to be the likely pathogen 2-local culture current growing Staph aureus sensitivities pending blood culture has been negative 3-patient did have a sed rate of 24 CRP is 4.0 4-patient culture have been finalized with [facility] 5patient did get a PICC line currently on IV cefazolin waiting for placement question concern answered Dictation was produced using [employer] dictation software. please excuse any gramma tical, word or spelling errors. Time with Patient: Less than 30
--- NOTE | 2025-01-11 16:43 | P.PN ---
Subjective Progress Note Date: 01/11/25 Principal diagnosis: Postoperative urinary retention The Brush catheter was removed early this morning. The patient has been voiding without difficulty throughout the day. His postvoid residual was just measured at 92 cc. Objective - Vital Signs Vital signs: Vital Signs Temp 97.4 F L 01/11/25 14:23 Pulse 51 L 01/11/25 14:23 Resp 18 01/11/25 14:23 BP 137/58 01/11/25 14:23 Pulse Ox 94 L 01/11/25 14:23 FiO2 Intake & Output 01/10/25 01/11/25 01/11/25 18:59 06:59 18:59 Output Total 400 1250 Balance -400 -1250 Output: Urine 400 1250 Other: Voiding Method Indwelling Catheter Indwelling Catheter # Voids 1 - Constitutional General appearance: Present: average body habitus, cooperative, no acute distress - Psychiatric Psychiatric: Present: A&O x's 3 - Labs CBC & Chem 7: 01/10/25 02:42 01/10/25 02:42 Labs: Microbiology - Last 24 Hours (Table) 01/06/25 15:00 Anaerobic Culture - Final Knee - Left 01/06/25 15:05 Anaerobic Culture - Final Knee - Left Assessment and Plan (1) Retention of urine, unspecified Current Visit: Yes Status: Acute Code(s): R33.9 - RETENTION OF URINE, UNSPECIFIED SNOMED Code(s): 524853734 Plan: The patient is to be transferred to a rehab center this afternoon. He is voiding without difficulty and bladder emptying is adequate. He will continue to receive tamsulosin 0.4 mg twice daily, and follow-up with Dr. Lai.
[2025-01-11] MEDS ORDERED: carvediloL 3.125 MG TAB PO SCH (17:30)
[2025-01-12] MEDS ORDERED: amLODIPine 5 MG TAB PO SCH (09:00)
== END 2025-01-11 17:23 | DRG 486 ==
LOC: EC 16:29 → 4SSUR 18:35
PROVIDERS: ADMIT Orthopaedic Surgery; ATTEND Orthopaedic Surgery
PROC: 0SUW09Z Supplement Left Knee Joint, Tibial Surface with Liner, Open Approach (ICD-10-PCS; 2025-01-06)
PROC: 0LBR0ZZ Excision of Left Knee Tendon, Open Approach (ICD-10-PCS; 2025-01-06)
PROC: 3E0U029 Introduction of Other Anti-infective into Joints, Open Approach (ICD-10-PCS; 2025-01-06)
PROC: 0SPD09Z Removal of Liner from Left Knee Joint, Open Approach (ICD-10-PCS; principal; 2025-01-06 11:15)
PROC: 02HV33Z Insertion of Infusion Device into Superior Vena Cava, Percutaneous Approach (ICD-10-PCS; 2025-01-10)
DX: T84.54XA Infection and inflammatory reaction due to internal left knee prosthesis, initial encounter (principal); L03.116 Cellulitis of left lower limb; M00.062 Staphylococcal arthritis, left knee; I10 Essential (primary) hypertension; B95.61 Methicillin susceptible Staphylococcus aureus infection as the cause of diseases classified elsewhere; K21.9 Gastro-esophageal reflux disease without esophagitis; G47.33 Obstructive sleep apnea (adult) (pediatric); N40.1 Benign prostatic hyperplasia with lower urinary tract symptoms; R33.8 Other retention of urine; E78.5 Hyperlipidemia, unspecified; H91.90 Unspecified hearing loss, unspecified ear; Y79.2 Prosthetic and other implants, materials and accessory orthopedic devices associated with adverse incidents; Y83.1 Surgical operation with implant of artificial internal device as the cause of abnormal reaction of the patient, or of later complication, without mention of misadventure at the time of the procedure; Z96.653 Presence of artificial knee joint, bilateral; Z86.16 Personal history of COVID-19; Z87.891 Personal history of nicotine dependence; Z79.82 Long term (current) use of aspirin; Z79.899 Other long term (current) drug therapy; Z91.81 History of falling; Z87.39 Personal history of other diseases of the musculoskeletal system and connective tissue; Z75.1 Person awaiting admission to adequate facility elsewhere
CPT/HCPCS: 36415; 36573; 80053; 80202; 83605; 85025; 85610; 85652; 85730; 86140; 87040; 87070; 87075; 87077; 87186; 87205; 99284